=== PATIENT | male | born 1950 | race Caucasian/White ===

== ENCOUNTER 2019-04-19 14:08 | Inpatient (IN) ==
[2019-04-19] MEDS ORDERED: Naloxone 0.4 MG/ML INJ IVP PRN (20:52)
--- NOTE | 2019-04-19 20:56 | Internal Med History&Physical ---
<Zander Alfredo - Last Filed: 04/19/19 22:31> Date of Encounter: 04/19/19 Internal Medicine - H&P: HPI History of present illness: Mr. Davison is a 69 year old male Internal Medicine - H&P: Meds Apixaban [Eliquis] 5 mg PO BID 04/19/19 [History] Aspirin 81 mg PO QAM 04/19/19 [History] Ezetimibe [Zetia] 10 mg PO QAM 04/19/19 [History] Furosemide [Lasix] 20 mg PO TID 04/19/19 [History] Ipratropium Neb [Atrovent Neb] 0.5 mg IH QID 04/19/19 [History] Levalbuterol Neb [Xopenex Neb] 0.63 mg IH QID 04/19/19 [History] Metoprolol [Lopressor] 25 mg PO BID 04/19/19 [History] Mometasone/Formoterol [Dulera 200 Mcg/5 Mcg Inhaler] 13 gm IH BID 04/19/19 [History] Multivitamin PO QAM 04/19/19 [History] Nicotine Patch [Nicoderm] 14 mg TD DAILY 04/19/19 [History] dilTIAZem HCl [Diltiazem ER] 240 mg PO QAM 04/19/19 [History] Allergy/AdvReac Type Severity Reaction Status Date / Time Penicillins AdvReac Dizziness Verified 04/19/19 10:50 All Systems PM: A 10-system review of systems was performed and is negative for pertinent findings except as documented above in the HPI. - Constitutional Vitals: Temp Pulse Resp BP Pulse Ox 98.1 F 113 18 110/74 97 04/19/19 20:12 04/19/19 21:35 04/19/19 20:12 04/19/19 20:12 04/19/19 20:12 Internal Med - H&P Results - Labs Labs: Cardiac Enzymes 04/19/19 Range/Units 21:19 Troponin I 0.05 H* (< 0.04) ng/mL - Time Spent With Patient Total time spent is greater than 50% in coordination of care (as documented) at patient's floor/unit and/or counseling patient: - Attending Attestation I performed a history and physical examination of the patient and discussed his management with the resident. I reviewed the resident's note and agree with the assessment and plan of care. In short patient is a 69-year-old male with a past medical history of CHF, atrial fibrillation on anticoagulation and recent diagnosis of small cell lung cancer now on chemotherapy who presented to the ED due to worsening shortness of breath. Patient states she has been having dyspnea on exertion for the past couple weeks however developed worsening shortness of breath over the past few days since receiving his last chemotherapy treatment on Saturday. Patient does state that he ran out of his Lasix and took his last dose on Saturday as well. Patient also had chest pain on described as substernal, pressure-like, nonradiating associated shortness of breath. Patient called the squad at the time and were able to get him to slow his breathing down after which his chest pain resolved. He declined admission at the time. Patient denies any fever or chills. Does endorse a cough and has been nonproductive. Denies any chest pain at this time. Patient initially presented to [facility] where imaging showed a large right-sided pleural effusion. No evidence of leukocytosis. Troponin was found to be mildly elevated at 0.04. On my assessment patient was lying in bed on nasal cannula with no evidence of respiratory distress. Patient has diminished breath sounds on the right lung base. Heart rate was irregularly irregular in the 120s. Does have 2+ lower extremity edema bilaterally. Patient has had prior right-sided pleural effusion that was drained in the past. Dyspnea possibly secondary to reaccumulation of right-sided pleural effusion plus or minus CHF exacerbation. Low suspicion for any infectious etiology at this time as patient has no fever or white count. We will send for CTA to rule out PE and reassess degree of pleural fluid. Strict I's and O's; daily weights. We will obtain an echocardiogram. We will start patient on 20 mg of Lasix IV push twice a day. Pulmonary/oncology consult. <Ruby Heredia - Last Filed: 04/19/19 23:18> Date of Encounter: 04/19/19 Time of Encounter: 20:30 Internal Medicine - H&P: HPI Chief complaint: shortness of breath Admitted From: Hospital to Hospital Transfer Plans for Post Hospital Care: Home History of present illness: Mr. Davison is a 69 year old male with past medical history of CHF, AR, A. fib on L Maki, small cell lung cancer recently diagnosed on chemotherapy. Patient states that he had some chest pain he called the EMS and then decided not to go to the hospital because his pain subsided. Over the next few days he had increased shortness of breath and work to breathe for which his breathing treatments at home were not working. He decided to go to the hospital as he felt that his breathing was going downhill. He states that he ran out of Lasix on Saturday was given in 20 mg dose of his Lasix in the EMS. Patient was put on CPAP which she stated helped his breathing substantially. He was unable to be weaned off CPAP and was on 5 L of oxygen sat in the lower 90s. He was also given a dose of Levaquin. Chest x-ray was performed at [facility] showing volume loss in the right with large right pleural effusion and complete atelectasis of the right lower lobe and right middle lobe, patchy opacities in the right upper lobe, no pneumothorax, left lung clear. White blood cell count of 10.2 hemoglobin 9.3, hematocrit 30, INR 1.8, VBG pH of 7.41, creatinine 0.52, GFR greater than 60, LDH of 319, troponin of 0.05, BNP of 201 Vitals on admission 97.9 temperature, heart rate of 121, respiratory rate 20, wedge pressure of 125/91, and 94% oxygen saturation on 5 L by nasal cannula Patient states that he quit smoking mid-January as well as quit drinking at the beginning of January, denies any illicit drug use Family history father had liver cancer and AR, mother had AR Past Med Surg Social Fam HX - Past Medical History Medical history: atrial fibrillation, cancer, CHF, COPD, hyperlipidemia, hypertension - Past Surgical History Surgical History: vascular surgery - Social History Smoking Status: Former smoker Alcohol use: none Drug use: none - Family History Father Living Status: Age at : 72 Cause of : AR Hx Family Cardiac Disorders: Yes (AR) Hx Family Respiratory Disorders: No Hx Family Cancer: No Hx Family GI Disorders: No Hx Family Genitourinary Disorders: No Hx Family Endocrine Disorder: No Hx Family Musculoskeletal Disorders: No Hx Family Neuromuscular Disorders: No Hx Family Neurologic Disorders: No Hx Family HEENT Disorders: No Hx Family Autoimmune Disorders: No Hx Family Reproductive Disorders: No Hx Family Psychosocial Disorders: No Hx Family Medical Disorders: No Mother Living Status: Age at : 72 Cause of : AR Hx Family Cardiac Disorders: Yes (AR) Hx Family Respiratory Disorders: No Hx Family Cancer: No Hx Family GI Disorders: No Hx Family Genitourinary Disorders: No Hx Family Endocrine Disorder: No Hx Family Musculoskeletal Disorders: No Hx Family Neuromuscular Disorders: No Hx Family Neurologic Disorders: No Hx Family HEENT Disorders: No Hx Family Autoimmune Disorders: No Hx Family Reproductive Disorders: No Hx Family Psychosocial Disorders: No Hx Family Medical Disorders: No All Systems PM: A 10-system review of systems was performed and is negative for pertinent findings except as documented above in the HPI. - Constitutional Constitutional: fatigue, weakness, no anorexia, no chills, no fever(s) - EENT Eyes: no change in vision Nose, mouth and throat: no dry mouth, no nasal congestion, no sinus pressure, no sore throat - Cardiovascular Cardiovascular ROS IM: chest pain ( but has not had any since then), dyspnea, dyspnea on exertion, edema, no irregular heart rhythm, no palpitations, no syncope - Respiratory Respiratory: cough, dyspnea, dyspnea on exertion, no wheezing, no chest congestion, no excessive phlegm production - Gastrointestinal Gastrointestinal: no constipation, no diarrhea, no nausea, no vomiting - Genitourinary Genitourinary ROS male: no urinary frequency, no urinary hesitancy, no urinary incontinence, no urinary urgency - Musculoskeletal Musculoskeletal ROS IM: no back pain, no joint swelling - Integumentary Integumentary IM: no erythema, no pruritus, no rash - Constitutional Vitals: Temp Pulse Resp BP Pulse Ox 98.1 F 127 18 110/74 97 04/19/19 20:12 04/19/19 20:12 04/19/19 20:12 04/19/19 20:12 04/19/19 20:12 Exam: General: AAO 3, answers questions appropriately, mild distress Head: normocephalic, atraumatic Eyes: KALYANI, no icterus Mouth: Mucous membranes moist Neck: No lymphadenopathy, trachea midline Cardio: RRR, no mumurs, rubs, or gallops Respiratory: Decreased breath sounds throughout the right lung, left lung clear to auscultation with no wheezing, crackles, rails. Abd: normal bowel sounds, no gaurding or rigidity Extremties: 2+ pitting bilateral edema lower extremities, pulses equal bilaterally, warm Skin: warm, dry, intact - Assessment and Plan (1) Acute on chronic respiratory failure with hypoxia Current Visit: Yes Status: Acute Assessment and plan: Possibly secondary to pleural effusion first chemotherapy versus infection versus PE CTA ordered Infection less likely due to white blood cell count within normal limits, no fevers or chills Chemotherapy carboplatin and Neulasta can cause respiratory acidosispatient currently looks to have more of a metabolic alkalosis present Chest x-ray showed a loss on the right with large right pleural effusion, complete atelectasis on the right lower lobe, right middle lobe. Patchy airspace opacities involving the right upper lobe area concern for central obstructing lesion and postobstructive pneumonitis. Left lung clear, no pneumothorax identified. Continue oxygen supplementation. Reassess for need for CPAP depending on clinical picture Consider pulmonology consult based on CTA results (2) Acute on chronic congestive heart failure Current Visit: Yes Status: Acute Assessment and plan: Patient has history of CHF Has been on Lasix 20 mg 3 times a day Patient ran out of his Lasix on Saturday was given 1 dose of 20 mg orally via EMT en route [facility] We will give 1 dose 20 mg IV push We will reassess patient's fluid status after this Echocardiogram ordered Strict I's and O's Cardiac monitoring daily weights Qualifiers: Heart failure type: unspecified Qualified Code(s): I50.9 - Heart failure, unspecified (3) Chronic atrial fibrillation Current Visit: No Status: Acute Assessment and plan: Patient currently on eliquis and metoprolol for rate control We will hold eliquis for possible intervention for pleural effusion tomorrow (4) Small cell carcinoma of right lung Current Visit: No Status: Acute Assessment and plan: Patient has small cell lung cancer in the right lung currently on carboplatin, etoposide, Neulasta just finished second round of chemotherapy on Saturday Patient was noted to have a pleural effusion that was malignant effusion previously with 2 L drained (5) Elevated troponin Current Visit: No Status: Acute Assessment and plan: Patient's troponin was 0.05 at [facility] We will trend troponins every 6 Likely demand ischemia (6) DVT prophylaxis Current Visit: Yes Status: Acute Assessment and plan: Patient on eliquis - Time Spent With Patient Total time spent is greater than 50% in coordination of care (as documented) at patient's floor/unit and/or counseling patient:
[2019-04-19] MEDS ORDERED: Nitroglycerin 0.4 MG TAB.SUBL SL PRN (21:29)
[2019-04-19] MEDS ORDERED: Isovue-370 500 ML BOTTLE IVP ONE (21:30)
[2019-04-19] MEDS ORDERED: *HR* Metoprolol 5 MG/5 ML VIAL IVP ONE (21:46)
[2019-04-19] MEDS ORDERED: Furosemide 20 MG/2 ML VIAL IVP ONE (22:40)
[2019-04-20] MEDS: Levalbuterol Neb 0.63 MG/3 ML IH SCH ×4 (04:02→22:10)
[2019-04-20] MEDS: Ipratropium Neb 0.5 MG NEBULIZER IH SCH ×4 (04:02→22:10)
[2019-04-20] MEDS: Furosemide 20 MG/2 ML VIAL IVP SCH ×3 (04:57→21:09)
[2019-04-20] MEDS: Diltiazem CD (24hr) 240 MG CAPSULE PO SCH (07:58)
--- NOTE | 2019-04-20 08:09 | Internal Med Progress Note ---
Hospitalist Progress Note - Encounter Date of Encounter: 04/20/19 Time of Encounter: 08:00 - Subjective Interval History: Admitted for hypoxic resp failure 2/2 to pleural effusion. No acute events overnight - Exam Vitals: Temp Pulse Resp BP Pulse Ox 98.7 F 123 16 102/64 96 04/20/19 06:32 04/20/19 06:32 04/20/19 06:32 04/20/19 06:32 04/20/19 06:32 Exam: General: AAO 3, answers questions appropriately, mild distress Head: normocephalic, atraumatic Eyes: KALYANI, no icterus Mouth: Mucous membranes moist Neck: No lymphadenopathy, trachea midline Cardio: RRR, no mumurs, rubs, or gallops Respiratory: Decreased breath sounds throughout the right lung, left lung clear to auscultation with no wheezing, crackles, rails. Abd: normal bowel sounds, no gaurding or rigidity Extremties: 2+ pitting bilateral edema lower extremities, pulses equal bilaterally, warm Skin: warm, dry, intact - Assessment and Plan (1) Acute on chronic respiratory failure with hypoxia Current Visit: Yes Status: Acute Assessment and Plan: Likely secondary to recurrent malignant pleural effusion and pneumonia Continue empiric levaquin coverage Had thoracentesis done with removal of 1.4L of fluid. Follow up pleural fluid studies Will need pleurx catheter wheel presser (2) Acute on chronic congestive heart failure Current Visit: Yes Status: Acute Assessment and Plan: Has CHF, unknown EF and has edema bilaterally Will continue lasix. Obtain 2D echo (3) Lung cancer Current Visit: Yes Status: Acute Assessment and Plan: Currently on chemotherapy. Oncology consulted and recs appreciated (4) Recurrent pleural effusion on right Current Visit: Yes Status: Acute Assessment and Plan: See #1. Follow up pleural studies Will need pleurx catheter skilled nursing. Discussed with patient Can be performed outpatient (5) COPD (chronic obstructive pulmonary disease) Current Visit: Yes Status: Chronic Assessment and Plan: No acute exacerbation. continue nebs PRN (6) Chronic atrial fibrillation Current Visit: Yes Status: Acute Assessment and Plan: Continue metoprolol. Resume eliquis (7) DVT prophylaxis Current Visit: Yes Status: Acute Assessment and Plan: On eliquis - Time Spent with Patient Total time spent is greater than 50% in coordination of care (as documented) at patient's floor/unit and/or counseling patient: Internal Medicine: Result - Labs CBC & Chem 7: 04/20/19 06:59 04/20/19 06:59 Labs: Cardiac Enzymes 04/19/19 Range/Units 21:19 Troponin I 0.05 H* (< 0.04) ng/mL - Impressions Impressions Chest CTA 04/19/19 21:30 IMPRESSION: 1. No evidence of pulmonary embolism. 2. Redemonstration of a large soft tissue mass in the right hilum and mediastinum without significant change from 03/10/2019 likely representing a primary bronchogenic carcinoma. 3. Large right pleural effusion with complete atelectasis of the right middle and lower lobes. 4. Patchy consolidative opacities in the right upper lobe more organized than on 03/10/2019. This may represent multifocal pneumonia with neoplastic involvement not excluded. D/ / Slim Adkins MD / Slim Adkins MD Interpreting Provider: Slim Adkins MD Consult Discharge Plan - Plan Referrals: Emmanuel Jim MD [Primary Care Provider] - (2) Acute on chronic congestive heart failure Qualifiers: Heart failure type: unspecified Qualified Code(s): I50.9 - Heart failure, unspecified (5) COPD (chronic obstructive pulmonary disease) Qualifiers: COPD type: unspecified COPD Qualified Code(s): J44.9 - Chronic obstructive pulmonary disease, unspecified
[2019-04-20 08:18] LABS: Hematocrit 28.2 % (37.5-50.1); Hemoglobin 8.5 g/dL (12.9-16.9); Immature Granulocytes % 0.7 % (0-4); Lymphocytes # 0.1 K/mcL (0.6-4.6); Lymphocytes % 1.6 %; Mean Corpuscular HGB Conc 30.1 g/dL (31.6-35.5); Mean Corpuscular Hemoglobin 28.7 pg (28.0-33.3); Mean Corpuscular Volume 95.3 fL (83.0-100.0); Mean Platelet Volume 9.3 fL (9.4-12.4); Monocytes % 0.4 %; Neutrophils # 7.4 K/mcL (1.6-8.9); Platelet Count 455 K/mcL (140-400); Red Blood Count 2.96 M/mcL (4.19-5.50); Segmented Neutrophils % 97.3 %; White Blood Count 7.6 K/mcL (4.3-11.1)
[2019-04-20] MEDS: Levofloxacin 750 MG/150 ML 750 MG/150 ML BAG IVPB SCH (08:21)
[2019-04-20 08:23] LABS: INR 1.3; Prothrombin Time 14.1 Seconds (9.4-12.1)
[2019-04-20 08:26] LABS: Activated Partial Thrombo Time 29.6 Seconds (26.0-36.0)
[2019-04-20 08:46] LABS: Alanine Aminotransferase 78 Units/L (7-52); Albumin 4.1 g/dL (3.5-5.7); Albumin/Globulin Ratio 1.5 (1.1-2.2); Alkaline Phosphatase 73 Units/L (34-104); Aspartate Amino Transferase 40 Units/L (13-39); BUN/Creatinine Ratio 49 (6-26); Bilirubin,Total 0.5 mg/dL (0.3-1.0); Blood Urea Nitrogen 20 mg/dL (8-23); Calcium 9.5 mg/dL (8.6-10.3); Carbon Dioxide 40 mEq/L (23-29); Chloride 95 mEq/L (98-107); Globulin 2.8 g/dL (2.4-3.5); Glucose 146 mg/dL (70-105); Magnesium 2.1 mg/dL (1.6-2.6); Osmolality,Calculated 297 (280-300); Potassium 4.2 mEq/L (3.5-5.1); Sodium 141 mEq/L (136-145); Total Protein 6.9 g/dL (6.4-8.9); eGFR For African Americans > 60 (> 60); eGFR For Non-African Americans > 60 (> 60)
[2019-04-20 09:00] LABS: Platelet Estimate Normal (Normal)
[2019-04-20] MEDS ORDERED: NON-FORMULARY MEDICATION 1 EACH EACH (Ezetimibe [Zetia] 10 MG) PO SCH (09:00)
--- NOTE | 2019-04-20 11:07 | Procedure Note ---
<Cordelia Brown - Last Filed: 04/20/19 11:07> Date of procedure: 04/20/19 Pre-op diagnosis: Right pleural effusion Post-op diagnosis: same Procedure: Thoracentesis Date: 04/20/19 Time: 1107 Indication: Large Right pleural effusion Resident: Cordelia Brown DO Attending: Dr. Ascencio A time-out was completed verifying correct patient, procedure, site, positioning, and special equipment if applicable. The patients right side was p repped and draped in a sterile manner after the appropriate infiltration level was confirmed by ultrasound. 1% lidocaine was used anesthetize the surrounding skin. A finder needle was then used to locate fluid and clear yellow fluid was obtained. A 10-blade scalpel used to make the incision. The thoracentesis catheter was then threaded without difficulty. The patient had 1400 ml of serosanguineous fluid removed. My attending, Dr. Ascencio was present for the entire procedure. A post-procedure chest x-ray was ordered and the fluid will be sent for several studies. Estimated Blood Loss: < 5 ml The patient tolerated the procedure well and there were no complications. Anesthesia: local Was there an medical assistant float present: Yes Refrigerator Repairman: John Ascencio Estimated blood loss (cc): 5 Specimen: Pleural fluid Pathology: other (sent to lab) Condition: stable Disposition: no change <John Ascencio - Last Filed: 04/20/19 12:22> Procedure: I examined this patient and my medical decision-making was reviewed with the Resident Physician. I agree with the documented findings, disposition and treatment plan as described except to the extent set forth below. I personally supervised Dr. Brown performing the procedure without immediate complications.
[2019-04-20] MEDS: Budesonide/Formoterol 160/4.5 1 PUFF INH IH SCH ×2 (11:35→22:10)
--- NOTE | 2019-04-20 12:25 | Pulmonology Consult Note ---
Date of Encounter: 04/22/19 Time of Encounter: 10:50 Assessment and Plan (1) Recurrent pleural effusion on right Current Visit: Yes Status: Acute I have explained to the patient in the presence of the nurse about thoracentesis and since he has had this procedure recently and the fluid reaccumulated, I have recommended Pleurx pleural catheter and he can discuss that with his oncologist. I have explained to him all the risks, alternatives and benefits of the procedure, especially bleeding and he understand and he agreed to have it done, which was successfully done and patient had quit result and able to breathe easier. This was discussed with primary team and thank you for consultation. Fluid will be sent for analysis. (2) Small cell carcinoma of right lung Current Visit: No Status: Acute Patient is following up with oncology. (3) COPD (chronic obstructive pulmonary disease) Current Visit: Yes Status: Chronic I do not feel this is a COPD exacerbation and to treat with bronchodilator is appropriate and need for systemic steroid. Qualifiers: COPD type: unspecified COPD Qualified Code(s): J44.9 - Chronic obstructive pulmonary disease, unspecified (4) Hypotension Current Visit: Yes Status: Acute Rapid response was called and blood pressure was found to be low and my kwong spicion there is fluid and possibly affecting his blood pressure. Patient will need to be challenge with fluid and then albumin may be helpful. Patient might need to be on vasopressor if his blood pressure does not improve. Central line was placed and discussed with primary team. Patient will be treated as ICU patient in 2 N. because there are no beds in ICU at this time. Patient is more responsive, however his systolic arterial blood pressure around 80s and will need to check CT chest and because of his underlying malignancy he is at risk for thromboembolic disease and need to make sure there is no pulmonary embolism which is less likely, however he will need CT chest for better visualization. With the fluid reaccumulation quickly, that is a poor prognosis. Again, most likely he will need Pleurx pleural catheter. I spent 35 min of Critical Care time with this patient. It involved decision making of high complexity to assess, manipulate, and support vital organ system failure and/or to prevent further life threatening deterioration of the patient's condition. The time involved in the performance of separately reportable procedures was not counted toward critical care time. Qualifiers: Hypotension type: unspecified hypotension type Qualified Code(s): I95.9 - Hypotension, unspecified History of Present Illness Consult date: 04/20/19 Requesting physician: Nita Mccloud Reason for consult: pleural effusion Chief complaint: Shortness of breath History of present illness: This is a very pleasant 69-year-old male with multiple medical problems and di agnosis of small cell lung cancer on chemotherapy. Pulmonary was consulted to evaluate this patient shortness of breath and large pleural effusion which was recently drained in [place]. Patient is stated after fluid was drained his breathing has improved and he started having more shortness of breath and increase work of breathing and he was transferred to [facility] for that reason. When he was placed on positive airway pressure his breathing has improved and patient has been on oxygen. Chest x-ray and CT chest showed evidence of large pleural effusion with atelectasis mainly in the right side. Patient denies any significant productive cough or chest pain and he has no hemoptysis. Again, he follows up in the cancer center for his treatment. Past Med Surg Social Fam HX - Past Medical History Medical history: atrial fibrillation, cancer, CHF, COPD, hyperlipidemia, hypertension - Past Surgical History Surgical History: vascular surgery - Social History Smoking Status: Former smoker Alcohol use: none Drug use: none - Family History Father Living Status: Age at : 72 Cause of : OR Hx Family Cardiac Disorders: Yes (OR) Hx Family Respiratory Disorders: No Hx Family Cancer: No Hx Family GI Disorders: No Hx Family Genitourinary Disorders: No Hx Family Endocrine Disorder: No Hx Family Musculoskeletal Disorders: No Hx Family Neuromuscular Disorders: No Hx Family Neurologic Disorders: No Hx Family HEENT Disorders: No Hx Family Autoimmune Disorders: No Hx Family Reproductive Disorders: No Hx Family Psychosocial Disorders: No Hx Family Medical Disorders: No Mother Living Status: Age at : 72 Cause of : OR Hx Family Cardiac Disorders: Yes (OR) Hx Family Respiratory Disorders: No Hx Family Cancer: No Hx Family GI Disorders: No Hx Family Genitourinary Disorders: No Hx Family Endocrine Disorder: No Hx Family Musculoskeletal Disorders: No Hx Family Neuromuscular Disorders: No Hx Family Neurologic Disorders: No Hx Family HEENT Disorders: No Hx Family Autoimmune Disorders: No Hx Family Reproductive Disorders: No Hx Family Psychosocial Disorders: No Hx Family Medical Disorders: No Medications and Allergies Apixaban [Eliquis] 5 mg PO BID 04/19/19 [History] Aspirin 81 mg PO QAM 04/19/19 [History] Ezetimibe [Zetia] 10 mg PO QAM 04/19/19 [History] Furosemide [Lasix] 20 mg PO TID 04/19/19 [History] Ipratropium Neb [Atrovent Neb] 0.5 mg IH QID 04/19/19 [History] Levalbuterol Neb [Xopenex Neb] 0.63 mg IH QID 04/19/19 [History] Metoprolol [Lopressor] 25 mg PO BID 04/19/19 [History] Mometasone/Formoterol [Dulera 200 Mcg/5 Mcg Inhaler] 13 gm IH BID 04/19/19 [History] Multivitamin PO QAM 04/19/19 [History] Nicotine Patch [Nicoderm] 14 mg TD DAILY 04/19/19 [History] dilTIAZem HCl [Diltiazem ER] 240 mg PO QAM 04/19/19 [History] Allergy/AdvReac Type Severity Reaction Status Date / Time Penicillins AdvReac Dizziness Verified 04/19/19 10:50 All Systems: The remainder of the systems were reviewed and are negative Physical Examination Vital Signs: Vital Signs, Last 4 Hours Temp Pulse Resp BP Pulse Ox 04/20/19 11:34 18 95 04/20/19 11:11 98.1 F 96 16 89/67 98 General appearance: appears uncomfortable Eyes: nonicteric ENT: oropharynx dry Neck: supple Effort: mildly labored Auscultation: left: rhonchi, right: diminished breath sounds Percussion: right: dull Cardiovascular: regular rate and rhythm Gastrointestinal: normoactive bowel sounds, non-distended Integumentary: normal Extremities: no cyanosis normal mental status, non-focal exam mood appropriate Results - Laboratory Findings CBC and BMP: 04/22/19 04:00 04/22/19 04:00 PT/INR, D-dimer PT 14.1 Seconds (9.4-12.1) H 04/20/19 06:59 Abnormal lab findings: Abnormal lab results RBC 2.96 M/mcL (4.19-5.50) L 04/20/19 06:59 Hgb 8.5 g/dL (12.9-16.9) L 04/20/19 06:59 Hct 28.2 % (37.5-50.1) L 04/20/19 06:59 MCHC 30.1 g/dL (31.6-35.5) L 04/20/19 06:59 RDW 15.0 % (11.5-14.5) H 04/20/19 06:59 Plt Count 455 K/mcL (140-400) H 04/20/19 06:59 MPV 9.3 fL (9.4-12.4) L 04/20/19 06:59 0.1 K/mcL (0.6-4.6) L 04/20/19 06:59 PT 14.1 Seconds (9.4-12.1) H 04/20/19 06:59 Chloride 95 mEq/L (98-107) L 04/20/19 06:59 Carbon Dioxide 40 mEq/L (23-29) H* 04/20/19 06:59 0.41 mg/dL (0.70-1.30) L 04/20/19 06:59 49 (6-26) H 04/20/19 06:59 Glucose 146 mg/dL (70-105) H 04/20/19 06:59 POC Glucose 118 mg/dL (70-99) H 04/20/19 11:13 AST 40 Units/L (13-39) H 04/20/19 06:59 ALT 78 Units/L (7-52) H 04/20/19 06:59 0.06 ng/mL (< 0.04) H* 04/20/19 06:59 - Diagnostic Findings CT scan - chest: report reviewed, image reviewed - Clinical Findings Intake & Output: Intake & Output 04/19/19 04/20/19 04/20/19 23:59 07:59 15:59 Output Total 150 / 150 950 / 1450 500 / 1450 Balance -150 / -150 -950 / -1450 -500 / -1450 Weight 96 kg 95 kg Consult Discharge Plan - Plan Referrals: Emmanuel Jim MD [Primary Care Provider] -
[2019-04-20 13:04] LABS: Troponin I 0.06 ng/mL (< 0.04)
[2019-04-20] MEDS ORDERED: 0.9 % Sodium Chloride 1,000 ML ONE ×2 (14:22→15:53)
[2019-04-20] MEDS ORDERED: *HR* FentaNYL (PF) 100 MCG/2 ML VIAL ONE (14:38)
[2019-04-20 14:54] LABS: ABG Base Excess 7 mEq/L (-2 to 3); ABG HCO3 32 mEq/L (21-27); ABG Oxygen Saturation 100 % (95-98); ABG PCO2 46 mmHg (35-45); ABG PH 7.45 pH Units (7.32-7.45); ABG PO2 343 mmHg (85-104); ABG TCO2 33 mEq/L (20-26)
[2019-04-20] MEDS ORDERED: Amiodarone Premix 150 MG/100 ML BAG IVPB ONE (15:24)
[2019-04-20] MEDS ORDERED: Amiodarone Premix 360 MG/200 ML BAG IVC ONE (15:24)
[2019-04-20] MEDS ORDERED: Amiodarone Premix 360 MG/200 ML BAG IVC SCH (15:30)
--- NOTE | 2019-04-20 15:42 | Event Note ---
Date of Encounter: 04/20/19 Time of Encounter: 16:00 Rapid response was called at 2.21pm. Patient was reportedly unresponsive. He had a thoracentesis earlier today. On arrival at the bedside his hands and feet were cold and clammy, and he was hypotensive and tachycardic. Systolic BP was in the 70s. We started a bolus of normal saline and obtained an EKG stat. EKG showed afib with RVR. With his hypotension, he got cardioverted, but his BP remained in the 70s. He was started on a levophed drip and a central line was placed. His systolic BP is in the 90s and HR ranges from low 100s -high 120s. He is being started on an amiodarone drip. Cardiology has been consulted Blood sugar was WNL. Follow up cxr, cardiac enzymes. ABG on 100% FiO2 showed ph 7.4, PCO2 46 and PO2 of 345. Will broaden antibiotic coverage Will continue to monitor
--- NOTE | 2019-04-20 16:00 | Procedure Note ---
<Juan Pablo Morales - Last Filed: 04/20/19 15:49> Date of procedure: 04/20/19 Pre-op diagnosis: Hypotension Post-op diagnosis: same Procedure: Procedure Note: Central Venous Catheter Insertion Indication: Shock Attending Physician: Jhon Ascencio MD Joinery Patternmaker: Juan Pablo Morales, DO Consent: The patient was acutely hypotensive Technique: A time out was preformed identifying the correct procedure, the correct location with the nursing staff. The left neck was prepped with 2% chlorhexidine and draped with a full length sterile sheet in the usual fashion. Attempted to access the left IJ multiple times under ultrasound guidance, and was able to visualize needle entering vessel however did not see flash of blood. Dr. Ascencio was able to access the vessel using angiocath successfully. A triple lumen was inserted via the seldinger technique. Blood was withdrawn from all lumens and flushed with normal saline. The catheter was sutured in place and a sterile dressing was applied over the site prior to removal of drapes. The patient tolerated the procedure well and there were no complications. Chest x ray: Tip appears to terminate in the SVC above the cavoatrial junction however no obvious pneumothorax noted EBL: 3-5cc Complication: None Anesthesia: local Surgeon: Juan Pablo Morales Was there an chef assistant present: Yes [place]um Roofer: John Ascencio Estimated blood loss (cc): 3 Specimen: n/a Pathology: none sent Condition: critical Disposition: ICU <John Ascencio - Last Filed: 04/20/19 16:06> Procedure: The history, physical exam, and medical decision making was performed by the medical student either while I was physically present and actively involved or I personally re-performed the exam and medical decision making. I have verified the accuracy of the medical student's documentation with regards to the history, physical exam findings, and medical decision making. I have personally supervised and Dr. Morales placing central line without immediate complications.
[2019-04-20 16:32] LABS: RBC,Pleural Fluid 0.002 M/mcL
[2019-04-20 16:45] LABS: Appearance of Pleural Fl Clear (Clear)
[2019-04-20] MEDS: Cefepime HCl 2,000 MG in Water for inj. (sterile) 20 ML 20 ML IVP SCH (16:56)
[2019-04-20 16:57] LABS: Total Protein,Pleural Fluid 3.1 g/dL
[2019-04-20] MEDS ORDERED: 0.9 % Sodium Chloride 1,000 ML IVC ONE (16:59)
[2019-04-20] MEDS: Norepinephrine 4 MG in D5% in Water 250 ML IVC SCH (17:08)
[2019-04-20] MEDS ORDERED: Apixaban 5 MG TABLET PO SCH (21:00)
[2019-04-20 22:05] LABS: Hematocrit 16.6 % (37.5-50.1); Mean Corpuscular HGB Conc 31.3 g/dL (31.6-35.5); Mean Corpuscular Hemoglobin 29.4 pg (28.0-33.3); Mean Corpuscular Volume 93.8 fL (83.0-100.0); Platelet Count 288 K/mcL (140-400); Red Blood Count 1.77 M/mcL (4.19-5.50); Red Cell Distribution Width 14.5 % (11.5-14.5); White Blood Count 19.1 K/mcL (4.3-11.1)
[2019-04-20 22:13] LABS: Hemoglobin 5.2 g/dL (12.9-16.9)
[2019-04-20] MEDS ORDERED: 0.9 % Sodium Chloride 250 ML ONE (23:47)
[2019-04-21] MEDS: Norepinephrine 4 MG in D5% in Water 250 ML IVC SCH ×3 (04:16→19:42)
[2019-04-21] MEDS: Levalbuterol Neb 0.63 MG/3 ML IH SCH ×4 (04:22→22:14)
[2019-04-21] MEDS: Ipratropium Neb 0.5 MG NEBULIZER IH SCH ×4 (04:22→21:48)
[2019-04-21] MEDS: Cefepime HCl 2,000 MG in Water for inj. (sterile) 20 ML 20 ML IVP SCH ×2 (06:06→17:31)
--- NOTE | 2019-04-21 07:53 | Internal Med Progress Note ---
Hospitalist Progress Note - Encounter Date of Encounter: 04/21/19 Time of Encounter: 07:50 - Subjective Interval History: Had a thoracentesis doen in last 24hrs. Was hypotensive and tachycardic and a rapid response was called. he was started on levophed CT showed new hemothorax. He is being seen by CT surgery today - Exam Vitals: Temp Pulse Resp BP Pulse Ox 98.7 F 122 15 106/84 98 04/21/19 07:33 04/21/19 07:33 04/21/19 07:33 04/21/19 07:33 04/21/19 07:33 Exam: General: AAO 3, answers questions appropriately, mild distress Head: normocephalic, atraumatic Eyes: KALYANI, no icterus Mouth: Mucous membranes moist Neck: No lymphadenopathy, trachea midline Cardio: RRR, no mumurs, rubs, or gallops Respiratory: Decreased breath sounds throughout the right lung, left lung clear to auscultation with no wheezing, crackles, rails. Abd: normal bowel sounds, no gaurding or rigidity Extremties: 2+ pitting bilateral edema lower extremities, pulses equal bilaterally, warm Skin: warm, dry, intact - Assessment and Plan (1) Hypovolemic shock Current Visit: Yes Status: Acute Assessment and Plan: Pt went into hypovolemic shock yesterday secondary to acute blood loss from hemothorax He had an uneventful thoracentesis at around 11pm yesterday and at around 2.20 pm a rapid response was called for unresponsiveness He was noted to be clammy, hypotensive and tachycardic. EKG was done stat and showed afib with RVR His BP dropped to the 60s and he had to be cardioverted stat due to how unstable he was. BP came up to the 70s and HR dropped to the 120s A central line was placed and he was started on levophed A CXR showed right sided opacification and CT chest showed new hemothorax Cardiothoracic surgery took him to the OR today for chest tube placement and ev acuation of right hemithorax BP dropped to 5 and patient has been transfused 3 units of PRBC. BP is stable on levophed (2) Hemothorax Current Visit: Yes Status: Acute Assessment and Plan: See #1. CT surgery took him to OR today for evacuation of hemothorax and pleurodesis Monitor CBC (3) Atrial fibrillation with RVR Current Visit: Yes Status: Acute Assessment and Plan: AFib with RVr likely triggered by hypovolemia and hemothorax impairing venous return. s/p cardioversion On amiodarone and levophed Hemothorax evacuated today (4) Acute on chronic respiratory failure with hypoxia Current Visit: Yes Status: Acute Assessment and Plan: Likely secondary to recurrent malignant pleural effusion and pneumonia Continue empiric levaquin coverage Had thoracentesis done with removal of 1.4L of fluid. Follow up pleural fluid studies Placed on BIPAP secondary to severe respiratory distress from hemothorax Went to OR for evacuation of hemothorax today (5) Acute on chronic congestive heart failure Current Visit: Yes Status: Acute Assessment and Plan: Has CHF, unknown EF and has edema bilaterally Lasix on hold 2/2 to hypovolemic shock (6) Lung cancer Current Visit: Yes Status: Acute Assessment and Plan: Currently on chemotherapy. Oncology consulted and recs appreciated (7) Pneumonia Current Visit: Yes Status: Acute Assessment and Plan: On vanc, cefepime and levaquin. Initially on levaquin but regimen was broadened secondary to shock of unclear etiology before hemothorax was diagnosed May wean off antibiotics as tolerarted (8) Recurrent pleural effusion on right Current Visit: Yes Status: Acute Assessment and Plan: See #1. Follow up pleural studies Effusion was exudative likley 2/2 to malignancy will need pleurx catheter [facility] (9) COPD (chronic obstructive pulmonary disease) Current Visit: Yes Status: Chronic Assessment and Plan: No acute exacerbation. continue nebs PRN (10) Chronic atrial fibrillation Current Visit: Yes Status: Acute Assessment and Plan: On amiodarone. Hold eliquis (11) Acute blood loss anemia Current Visit: Yes Status: Acute Assessment and Plan: Secondary to hemothorax. see #1 transfused PRBC (12) DVT prophylaxis Current Visit: Yes Status: Acute Assessment and Plan: On eliquis - Time Spent with Patient Total time spent is greater than 50% in coordination of care (as documented) at patient's floor/unit and/or counseling patient: Internal Medicine: Result - Labs CBC & Chem 7: 04/21/19 09:05 04/21/19 09:05 Labs: Short CBC 04/20/19 04/20/19 Range/Units 06:59 21:41 WBC 7.6 19.1 H D (4.3-11.1) K/mcL Hgb 8.5 L 5.2 L* D (12.9-16.9) g/dL Hct 28.2 L 16.6 L (37.5-50.1) % Plt Count 455 H 288 (140-400) K/mcL Neutrophils # 7.4 (1.6-8.9) K/mcL BMP 04/20/19 06:59 Sodium 141 Potassium 4.2 Chloride 95 L Carbon Dioxide 40 H* BUN 20 Creatinine 0.41 L Glucose 146 H Calcium 9.5 Cardiac Enzymes 04/20/19 04/20/19 04/20/19 Range/Units 06:59 12:06 15:38 Troponin I 0.06 H* 0.06 H* 0.06 H* (< 0.04) ng/mL Liver Function 04/20/19 Range/Units 06:59 Total Bilirubin 0.5 (0.3-1.0) mg/dL AST 40 H (13-39) Units/L ALT 78 H (7-52) Units/L Alkaline Phosphatase 73 (34-104) Units/L Albumin 4.1 (3.5-5.7) g/dL - ABG Interpretation ABG results: ABG ABG pH 7.45 pH Units (7.32-7.45) 04/20/19 14:48 ABG pCO2 46 mmHg (35-45) H 04/20/19 14:48 ABG pO2 343 mmHg (85-104) H 04/20/19 14:48 ABG O2 Saturation 100 % (95-98) H 04/20/19 14:48 PT/INR, D-dimer PT 14.1 Seconds (9.4-12.1) H 04/20/19 06:59 - Impressions Impressions Chest X-Ray 04/20/19 10:50 IMPRESSION: No pneumothorax. Persistent large right pleural effusion. Right upper lobe opacity may represent consolidation or loculated fluid. D/ / 04/20/2019 12:14:58 Lenny Velasquez MD / Sondra Epstein Interpreting Provider: Lenny Velasquez MD Chest X-Ray 04/20/19 14:25 IMPRESSION: 1. Near complete opacification right hemithorax with a small pneumatized component of the right upper lobe compatible diffuse consolidation and large volume pleural effusion. Pneumonia or underlying malignancy are considerations; correlate with clinical history. 2. Left lung is clear. 3. Cardiac silhouette is obscured on the right. 4. Calcific atherosclerotic disease aorta. 5. Left IJ CVC tip overlies the proximal superior vena cava level. D/ / Tone Peters / Tone Peters Interpreting Provider: Tone Peters Abdomen/Pelvis CT 04/20/19 15:53 IMPRESSION: Chest CT: Large right pleural effusion, with heterogeneous hyperdensity internally, compatible with a large hemothorax. There is complete collapse of the right lower lobe and right middle lobe. Partial collapse of the right upper lobe. Lobulated mass in the right hilum, not as well evaluated without intravenous contrast and given the size of the hemothorax. That said, it appears similar to mildly decreased in size. Abdomen pelvis CT: No acute abnormality. D/ / Satya Gutierrez MD / Satya Gutierrez MD Interpreting Provider: Satya Gutierrez MD Chest CT 04/20/19 15:53 IMPRESSION: Chest CT: Large right pleural effusion, with heterogeneous hyperdensity internally, compatible with a large hemothorax. There is complete collapse of the right lower lobe and right middle lobe. Partial collapse of the right upper lobe. Lobulated mass in the right hilum, not as well evaluated without intravenous contrast and given the size of the hemothorax. That said, it appears similar to mildly decreased in size. Abdomen pelvis CT: No acute abnormality. D/ / Satya Gutierrez MD / Satya Gutierrez MD Interpreting Provider: Satya Gutierrez MD Chest X-Ray 04/21/19 06:04 IMPRESSION: Complete opacification of the right hemithorax, which can be secondary to effusion, underlying airspace disease, and/or atelectasis. D/ / Javier Simmons MD / Javier Simmons MD Interpreting Provider: Javier Simmons MD Consult Discharge Plan - Plan Referrals: Emmanuel Jim MD [Primary Care Provider] - (5) Acute on chronic congestive heart failure Qualifiers: Heart failure type: unspecified Qualified Code(s): I50.9 - Heart failure, unspecified (9) COPD (chronic obstructive pulmonary disease) Qualifiers: COPD type: unspecified COPD Qualified Code(s): J44.9 - Chronic obstructive pulmonary disease, unspecified
[2019-04-21] MEDS ORDERED: Lidocaine -MPF 2% 5 ML VIAL ONE (08:10)
[2019-04-21] MEDS: Levofloxacin 750 MG/150 ML 750 MG/150 ML BAG IVPB SCH (08:49)
[2019-04-21] MEDS: Diltiazem CD (24hr) 240 MG CAPSULE PO SCH (08:53)
[2019-04-21] MEDS: Furosemide 20 MG/2 ML VIAL IVP SCH (08:56)
[2019-04-21] MEDS ORDERED: TALC (Sterile Pwd) 4 GM VIAL IX ONE (09:00)
[2019-04-21] MEDS ORDERED: Aspirin 81 MG TAB.CHEW PO SCH (09:00)
--- NOTE | 2019-04-21 09:17 | Anesthesia Evaluation PreOp ---
Date of Encounter: 04/21/19 Time of Encounter: 09:19 - Past History Planned Operation: Bronch R VATS poss thoracotomy Cardiac History: CHF (20-25%), Arrhythmia (Afib RVR on eliquis last dose 9 pm last night, on amiodarone infusion), Other (hypotension requiring vasopressor support, CAD, PVD lower exteity stents) Pulmonary History: Former smoker, COPD (2-3 L oxygen prior to this incident), Other (metastatic small cell lung cancer, hemothorax s/p thoracentesis, requiring BIPAP) ANALYTICAL RESEARCH CHEMIST History: Denies Any Significant HX Other Medical History: Denies Any Significant HX Anesthesia History: No Prior Anesthetic Complications, Past Anesthesia Alcohol Use: none Drug use: none Medications and Allergies Apixaban [Eliquis] 5 mg PO BID 04/19/19 [History] Aspirin 81 mg PO QAM 04/19/19 [History] Ezetimibe [Zetia] 10 mg PO QAM 04/19/19 [History] Furosemide [Lasix] 20 mg PO TID 04/19/19 [History] Ipratropium Neb [Atrovent Neb] 0.5 mg IH QID 04/19/19 [History] Levalbuterol Neb [Xopenex Neb] 0.63 mg IH QID 04/19/19 [History] Metoprolol [Lopressor] 25 mg PO BID 04/19/19 [History] Mometasone/Formoterol [Dulera 200 Mcg/5 Mcg Inhaler] 13 gm IH BID 04/19/19 [History] Multivitamin PO QAM 04/19/19 [History] Nicotine Patch [Nicoderm] 14 mg TD DAILY 04/19/19 [History] dilTIAZem HCl [Diltiazem ER] 240 mg PO QAM 04/19/19 [History] Allergy/AdvReac Type Severity Reaction Status Date / Time Penicillins AdvReac Dizziness Verified 04/19/19 10:50 - Meds/Allergy Pre-op Review Medications Reviewed: Yes Allergies Reviewed: Yes Beta Blockers on Current Med List: Yes (metoprolol) Anesthesia Results - Labs 04/20/19 21:41 04/20/19 06:59 Laboratory Tests 04/20/19 14:48 ABG pH 7.45 ABG pCO2 46 H ABG pO2 343 H ABG HCO3 32 H ABG Total CO2 33 H - Imaging EKG: report reviewed Additional studies: CT/CT chest wo con IMPRESSION: Chest CT: Large right pleural effusion, with heterogeneous hyperdensity internally, compatible with a large hemothorax. There is complete collapse of the right lower lobe and right middle lobe. Partial collapse of the right upper lobe. Lobulated mass in the right hilum, not as well evaluated without intravenous contrast and given the size of the hemothorax. That said, it appears similar to mildly decreased in size. Anesthesia Exam Vital Signs/O2 Sat/Glucose, Most Recent Temp Pulse Resp BP Pulse Ox 97.5 F L 129 18 104/82 98 04/21/19 08:19 04/21/19 08:19 04/21/19 08:19 04/21/19 08:19 04/21/19 07:33 Blood Glucose* 136 Weight: 95 kg NPO (# of Hours): > 8 hr - HEENT Pupil (Motor): Pupils equal Teeth: Edentulous - ANALYTICAL RESEARCH CHEMIST LOC: Oriented ANALYTICAL RESEARCH CHEMIST Motor: Normal RUE, Normal LUE, Normal RLE, Normal LLE, Normal Face ANALYTICAL RESEARCH CHEMIST Sensory: Normal: RUE, LUE, RLE, LLE, Face - Cardiac Rhythm: Irregular Murmur: None - Pulmonary Breath Sounds: left Clear Anesthesia Assess/Plan ASA Score: 4, E Level of consciousness: Cooperative, Oriented Anesthetic Plan: General Monitoring Plan: Standard Monitors, A-Line Recovery Plan: PACU
[2019-04-21] MEDS ORDERED: Heparin 1,000 UNITS/500 mL 500 ML ONE (09:22)
[2019-04-21] MEDS ORDERED: *HR* Midazolam HCl 5 MG/5 ML VIAL IVP ONE (09:31)
[2019-04-21] MEDS ORDERED: *HR* FentaNYL (PF) 250 MCG/5 ML VIAL ONE (09:31)
[2019-04-21] MEDS ORDERED: *HR* Succinylcholine 200 MG/10 ML VIAL IVP ONE (09:37)
[2019-04-21 09:42] LABS: Basophils % 0.1 %; Eosinophils % 0.1 %; Hematocrit 26.5 % (37.5-50.1); Immature Granulocytes % 0.8 % (0-4); Lymphocytes # 0.7 K/mcL (0.6-4.6); Lymphocytes % 6.7 %; Mean Corpuscular HGB Conc 32.5 g/dL (31.6-35.5); Mean Corpuscular Hemoglobin 29.1 pg (28.0-33.3); Mean Corpuscular Volume 89.5 fL (83.0-100.0); Mean Platelet Volume 9.2 fL (9.4-12.4); Monocytes % 0.3 %; Neutrophils # 9.3 K/mcL (1.6-8.9); Platelet Count 204 K/mcL (140-400); Red Blood Count 2.96 M/mcL (4.19-5.50); Red Cell Distribution Width 14.9 % (11.5-14.5); White Blood Count 10.1 K/mcL (4.3-11.1)
[2019-04-21 09:46] LABS: Hemoglobin 8.6 g/dL (12.9-16.9)
[2019-04-21] MEDS ORDERED: SUGAMMADEX SODIUM 500 MG/5 ML VIAL IV ONE (09:55)
[2019-04-21] MEDS ORDERED: *HR* PHENYLEPHRINE 1,000 MCG/10 ML SYRINGE IVP ONE (09:55)
[2019-04-21] MEDS ORDERED: *HR* Rocuronium Bromide 50 MG/5 ML VIAL ONE (09:55)
[2019-04-21] MEDS ORDERED: *HR* Etomidate 20 MG/10 ML AMPUL IVP ONE (09:55)
[2019-04-21] MEDS ORDERED: Famotidine 20 MG/2 ML VIAL ONE (09:55)
[2019-04-21] MEDS ORDERED: Dexamethasone 4 MG/ML VIAL ONE (09:55)
[2019-04-21] MEDS ORDERED: *HR* Magnesium Sulfate 1 GM/2 ML VIAL ONE (09:56)
[2019-04-21 09:59] LABS: BUN/Creatinine Ratio 37 (6-26); Blood Urea Nitrogen 22 mg/dL (8-23); Calcium 8.1 mg/dL (8.6-10.3); Carbon Dioxide 36 mEq/L (23-29); Chloride 100 mEq/L (98-107); Glucose 132 mg/dL (70-105); Magnesium 1.8 mg/dL (1.6-2.6); Osmolality,Calculated 293 (280-300); Phosphorous 2.8 mg/dL (2.7-4.5); Potassium 3.7 mEq/L (3.5-5.1); Sodium 139 mEq/L (136-145); eGFR For African Americans > 60 (> 60); eGFR For Non-African Americans > 60 (> 60)
[2019-04-21] MEDS: Budesonide/Formoterol 160/4.5 1 PUFF INH IH SCH ×2 (10:18→21:48)
--- NOTE | 2019-04-21 10:20 | Cardiology Consult Note ---
Date of Encounter: 04/21/19 Time of Encounter: 10:00 Assessment and Plan (1) Chronic atrial fibrillation Current Visit: Yes Status: Acute May hold Eliquis temporarily with findings of hemothorax in setting of metastatic lung cancer. He is currently still in RVR likely 2/2 underlying cancer/COPD/pleural effusion. Continue amiodarone and start digoxin with 500mcg IV now. BP less likely to tolerate CCB/BB. (2) Acute exacerbation of chronic obstructive airways disease Current Visit: No Status: Acute per primary team (3) Small cell carcinoma of right lung Current Visit: No Status: Acute (4) Acute on chronic congestive heart failure Current Visit: Yes Status: Acute sp chest tube. Cannot tolerate BB/ACEI at this time. Qualifiers: Heart failure type: unspecified Qualified Code(s): I50.9 - Heart failure, unspecified (5) Recurrent pleural effusion on right Current Visit: Yes Status: Acute Discussion w patient/family: The assessment and plan as outlined above was discussed with the patient and/or family members who expressed understanding and agreement. All questions were answered. Thank you for involving us in the care of your patient. Please call with any questions. History of Present Illness Consult date: 04/21/19 Chief complaint: Dyspnea History of present illness: Mr. Davison is a 69 year old male with history of metastatic small cell lung carcinoma on palliative chemotherapy sp cycle 2, AF on amiodarone and Eliquis, systolic CHF EF 20-25% here with dyspnea and findings of left hemothorax and collapsed lung. He is sp thoracentesis/chest tube and feels better with improved dyspnea currently on face mask. He states he is always in AF and has been on Eliquis for a couple of years. He notes a very minimal chest ache that hasn't changed recently. Past Med Surg Social Fam HX - Past Medical History Medical history: atrial fibrillation, cancer, CHF, COPD, hyperlipidemia, hypertension - Past Surgical History Surgical History: vascular surgery - Social History Smoking Status: Former smoker Alcohol use: none Drug use: none - Family History Father Living Status: Age at : 72 Cause of : [place] Hx Family Cardiac Disorders: Yes ([place]) Hx Family Respiratory Disorders: No Hx Family Cancer: No Hx Family GI Disorders: No Hx Family Genitourinary Disorders: No Hx Family Endocrine Disorder: No Hx Family Musculoskeletal Disorders: No Hx Family Neuromuscular Disorders: No Hx Family Neurologic Disorders: No Hx Family HEENT Disorders: No Hx Family Autoimmune Disorders: No Hx Family Reproductive Disorders: No Hx Family Psychosocial Disorders: No Hx Family Medical Disorders: No Mother Living Status: Age at : 72 Cause of : MA Hx Family Cardiac Disorders: Yes ([place]) Hx Family Respiratory Disorders: No Hx Family Cancer: No Hx Family GI Disorders: No Hx Family Genitourinary Disorders: No Hx Family Endocrine Disorder: No Hx Family Musculoskeletal Disorders: No Hx Family Neuromuscular Disorders: No Hx Family Neurologic Disorders: No Hx Family HEENT Disorders: No Hx Family Autoimmune Disorders: No Hx Family Reproductive Disorders: No Hx Family Psychosocial Disorders: No Hx Family Medical Disorders: No Medications and Allergies Apixaban [Eliquis] 5 mg PO BID 04/19/19 [History] Aspirin 81 mg PO QAM 04/19/19 [History] Ezetimibe [Zetia] 10 mg PO QAM 04/19/19 [History] Furosemide [Lasix] 20 mg PO TID 04/19/19 [History] Ipratropium Neb [Atrovent Neb] 0.5 mg IH QID 04/19/19 [History] Levalbuterol Neb [Xopenex Neb] 0.63 mg IH QID 04/19/19 [History] Metoprolol [Lopressor] 25 mg PO BID 04/19/19 [History] Mometasone/Formoterol [Dulera 200 Mcg/5 Mcg Inhaler] 13 gm IH BID 04/19/19 [History] Multivitamin PO QAM 04/19/19 [History] Nicotine Patch [Nicoderm] 14 mg TD DAILY 04/19/19 [History] dilTIAZem HCl [Diltiazem ER] 240 mg PO QAM 04/19/19 [History] Allergy/AdvReac Type Severity Reaction Status Date / Time Penicillins AdvReac Dizziness Verified 04/19/19 10:50 All Systems Review: The remainder of the systems were reviewed and are negative - Constitutional Constitutional: no malaise, no snoring - EENT Nose, mouth and throat: no sinus pain, no throat swelling - Cardiovascular Cardiovascular: irregular heart rhythm, no syncope - Respiratory Respiratory: dyspnea, wheezing - Gastrointestinal Gastrointestinal: hematemesis, no hematochezia, no melena - Musculoskeletal Musculoskeletal: no abnormal gait, no back pain - Integumentary Integumentary: no erythema, no unusual bruising - Neurological Neurological: no memory loss, no syncope - Psychiatric Psychiatric: no hallucinations, no panic attacks - Hematological/Lymphatic Hematologic/Lymphatic: no easy bleeding, no easy bruising Physical Examination Vital Signs, Last 4 Hours Temp Pulse Resp BP Pulse Ox 04/21/19 09:50 130 16 110/84 98 04/21/19 09:00 126 18 109/88 95 04/21/19 08:19 97.5 F L 129 18 104/82 04/21/19 07:33 98.7 F 122 15 106/84 98 04/21/19 07:18 128 17 106/84 99 04/21/19 06:26 21 98/78 100 General: Conversant HEENT: Atraumatic Neck: No JVD Cardiac: Other (irr irr S1 S2) Lungs: Other (coarse) Neuro: Alert and responsive Abdomen: Soft Skin: No rashes noted on visualized skin Musculoskeletal: No Chest Wall Tenderness Extremities: No Edema Results 04/21/19 09:05 04/21/19 09:05 Lab Results 04/20/19 04/20/19 04/20/19 12:06 15:38 21:41 WBC 19.1 H D Hgb 5.2 L* D Hct 16.6 L Plt Count 288 Sodium Potassium Chloride Carbon Dioxide BUN Creatinine Glucose Calcium Magnesium Troponin I 0.06 H* 0.06 H* 04/21/19 04/21/19 09:05 09:05 WBC 10.1 Hgb 8.6 L D Hct 26.5 L Plt Count 204 Sodium 139 Potassium 3.7 Chloride 100 Carbon Dioxide 36 H BUN 22 Creatinine 0.60 L Glucose 132 H Calcium 8.1 L Magnesium 1.8 Troponin I - EKG Interpretation EKG results cardiology: personally reviewed (AF) Consult Discharge Plan - Plan Referrals: Emmanuel Jim MD [Primary Care Provider] -
[2019-04-21] MEDS ORDERED: Amiodarone Premix 360 MG/200 ML BAG IVC ONE (10:44)
[2019-04-21 10:45] LABS: ABG Base Excess 7 mEq/L (-2 to 3); ABG Chloride 97 mEq/L (98-107); ABG Glucose 157 mg/dL (60-95); ABG HCO3 33 mEq/L (21-27); ABG Ionized Calcium 1.12 mmol/L (1.15-1.35); ABG Oxygen Saturation 100 % (95-98); ABG PCO2 54 mmHg (35-45); ABG PO2 422 mmHg (85-104); ABG TCO2 35 mEq/L (20-26)
--- NOTE | 2019-04-21 11:29 | Operative Note ---
Date of procedure: 04/21/19 Pre-op diagnosis: traumatic hemothorax, malignant pleural effusion Post-op diagnosis: same Procedure: dx bronchoscopy right vats evacuation of traumatic hemothorax mechanical and talc pleurodesis Anesthesia: GETA Local Anesthetics: 0.5% Sensorcaine HCL SubQ (cc) Surgeon: Javier Mckeon Co-Surgeon: Aleksandra Greenberg Was there an medical claims assistant present: No Estimated blood loss (cc): 5 Specimen: clot Condition: stable Disposition: PACU Procedure in Detail: The patient was brought emergently to the operating room from the stepdown unit on inotropic agents for blood pressure transfusion for an acute blood loss anemia. His placed on the operating room table in the supine position underwent general anesthesia and bronchoscopy was used to confirm double-lumen endotracheal tube placement and to ensure that the obstruction is seen in the bronchus intermedius was extrinsic and not related to the small cell lung lung cancer. If that was the fact, we change the procedure to include a debulking of the airway and or Pleurx catheter insertion. Patient was noted to have extrinsic compression of the tracheobronchial tree and not endobronchial extension of tumor. He was then placed on the operating room table in the left lateral decubitus position with care to pad all pressure points. Prepped and draped in the usual sterile fashion. 3 thoracoscopy ports were placed in the total of 4900 mL of liquefied blood and clot were evacuated from the pleural space the area where the thoracentesis was performed with currently not bleeding. The lung did insufflate to fill the entire thoracic cavity and because of this a mechanical and talc pleurodesis were performed as pathology previously demonstrated small cell lung cancer within the pleural effusion. Once performing a mechanical and talc pleurodesis, [place] chest tubes were placed through 2 of the thoracoscopy ports and secured into place with Ethibond suture. The third port site was closed with 0 Vicryl and 4-0 Monocryl subcuticular stitches with dressings consisting of Steri-Strips and sterile gauze. Patient was extubated and taken to the intensive care unit breathing spontaneously hemodynamically stable on 2.5 mics of norepinephrine.
[2019-04-21] MEDS ORDERED: 0.9 % Sodium Chloride 1,000 ML IVC SCH (11:30)
--- NOTE | 2019-04-21 11:36 | Anesthesia Procedures ---
Date of Encounter: 04/21/19 Time of Encounter: 11:35 Procedures: Anesthesia - Arterial Line Consent obtained: written consent Time out performed: Yes Sedation: Fentanyl (mcg): 50 Supplemental Oxygen via Nasal Cannula (L/min): 4 Local Anesthetic: Lidocaine 1% Size (Gauge): 20 Length (inches): 1 3/4 Technique Used: sterile prep, direct puncture technique Post-Procedure: line taped into place, dry sterile dressing placed Patient tolerated procedure: well, no complications Complications: none Site: Radial L Vitals: see anesthesia record
--- NOTE | 2019-04-21 11:40 | Anesthesia Evaluation Post Op ---
Date of Encounter: 04/21/19 Time of Encounter: 11:39 - Vital Signs Vital Signs: Vital Signs/O2 Sat/Glucose, Most Recent Temp Pulse Resp BP Pulse Ox 97.5 F L 130 16 110/84 98 04/21/19 08:19 04/21/19 09:50 04/21/19 09:50 04/21/19 09:50 04/21/19 09:50 Blood Glucose* 136 - Lungs Lungs: Clear Ascult./Percussion - Airway Airway: Non-obstructed - Cardiovascular Irregular Rate (amiodarone started in OR) - Mental Status Mental Status: Sedated - Pain Pain Scale: 2 - Nausea Vomiting Nausea Vomiting: Not Present - Hydration Hydration: NPO, Cochran catheter - Discharge Attestation: patient transported to ICU in stable condition
[2019-04-21] MEDS ORDERED: Naloxone 0.4 MG/ML INJ IVP PRN (12:40)
[2019-04-21] MEDS ORDERED: Nitroglycerin 0.4 MG TAB.SUBL SL PRN (12:40)
[2019-04-21] MEDS: *HR* HYDROcodone/Acet 5/325 mg TABLET PO PRN ×2 (13:21→23:29)
[2019-04-21 13:28] LABS: Hematocrit 27.7 % (37.5-50.1); Mean Corpuscular HGB Conc 32.5 g/dL (31.6-35.5); Mean Corpuscular Hemoglobin 29.3 pg (28.0-33.3); Mean Corpuscular Volume 90.2 fL (83.0-100.0); Mean Platelet Volume 9.6 fL (9.4-12.4); Platelet Count 226 K/mcL (140-400); Red Blood Count 3.07 M/mcL (4.19-5.50); Red Cell Distribution Width 15.2 % (11.5-14.5)
[2019-04-21] MEDS ORDERED: *HR* Digoxin 0.5 MG/2 ML AMPUL IVP ONE (13:35)
[2019-04-21 13:53] LABS: White Blood Count 16.5 K/mcL (4.3-11.1)
[2019-04-21 14:12] LABS: Lymphocytes # 0.7 K/mcL (0.6-4.6); Neutrophils # 15.8 K/mcL (1.6-8.9); Platelet Estimate Normal (Normal)
[2019-04-21 14:21] LABS: BUN/Creatinine Ratio 35 (6-26); Blood Urea Nitrogen 22 mg/dL (8-23); Calcium 7.9 mg/dL (8.6-10.3); Carbon Dioxide 32 mEq/L (23-29); Chloride 100 mEq/L (98-107); Glucose 143 mg/dL (70-105); Osmolality,Calculated 294 (280-300); Sodium 139 mEq/L (136-145); eGFR For African Americans > 60 (> 60); eGFR For Non-African Americans > 60 (> 60)
[2019-04-21] MEDS: *HR* HYDROmorphone (PF) 1 MG/ML SYRINGE IVP PRN ×2 (14:36→17:30)
[2019-04-21] MEDS: Amiodarone Premix 360 MG/200 ML BAG IVC SCH ×2 (14:40→17:33)
[2019-04-21 15:14] LABS: INR 1.6
[2019-04-21] MEDS ORDERED: Perflutren Lipid Microsphere 1.3 ML in 0.9 % Sodium Chloride 8.7 ML IVP ONE (16:13)
--- NOTE | 2019-04-21 17:20 | Pulmonology Progress Note ---
Date of Encounter: 04/21/19 Time of Encounter: 07:30 Assessment and Plan (1) Hypovolemic shock Current Visit: Yes Status: Acute Patient was resuscitated successfully with blood transfusion and unfortunately he had significant bleeding which is not clear whether it was related to the procedure or not since during the procedure there was no evidence of any active bleeding and did not have any complication immediately postprocedure. Patient was on blood thinner Apixaban and that could have something to do with bleeding. Other possibility this could be just malignant effusion and high risk of bleeding. Patient was weaning of the Levophed successfully with a blood transfusion. Discussed with the hospitalist last night and if his condition deteriorate then we will need thoracic surgeon to evaluate the patient which was subsequently done and he had a surgery. (2) Hemothorax Current Visit: Yes Status: Acute This is complicated and unfortunately with his dyspnea and large pleural effusion therapeutic thoracentesis was done with him being on blood thinner and history of lung cancer and malignant effusion, patient had bleeding after procedure and. I did bedside ultrasound with evidence of large pleural effusion and I discussed with the patient of need for at least chest tube placement and he agreed to have it done, however thoracic surgeon has done surgery for this pa tient and unfortunately blood thinner was given to the patient even after the procedure because of the history of A. fib. This was all explained to the patient and he understand and agreed with the plan. Patient was transferred to ICU after the procedure and be monitored closely. Patient was managed with noninvasive ventilation and low dose vasopressor. Will need to monitor H&H closely. I spent min 35 of Critical Care time with this patient. It involved decision making of high complexity to assess, manipulate, and support vital organ system failure and/or to prevent further life threatening deterioration of the patient's condition. The time involved in the performance of separately reportable procedures was not counted toward critical care time. (3) Recurrent pleural effusion on right Current Visit: Yes Status: Acute (4) Small cell carcinoma of right lung Current Visit: No Status: Acute (5) COPD (chronic obstructive pulmonary disease) Current Visit: Yes Status: Chronic Qualifiers: COPD type: unspecified COPD Qualified Code(s): J44.9 - Chronic obstructive pulmonary disease, unspecified (6) Hypotension Current Visit: Yes Status: Acute Qualifiers: Hypotension type: unspecified hypotension type Qualified Code(s): I95.9 - Hypotension, unspecified (7) Lung cancer Current Visit: Yes Status: Chronic Qualifiers: Laterality: unspecified laterality Lung location: unspecified part of lung Qualified Code(s): C34.90 - Malignant neoplasm of unspecified part of unspecified bronchus or lung Subjective Principal diagnosis: Dyspnea Interval history: Patient is also hypertensive and anemia with worsening cough his right pleural effusion. Patient is feeling better on that noninvasive ventilation. Objective PUL Vital signs: Last Vital Signs Temp 97.7 F 04/21/19 13:00 Pulse 122 04/21/19 16:00 Resp 16 04/21/19 16:00 BP 118/62 04/21/19 16:00 Pulse Ox 95 04/21/19 16:00 General appearance: no acute distress Eyes: nonicteric ENT: oropharynx dry Neck: supple Effort: normal (On the noninvasive ventilation) Auscultation: left: clear, right: diminished breath sounds Percussion: left: not dull, right: dull Tactile fremitus: right: diminished Cardiovascular: irregular rhythm Gastrointestinal: normoactive bowel sounds, non-distended Extremities: no cyanosis, edema normal mental status, non-focal exam mood appropriate Results - Laboratory Findings CBC and BMP: 04/21/19 11:47 04/21/19 11:47 ABG ABG pH 7.40 pH Units (7.32-7.45) 04/21/19 10:41 ABG pCO2 54 mmHg (35-45) H 04/21/19 10:41 ABG pO2 422 mmHg (85-104) H 04/21/19 10:41 ABG O2 Saturation 100 % (95-98) H 04/21/19 10:41 PT/INR, D-dimer PT 18.0 Seconds (9.4-12.1) H 04/21/19 14:55 Abnormal lab findings: Abnormal lab results WBC 16.5 K/mcL (4.3-11.1) H D 04/21/19 11:47 RBC 3.07 M/mcL (4.19-5.50) L 04/21/19 11:47 Hgb 9.0 g/dL (12.9-16.9) L 04/21/19 11:47 Hct 27.7 % (37.5-50.1) L 04/21/19 11:47 MCHC 31.3 g/dL (31.6-35.5) L 04/20/19 21:41 RDW 15.2 % (11.5-14.5) H 04/21/19 11:47 Plt Count 455 K/mcL (140-400) H 04/20/19 06:59 MPV 9.2 fL (9.4-12.4) L 04/21/19 09:05 15.8 K/mcL (1.6-8.9) H 04/21/19 11:47 0.1 K/mcL (0.6-4.6) L 04/20/19 06:59 PT 18.0 Seconds (9.4-12.1) H 04/21/19 14:55 ABG pCO2 54 mmHg (35-45) H 04/21/19 10:41 ABG pO2 422 mmHg (85-104) H 04/21/19 10:41 ABG HCO3 33 mEq/L (21-27) H 04/21/19 10:41 ABG Total CO2 35 mEq/L (20-26) H 04/21/19 10:41 ABG O2 Saturation 100 % (95-98) H 04/21/19 10:41 ABG Base Excess 7 mEq/L (-2 to 3) H 04/21/19 10:41 ABG Hematocrit 27.0 % (37.5-50.1) L 04/21/19 10:41 ABG Chloride 97 mEq/L (98-107) L 04/21/19 10:41 Glucose 157 mg/dL (60-95) H 04/21/19 10:41 Chloride 95 mEq/L (98-107) L 04/20/19 06:59 Carbon Dioxide 32 mEq/L (23-29) H 04/21/19 11:47 0.63 mg/dL (0.70-1.30) L 04/21/19 11:47 35 (6-26) H 04/21/19 11:47 Glucose 143 mg/dL (70-105) H 04/21/19 11:47 POC Glucose 154 mg/dL (70-99) H 04/21/19 11:28 Calcium 7.9 mg/dL (8.6-10.3) L 04/21/19 11:47 AST 40 Units/L (13-39) H 04/20/19 06:59 ALT 78 Units/L (7-52) H 04/20/19 06:59 0.06 ng/mL (< 0.04) H* 04/20/19 15:38 1.12 mmol/L (1.15-1.35) L 04/21/19 10:41 Crossmatch See Detail 04/20/19 22:28 - Microbiology Findings Microbiology Findings: Microbiology, Last 48 Hours 04/20/19 16:02 Blood Culture - Preliminary Central Venous Catheter Culture is incubating and being continuously monitored for growth. Final report to follow. 04/20/19 15:58 Blood Culture - Preliminary Central Venous Catheter Culture is incubating and being continuously monitored for growth. Final report to follow. - Diagnostic Findings CT scan - chest: report reviewed, image reviewed - Clinical Findings Intake & Output: Intake & Output 04/21/19 04/21/19 04/21/19 07:59 15:59 23:59 Intake Total 737 / 1219 382 / 1219 100 / 1219 Output Total 360 / 6275 5915 / 6275 Balance 377 / -5056 -5533 / -5056 100 / -5056 Weight 95 kg Consult Discharge Plan - Plan Referrals: Emmanuel Jim MD [Primary Care Provider] -
[2019-04-21] MEDS: Gabapentin 300 MG CAPSULE PO SCH ×2 (17:30→19:40)
--- NOTE | 2019-04-21 17:54 | Oncology Inp Consult Note ---
<Cynthia Salamanca L - Last Filed: 04/22/19 08:16> Date of Encounter: 04/21/19 Time of Encounter: 15:00 Assessment and Plan (1) Acute blood loss anemia Status: Acute Assessment and plan: 2/2 hemothorax with hypovolemic shock, managed in ICU S/P 3 units PRBC with stabilization of hgb S/P right vats evacuation of traumatic hemothorax, mechanical and talc pleurodesis today with a total of 4900 mL of liquefied blood and clot evacuated from the pleural space the area where the thoracentesis was performed-today 04/21 Plan: Appreciate continued recs per ICU/CT Surgery Continue to monitor CBC, check iron profile in AM (2) Small cell carcinoma of right lung Status: Acute Assessment and plan: Metastatic small cell carcinoma, AJCC Stage IV, s/p cycle #2 of carboplatin, etoposide with atezolizumab on 04/15/2019 Plan: Continue to monitor blood counts given recent treatment Appears to not be responding well given his rapid re-accumulation of pleural fluid s/p 2 cycles treatment Further treatment to be arranged on outpatient basis following improvement of acute issues - Data of Consult Patient: known to practice within the last 3 years Consult date: 04/21/19 Requesting Physician: Claudette Alberto Primary Care Provider: Emmanuel Jim MD - Consult Narrative Reason for consult: Small Cell Lung Cancer History of present illness: Mr. Davison is a 69 year old male with past medical history significant for metastatic small cell carcinoma, s/p cycle #2 of carboplatin, etoposide with atezolizumab on 04/15/2019. He has a history of malignant effusion with recent thoracentesis in [place] around time of initial diagnosis. Patient initially presented to [facility] for worsening SOB. He was transferred to [facility] for further evaluation. CTA chest revealed redemonstration of a large soft tissue mass in the right hilum and mediastinum, large right pleural effusion with complete atelectasis of the right middle and lower lobes as well as patchy consolidative opacities in the right upper lobe. He underwent thoracentesis on 04/20/2019 with drainage of 1.4L fluid. Around 1500 he developed acute hypovolemic shock and became hypotensive/tachycardic. He was noted to be in a-fib with RVR and unstable, cardioversion was attempted but unsuccessful. CT of the chest was obtained at that time which had shown a large right pleural effusion, with heterogeneous hyperdensity internally, compatible with a large hemothorax. There is complete collapse of the right lower lobe and right middle lobe. Partial collapse of the right upper lobe. He underwent right vats evacuation of traumatic hemothorax, mechanical and talc pleurodesis today with a total of 4900 mL of liquefied blood and clot evacuated from the pleural space the area where the thoracentesis was performed. Past Med Surg Social Fam HX - Past Medical History Medical history: atrial fibrillation, cancer, CHF, COPD, hyperlipidemia, hypertension - Past Surgical History Surgical History: vascular surgery - Social History Smoking Status: Former smoker Alcohol use: none Drug use: none - Family History Father Living Status: Age at : 72 Cause of : CT Hx Family Cardiac Disorders: Yes (CT) Hx Family Respiratory Disorders: No Hx Family Cancer: No Hx Family GI Disorders: No Hx Family Genitourinary Disorders: No Hx Family Endocrine Disorder: No Hx Family Musculoskeletal Disorders: No Hx Family Neuromuscular Disorders: No Hx Family Neurologic Disorders: No Hx Family HEENT Disorders: No Hx Family Autoimmune Disorders: No Hx Family Reproductive Disorders: No Hx Family Psychosocial Disorders: No Hx Family Medical Disorders: No Mother Living Status: Age at : 72 Cause of : [place] Hx Family Cardiac Disorders: Yes (CT) Hx Family Respiratory Disorders: No Hx Family Cancer: No Hx Family GI Disorders: No Hx Family Genitourinary Disorders: No Hx Family Endocrine Disorder: No Hx Family Musculoskeletal Disorders: No Hx Family Neuromuscular Disorders: No Hx Family Neurologic Disorders: No Hx Family HEENT Disorders: No Hx Family Autoimmune Disorders: No Hx Family Reproductive Disorders: No Hx Family Psychosocial Disorders: No Hx Family Medical Disorders: No Medications and Allergies Apixaban [Eliquis] 5 mg PO BID 04/19/19 [History] Ezetimibe [Zetia] 10 mg PO DAILY 04/19/19 [History] Levalbuterol Neb [Xopenex Neb] 0.63 mg IH QID 04/19/19 [History] Metoprolol [Lopressor] 25 mg PO BID 04/19/19 [History] Multivitamin [Daily Multiple Vitamin] 1 tab PO DAILY 04/19/19 [History] Nicotine Patch [Nicoderm] 14 mg TD DAILY 04/19/19 [History] ALPRAZolam [Xanax 0.5 MG Tablet] 0.5 mg PO Q6H PRN 04/22/19 [History] Aspirin [Adult Aspirin Regimen] 81 mg PO DAILY 04/22/19 [History] Atorvastatin Calcium [Lipitor] 80 mg PO QPM 04/22/19 [History] Diltiazem CD (24hr) [Cardizem CD] 240 mg PO DAILY 04/22/19 [History] Ferrous Sulfate [Iron] 325 mg PO DAILY 04/22/19 [History] Furosemide [Lasix] 20 mg PO DAILY 04/22/19 [History] Ipratropium Neb [Atrovent Neb] 0.5 mg IH QID 04/22/19 [History] Mometasone/Formoterol [Dulera 200 Mcg/5 Mcg Inhaler] 2 puff IH BID 04/22/19 [History] Sennosides/Docusate Sodium [Senna Plus] 1 tab PO DAILY 04/22/19 [History] Allergy/AdvReac Type Severity Reaction Status Date / Time Penicillins AdvReac Dizziness Verified 04/19/19 10:50 Constitutional: Present: fatigue. Absent: anorexia, chills, fever(s), headache(s), weight loss Eyes: Absent: change in vision Nose, mouth and throat: Absent: dysphagia, odynophagia Cardiovascular: Present: irregular heart rhythm, palpitations. Absent: chest pain Respiratory: Present: as per HPI, cough, dyspnea Gastrointestinal: Absent: abdominal pain, diarrhea, nausea, vomiting Genitourinary: Absent: dysuria, hematuria Musculoskeletal: Present: as per HPI, muscle weakness Integumentary: Absent: rash, wounds Neurological: Absent: dizziness, focal weakness Psychiatric: Present: as per HPI. Absent: confusion Hematologic/Lymphatic: Present: as per HPI Oncology - Exam - Constitutional General appearance: cooperative, no acute distress, no febrile Exam: chronically ill appearing - Head Head exam: Present: atraumatic - ENT ENT exam: Present: mucous membranes dry, normal oropharynx - Respiratory Respiratory exam: Present: CTAB. Absent: respiratory distress - Cardiovascular Cardiovascular exam: Present: irregular rhythm, tachycardia - GI/Abdominal GI/Abdominal exam: Present: normal bowel sounds, soft. Absent: tenderness - Extremities Exam Extremities exam: Present: pedal edema. Absent: calf tenderness - Neurological Exam Neurological exam: Present: alert, oriented X3, no focal deficits, strengths equal and symetr throughout - Psychiatric Psychiatric exam: Present: normal affect, normal mood - Skin Skin exam: Present: dry, pallor, warm Consult Discharge Plan - Plan Referrals: Emmanuel Jim MD [Primary Care Provider] - Inpatient Charges Provider: Dr. Teja Armstrong <Armando Armstrong - Last Filed: 04/22/19 21:26> Date of Encounter: 04/21/19 - Data of Consult Requesting Physician: Loyd Garcia MD Primary Care Provider: Emmanuel Jim MD - Attending Attestation I have seen and examined Mr. Davison agree with Ms. Salamanca's assessment and plan. Aron is a patient currently under my care for metastatic small cell carcinoma of the lung. Patient has cytology proven involvement of the right pleural space. He recently completed cycle #2 of chemotherapy and immunotherapy. He presented to the hospital with worsening shortness of breath thought secondary to a pleural effusion. An with thoracentesis but unfortunately developed a hemothorax. Dr. Mckeon and I discussed the case and we both agreed that chest tube placement and talcum pleurodesis would benefit this patient. This was com pleted today. Currently, he is recovering from the surgery. He is very short of breath and tachycardic. No fever, chill or symptom of infection. Lungs with coarse breath sounds bilaterally. No new skin rash or lesion. Cardiology is assisting with atrial fibrillation. Anticoagulation on hold secondary to recent hemothorax. Continue supportive measures. No new recommendations from our perspective. Inpatient Charges Provider: Dr. Teja Armstrong Consult - Inpatient Medicare Only: [id number]
[2019-04-21] MEDS ORDERED: Amiodarone Premix 150 MG/100 ML BAG IVPB ONE ×2 (18:23→18:27)
[2019-04-21 18:51] LABS: Hematocrit 29.9 % (37.5-50.1); Hemoglobin 9.7 g/dL (12.9-16.9)
[2019-04-21] MEDS: *HR* Digoxin 0.5 MG/2 ML AMPUL IVP SCH (19:40)
--- NOTE | 2019-04-21 23:02 | Electrocardiograph Report ---
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
[2019-04-22] MEDS: *HR* Digoxin 0.5 MG/2 ML AMPUL IVP SCH (01:56)
[2019-04-22] MEDS: Levalbuterol Neb 0.63 MG/3 ML IH SCH ×4 (03:47→21:59)
[2019-04-22] MEDS: Ipratropium Neb 0.5 MG NEBULIZER IH SCH ×4 (03:47→21:59)
[2019-04-22 04:17] LABS: Hematocrit 25.6 % (37.5-50.1); Hemoglobin 8.6 g/dL (12.9-16.9); Mean Corpuscular HGB Conc 33.6 g/dL (31.6-35.5); Mean Corpuscular Hemoglobin 29.6 pg (28.0-33.3); Mean Platelet Volume 9.2 fL (9.4-12.4); Platelet Count 182 K/mcL (140-400); Red Blood Count 2.91 M/mcL (4.19-5.50); Red Cell Distribution Width 14.6 % (11.5-14.5); White Blood Count 17.4 K/mcL (4.3-11.1)
[2019-04-22 04:41] LABS: Lymphocytes # 0.4 K/mcL (0.6-4.6); Neutrophils # 17.1 K/mcL (1.6-8.9); Platelet Estimate Normal (Normal)
[2019-04-22 05:06] LABS: Ferritin 1013 ng/mL (20-250)
[2019-04-22] MEDS: *HR* HYDROcodone/Acet 5/325 mg TABLET PO PRN ×3 (05:26→19:15)
[2019-04-22] MEDS: Cefepime HCl 2,000 MG in Water for inj. (sterile) 20 ML 20 ML IVP SCH (05:26)
[2019-04-22] MEDS: Amiodarone Premix 360 MG/200 ML BAG IVC SCH (05:31)
[2019-04-22 05:33] LABS: BUN/Creatinine Ratio 38 (6-26); Blood Urea Nitrogen 27 mg/dL (8-23); Calcium 7.9 mg/dL (8.6-10.3); Carbon Dioxide 32 mEq/L (23-29); Chloride 96 mEq/L (98-107); Glucose 187 mg/dL (70-105); Magnesium 1.8 mg/dL (1.6-2.6); Osmolality,Calculated 286 (280-300); Phosphorous 2.6 mg/dL (2.7-4.5); Potassium 4.1 mEq/L (3.5-5.1); Sodium 133 mEq/L (136-145); eGFR For African Americans > 60 (> 60); eGFR For Non-African Americans > 60 (> 60)
[2019-04-22 05:39] LABS: % Iron Saturation 23 % (20-55); Iron 49 mcg/dL (65-175); Transferrin 149 mg/dL (203-362)
[2019-04-22] MEDS ORDERED: Aminoglycoside Consult 1 EACH MC ONE (08:01)
[2019-04-22] MEDS: *HR* HYDROmorphone (PF) 1 MG/ML SYRINGE IVP PRN ×4 (08:17→23:23)
[2019-04-22] MEDS: Gabapentin 300 MG CAPSULE PO SCH ×3 (08:18→20:00)
[2019-04-22] MEDS: Diltiazem CD (24hr) 240 MG CAPSULE PO SCH (08:18)
[2019-04-22] MEDS: Aspirin 81 MG TAB.CHEW PO SCH (08:18)
[2019-04-22] MEDS ORDERED: Levofloxacin 750 MG/150 ML 750 MG/150 ML BAG IVPB SCH (09:00)
[2019-04-22] MEDS: Budesonide/Formoterol 160/4.5 1 PUFF INH IH SCH ×2 (09:54→21:59)
--- NOTE | 2019-04-22 10:19 | Cardiothoracic Progress Note ---
Date of Encounter: 04/22/19 Time of Encounter: 10:17 - Assessment and plan (1) Malignant pleural effusion Current Visit: Yes Status: Acute The assessment and plan as outlined above was discussed with the patient and/or family members who expressed understanding and agreement. All questions were answered. continue chest tube to suction. (2) Traumatic hemothorax, initial encounter Current Visit: Yes Status: Acute The assessment and plan as outlined above was discussed with the patient and/or family members who expressed understanding and agreement. All questions were answered. give fluid bolus. remove atrial line. remove norepi by this afternoon. (3) Atrial fibrillation Current Visit: Yes Status: Acute The assessment and plan as outlined above was discussed with the patient and/or family members who expressed understanding and agreement. All questions were answered. replace mg and po. change amiodarone to po. Qualifiers: Atrial fibrillation type: chronic Qualified Code(s): I48.2 - Chronic atrial fibrillation - Subjective Interval history: feels great. hasnt been able to lie flat for days. Vital Signs, Last 4 Hours Temp Resp BP Pulse Ox 04/22/19 09:55 18 103/57 100 04/22/19 07:53 98.1 F Oxgyen Flow Rate Oxygen Flow Rate (LPM) 8 Clinical Data, last 8 Hours Output, Chest Tube Drainage 70 Amount [Right Lateral Chest] Output, Chest Tube Drainage 70 Amount [Right Lateral Chest] Weight 04/20/19 04/21/19 04/22/19 23:59 23:59 23:59 Weight 95 kg 95 kg 95.5 kg - Physical Examination General: Conversant, No Apparent Distress, Well developed, Well nourished HEENT: Atraumatic, Normocephaly, Trachea midline Neck: No JVD Cardiac: Other (irregular irregular) Incision: No signs of infection, Dry/intact dressing Chest tubes: Other (thin serosanguinous drainage decreasing over night. ) Lungs: Other (cta on the left. decrased at the right base. chest xray with improved aeration of the right lung.) Neuro: Alert and responsive, No focal deficits noted, Cranial nerves intact, Motor nerves intact, Sensory nerves intact Vascular: Normal capillary refill Abdomen: Soft, Non-tender, Other (ate breakfast. no nausea or vomiting ) - Labs 04/22/19 04:00 04/22/19 04:00 Lab Results, Last 24 hours 04/21/19 04/21/19 04/21/19 11:47 11:47 14:55 WBC 16.5 H D Hgb 9.0 L Hct 27.7 L Plt Count 226 INR 1.6 Sodium 139 Potassium 4.0 Chloride 100 Carbon Dioxide 32 H BUN 22 Creatinine 0.63 L Glucose 143 H Calcium 7.9 L Magnesium 2.0 04/21/19 04/22/19 04/22/19 18:32 04:00 04:00 WBC 17.4 H Hgb 9.7 L 8.6 L Hct 29.9 L 25.6 L Plt Count 182 INR Sodium 133 L Potassium 4.1 Chloride 96 L Carbon Dioxide 32 H BUN 27 H Creatinine 0.72 Glucose 187 H Calcium 7.9 L Magnesium 1.8 - Imaging Chest Xray: image reviewed Consult Discharge Plan - Plan Referrals: Emmanuel Jim MD [Primary Care Provider] -
--- NOTE | 2019-04-22 11:33 | Cardiology Progress Note ---
Date of Encounter: 04/22/19 Time of Encounter: 11:30 Assessment and Plan (1) Chronic atrial fibrillation Current Visit: Yes Status: Acute May hold Eliquis with findings of hemothorax in setting of metastatic lung cancer. He is currently still in RVR likely 2/2 underlying cancer/COPD/pleural effusion. Continue amiodarone, he was started on his home dose of CCB/BB and avg HR improved. (2) Acute exacerbation of chronic obstructive airways disease Current Visit: No Status: Acute per primary team (3) Small cell carcinoma of right lung Current Visit: No Status: Acute (4) Recurrent pleural effusion on right Current Visit: Yes Status: Acute sp chest tube Discussion w patient/family: The assessment and plan as outlined above was discussed with the patient and/or family members who expressed understanding and agreement. All questions were answered. Thank you for involving us in the care of your patient. Please call with any questions. Subjective Principal diagnosis: Dyspnea Interval history: He denies chest/jaw/arm discomfort nor palpitations. He notes he feels great and can lay flat now. Breathing much improved. (Serosanguinous fluid noted draining from chest tube) Objective Vital Signs, Last 4 Hours Temp Resp BP Pulse Ox 04/22/19 09:55 18 103/57 100 04/22/19 07:53 98.1 F General: Conversant HEENT: Atraumatic Neck: No JVD Cardiac: Other (tachy s1 s2) Lungs: Other (diminished r base) Neuro: Alert and responsive Abdomen: Soft Skin: No rashes noted on visualized skin Musculoskeletal: No Chest Wall Tenderness Extremities: No Edema Results 04/22/19 04:00 04/22/19 04:00 Lab Results 04/21/19 04/21/19 04/21/19 11:47 11:47 14:55 WBC 16.5 H D Hgb 9.0 L Hct 27.7 L Plt Count 226 INR 1.6 Sodium 139 Potassium 4.0 Chloride 100 Carbon Dioxide 32 H BUN 22 Creatinine 0.63 L Glucose 143 H Calcium 7.9 L Magnesium 2.0 04/21/19 04/22/19 04/22/19 18:32 04:00 04:00 WBC 17.4 H Hgb 9.7 L 8.6 L Hct 29.9 L 25.6 L Plt Count 182 INR Sodium 133 L Potassium 4.1 Chloride 96 L Carbon Dioxide 32 H BUN 27 H Creatinine 0.72 Glucose 187 H Calcium 7.9 L Magnesium 1.8 Consult Discharge Plan - Plan Referrals: Emmanuel Jim MD [Primary Care Provider] -
[2019-04-22] MEDS: *HR* Amiodarone 200 MG TABLET PO SCH (12:24)
--- NOTE | 2019-04-22 15:38 | Oncology Inp Progress Note ---
<Cynthia Salamanca L - Last Filed: 04/22/19 17:27> Date of Encounter: 04/22/19 Time of Encounter: 13:30 (1) Acute blood loss anemia Current Visit: Yes Status: Acute Assessment and plan: 2/2 hemothorax with hypovolemic shock, managed in ICU S/P 3 units PRBC with stabilization of hgb S/P right vats evacuation of traumatic hemothorax, mechanical and talc pleurodesis today with a total of 4900 mL of liquefied blood and clot evacuated from the pleural space the area where the thoracentesis was performed-today 04/21 Plan: Appreciate continued recs per ICU/CT Surgery Continue to monitor CBC, check iron profile in AM (2) Small cell carcinoma of right lung Current Visit: No Status: Acute Assessment and plan: Metastatic small cell carcinoma, AJCC Stage IV, s/p cycle #2 of carboplatin, etoposide with atezolizumab on 04/15/2019 Plan: Continue to monitor blood counts given recent treatment Appears to not be responding well given his rapid re-accumulation of pleural fluid s/p 2 cycles treatment Further treatment to be arranged on outpatient basis following improvement of acute issues Oncology: Subj Interval history: Mr. Davison is feeling somewhat improved today. HR has improved to around 100, still irregular and in A-fib. He endorses that he is feeling better overall today. Still has some discomfort at the site of chest tube as to be expected. Hgb stable at 8.6. - Constitutional General appearance: cooperative, no acute distress, no febrile - Head Head exam: Present: atraumatic - ENT ENT exam: Present: mucous membranes moist, normal oropharynx - Respiratory Respiratory exam: Present: decreased breath sounds, CTAB. Absent: respiratory distress - Cardiovascular Cardiovascular exam: Present: irregular rhythm, tachycardia Additional comments: chest tube to right chest wall draining serosangionous fluid - GI/Abdominal GI/Abdominal exam: Present: normal bowel sounds, soft. Absent: tenderness - Additional comments: collado catheter with clear yellow urine - Extremities Exam Extremities exam: Present: normal inspection. Absent: calf tenderness - Neurological Exam Neurological exam: Present: alert, oriented X3, no focal deficits, strengths equal and symetr throughout - Psychiatric Psychiatric exam: Present: normal affect, normal mood - Skin Skin exam: Present: dry, pallor, warm Oncology: Obj Data - Labs CBC & Chem 7: 04/22/19 04:00 04/22/19 04:00 Consult Discharge Plan - Plan Referrals: Emmanuel Jim MD [Primary Care Provider] - Inpatient Charges Provider: Dr. Teja Armstrong <PattiArmando Marcy - Last Filed: 04/22/19 21:04> Date of Encounter: 04/22/19 Oncology: Obj Data - Labs CBC & Chem 7: 04/22/19 04:00 04/22/19 04:00 Inpatient Charges Provider: Dr. Teja Armstrong Follow up - Inpatient: [id number] - Attending Attestation I examined this patient and my medical decision-making was reviewed with the Advanced Practice Nurse. I agree with the documented findings, disposition and treatment plan as described except to the extent set forth below. Aron is feeling better today. He is breathing more comfortably. Heart rate is now controlled. Oxygen requirements have decreased. Hemoglobin remains stable. He is currently recovering from recent talcum pleurodesis. On exam, his diminished breath sounds in the right lung. Heart is regular and tachycardic. Lower extremity edema is stable. No new recommendations from our perspective. Continue supportive measures.
[2019-04-22] MEDS: Norepinephrine 4 MG in D5% in Water 250 ML IVC SCH (15:41)
--- NOTE | 2019-04-22 16:19 | Internal Med Progress Note ---
Hospitalist Progress Note - Encounter Date of Encounter: 04/22/19 Time of Encounter: 16:15 - Subjective Interval History: I have seen and evaluate the patient at bedside. patient reports improvement on his breathing but reports pain at the chest tube insertion site. denies abdominal pain, nausea or vomiting. - Exam Vitals: Temp Pulse Resp BP Pulse Ox 98.7 F 112 19 111/76 96 04/22/19 15:30 04/22/19 15:00 04/22/19 15:23 04/22/19 15:00 04/22/19 15:23 Exam: Vitals: Reviewed General: Alert and oriented x4. In mild distress due to chest discomfort Cardiovascular: irregularly irregular, normal S1 & S2, no rubs, murmurs or gallops. Lungs: decrease breath sounds in the right lower lobe, no wheezes, scattered coarse breath sounds b/l, no crackles. Abdomen: Soft, non-tender, no rigidity. Extremities: No deformity, no edema or tenderness, no joint swelling or clubbing. Neurological: No focal neurological deficits Rest of the physical exam is non contributory - Assessment and Plan (1) Hypovolemic shock Current Visit: Yes Status: Resolved Assessment and Plan: patient remain hypotensive on neropenephrine drip. consider NS 250 ml bolus as needed for a MAP >65%. patient with a total negative fluid balance of 4.8 litters albumin 5% on 250 ml ordered. Critical care support appreciated. (2) Acute on chronic congestive heart failure Current Visit: Yes Status: Acute Assessment and Plan: patient with a total balance negative of 4 litter. continue strict intake and output. (3) Lung cancer Current Visit: Yes Status: Chronic Assessment and Plan: Currently on chemotherapy. Plan of care as per Hem&Onc (4) Acute on chronic respiratory failure with hypoxia Current Visit: Yes Status: Chronic Assessment and Plan: Continue oxygen by nasal cannula, titrate for O2 sat duration more than 92%. On levalbuterol, and Symbicort. pulmonology recommendations appreciated consider starting the patient on levofloxacin 750mg/IV daily. (5) COPD (chronic obstructive pulmonary disease) Current Visit: Yes Status: Chronic Assessment and Plan: plan of care as above (6) Recurrent pleural effusion on right Current Visit: Yes Status: Acute Assessment and Plan: patient s/p dx bronchoscopy right vats evacuation of traumatic hemothorax mechanical and talc pleurodesis CT surgery recommendations appreciated (7) Atrial fibrillation with RVR Current Visit: Yes Status: Acute Assessment and Plan: heart rate better controlled. patient Amiodarone 200mg/PO daily. on diltiazem 240mg/PO daily (8) Hemothorax Current Visit: Yes Status: Acute (9) Pneumonia Current Visit: Yes Status: Acute (10) Acute blood loss anemia Current Visit: Yes Status: Acute DVT Prophylaxis: no chemical dvt prophylaxis due to recent hemothorax. mechanical dvt prophylaxis - Summary of Assessment and Plan Summary of Assessment and Plan: patient to remain in the hospital due to hypotension on a norepinephrine drip - Time Spent with Patient Total time spent is greater than 50% in coordination of care (as documented) at patient's floor/unit and/or counseling patient: Greater than 35 minutes (40) Plan of Care Discussed with: patient (and the nurse) Internal Medicine: Result - Labs CBC & Chem 7: 04/22/19 04:00 04/22/19 04:00 Labs: Short CBC 04/21/19 04/22/19 Range/Units 18:32 04:00 WBC 17.4 H (4.3-11.1) K/mcL Hgb 9.7 L 8.6 L (12.9-16.9) g/dL Hct 29.9 L 25.6 L (37.5-50.1) % Plt Count 182 (140-400) K/mcL Neutrophils # 17.1 H (1.6-8.9) K/mcL BMP 04/22/19 04:00 Sodium 133 L Potassium 4.1 Chloride 96 L Carbon Dioxide 32 H BUN 27 H Creatinine 0.72 Glucose 187 H Calcium 7.9 L - ABG Interpretation ABG results: ABG ABG pH 7.40 pH Units (7.32-7.45) 04/21/19 10:41 ABG pCO2 54 mmHg (35-45) H 04/21/19 10:41 ABG pO2 422 mmHg (85-104) H 04/21/19 10:41 ABG O2 Saturation 100 % (95-98) H 04/21/19 10:41 PT/INR, D-dimer PT 18.0 Seconds (9.4-12.1) H 04/21/19 14:55 - Impressions Impressions Echocardiogram 04/19/19 21:30 Impressions: Technically sub-optimal due to clinical status. Atrial fibrillation with RVR. Unable to estimate LVEF. Indeterminate diastolic function. Definity echo contrast was used. Right ventricle is not optimally visualized. No significant valvular dysfunction. Unable to estimate RVSP. Consider repeat study when heart rates improve. Findings: Study Quality * Technically sub-optimal due to clinical status. ECG Findings * Atrial fibrillation with RVR. Left Ventricle * Unable to estimate LVEF. * Indeterminate diastolic function. * Unable to evaluate segmental wall motion due to technical quality. * Definity echo contrast was used. Right Ventricle * Right ventricle is not optimally visualized. Left Atrium * Left atrium is not well visualized. Right Atrium * Right atrium is not well visualized. Aortic Valve * No aortic regurgitation. * Aortic valve not well visualized. * No aortic stenosis. Mitral Valve * No mitral regurgitation. * Mitral valve not well visualized. * No mitral stenosis. Tricuspid Valve * Tricuspid valve not well visualized. * Trace tricuspid regurgitation. * Estimated RA pressure is 3 mmHg. Pulmonic Valve * Pulmonic valve is not well visualized. * No pulmonic stenosis. * No pulmonic regurgitation. Pulmonary Artery * Pulmonary artery not well visualized. Aorta * Not well visualized. Pericardium * There is no pericardial effusion present. Interatrial Septum * No evidence of PFO by color Doppler. IVC * Normal IVC dimensions and inspiratory collapse. Chest X-Ray 04/22/19 08:00 IMPRESSION: 1. No significant interval change with persistent moderate right pleural effusion. 2. Persistent consolidation in the right upper lobe and right base. 3. Stable position of right chest tubes. No visible pneumothorax. D/ / Calos Andrade MD / Calos Andrade MD Interpreting Provider: Calos Andrade MD Consult Discharge Plan - Plan Referrals: Emmanuel Jim MD [Primary Care Provider] - (2) Acute on chronic congestive heart failure Qualifiers: Heart failure type: unspecified Qualified Code(s): I50.9 - Heart failure, unspecified (3) Lung cancer Qualifiers: Laterality: unspecified laterality Lung location: unspecified part of lung Qualified Code(s): C34.90 - Malignant neoplasm of unspecified part of unspecified bronchus or lung (5) COPD (chronic obstructive pulmonary disease) Qualifiers: COPD type: unspecified COPD Qualified Code(s): J44.9 - Chronic obstructive pulmonary disease, unspecified
--- NOTE | 2019-04-22 18:14 | Pulmonology Progress Note ---
Date of Encounter: 04/22/19 Time of Encounter: 07:40 Assessment and Plan (1) Recurrent pleural effusion on right Current Visit: Yes Status: Acute Patient has chest tube which is still draining and overall is less now. Patient has some discomfort in the area of the chest tube and he is getting pain medication for that. He needs to continue incentive spirometer. Thoracic surgeon is following up. (2) Small cell carcinoma of right lung Current Visit: No Status: Acute Oncology has been following up. (3) COPD (chronic obstructive pulmonary disease) Current Visit: Yes Status: Chronic Qualifiers: COPD type: unspecified COPD Qualified Code(s): J44.9 - Chronic obstructive pulmonary disease, unspecified (4) Hypotension Current Visit: Yes Status: Resolved This is improving and requiring very low-dose of Levophed. I suspect combination of hypovolemia as well as his underlying cardiomyopathy is causing this. Albumin infusion was given with some success. Qualifiers: Hypotension type: unspecified hypotension type Qualified Code(s): I95.9 - Hypotension, unspecified Subjective Principal diagnosis: Dyspnea Interval history: Patient is also hypertensive and anemia with worsening cough his right pleural effusion. Patient is feeling better on that noninvasive ventilation. Objective PUL Vital signs: Last Vital Signs Temp 98.7 F 04/22/19 15:30 Pulse 105 04/22/19 16:00 Resp 14 04/22/19 16:00 BP 82/54 04/22/19 16:00 Pulse Ox 100 04/22/19 16:00 General appearance: appears uncomfortable Eyes: nonicteric ENT: oropharynx dry Neck: supple Effort: mildly labored Auscultation: left: clear, right: diminished breath sounds, other Cardiovascular: irregular rhythm, murmur noted (History of) Gastrointestinal: normoactive bowel sounds, non-distended Extremities: no cyanosis, edema normal mental status, non-focal exam mood appropriate Results - Laboratory Findings CBC and BMP: 04/25/19 10:45 04/25/19 10:45 ABG ABG pH 7.40 pH Units (7.32-7.45) 04/21/19 10:41 ABG pCO2 54 mmHg (35-45) H 04/21/19 10:41 ABG pO2 422 mmHg (85-104) H 04/21/19 10:41 ABG O2 Saturation 100 % (95-98) H 04/21/19 10:41 PT/INR, D-dimer PT 18.0 Seconds (9.4-12.1) H 04/21/19 14:55 Abnormal lab findings: Abnormal lab results WBC 17.4 K/mcL (4.3-11.1) H 04/22/19 04:00 RBC 2.91 M/mcL (4.19-5.50) L 04/22/19 04:00 Hgb 8.6 g/dL (12.9-16.9) L 04/22/19 04:00 Hct 25.6 % (37.5-50.1) L 04/22/19 04:00 MCHC 31.3 g/dL (31.6-35.5) L 04/20/19 21:41 RDW 14.6 % (11.5-14.5) H 04/22/19 04:00 Plt Count 455 K/mcL (140-400) H 04/20/19 06:59 MPV 9.2 fL (9.4-12.4) L 04/22/19 04:00 17.1 K/mcL (1.6-8.9) H 04/22/19 04:00 0.4 K/mcL (0.6-4.6) L 04/22/19 04:00 PT 18.0 Seconds (9.4-12.1) H 04/21/19 14:55 ABG pCO2 54 mmHg (35-45) H 04/21/19 10:41 ABG pO2 422 mmHg (85-104) H 04/21/19 10:41 ABG HCO3 33 mEq/L (21-27) H 04/21/19 10:41 ABG Total CO2 35 mEq/L (20-26) H 04/21/19 10:41 ABG O2 Saturation 100 % (95-98) H 04/21/19 10:41 ABG Base Excess 7 mEq/L (-2 to 3) H 04/21/19 10:41 ABG Hematocrit 27.0 % (37.5-50.1) L 04/21/19 10:41 ABG Chloride 97 mEq/L (98-107) L 04/21/19 10:41 Glucose 157 mg/dL (60-95) H 04/21/19 10:41 Sodium 133 mEq/L (136-145) L 04/22/19 04:00 Chloride 96 mEq/L (98-107) L 04/22/19 04:00 Carbon Dioxide 32 mEq/L (23-29) H 04/22/19 04:00 BUN 27 mg/dL (8-23) H 04/22/19 04:00 0.63 mg/dL (0.70-1.30) L 04/21/19 11:47 38 (6-26) H 04/22/19 04:00 Glucose 187 mg/dL (70-105) H 04/22/19 04:00 POC Glucose 154 mg/dL (70-99) H 04/21/19 11:28 Calcium 7.9 mg/dL (8.6-10.3) L 04/22/19 04:00 Phosphorus 2.6 mg/dL (2.7-4.5) L 04/22/19 04:00 Iron 49 mcg/dL (65-175) L 04/22/19 04:00 149 mg/dL (203-362) L 04/22/19 04:00 1013 ng/mL (20-250) H 04/22/19 04:00 AST 40 Units/L (13-39) H 04/20/19 06:59 ALT 78 Units/L (7-52) H 04/20/19 06:59 0.06 ng/mL (< 0.04) H* 04/20/19 15:38 1.12 mmol/L (1.15-1.35) L 04/21/19 10:41 Vancomycin Trough 13 mcg/mL (5-10) H 04/22/19 04:00 Crossmatch See Detail 04/20/19 22:28 - Microbiology Findings Microbiology Findings: Microbiology, Last 48 Hours 04/20/19 16:02 Blood Culture - Preliminary Central Venous Catheter Culture is incubating and being continuously monitored for growth. Final report to follow. 04/20/19 15:58 Blood Culture - Preliminary Central Venous Catheter Culture is incubating and being continuously monitored for growth. Final report to follow. - Diagnostic Findings Chest x-ray: report reviewed, image reviewed - Clinical Findings Intake & Output: Intake & Output 04/22/19 04/22/19 04/22/19 07:59 15:59 23:59 Intake Total 220 / 2108 1888 / 2108 Output Total 540 / 1085 545 / 1085 Balance -320 / 1023 1343 / 1023 Weight 95.5 kg Consult Discharge Plan - Plan Referrals: Emmanuel Jim MD [Primary Care Provider] -
[2019-04-23 03:42] LABS: Basophils % 0.1 %; Eosinophils % 0.2 %; Hematocrit 21.3 % (37.5-50.1); Immature Granulocytes % 1.3 % (0-4); Lymphocytes # 0.5 K/mcL (0.6-4.6); Lymphocytes % 6.5 %; Mean Corpuscular HGB Conc 32.4 g/dL (31.6-35.5); Mean Corpuscular Hemoglobin 29.5 pg (28.0-33.3); Mean Platelet Volume 9.1 fL (9.4-12.4); Monocytes # 0.1 K/mcL (0.0-1.3); Monocytes % 0.6 %; Platelet Count 123 K/mcL (140-400); Red Blood Count 2.34 M/mcL (4.19-5.50); Red Cell Distribution Width 14.6 % (11.5-14.5); Segmented Neutrophils % 91.3 %
[2019-04-23] MEDS: Levalbuterol Neb 0.63 MG/3 ML IH SCH ×4 (03:42→21:06)
[2019-04-23] MEDS: Ipratropium Neb 0.5 MG NEBULIZER IH SCH ×4 (03:42→21:06)
[2019-04-23 03:49] LABS: Hemoglobin 6.9 g/dL (12.9-16.9); Neutrophils # 7.6 K/mcL (1.6-8.9); White Blood Count 8.3 K/mcL (4.3-11.1)
[2019-04-23 03:51] LABS: BUN/Creatinine Ratio 31 (6-26); Blood Urea Nitrogen 15 mg/dL (8-23); Calcium 8.1 mg/dL (8.6-10.3); Carbon Dioxide 37 mEq/L (23-29); Chloride 96 mEq/L (98-107); Glucose 135 mg/dL (70-105); Magnesium 1.9 mg/dL (1.6-2.6); Osmolality,Calculated 285 (280-300); Phosphorous 2.2 mg/dL (2.7-4.5); Potassium 3.7 mEq/L (3.5-5.1); Sodium 136 mEq/L (136-145); eGFR For African Americans > 60 (> 60); eGFR For Non-African Americans > 60 (> 60)
[2019-04-23] MEDS: *HR* HYDROcodone/Acet 5/325 mg TABLET PO PRN ×3 (05:15→20:13)
[2019-04-23] MEDS: Aspirin 81 MG TAB.CHEW PO SCH (08:24)
[2019-04-23] MEDS: Gabapentin 300 MG CAPSULE PO SCH ×3 (08:24→20:00)
[2019-04-23] MEDS: Diltiazem CD (24hr) 240 MG CAPSULE PO SCH (08:24)
[2019-04-23] MEDS: *HR* Amiodarone 200 MG TABLET PO SCH (08:24)
[2019-04-23] MEDS ORDERED: Levofloxacin 750 MG/150 ML 750 MG/150 ML BAG IVPB SCH (09:00)
[2019-04-23] MEDS: *HR* HYDROmorphone (PF) 1 MG/ML SYRINGE IVP PRN (09:33)
[2019-04-23] MEDS: Budesonide/Formoterol 160/4.5 1 PUFF INH IH SCH ×2 (10:20→21:06)
--- NOTE | 2019-04-23 10:42 | Cardiothoracic Progress Note ---
Date of Encounter: 04/23/19 Time of Encounter: 10:38 - Assessment and plan (1) Malignant pleural effusion Current Visit: Yes Status: Acute The assessment and plan as outlined above was discussed with the patient and/or family members who expressed understanding and agreement. All questions were answered. continue chest tube to suction. (2) Traumatic hemothorax, initial encounter Current Visit: Yes Status: Acute The assessment and plan as outlined above was discussed with the patient and/or family members who expressed understanding and agreement. All questions were answered. physical therapy, i/s, and flutter therapy. (3) Atrial fibrillation Current Visit: Yes Status: Acute The assessment and plan as outlined above was discussed with the patient and/or family members who expressed understanding and agreement. All questions were answered. obtain 12 lead ekg for amio, metoprolol and levaquin Qualifiers: Atrial fibrillation type: chronic Qualified Code(s): I48.2 - Chronic atrial fibrillation Vital Signs, Last 4 Hours Temp Resp Pulse Ox 04/23/19 10:22 15 96 04/23/19 07:45 98.5 F Oxgyen Flow Rate Oxygen Flow Rate (LPM) 8 Clinical Data, last 8 Hours Output, Chest Tube Drainage 90 Amount [Right Lateral Chest] Output, Chest Tube Drainage 110 Amount [Right Lateral Chest] Weight 04/21/19 04/22/19 04/23/19 23:59 23:59 23:59 Weight 95 kg 95.5 kg - Physical Examination General: Conversant, No Apparent Distress, Well developed, Well nourished HEENT: Atraumatic, Normocephaly, Trachea midline Neck: No JVD Cardiac: Normal S1 and S2, No Murmur, Other (irregular irregular ) Incision: No signs of infection, Dry/intact dressing, Other Chest tubes: Other (fluid thinner. volume decreasing. ) Neuro: Alert and responsive, No focal deficits noted, Cranial nerves intact Vascular: Normal capillary refill Abdomen: Soft, Non-tender - Labs 04/23/19 03:20 04/23/19 03:20 Lab Results, Last 24 hours 04/23/19 04/23/19 03:20 03:20 WBC 8.3 D Hgb 6.9 L D Hct 21.3 L Plt Count 123 L Sodium 136 Potassium 3.7 Chloride 96 L Carbon Dioxide 37 H BUN 15 Creatinine 0.49 L Glucose 135 H Calcium 8.1 L Magnesium 1.9 - Imaging Chest Xray: image reviewed Consult Discharge Plan - Plan Referrals: Emmanuel Jim MD [Primary Care Provider] -
[2019-04-23] MEDS ORDERED: *HR* OxyCODONE Immed Rel 5 MG TABLET PO PRN (10:52)
[2019-04-23 12:00] LABS: Hematocrit 19.7 % (37.5-50.1); Hemoglobin 6.4 g/dL (12.9-16.9)
[2019-04-23] MEDS: Norepinephrine 4 MG in D5% in Water 250 ML IVC SCH (12:47)
[2019-04-23] MEDS ORDERED: 0.9 % Sodium Chloride 250 ML ONE (14:03)
[2019-04-23] MEDS ORDERED: Furosemide 20 MG/2 ML VIAL IVP ONE (14:30)
--- NOTE | 2019-04-23 14:44 | Oncology Inp Progress Note ---
<Cynthia Salamanca L - Last Filed: 04/23/19 16:41> Date of Encounter: 04/23/19 Time of Encounter: 11:10 (1) Acute blood loss anemia Current Visit: Yes Status: Acute Assessment and plan: 2/2 hemothorax with hypovolemic shock, managed in ICU S/P 3 units PRBC with stabilization of hgb S/P right vats evacuation of traumatic hemothorax, mechanical and talc pleurodesis today with a total of 4900 mL of liquefied blood and clot evacuated from the pleural space the area where the thoracentesis was performed- 04/21 Plan: Hgb dropped to 6.9 today, awaiting repeat around noon, anticipate PRBC transfusion Drop in hgb may be related to start of chemo kristen Appreciate continued recs per ICU/CT Surgery Continue to monitor CBC (2) Small cell carcinoma of right lung Current Visit: No Status: Acute Assessment and plan: Metastatic small cell carcinoma, AJCC Stage IV, s/p cycle #2 of carboplatin, etoposide with atezolizumab on 04/15/2019 Plan: Continue to monitor blood counts given recent treatment Appears to not be responding well given his rapid re-accumulation of pleural fluid s/p 2 cycles treatment Further treatment to be arranged on outpatient basis following improvement of acute issues Oncology: Subj Interval history: No acute events noted overnight. Levophed gtt turned off last evening around 1700, pressures are on the low end but stable. He reports pain and discomfort around the area of his chest tube, they had to change the dressing overnight. He otherwise continues to feel improved. No bowel movement in several days, requesting stool softener. Denies nausea or vomiting. HR is under better control. - Constitutional General appearance: cooperative, no acute distress, no febrile - Head Head exam: Present: atraumatic - ENT ENT exam: Present: mucous membranes moist, normal oropharynx - Respiratory Respiratory exam: Present: decreased breath sounds, CTAB. Absent: respiratory distress - Cardiovascular Cardiovascular exam: Present: irregular rhythm Additional comments: chest tube to right chest wall - GI/Abdominal GI/Abdominal exam: Present: normal bowel sounds, soft. Absent: tenderness - Extremities Exam Extremities exam: Present: normal inspection. Absent: calf tenderness - Neurological Exam Neurological exam: Present: alert, oriented X3, no focal deficits, strengths equal and symetr throughout - Psychiatric Psychiatric exam: Present: normal affect, normal mood - Skin Skin exam: Present: dry, pallor, warm Oncology: Obj Data - Labs CBC & Chem 7: 04/23/19 11:45 04/23/19 03:20 Consult Discharge Plan - Plan Referrals: Emmanuel Jim MD [Primary Care Provider] - Inpatient Charges Provider: Dr. Teja Armstrong <Armando Armstrong - Last Filed: 04/23/19 21:07> Date of Encounter: 04/23/19 Oncology: Obj Data - Labs CBC & Chem 7: 04/23/19 11:45 04/23/19 03:20 Inpatient Charges Provider: Dr. Teja Armstrong Follow up - Inpatient: [id number] - Attending Attestation I examined this patient and my medical decision-making was reviewed with the Advanced Practice Nurse. I agree with the documented findings, disposition and treatment plan as described except to the extent set forth below. Aron continues to recover from pleurodesis. An episode of shortness of breath today. This is resolving is breathing easily. He is currently on [id number] cannula. Hemoglobin decreased, and he is currently receiving blood transfusion. On exam, his risk breast as a right lung base. Decreased throughout. Heart irregularly irregular but rate controlled. Vasopressors have been discontinued. Continue with supportive measures. No new recommendations today.
--- NOTE | 2019-04-23 16:56 | Sleep Study Report ---
Sleep Procedure Report Date of procedure: 04/22/19 Sleep Procedure: Home Sleep Test Procedure Note: History and indication: The patient is a 43 yr/old female with a BMI of 42.7 and a history of referred for a sleep study. The patient had a baseline home sleep study which showed an AHI 28.6/hour which include 112 obstructive apneas and 90 hypopneas and lowest oxygen saturation 81 %. The patient also has a history of left ventricular hypertrophy. The ESS was 6. Procedure: A portable sleep study was performed with monitoring of respiratory flow, respiratory effort, oxygen saturation, heart rate, snoring and home sleep test was done according to the latest guidelines of the [place] [employer] and also according to [facility] Medicare criteria with hypopneas defined at 4% oxyhemoglobin desaturation. The portable sleep study is recommended for patients with moderate to high suspicion of obstructive sleep apnea, and is not recommended to diagnose other types of sleep disorders. Findings: Total recording time: 437.6 minutes Oxygen desat index 28.5 /hr Mean heart rate during sleep: 71.6 bpm Percentage of snorin.7 % Please refer to the Sleep Study scored report available in [id number], in the sleep folder. Impression: 1. Moderate obstructive sleep apnea with hypoxia and morbid obesity. Recommendation: 1. CPAP titration which will be arranged by sleep lab staff. 2. Alternative treatments for sleep disorder breathing could include ENT evaluation for possible upper airway surgery or an oral appliance. 3. The patient should be cautioned to avoid activities which require constant melendez such as driving or operating machinery until adequate treatment of sleep disordered breathing. 4. Patient should avoid alcohol close to bedtime as well as sedating medications. 5. Weight loss in an obese patient is often helpful.
--- NOTE | 2019-04-23 17:07 | Pulmonology Progress Note ---
Date of Encounter: 04/23/19 Time of Encounter: 07:00 Assessment and Plan (1) Hypotension Current Visit: Yes Status: Resolved This is improving and requiring very low-dose of Levophed. I suspect combination of hypovolemia as well as his underlying cardiomyopathy is causing this. Albumin infusion was given with some success. 04/23 there is improvement in blood pressure and he needs to be on his beta everardo due to his significant underlying cardiomyopathy Qualifiers: Hypotension type: unspecified hypotension type Qualified Code(s): I95.9 - Hypotension, unspecified (2) Recurrent pleural effusion on right Current Visit: Yes Status: Acute Patient has chest tube which is still draining and that is going down. 04/23 status post chest tube and thoracic surgeon is following up. (3) Small cell carcinoma of right lung Current Visit: No Status: Acute Oncology has been following up. (4) COPD (chronic obstructive pulmonary disease) Current Visit: Yes Status: Chronic Continue bronchodilators Qualifiers: COPD type: unspecified COPD Qualified Code(s): J44.9 - Chronic obstructive pulmonary disease, unspecified (5) Hemothorax Current Visit: Yes Status: Acute Patient to hemoglobin has dropped and he will receive 2 units of packed RBC after checking his hemoglobin and anticoagulation remain on hold. He will also get Lasix in between. Will keep patient in ICU for now for close monitoring. 04/23 stable hemoglobin now and levophed has been weaned off. Subjective Principal diagnosis: Dyspnea Interval history: Patient has poor appetite and his chest pain at the site of the chest tube is better now. Patient denies any hemoptysis. Objective PUL Vital signs: Last Vital Signs Temp 97.8 F 04/23/19 16:35 Pulse 99 04/23/19 17:00 Resp 20 04/23/19 17:00 BP 104/70 04/23/19 17:00 Pulse Ox 100 04/23/19 17:00 General appearance: no acute distress Eyes: nonicteric ENT: oropharynx moist Neck: supple, no lymphadenopathy Effort: normal Auscultation: left: clear, right: diminished breath sounds, other (chest tube) Percussion: right: not dull Tactile fremitus: right: diminished Cardiovascular: irregular rhythm, murmur noted Gastrointestinal: normoactive bowel sounds, non-distended Extremities: no cyanosis, edema normal mental status, non-focal exam mood appropriate Results - Laboratory Findings CBC and BMP: 06/01/19 10:45 04/25/19 10:45 ABG ABG pH 7.40 pH Units (7.32-7.45) 04/21/19 10:41 ABG pCO2 54 mmHg (35-45) H 04/21/19 10:41 ABG pO2 422 mmHg (85-104) H 04/21/19 10:41 ABG O2 Saturation 100 % (95-98) H 04/21/19 10:41 PT/INR, D-dimer PT 18.0 Seconds (9.4-12.1) H 04/21/19 14:55 Abnormal lab findings: Abnormal lab results WBC 17.4 K/mcL (4.3-11.1) H 04/22/19 04:00 RBC 2.34 M/mcL (4.19-5.50) L 04/23/19 03:20 Hgb 6.4 g/dL (12.9-16.9) L 04/23/19 11:45 Hct 19.7 % (37.5-50.1) L 04/23/19 11:45 MCHC 31.3 g/dL (31.6-35.5) L 04/20/19 21:41 RDW 14.6 % (11.5-14.5) H 04/23/19 03:20 Plt Count 123 K/mcL (140-400) L 04/23/19 03:20 MPV 9.1 fL (9.4-12.4) L 04/23/19 03:20 17.1 K/mcL (1.6-8.9) H 04/22/19 04:00 0.5 K/mcL (0.6-4.6) L 04/23/19 03:20 PT 18.0 Seconds (9.4-12.1) H 04/21/19 14:55 ABG pCO2 54 mmHg (35-45) H 04/21/19 10:41 ABG pO2 422 mmHg (85-104) H 04/21/19 10:41 ABG HCO3 33 mEq/L (21-27) H 04/21/19 10:41 ABG Total CO2 35 mEq/L (20-26) H 04/21/19 10:41 ABG O2 Saturation 100 % (95-98) H 04/21/19 10:41 ABG Base Excess 7 mEq/L (-2 to 3) H 04/21/19 10:41 ABG Hematocrit 27.0 % (37.5-50.1) L 04/21/19 10:41 ABG Chloride 97 mEq/L (98-107) L 04/21/19 10:41 Glucose 157 mg/dL (60-95) H 04/21/19 10:41 Sodium 133 mEq/L (136-145) L 04/22/19 04:00 Chloride 96 mEq/L (98-107) L 04/23/19 03:20 Carbon Dioxide 37 mEq/L (23-29) H 04/23/19 03:20 BUN 27 mg/dL (8-23) H 04/22/19 04:00 0.49 mg/dL (0.70-1.30) L 04/23/19 03:20 31 (6-26) H 04/23/19 03:20 Glucose 135 mg/dL (70-105) H 04/23/19 03:20 POC Glucose 154 mg/dL (70-99) H 04/21/19 11:28 Calcium 8.1 mg/dL (8.6-10.3) L 04/23/19 03:20 Phosphorus 2.2 mg/dL (2.7-4.5) L 04/23/19 03:20 Iron 49 mcg/dL (65-175) L 04/22/19 04:00 149 mg/dL (203-362) L 04/22/19 04:00 1013 ng/mL (20-250) H 04/22/19 04:00 AST 40 Units/L (13-39) H 04/20/19 06:59 ALT 78 Units/L (7-52) H 04/20/19 06:59 0.06 ng/mL (< 0.04) H* 04/20/19 15:38 1.12 mmol/L (1.15-1.35) L 04/21/19 10:41 Vancomycin Trough 13 mcg/mL (5-10) H 04/22/19 04:00 Crossmatch See Detail 04/20/19 22:28 - Diagnostic Findings Chest x-ray: report reviewed, image reviewed - Clinical Findings Intake & Output: Intake & Output 04/23/19 04/23/19 04/23/19 07:59 15:59 23:59 Intake Total 100 / 930 480 / 930 350 / 930 Output Total 650 / 1150 500 / 1150 Balance -550 / -220 480 / -220 -150 / -220 Consult Discharge Plan - Plan Referrals: Emmanuel Jim MD [Primary Care Provider] -
[2019-04-24 03:24] LABS: Eosinophils # 0.1 K/mcL (0.0-0.6); Eosinophils % 1.1 %; Hematocrit 25.2 % (37.5-50.1); Immature Granulocytes % 0.9 % (0-4); Lymphocytes # 0.6 K/mcL (0.6-4.6); Mean Corpuscular HGB Conc 32.9 g/dL (31.6-35.5); Mean Corpuscular Hemoglobin 29.3 pg (28.0-33.3); Mean Platelet Volume 9.7 fL (9.4-12.4); Monocytes # 0.1 K/mcL (0.0-1.3); Monocytes % 1.8 %; Neutrophils # 3.9 K/mcL (1.6-8.9); Red Blood Count 2.83 M/mcL (4.19-5.50); Red Cell Distribution Width 14.4 % (11.5-14.5); Segmented Neutrophils % 84.2 %; White Blood Count 4.6 K/mcL (4.3-11.1)
[2019-04-24 03:26] LABS: Hemoglobin 8.3 g/dL (12.9-16.9); Platelet Count 93 K/mcL (140-400)
[2019-04-24 03:33] LABS: BUN/Creatinine Ratio 35 (6-26); Blood Urea Nitrogen 16 mg/dL (8-23); Calcium 8.4 mg/dL (8.6-10.3); Carbon Dioxide 39 mEq/L (23-29); Chloride 93 mEq/L (98-107); Glucose 107 mg/dL (70-105); Magnesium 1.5 mg/dL (1.6-2.6); Osmolality,Calculated 284 (280-300); Potassium 3.6 mEq/L (3.5-5.1); Sodium 136 mEq/L (136-145); eGFR For African Americans > 60 (> 60); eGFR For Non-African Americans > 60 (> 60)
[2019-04-24 03:45] LABS: Phosphorous 2.3 mg/dL (2.7-4.5)
[2019-04-24] MEDS: *HR* HYDROcodone/Acet 5/325 mg TABLET PO PRN ×4 (04:05→23:28)
[2019-04-24] MEDS: Levalbuterol Neb 0.63 MG/3 ML IH SCH ×4 (04:40→22:06)
[2019-04-24] MEDS: Ipratropium Neb 0.5 MG NEBULIZER IH SCH ×4 (04:40→22:06)
[2019-04-24] MEDS: Gabapentin 300 MG CAPSULE PO SCH ×3 (07:50→20:12)
[2019-04-24] MEDS: Diltiazem CD (24hr) 240 MG CAPSULE PO SCH (07:50)
[2019-04-24] MEDS: Aspirin 81 MG TAB.CHEW PO SCH (07:50)
--- NOTE | 2019-04-24 08:12 | Cardiothoracic Progress Note ---
Date of Encounter: 04/24/19 Time of Encounter: 08:09 - Assessment and plan (1) Malignant pleural effusion Current Visit: Yes Status: Acute The assessment and plan as outlined above was discussed with the patient and/or family members who expressed understanding and agreement. All questions were answered. rounded with nurse continue chest tube to suction chest tube in the chest. wrong read by radiology (2) Traumatic hemothorax, initial encounter Current Visit: Yes Status: Acute The assessment and plan as outlined above was discussed with the patient and/or family members who expressed understanding and agreement. All questions were answered. physical therapy, i/s, and flutter therapy. tx to floor (3) Atrial fibrillation Current Visit: Yes Status: Acute The assessment and plan as outlined above was discussed with the patient and/or family members who expressed understanding and agreement. All questions were answered. obtain 12 lead ekg for amio, metoprolol and levaquin Qualifiers: Atrial fibrillation type: chronic Qualified Code(s): I48.2 - Chronic atrial fibrillation - Subjective Interval history: feels great. hasnt been able to lie flat for days. Vital Signs, Last 4 Hours Pulse Resp BP Pulse Ox 04/24/19 06:00 101 12 103/78 100 04/24/19 05:01 91 15 100/77 100 04/24/19 04:38 14 100 Oxgyen Flow Rate Oxygen Flow Rate (LPM) 7 Clinical Data, last 8 Hours Output, Chest Tube Drainage 145 Amount [Right Lateral Chest] Output, Urine Amount 600 Weight 04/22/19 04/23/19 04/24/19 23:59 23:59 23:59 Weight 95.5 kg 96 kg - Physical Examination General: Conversant, No Apparent Distress, Well developed, Well nourished HEENT: Atraumatic, Normocephaly Neck: No JVD Cardiac: Normal S1 and S2, No Murmur, Other (irregular irregular ) Incision: No signs of infection, Dry/intact dressing Chest tubes: Minimal drainage, Other (thins serosanguinous) Lungs: Other (cta on the left crackles at the rigt base ) Neuro: Alert and responsive, No focal deficits noted, Cranial nerves intact, Motor nerves intact Vascular: Normal capillary refill - Labs 04/24/19 03:05 04/24/19 03:05 Lab Results, Last 24 hours 04/23/19 04/24/1904/24/19 11:45 03:05 03:05 WBC 4.6 Hgb 6.4 L 8.3 L D Hct 19.7 L 25.2 L Plt Count 93 L Sodium 136 Potassium 3.6 Chloride 93 L Carbon Dioxide 39 H BUN 16 Creatinine 0.46 L Glucose 107 H Calcium 8.4 L Magnesium 1.5 L Consult Discharge Plan - Plan Referrals: Emmanuel Jim MD [Primary Care Provider] -
[2019-04-24] MEDS ORDERED: levoFLOXacin 750 MG TABLET PO SCH (09:00)
[2019-04-24] MEDS ORDERED: Nitroglycerin 0.4 MG TAB.SUBL SL PRN (09:15)
[2019-04-24] MEDS ORDERED: Naloxone 0.4 MG/ML INJ IVP PRN (09:15)
[2019-04-24] MEDS ORDERED: Norepinephrine 4 MG in D5% in Water 250 ML IVC SCH (09:15)
[2019-04-24] MEDS: *HR* OxyCODONE Immed Rel 5 MG TABLET PO PRN ×2 (10:53→16:07)
[2019-04-24] MEDS: Budesonide/Formoterol 160/4.5 1 PUFF INH IH SCH ×2 (11:12→22:06)
--- NOTE | 2019-04-24 16:28 | Pulmonology Progress Note ---
Date of Encounter: 04/24/19 Time of Encounter: 07: Assessment and Plan (1) Hypotension Current Visit: Yes Status: Resolved This is improving and requiring very low-dose of Levophed. I suspect combination of hypovolemia as well as his underlying cardiomyopathy is causing this. Albumin infusion was given with some success. 04/23 there is improvement in blood pressure and he needs to be on his beta everardo due to his significant underlying cardiomyopathy 04/24 his blood pressure has improved and continue his beta blockers due to his significant cardiovascular abnormalities and history of congestive heart failure.Patient will be moving to [address]. Qualifiers: Hypotension type: unspecified hypotension type Qualified Code(s): I95.9 - Hypotension, unspecified (2) Recurrent pleural effusion on right Current Visit: Yes Status: Acute Patient has chest tube which is still draining and that is going down. 04/23 status post chest tube and thoracic surgeon is following up. 04/24 chest tube remaining in place and continued to have some drainage. Dr. Mckeon is following up and chest tube removal will be deferred to him. (3) Small cell carcinoma of right lung Current Visit: No Status: Acute Oncology has been following up. (4) COPD (chronic obstructive pulmonary disease) Current Visit: Yes Status: Chronic Qualifiers: COPD type: unspecified COPD Qualified Code(s): J44.9 - Chronic obstructive pulmonary disease, unspecified (5) Hemothorax Current Visit: Yes Status: Acute Patient to hemoglobin has dropped and he will receive 2 units of packed RBC after checking his hemoglobin and anticoagulation remain on hold. He will also get Lasix in between. Will keep patient in ICU for now or close monitoring. 04/24 Pleural fluid remain somewhat blood-tinged, but more clear and his hemoglobin relatively stable. Subjective Principal diagnosis: Dyspnea Interval history: Patient is feeling better today and his chest pain is better. His appetite is better and denies any dizziness. Objective PUL Vital signs: Last Vital Signs Temp 99.1 F 04/24/19 15:42 Pulse 110 04/24/19 15:42 Resp 18 04/24/19 15:42 BP 118/84 04/24/19 15:42 Pulse Ox 98 04/24/19 15:42 General appearance: no acute distress Eyes: nonicteric ENT: oropharynx moist Neck: supple Effort: normal Auscultation: left: clear, right: diminished breath sounds, other (chest tube) Cardiovascular: irregular rhythm, murmur noted Gastrointestinal: normoactive bowel sounds, non-distended Extremities: no cyanosis, edema normal mental status, non-focal exam mood appropriate Results - Laboratory Findings CBC and BMP: 04/24/19 03:05 04/24/19 03:05 ABG ABG pH 7.40 pH Units (7.32-7.45) 04/21/19 10:41 ABG pCO2 54 mmHg (35-45) H 04/21/19 10:41 ABG pO2 422 mmHg (85-104) H 04/21/19 10:41 ABG O2 Saturation 100 % (95-98) H 04/21/19 10:41 PT/INR, D-dimer PT 18.0 Seconds (9.4-12.1) H 04/21/19 14:55 Abnormal lab findings: Abnormal lab results WBC 17.4 K/mcL (4.3-11.1) H 04/22/19 04:00 RBC 2.83 M/mcL (4.19-5.50) L 04/24/19 03:05 Hgb 8.3 g/dL (12.9-16.9) L D 04/24/19 03:05 Hct 25.2 % (37.5-50.1) L 04/24/19 03:05 MCHC 31.3 g/dL (31.6-35.5) L 04/20/19 21:41 RDW 14.6 % (11.5-14.5) H 04/23/19 03:20 Plt Count 93 K/mcL (140-400) L 04/24/19 03:05 MPV 9.1 fL (9.4-12.4) L 04/23/19 03:20 17.1 K/mcL (1.6-8.9) H 04/22/19 04:00 0.5 K/mcL (0.6-4.6) L 04/23/19 03:20 PT 18.0 Seconds (9.4-12.1) H 04/21/19 14:55 ABG pCO2 54 mmHg (35-45) H 04/21/19 10:41 ABG pO2 422 mmHg (85-104) H 04/21/19 10:41 ABG HCO3 33 mEq/L (21-27) H 04/21/19 10:41 ABG Total CO2 35 mEq/L (20-26) H 04/21/19 10:41 ABG O2 Saturation 100 % (95-98) H 04/21/19 10:41 ABG Base Excess 7 mEq/L (-2 to 3) H 04/21/19 10:41 ABG Hematocrit 27.0 % (37.5-50.1) L 04/21/19 10:41 ABG Chloride 97 mEq/L (98-107) L 04/21/19 10:41 Glucose 157 mg/dL (60-95) H 04/21/19 10:41 Sodium 133 mEq/L (136-145) L 04/22/19 04:00 Chloride 93 mEq/L (98-107) L 04/24/19 03:05 Carbon Dioxide 39 mEq/L (23-29) H 04/24/19 03:05 BUN 27 mg/dL (8-23) H 04/22/19 04:00 0.46 mg/dL (0.70-1.30) L 04/24/19 03:05 35 (6-26) H 04/24/19 03:05 Glucose 107 mg/dL (70-105) H 04/24/19 03:05 POC Glucose 154 mg/dL (70-99) H 04/21/19 11:28 Calcium 8.4 mg/dL (8.6-10.3) L 04/24/19 03:05 Phosphorus 2.3 mg/dL (2.7-4.5) L 04/24/19 03:05 Magnesium 1.5 mg/dL (1.6-2.6) L 04/24/19 03:05 Iron 49 mcg/dL (65-175) L 04/22/19 04:00 149 mg/dL (203-362) L 04/22/19 04:00 1013 ng/mL (20-250) H 04/22/19 04:00 AST 40 Units/L (13-39) H 04/20/19 06:59 ALT 78 Units/L (7-52) H 04/20/19 06:59 0.06 ng/mL (< 0.04) H* 04/20/19 15:38 1.12 mmol/L (1.15-1.35) L 04/21/19 10:41 Vancomycin Trough 13 mcg/mL (5-10) H 04/22/19 04:00 Crossmatch See Detail 04/20/19 22:28 - Clinical Findings Intake & Output: Intake & Output 04/24/19 04/24/19 04/24/19 07:59 15:59 23:59 Intake Total 240 / 240 Output Total 745 / 1175 430 / 1175 Balance -745 / -935 -190 / -935 Consult Discharge Plan - Plan Referrals: Emmanuel Jim MD [Primary Care Provider] -
[2019-04-24] MEDS ORDERED: *HR* HYDROmorphone (PF) 1 MG/ML SYRINGE IVP ONE (17:45)
--- NOTE | 2019-04-24 20:09 | Oncology Inp Progress Note ---
Date of Encounter: 04/24/19 Time of Encounter: 08:00 (1) Malignant pleural effusion Current Visit: Yes Status: Acute Assessment and plan: Status post chest tube placement, history of small cell lung cancer on palliative chemotherapy (2) Acute blood loss anemia Current Visit: Yes Status: Acute Assessment and plan: Status post chemotherapy as well, hemoglobin hematocrit to be monitored over 8 g today status post transfusion. (3) Lung cancer Current Visit: Yes Status: Chronic Assessment and plan: Small cell lung cancer, status post palliative chemotherapy about a week ago. Thrombocytopenia associated with recent treatment as well. Qualifiers: Laterality: unspecified laterality Lung location: unspecified part of lung Qualified Code(s): C34.90 - Malignant neoplasm of unspecified part of unspecified bronchus or lung Oncology: Subj Interval history: Patient resting in the bed with no complaints on the phone - Constitutional General appearance: no acute distress - Head Head exam: Present: atraumatic, normal inspection - ENT ENT exam: Present: mucous membranes moist - Respiratory Respiratory exam: Present: CTAB - Cardiovascular Cardiovascular exam: Present: +S1, +S2 - Extremities Exam Additional comments: mild edema - Neurological Exam Neurological exam: Present: alert, oriented X3, no focal deficits - Skin Skin exam: Present: normal color Oncology: Obj Data - Labs CBC & Chem 7: 04/24/19 03:05 04/24/19 03:05 Consult Discharge Plan - Plan Referrals: Emmanuel Jim MD [Primary Care Provider] - Inpatient Charges Provider: Dr. Teja Rosales Follow up - Inpatient: [id number]
[2019-04-25] MEDS: Levalbuterol Neb 0.63 MG/3 ML IH SCH ×4 (03:32→22:07)
[2019-04-25] MEDS: Ipratropium Neb 0.5 MG NEBULIZER IH SCH ×4 (03:32→22:06)
[2019-04-25] MEDS: *HR* HYDROcodone/Acet 5/325 mg TABLET PO PRN ×5 (03:52→21:30)
[2019-04-25] MEDS: Aspirin 81 MG TAB.CHEW PO SCH (07:57)
[2019-04-25] MEDS: Diltiazem CD (24hr) 240 MG CAPSULE PO SCH (07:58)
[2019-04-25] MEDS: Gabapentin 300 MG CAPSULE PO SCH ×3 (07:58→21:30)
--- NOTE | 2019-04-25 08:44 | Cardiothoracic Progress Note ---
Date of Encounter: 04/25/19 Time of Encounter: 08:42 - Assessment and plan (1) Hemothorax Current Visit: Yes Status: Acute The patient is recovering well from his right VATS with evacuation of hematoma and talc pleurodesis. The chest tube output is decreasing. The chest is remain in place for at least 2 more days to allow all pleural effusion to drain. The assessment and plan as outlined above was discussed with the patient and/or family members who expressed understanding and agreement. All questions were answered. - Subjective Procedure(s) Performed: POD #4 S/P Right VATS with evacuation of hematoma and talc pleurodesis Interval history: The patient remained hemodynamic stable overnight. He has no complaints. Vital Signs, Last 4 Hours Temp Pulse Resp BP Pulse Ox 04/25/19 06:34 98.2 F 108 16 97/66 96 04/25/19 05:49 98.3 F 104 12 92/59 96 Oxgyen Flow Rate Oxygen Flow Rate (LPM) 2 Clinical Data, last 8 Hours Output, Chest Tube Drainage 80 Amount [Right Lateral Chest] Output, Urine Amount 380 Weight 04/23/19 04/24/19 04/25/19 23:59 23:59 23:59 Weight 96 kg 93.4 kg - Physical Examination General: Conversant, No Apparent Distress Neck: No JVD, Normal carotid pulses Cardiac: Normal S1 and S2, No Murmur, Other (Irregular rate and rhythm (atrial fibrillation)) Incision: No signs of infection, Dry/intact dressing Chest tubes: Minimal drainage, Other (No air leak) Lungs: Normal Breath Sounds, No Wheeze, Rales, Rhonchi Neuro: Alert and responsive, No focal deficits noted Vascular: Normal capillary refill Extremities: No Clubbing, No Cyanosis, No Edema - Labs 04/24/19 03:05 04/24/19 03:05 - Imaging Chest Xray: image reviewed (No pneumothorax. Decreased size of the right pleural effusion.) Consult Discharge Plan - Plan Referrals: Emmanuel Jim MD [Primary Care Provider] -
--- NOTE | 2019-04-25 09:56 | Internal Med Progress Note ---
Hospitalist Progress Note - Encounter Date of Encounter: 04/25/19 Time of Encounter: 09:53 - Subjective Interval History: I have seen and evaluated the patient at bedside. patient reports improvement in his breathing. denies shortness of breath, nausea, chest pain or vomiting. denies abdominal pain. - Exam Vitals: Temp Pulse Resp BP Pulse Ox 98.2 F 108 16 97/66 96 04/25/19 06:34 04/25/19 06:34 04/25/19 06:34 04/25/19 06:34 04/25/19 06:34 Exam: Vitals: Reviewed General: Alert and oriented x4. No acute distress Cardiovascular: irregularly irregular, normal S1 & S2, no rubs, murmurs or gallops. Lungs: mild scattered expiratory wheezes b/l R>L, no crackles. right chest tube Abdomen: Soft, non-tender, no rigidity. NABS in all 4 quadrants Extremities: No edema Neurological: No focal neurological deficits Rest of the physical exam is non contributory - Assessment and Plan (1) Atrial fibrillation with RVR Current Visit: Yes Status: Acute Assessment and Plan: heart rate ranging in the low 100s. Plan patient is on metoprolol 25mg/PO BID and diltiazem 240mg/PO daily off anticoagulation due to hemothorax. on aspirin 81mg/PO daily (2) Acute on chronic congestive heart failure Current Visit: Yes Status: Resolved Assessment and Plan: patient is euvolemic. total negative balance 6.8 litters today. off diuretic as BP is running in the low side continue fluids restriction to 1.5 litters a day daily weight plus strict intake and output. (3) Lung cancer Current Visit: Yes Status: Chronic Assessment and Plan: Currently on palliative chemotherapy. Plan of care as per Hem&Onc (4) COPD (chronic obstructive pulmonary disease) Current Visit: Yes Status: Chronic Assessment and Plan: patient with mild scattered expiratory wheezing b/l. on bronchodilators Q6RT scheduled. on symbicort. incentive spirometry. O2 by nasal cannula, titrate for O2Sat >92% (5) Acute on chronic respiratory failure with hypoxia Current Visit: Yes Status: Resolved (6) Recurrent pleural effusion on right Current Visit: Yes Status: Acute Assessment and Plan: patient s/p dx bronchoscopy right vats evacuation of traumatic hemothorax mechanical and talc pleurodesis Plan right chest tube with serous sanguineous secretion. plan of acre per CT surgery (7) Hemothorax Current Visit: Yes Status: Acute Assessment and Plan: as above. (8) Pneumonia Current Visit: Yes Status: Suspected (9) Acute blood loss anemia Current Visit: Yes Status: Acute Assessment and Plan: patient has received 5 units of PRBCs. CBC ordered. will monitor and transfuse per protocol. Ferrous sulfate 325mg/PO BID added. (10) Hypovolemic shock Current Visit: Yes Status: Resolved DVT Prophylaxis: EPCDs. no chemical dvt prophylaxis due to recent hemothorax. - Summary of Assessment and Plan Summary of Assessment and Plan: Patient to remain in the hospital due to hemothorax s/p chest tube, still in place. - Time Spent with Patient Total time spent is greater than 50% in coordination of care (as documented) at patient's floor/unit and/or counseling patient: Greater than 35 minutes (40) Plan of Care Discussed with: patient (and the nurse) Internal Medicine: Result - Labs CBC & Chem 7: 04/24/19 03:05 04/24/19 03:05 - ABG Interpretation ABG results: ABG ABG pH 7.40 pH Units (7.32-7.45) 04/21/19 10:41 ABG pCO2 54 mmHg (35-45) H 04/21/19 10:41 ABG pO2 422 mmHg (85-104) H 04/21/19 10:41 ABG O2 Saturation 100 % (95-98) H 04/21/19 10:41 PT/INR, D-dimer PT 18.0 Seconds (9.4-12.1) H 04/21/19 14:55 - Impressions Impressions Chest X-Ray 04/25/19 08:00 IMPRESSION: Significant decrease in right-sided pleural effusion. Ground-glass opacification remains in the right upper and lower lung zones. D/ / Aron Edwards MD / Aron Edwards MD Interpreting Provider: Aron Edwards MD Consult Discharge Plan - Plan Referrals: Emmanuel Jim MD [Primary Care Provider] - (2) Acute on chronic congestive heart failure Qualifiers: Heart failure type: unspecified Qualified Code(s): I50.9 - Heart failure, unspecified (3) Lung cancer Qualifiers: Laterality: unspecified laterality Lung location: unspecified part of lung Qualified Code(s): C34.90 - Malignant neoplasm of unspecified part of unspecified bronchus or lung (4) COPD (chronic obstructive pulmonary disease) Qualifiers: COPD type: unspecified COPD Qualified Code(s): J44.9 - Chronic obstructive pulmonary disease, unspecified (8) Pneumonia Qualifiers: Pneumonia type: due to unspecified organism Laterality: unspecified laterality Lung location: unspecified part of lung Qualified Code(s): J18.9 - Pneumonia, unspecified organism
[2019-04-25] MEDS: Budesonide/Formoterol 160/4.5 1 PUFF INH IH SCH ×2 (10:07→22:06)
[2019-04-25] MEDS: *HR* OxyCODONE Immed Rel 5 MG TABLET PO PRN (10:14)
[2019-04-25 11:32] LABS: Mean Corpuscular Hemoglobin 29.1 pg (28.0-33.3); Red Blood Count 3.09 M/mcL (4.19-5.50)
[2019-04-25 11:34] LABS: Eosinophils % 1.6 %; Hematocrit 28.1 % (37.5-50.1); Immature Granulocytes % 0.4 % (0-4); Immature Platelets 3.5 % (1.1-6.1); Lymphocytes # 0.7 K/mcL (0.6-4.6); Lymphocytes % 29.6 %; Mean Corpuscular Volume 90.9 fL (83.0-100.0); Mean Platelet Volume 9.5 fL (9.4-12.4); Monocytes # 0.1 K/mcL (0.0-1.3); Monocytes % 4.5 %; Neutrophils # 1.6 K/mcL (1.6-8.9); Red Cell Distribution Width 14.5 % (11.5-14.5); Segmented Neutrophils % 63.9 %; White Blood Count 2.5 K/mcL (4.3-11.1)
[2019-04-25 11:41] LABS: Platelet Count 81 K/mcL (140-400)
[2019-04-25] MEDS ORDERED: Magnesium Oxide 400 MG TABLET PO ONE (11:47)
[2019-04-25 11:52] LABS: BUN/Creatinine Ratio 21 (6-26); Blood Urea Nitrogen 12 mg/dL (8-23); Calcium 8.8 mg/dL (8.6-10.3); Carbon Dioxide 38 mEq/L (23-29); Chloride 92 mEq/L (98-107); Glucose 106 mg/dL (70-105); Magnesium 1.5 mg/dL (1.6-2.6); Osmolality,Calculated 286 (280-300); Phosphorous 2.3 mg/dL (2.7-4.5); Potassium 3.6 mEq/L (3.5-5.1); Sodium 138 mEq/L (136-145); eGFR For African Americans > 60 (> 60); eGFR For Non-African Americans > 60 (> 60)
--- NOTE | 2019-04-25 19:28 | Event Note ---
Date of Encounter: 04/25/19 Time of Encounter: 18:00 Patient with traumatic hemothorax supported by chest tube followed by cardiothoracic surgery small cell carcinoma of lung, recurrent pleural effusion, COPD this V/Q mismatch is stable blood pressure stable over 12 hours on current cardiac medication patient systolic heart failure. Pulmonary we will sign off at this point please call with questions.
[2019-04-26] MEDS: *HR* OxyCODONE Immed Rel 5 MG TABLET PO PRN ×4 (00:04→21:04)
[2019-04-26] MEDS: *HR* HYDROcodone/Acet 5/325 mg TABLET PO PRN ×4 (01:46→17:03)
[2019-04-26] MEDS: Ipratropium Neb 0.5 MG NEBULIZER IH SCH ×4 (03:44→21:45)
[2019-04-26] MEDS: Levalbuterol Neb 0.63 MG/3 ML IH SCH ×4 (03:44→21:45)
[2019-04-26] MEDS: Aspirin 81 MG TAB.CHEW PO SCH (07:45)
[2019-04-26] MEDS: Diltiazem CD (24hr) 240 MG CAPSULE PO SCH (07:45)
[2019-04-26] MEDS: Gabapentin 300 MG CAPSULE PO SCH ×3 (07:45→21:04)
--- NOTE | 2019-04-26 08:40 | Oncology Inp Progress Note ---
Date of Encounter: 04/26/19 Time of Encounter: 08:00 (1) Malignant pleural effusion Current Visit: Yes Status: Acute Assessment and plan: Status post chest tube placement, history of small cell lung cancer on palliative chemotherapy Jr [place], CT for 1-2 more days. (2) Acute blood loss anemia Current Visit: Yes Status: Acute Assessment and plan: Status post chemotherapy as well, hemoglobin hematocrit to be monitored, lab stoday pending, ~9g prior. (3) Lung cancer Current Visit: Yes Status: Chronic Assessment and plan: Small cell lung cancer, status post palliative chemotherapy cycle #2 carboplatin, etoposide with atezolizumab on 04/15/2019 Qualifiers: Laterality: unspecified laterality Lung location: unspecified part of lung Qualified Code(s): C34.90 - Malignant neoplasm of unspecified part of unspecified bronchus or lung Oncology: Subj Interval history: Patient is breating fine, denies pain - Constitutional General appearance: no acute distress - Head Head exam: Present: atraumatic, normal inspection - Eye Eye exam: Present: sclera anicteric - ENT ENT exam: Present: mucous membranes moist Additional comments: O2NC - Respiratory Respiratory exam: Present: CTAB - Cardiovascular Cardiovascular exam: Present: +S1, +S2 - GI/Abdominal GI/Abdominal exam: Present: normal bowel sounds, soft - Extremities Exam Extremities exam: Present: normal inspection - Neurological Exam Neurological exam: Present: alert, CN II-XII intact, oriented X3 Oncology: Obj Data - Labs CBC & Chem 7: 04/25/19 10:45 04/25/19 10:45 Consult Discharge Plan - Plan Referrals: Emmanuel Jim MD [Primary Care Provider] - Inpatient Charges Provider: Dr. Teja Rosales Follow up - Inpatient: [id number]
--- NOTE | 2019-04-26 09:33 | Cardiothoracic Progress Note ---
Date of Encounter: 04/26/19 Time of Encounter: 09:31 - Assessment and plan (1) Malignant pleural effusion Current Visit: Yes Status: Acute The assessment and plan as outlined above was discussed with the patient and/or family members who expressed understanding and agreement. All questions were answered. continue chest tube to suction chest tube in the chest. (2) Traumatic hemothorax, initial encounter Current Visit: Yes Status: Acute The assessment and plan as outlined above was discussed with the patient and/or family members who expressed understanding and agreement. All questions were answered. physical therapy, i/s, and flutter therapy. (3) Atrial fibrillation Current Visit: Yes Status: Acute The assessment and plan as outlined above was discussed with the patient and/or family members who expressed understanding and agreement. All questions were answered. Qualifiers: Atrial fibrillation type: chronic Qualified Code(s): I48.2 - Chronic atrial fibrillation - Subjective Interval history: feels great. hasnt been able to lie flat for days. Vital Signs, Last 4 Hours Temp Pulse Resp BP Pulse Ox 04/26/19 07:11 97.9 F 77 14 131/79 100 Oxgyen Flow Rate Oxygen Flow Rate (LPM) 40 Clinical Data, last 8 Hours Output, Chest Tube Drainage 250 Amount [Right Lateral Chest] Output, Urine Amount 350 Output, Urine Amount 250 Weight 04/24/19 04/25/19 04/26/19 23:59 23:59 23:59 Weight 93.4 kg 93 kg - Physical Examination General: No Apparent Distress, Well developed, Well nourished HEENT: Atraumatic, Normocephaly, Trachea midline Neck: No JVD Cardiac: Reg Rate and Rhythm, Normal S1 and S2 Incision: No signs of infection, Dry/intact dressing Lungs: Normal Breath Sounds Neuro: Alert and responsive, No focal deficits noted, Cranial nerves intact, Motor nerves intact Vascular: Normal capillary refill Abdomen: Soft, Non-tender, Other (bm yesterday) Extremities: No Clubbing, No Cyanosis, No Edema - Labs 04/25/19 10:45 04/25/19 10:45 Lab Results, Last 24 hours 04/25/19 04/25/19 10:45 10:45 WBC 2.5 L Hgb 9.0 L Hct 28.1 L Plt Count 81 L Sodium 138 Potassium 3.6 Chloride 92 L Carbon Dioxide 38 H BUN 12 Creatinine 0.56 L Glucose 106 H Calcium 8.8 Magnesium 1.5 L - Imaging Chest Xray: image reviewed Consult Discharge Plan - Plan Referrals: Emmanuel Jim MD [Primary Care Provider] -
[2019-04-26] MEDS: Budesonide/Formoterol 160/4.5 1 PUFF INH IH SCH ×2 (10:06→21:45)
[2019-04-26 11:20] LABS: Eosinophils % 2.1 %; Hematocrit 26.9 % (37.5-50.1); Hemoglobin 8.6 g/dL (12.9-16.9); Mean Corpuscular Hemoglobin 29.5 pg (28.0-33.3); Mean Corpuscular Volume 92.1 fL (83.0-100.0); Mean Platelet Volume 10.1 fL (9.4-12.4); Monocytes # 0.1 K/mcL (0.0-1.3); Monocytes % 8.2 %; Neutrophils # 0.8 K/mcL (1.6-8.9); Red Blood Count 2.92 M/mcL (4.19-5.50); Red Cell Distribution Width 14.4 % (11.5-14.5); Segmented Neutrophils % 52.7 %; White Blood Count 1.5 K/mcL (4.3-11.1)
[2019-04-26 11:21] LABS: Lymphocytes # 0.6 K/mcL (0.6-4.6); Platelet Count 53 K/mcL (140-400)
[2019-04-26 11:22] LABS: Platelet Estimate Decreased (Normal)
[2019-04-26 11:37] LABS: BUN/Creatinine Ratio 32 (6-26); Blood Urea Nitrogen 14 mg/dL (8-23); Calcium 8.8 mg/dL (8.6-10.3); Carbon Dioxide 38 mEq/L (23-29); Chloride 93 mEq/L (98-107); Glucose 109 mg/dL (70-105); Magnesium 1.5 mg/dL (1.6-2.6); Osmolality,Calculated 283 (280-300); Phosphorous 2.9 mg/dL (2.7-4.5); Potassium 3.9 mEq/L (3.5-5.1); Sodium 136 mEq/L (136-145); eGFR For African Americans > 60 (> 60); eGFR For Non-African Americans > 60 (> 60)
--- NOTE | 2019-04-26 12:43 | Internal Med Progress Note ---
Hospitalist Progress Note - Encounter Date of Encounter: 04/26/19 Time of Encounter: 12:41 - Subjective Interval History: I have seen and evaluated the patient at bedside. patient reports doing well and stated the only discomfort he has is at the chest tube site. denies chest pain, nausea or vomiting. denies shortness of breath. - Exam Vitals: Temp Pulse Resp BP Pulse Ox 98.1 F 80 16 90/40 96 04/26/19 11:19 04/26/19 11:19 04/26/19 11:19 04/26/19 11:19 04/26/19 11:19 Exam: Vitals: Reviewed General: Alert and oriented x4. No acute distress Cardiovascular: irregularly irregular, normal S1 & S2, no rubs, murmurs or gallops. Lungs: No wheezes b/l, no crackles. minimal rales right lower lobe, right chest tube Abdomen: Soft, non-tender, no rigidity. NABS in all 4 quadrants Extremities: No edema Neurological: No focal neurological deficits Rest of the physical exam is non contributory - Assessment and Plan (1) Atrial fibrillation with RVR Current Visit: Yes Status: Acute Assessment and Plan: rate controlled. Plan continue metoprolol 25mg/PO BID and diltiazem 240mg/PO daily off anticoagulation due to hemothorax. on aspirin 81mg/PO daily (2) Acute on chronic congestive heart failure Current Visit: Yes Status: Resolved Assessment and Plan: patient is euvolemic. total negative balance 8.0 litters today. Plan continue to hold diuretics. fluids restriction to 1.5 litters a day daily weight plus strict intake and output. (3) Lung cancer Current Visit: Yes Status: Chronic Assessment and Plan: Currently on palliative chemotherapy. Plan of care as per Hem&Onc (4) COPD (chronic obstructive pulmonary disease) Current Visit: Yes Status: Chronic Assessment and Plan: No wheezing on auscultation. Plan: continue bronchodilators Q6RT scheduled. on symbicort. incentive spirometry. O2 by nasal cannula, titrate for O2Sat >92% (5) Acute on chronic respiratory failure with hypoxia Current Visit: Yes Status: Resolved (6) Recurrent pleural effusion on right Current Visit: Yes Status: Acute Assessment and Plan: patient s/p dx bronchoscopy right vats evacuation of traumatic hemothorax mechanical and talc pleurodesis Plan plan of care per CT surgery (7) Hemothorax Current Visit: Yes Status: Acute Assessment and Plan: as above. (8) Pneumonia Current Visit: Yes Status: Suspected (9) Acute blood loss anemia Current Visit: Yes Status: Acute Assessment and Plan: patient has received 5 units of PRBCs. H&H stable for the past 48n hours. Plan will monitor and transfuse per protocol. Ferrous sulfate 325mg/PO BID (10) Hypovolemic shock Current Visit: Yes Status: Resolved (11) Pancytopenia Current Visit: Yes Status: Acute Assessment and Plan: Metastatic small cell carcinoma, AJCC Stage IV, s/p cycle #2 of carboplatin, etoposide with atezolizumab on 04/15/2019 no signs of active infection absolute neutrophil count of 12. neutropenia precautions. Hem&Onc involved in patient care, recommendations appreciated. DVT Prophylaxis: EPCDs for DVT prophylaxis - Summary of Assessment and Plan Summary of Assessment and Plan: patient to remain in the hospital. chest tube has not been removed. - Time Spent with Patient Total time spent is greater than 50% in coordination of care (as documented) at patient's floor/unit and/or counseling patient: Greater than 35 minutes (40) Plan of Care Discussed with: patient (and the nurse.) Internal Medicine: Result - Labs CBC & Chem 7: 04/26/19 10:50 04/26/19 10:50 Labs: Short CBC 04/26/19 Range/Units 10:50 WBC 1.5 L (4.3-11.1) K/mcL Hgb 8.6 L (12.9-16.9) g/dL Hct 26.9 L (37.5-50.1) % Plt Count 53 L (140-400) K/mcL Neutrophils # 0.8 L (1.6-8.9) K/mcL BMP 04/26/19 10:50 Sodium 136 Potassium 3.9 Chloride 93 L Carbon Dioxide 38 H BUN 14 Creatinine 0.44 L Glucose 109 H Calcium 8.8 - ABG Interpretation ABG results: ABG ABG pH 7.40 pH Units (7.32-7.45) 04/21/19 10:41 ABG pCO2 54 mmHg (35-45) H 04/21/19 10:41 ABG pO2 422 mmHg (85-104) H 04/21/19 10:41 ABG O2 Saturation 100 % (95-98) H 04/21/19 10:41 PT/INR, D-dimer PT 18.0 Seconds (9.4-12.1) H 04/21/19 14:55 - Impressions Impressions Chest X-Ray 04/26/19 08:00 IMPRESSION: Airspace opacities in the right lung are unchanged. No discrete pneumothorax identified. D/ / Norah Tolliver MD / Norah Tolliver MD Interpreting Provider: Norah Tolliver MD Consult Discharge Plan - Plan Referrals: Emmanuel Jim MD [Primary Care Provider] - __ (2) Acute on chronic congestive heart failure Qualifiers: Heart failure type: unspecified Qualified Code(s): I50.9 - Heart failure, unspecified (3) Lung cancer Qualifiers: Laterality: unspecified laterality Lung location: unspecified part of lung Qualified Code(s): C34.90 - Malignant neoplasm of unspecified part of unspecified bronchus or lung (4) COPD (chronic obstructive pulmonary disease) Qualifiers: COPD type: unspecified COPD Qualified Code(s): J44.9 - Chronic obstructive pulmonary disease, unspecified (8) Pneumonia Qualifiers: Pneumonia type: due to unspecified organism Laterality: unspecified laterality Lung location: unspecified part of lung Qualified Code(s): J18.9 - Pneumonia, unspecified organism
[2019-04-27] MEDS: Ipratropium Neb 0.5 MG NEBULIZER IH SCH ×4 (03:41→21:52)
[2019-04-27] MEDS: Levalbuterol Neb 0.63 MG/3 ML IH SCH ×4 (03:41→21:52)
[2019-04-27] MEDS: *HR* OxyCODONE Immed Rel 5 MG TABLET PO PRN ×4 (04:23→23:31)
[2019-04-27 05:18] LABS: Immature Granulocytes % 0.9 % (0-4); White Blood Count 1.1 K/mcL (4.3-11.1)
[2019-04-27 05:19] LABS: Eosinophils % 2.6 %; Hematocrit 25.9 % (37.5-50.1); Hemoglobin 8.3 g/dL (12.9-16.9); Lymphocytes # 0.5 K/mcL (0.6-4.6); Lymphocytes % 46.5 %; Mean Corpuscular Hemoglobin 29.2 pg (28.0-33.3); Mean Corpuscular Volume 91.2 fL (83.0-100.0); Mean Platelet Volume 10.2 fL (9.4-12.4); Monocytes # 0.1 K/mcL (0.0-1.3); Monocytes % 9.6 %; Red Blood Count 2.84 M/mcL (4.19-5.50); Red Cell Distribution Width 14.7 % (11.5-14.5); Segmented Neutrophils % 40.4 %
[2019-04-27 05:33] LABS: Neutrophils # 0.4 K/mcL (1.6-8.9); Platelet Count 39 K/mcL (140-400)
[2019-04-27 05:37] LABS: BUN/Creatinine Ratio 37 (6-26); Blood Urea Nitrogen 17 mg/dL (8-23); Calcium 8.6 mg/dL (8.6-10.3); Carbon Dioxide 33 mEq/L (23-29); Chloride 96 mEq/L (98-107); Glucose 112 mg/dL (70-105); Magnesium 1.5 mg/dL (1.6-2.6); Osmolality,Calculated 282 (280-300); Phosphorous 3.4 mg/dL (2.7-4.5); Sodium 135 mEq/L (136-145); eGFR For African Americans > 60 (> 60); eGFR For Non-African Americans > 60 (> 60)
--- NOTE | 2019-04-27 08:38 | Electrocardiograph Report ---
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
[2019-04-27] MEDS: Budesonide/Formoterol 160/4.5 1 PUFF INH IH SCH ×2 (09:50→21:52)
[2019-04-27] MEDS: *HR* HYDROcodone/Acet 5/325 mg TABLET PO PRN ×3 (10:16→20:30)
[2019-04-27] MEDS: Magnesium Oxide 400 MG TABLET PO SCH (10:17)
[2019-04-27] MEDS: Gabapentin 300 MG CAPSULE PO SCH ×3 (10:18→20:27)
[2019-04-27] MEDS: Diltiazem CD (24hr) 240 MG CAPSULE PO SCH (10:18)
[2019-04-27] MEDS: Aspirin 81 MG TAB.CHEW PO SCH (10:18)
--- NOTE | 2019-04-27 10:40 | Cardiothoracic Progress Note ---
Date of Encounter: 04/27/19 Time of Encounter: 10:38 - Assessment and plan (1) Malignant pleural effusion Current Visit: Yes Status: Acute The assessment and plan as outlined above was discussed with the patient and/or family members who expressed understanding and agreement. All questions were answered. continue chest tube to suction chest tube in the chest. plan 2nd talc procedure in am 6/4 (2) Traumatic hemothorax, initial encounter Current Visit: Yes Status: Acute The assessment and plan as outlined above was discussed with the patient and/or family members who expressed understanding and agreement. All questions were answered. physical therapy, i/s, and flutter therapy. (3) Atrial fibrillation Current Visit: Yes Status: Acute The assessment and plan as outlined above was discussed with the patient and/or family members who expressed understanding and agreement. All questions were answered. Qualifiers: Atrial fibrillation type: chronic Qualified Code(s): I48.2 - Chronic atrial fibrillation - Subjective Interval history: feels great. hasnt been able to lie flat for days. Vital Signs, Last 4 Hours Temp Pulse Resp BP Pulse Ox 04/27/19 09:50 16 95 04/27/19 07:29 97.9 F 94 18 127/61 83 Oxgyen Flow Rate Oxygen Flow Rate (LPM) 2 Clinical Data, last 8 Hours Output, Chest Tube Drainage 140 Amount [Right Lateral Chest] Output, Chest Tube Drainage 64 Amount [Right Lateral Chest] Weight 04/25/19 04/26/19 04/27/19 23:59 23:59 23:59 Weight 93.4 kg 93 kg 95 kg - Physical Examination General: No Apparent Distress, Well developed, Well nourished HEENT: Trachea midline Neck: No JVD Cardiac: Reg Rate and Rhythm, Normal S1 and S2, No Murmur Incision: No signs of infection Chest tubes: Other (thin serous drainage) Lungs: Other (cta on the left squeak on the right ) Neuro: Alert and responsive, No focal deficits noted, Cranial nerves intact, Motor nerves intact Vascular: Normal capillary refill Abdomen: Soft, Non-tender - Labs 04/27/19 04:44 04/27/19 04:44 Lab Results, Last 24 hours 04/26/19 04/26/19 04/27/19 10:50 10:50 04:44 WBC 1.5 L 1.1 L Hgb 8.6 L 8.3 L Hct 26.9 L 25.9 L Plt Count 53 L 39 L Sodium 136 Potassium 3.9 Chloride 93 L Carbon Dioxide 38 H BUN 14 Creatinine 0.44 L Glucose 109 H Calcium 8.8 Magnesium 1.5 L 04/27/19 04:44 WBC Hgb Hct Plt Count Sodium 135 L Potassium 4.0 Chloride 96 L Carbon Dioxide 33 H BUN 17 Creatinine 0.46 L Glucose 112 H Calcium 8.6 Magnesium 1.5 L Consult Discharge Plan - Plan Referrals: Emmanuel Jim MD [Primary Care Provider] -
[2019-04-27] MEDS: Furosemide 20 MG TABLET PO SCH (11:29)
--- NOTE | 2019-04-27 11:45 | Internal Med Progress Note ---
Hospitalist Progress Note - Encounter Date of Encounter: 04/27/19 Time of Encounter: 11:43 - Subjective Interval History: I have seen and evaluated the patient at bedside. patient reports feeling well. denies chest pain, nausea or vomiting. denies loose stool. discomfort around the chest tube has improved. - Exam Vitals: Temp Pulse Resp BP Pulse Ox 98.1 F 85 18 113/68 95 04/27/19 11:26 04/27/19 11:26 04/27/19 11:26 04/27/19 11:26 04/27/19 11:26 Exam: Vitals: Reviewed General: Alert and oriented x4. No acute distress Cardiovascular: irregularly irregular, normal S1 & S2, no rubs, murmurs or gallops. Lungs: mild scattered expiratory wheezes b/l, no crackles. minimal rales right lower lobe, right chest tube Abdomen: Soft, non-tender, no rigidity. NABS in all 4 quadrants Extremities: No edema Neurological: No focal neurological deficits Rest of the physical exam is non contributory - Assessment and Plan (1) Atrial fibrillation with RVR Current Visit: Yes Status: Resolved Assessment and Plan: HR is controlled on diltiazem and metoprolol. off anticoagulation due to recent hemotorax. on aspirin 81mg/PO daily. (2) Acute on chronic congestive heart failure Current Visit: Yes Status: Resolved Assessment and Plan: patient is euvolemic. will resume furosemide 20mg/PO daily. continue fluid restriction to 1.5 litters a day. strict intake and output plus daily weight. (3) Lung cancer Current Visit: Yes Status: Chronic Assessment and Plan: Currently on palliative chemotherapy. Plan of care as per Hem&Onc (4) COPD (chronic obstructive pulmonary disease) Current Visit: Yes Status: Chronic Assessment and Plan: patient with mild scattered b/l expiratory wheezing. on bronchodilators Q6RT scheduled. continue symbicort incentive spirometry (5) Acute on chronic respiratory failure with hypoxia Current Visit: Yes Status: Resolved (6) Recurrent pleural effusion on right Current Visit: Yes Status: Acute Assessment and Plan: patient s/p dx bronchoscopy right vats evacuation of traumatic hemothorax mechanical and talc pleurodesis Plan patient scheduled for tacl procedure tomorrow (7) Acute blood loss anemia Current Visit: Yes Status: Acute (8) Pancytopenia Current Visit: Yes Status: Acute Assessment and Plan: Metastatic small cell carcinoma, AJCC Stage IV, s/p cycle #2 of carboplatin, etoposide with atezolizumab on 04/15/2019 no signs of active infection absolute neutrophil count of 12. Plan will monitor clinically neutropenia precautions. Hem&Onc involved in patient care, recommendations appreciated. (9) Pneumonia Current Visit: Yes Status: Suspected (10) Hypovolemic shock Current Visit: Yes Status: Resolved (11) Hemothorax Current Visit: Yes Status: Resolved (12) Hypomagnesemia Current Visit: Yes Status: Acute Assessment and Plan: electrolyte being replaced. DVT Prophylaxis: intermittent pneumatic compression for dvt prophylaxis. - Summary of Assessment and Plan Summary of Assessment and Plan: patient to remain in the hospital scheduled for talc procedure tomorrow morning. - Time Spent with Patient Total time spent is greater than 50% in coordination of care (as documented) at patient's floor/unit and/or counseling patient: Greater than 35 minutes (40) Plan of Care Discussed with: patient (and the nurse.) Internal Medicine: Result - Labs CBC & Chem 7: 04/27/19 04:44 04/27/19 04:44 Labs: Short CBC 04/27/19 Range/Units 04:44 WBC 1.1 L (4.3-11.1) K/mcL Hgb 8.3 L (12.9-16.9) g/dL Hct 25.9 L (37.5-50.1) % Plt Count 39 L (140-400) K/mcL Neutrophils # 0.4 L (1.6-8.9) K/mcL BMP 04/27/19 04:44 Sodium 135 L Potassium 4.0 Chloride 96 L Carbon Dioxide 33 H BUN 17 Creatinine 0.46 L Glucose 112 H Calcium 8.6 - ABG Interpretation ABG results: ABG ABG pH 7.40 pH Units (7.32-7.45) 04/21/19 10:41 ABG pCO2 54 mmHg (35-45) H 04/21/19 10:41 ABG pO2 422 mmHg (85-104) H 04/21/19 10:41 ABG O2 Saturation 100 % (95-98) H 04/21/19 10:41 PT/INR, D-dimer PT 18.0 Seconds (9.4-12.1) H 04/21/19 14:55 Consult Discharge Plan - Plan Referrals: Emmanuel Jim MD [Primary Care Provider] - (2) Acute on chronic congestive heart failure Qualifiers: Heart failure type: unspecified Qualified Code(s): I50.9 - Heart failure, unspecified (3) Lung cancer Qualifiers: Laterality: unspecified laterality Lung location: unspecified part of lung Qualified Code(s): C34.90 - Malignant neoplasm of unspecified part of unspecifi ed bronchus or lung (4) COPD (chronic obstructive pulmonary disease) Qualifiers: COPD type: unspecified COPD Qualified Code(s): J44.9 - Chronic obstructive pulmonary disease, unspecified (9) Pneumonia Qualifiers: Pneumonia type: due to unspecified organism Laterality: unspecified later ality Lung location: unspecified part of lung Qualified Code(s): J18.9 - Pneumonia, unspecified organism
[2019-04-27] MEDS: Nicotine 14 MG PATCH.TD24 TD SCH (20:26)
[2019-04-28] MEDS: Levalbuterol Neb 0.63 MG/3 ML IH SCH ×4 (04:08→22:54)
[2019-04-28] MEDS: Ipratropium Neb 0.5 MG NEBULIZER IH SCH ×4 (04:08→22:54)
[2019-04-28] MEDS: *HR* HYDROcodone/Acet 5/325 mg TABLET PO PRN ×4 (04:22→21:10)
[2019-04-28] MEDS: *HR* OxyCODONE Immed Rel 5 MG TABLET PO PRN ×4 (05:53→23:16)
[2019-04-28] MEDS: Gabapentin 300 MG CAPSULE PO SCH ×3 (07:53→21:10)
[2019-04-28] MEDS: Diltiazem CD (24hr) 240 MG CAPSULE PO SCH (07:54)
[2019-04-28] MEDS: Magnesium Oxide 400 MG TABLET PO SCH (07:54)
[2019-04-28] MEDS: Aspirin 81 MG TAB.CHEW PO SCH (07:55)
[2019-04-28] MEDS: Furosemide 20 MG TABLET PO SCH (07:55)
[2019-04-28] MEDS: Nicotine 14 MG PATCH.TD24 TD SCH (07:55)
[2019-04-28] MEDS ORDERED: LIDOCAINE IX ONE (08:00)
[2019-04-28] MEDS ORDERED: TALC IX ONE (08:00)
[2019-04-28] MEDS ORDERED: SODIUM CHLORIDE IX ONE (08:00)
[2019-04-28 09:36] LABS: Eosinophils % 1.8 %; Mean Corpuscular HGB Conc 32.2 g/dL (31.6-35.5)
[2019-04-28 09:38] LABS: Hemoglobin 8.7 g/dL (12.9-16.9); Lymphocytes # 0.6 K/mcL (0.6-4.6); Lymphocytes % 50.5 %; Mean Corpuscular Hemoglobin 29.5 pg (28.0-33.3); Mean Corpuscular Volume 91.5 fL (83.0-100.0); Mean Platelet Volume 10.7 fL (9.4-12.4); Monocytes # 0.2 K/mcL (0.0-1.3); Monocytes % 14.4 %; Neutrophils # 0.4 K/mcL (1.6-8.9); Red Blood Count 2.95 M/mcL (4.19-5.50); Red Cell Distribution Width 14.8 % (11.5-14.5); Segmented Neutrophils % 33.3 %; White Blood Count 1.1 K/mcL (4.3-11.1)
[2019-04-28 09:48] LABS: Platelet Count 47 K/mcL (140-400)
--- NOTE | 2019-04-28 09:57 | Operative Note ---
Date of procedure: 04/28/19 Pre-op diagnosis: malignant pleural effusion Post-op diagnosis: same Procedure: talc pleurodesis Anesthesia: other (po analgesic and lidocaine in the slurry ) Surgeon: Javier Mckeon Was there an embalmer assistant present: No Estimated blood loss (cc): 0 Specimen: 0 Condition: stable Disposition: floor Procedure in Detail: With cardiopulmonary monitoring, the chest tube was prepped with alcohol. 4gm of talc with 10cc 1% lidocaine with injected into the pleural space. After monitoring the patient for respiratory and cardiac events, everything was stable. We will keep the chest tube clamped until noon.
[2019-04-28 10:03] LABS: BUN/Creatinine Ratio 38 (6-26); Blood Urea Nitrogen 17 mg/dL (8-23); Calcium 8.8 mg/dL (8.6-10.3); Carbon Dioxide 30 mEq/L (23-29); Chloride 97 mEq/L (98-107); Glucose 120 mg/dL (70-105); Magnesium 1.6 mg/dL (1.6-2.6); Osmolality,Calculated 285 (280-300); Phosphorous 3.4 mg/dL (2.7-4.5); Potassium 3.7 mEq/L (3.5-5.1); Sodium 136 mEq/L (136-145); eGFR For African Americans > 60 (> 60); eGFR For Non-African Americans > 60 (> 60)
[2019-04-28] MEDS: Budesonide/Formoterol 160/4.5 1 PUFF INH IH SCH ×2 (10:13→22:54)
[2019-04-28 10:35] LABS: Platelet Estimate Decreased (Normal)
--- NOTE | 2019-04-28 15:36 | Internal Med Progress Note ---
Hospitalist Progress Note - Encounter Date of Encounter: 04/28/19 Time of Encounter: 15:34 - Subjective Interval History: I have seen and evaluated the patient bedside. patient voices no complaints today. denies chest pain, shortness of breath, nausea or vomiting. denies abdominal pain. - Exam Vitals: Temp Pulse Resp BP Pulse Ox 98.2 F 84 18 113/58 99 04/28/19 12:30 04/28/19 12:30 04/28/19 12:30 04/28/19 12:30 04/28/19 12:30 Exam: Vitals: Reviewed General: Alert and oriented x4. No acute distress Cardiovascular: irregularly irregular, normal S1 & S2, no rubs, murmurs or gallops. Lungs: CTA b/l, no wheezes b/l, no crackles. minimal rales right lower lobe, right chest tube Abdomen: Soft, non-tender, no rigidity. NABS in all 4 quadrants Extremities: No edema Neurological: No focal neurological deficits Rest of the physical exam is non contributory - Assessment and Plan (1) Atrial fibrillation with RVR Current Visit: Yes Status: Resolved Assessment and Plan: HR is controlled. Plan continue diltiazem 240 mg by mouth and metoprolol 25 mg by mouth twice a day. off anticoagulation due to recent hemotorax. on aspirin 81mg/PO daily. (2) Acute on chronic congestive heart failure Current Visit: Yes Status: Resolved Assessment and Plan: patient is euvolemic. Continue furosemide 20mg/PO daily. continue fluid restriction to 1.5 litters a d ay. strict intake and output plus daily weight. (3) Lung cancer Current Visit: Yes Status: Chronic Assessment and Plan: Currently on palliative chemotherapy. Plan of care as per Hem&Onc (4) COPD (chronic obstructive pulmonary disease) Current Visit: Yes Status: Chronic Assessment and Plan: Chest is clear to auscultation bilaterally Plan on bronchodilators Q6RT scheduled. continue symbicort incentive spirometry (5) Acute on chronic respiratory failure with hypoxia Current Visit: Yes Status: Resolved (6) Recurrent pleural effusion on right Current Visit: Yes Status: Acute Assessment and Plan: patient s/p dx bronchoscopy right vats evacuation of traumatic hemothorax mechanical and talc pleurodesis Plan Patient status post tacl procedure today Chest tube per CT surgery recommendations. (7) Acute blood loss anemia Current Visit: Yes Status: Acute Assessment and Plan: patient has received 5 units of PRBCs. H&H stable. Plan monitor and transfuse per protocol. continue Ferrous sulfate 325mg/PO BID (8) Pancytopenia Current Visit: Yes Status: Acute Assessment and Plan: Metastatic small cell carcinoma, AJCC Stage IV, s/p cycle #2 of carboplatin, etoposide with atezolizumab on 04/15/2019 no signs of active infection absolute neutrophil count of 12. Plan monitor clinically continue neutropenia precautions. will re-consult Hem&Onc, recommendations appreciated. (9) Pneumonia Current Visit: Yes Status: Suspected Assessment and Plan: patient completed antibiotic treatment (10) Hypovolemic shock Current Visit: Yes Status: Resolved (11) Hemothorax Current Visit: Yes Status: Resolved Assessment and Plan: s/p evacuation. right chest tube remains in place per CT surgery recommendations. (12) Hypomagnesemia Current Visit: Yes Status: Resolved DVT Prophylaxis: intermittent pneumatic compression for dvt prophylaxis - Summary of Assessment and Plan Summary of Assessment and Plan: Patient to remain in the hospital. right chest tube still in place. - Time Spent with Patient Total time spent is greater than 50% in coordination of care (as documented) at patient's floor/unit and/or counseling patient: Greater than 35 minutes (40) Plan of Care Discussed with: patient (and the nurse.) Internal Medicine: Result - Labs CBC & Chem 7: 04/28/19 09:02 04/28/19 09:02 Labs: Short CBC 04/28/19 Range/Units 09:02 WBC 1.1 L (4.3-11.1) K/mcL Hgb 8.7 L (12.9-16.9) g/dL Hct 27.0 L (37.5-50.1) % Plt Count 47 L (140-400) K/mcL Neutrophils # 0.4 L (1.6-8.9) K/mcL BMP 04/28/19 09:02 Sodium 136 Potassium 3.7 Chloride 97 L Carbon Dioxide 30 H BUN 17 Creatinine 0.45 L Glucose 120 H Calcium 8.8 - ABG Interpretation ABG results: ABG ABG pH 7.40 pH Units (7.32-7.45) 04/21/19 10:41 ABG pCO2 54 mmHg (35-45) H 04/21/19 10:41 ABG pO2 422 mmHg (85-104) H 04/21/19 10:41 ABG O2 Saturation 100 % (95-98) H 04/21/19 10:41 PT/INR, D-dimer PT 18.0 Seconds (9.4-12.1) H 04/21/19 14:55 Consult Discharge Plan - Plan Additional Instructions: Please go to Out Patient testing at [facility] on May 25, 2019 around 0745 AM to get an x-ray done before you go see Dr. Mckeon. The office is sending the order over to out patient testing at the [facility]. Referrals: Emmanuel Jim MD [Primary Care Provider] - 05/08/19 9:30 am Javier Mckeon MD [Partnered Physician] - 05/25/19 8:45 am (2) Acute on chronic congestive heart failure Qualifiers: Heart failure type: unspecified Qualified Code(s): I50.9 - Heart failure, unspecified (3) Lung cancer Qualifiers: Laterality: unspecified laterality Lung location: unspecified part of lung Qualified Code(s): C34.90 - Malignant neoplasm of unspecified part of uns pecified bronchus or lung (4) COPD (chronic obstructive pulmonary disease) Qualifiers: COPD type: unspecified COPD Qualified Code(s): J44.9 - Chronic obstructive pulmonary disease, unspecified (9) Pneumonia Qualifiers: Pneumonia type: due to unspecified organism Laterality: unspecified laterality Lung location: unspecified part of lung Qualified Code(s): J18.9 - Pneumonia, unspecified organism
--- NOTE | 2019-04-28 17:05 | Oncology Inp Progress Note ---
Date of Encounter: 04/28/19 Time of Encounter: 12:00 (1) Malignant pleural effusion Current Visit: Yes Status: Acute Assessment and plan: Status post chest tube placement, history of small cell lung cancer on palliative chemotherapy She underwent pleurodesis, rpt procedure today. Possible d/c after Ct removal. Tolertaed procedure well (2) Acute blood loss anemia Current Visit: Yes Status: Acute Assessment and plan: Status post chemotherapy as well, hemoglobin hematocrit to be monitored, lab stoday pending, ~9g prior. (3) Lung cancer Current Visit: Yes Status: Chronic Assessment and plan: Small cell lung cancer, status post palliative chemotherapy cycle #2 carboplatin, etoposide with atezolizumab on 04/15/2019 Qualifiers: Laterality: unspecified laterality Lung location: unspecified part of lung Qualified Code(s): C34.90 - Malignant neoplasm of unspecified part of unspecified bronchus or lung Oncology: Subj Interval history: Patient underwent talc pleurodesis procedure again today. She denies any discomfort - Constitutional General appearance: no acute distress - Head Head exam: Present: atraumatic, normal inspection - ENT ENT exam: Present: mucous membranes moist - Respiratory Respiratory exam: Present: CTAB Additional comments: RT chest tube, s/p pleurodesis - GI/Abdominal GI/Abdominal exam: Present: normal bowel sounds, soft - Extremities Exam Extremities exam: Present: normal inspection Oncology: Obj Data - Labs CBC & Chem 7: 04/28/19 09:02 04/28/19 09:02 Consult Discharge Plan - Plan Additional Instructions: Please go to Out Patient testing at [facility] on May 25, 2019 around 0745 AM to get an x-ray done before you go see Dr. Mckeon. The office is sending the order over to out patient testing at the the [facility]. Referrals: Emmanuel Jim MD [Primary Care Provider] - 05/08/19 9:30 am Javier Mckeon MD [Partnered Physician] - 05/25/19 8:45 am Inpatient Charges Provider: Dr. Teja Rosales Follow up - Inpatient: [id number]
[2019-04-29 01:45] LABS: Mean Platelet Volume 10.7 fL (9.4-12.4); Red Blood Count 2.69 M/mcL (4.19-5.50); Red Cell Distribution Width 14.9 % (11.5-14.5)
[2019-04-29 01:46] LABS: Hematocrit 24.8 % (37.5-50.1); Hemoglobin 7.8 g/dL (12.9-16.9); Lymphocytes # 0.5 K/mcL (0.6-4.6); Lymphocytes % 51.5 %; Mean Corpuscular HGB Conc 31.5 g/dL (31.6-35.5); Mean Corpuscular Volume 92.2 fL (83.0-100.0); Monocytes # 0.2 K/mcL (0.0-1.3); Monocytes % 20.8 %; Neutrophils # 0.2 K/mcL (1.6-8.9); Segmented Neutrophils % 23.7 %
[2019-04-29 02:03] LABS: BUN/Creatinine Ratio 39 (6-26); Blood Urea Nitrogen 20 mg/dL (8-23); Calcium 8.4 mg/dL (8.6-10.3); Carbon Dioxide 32 mEq/L (23-29); Chloride 98 mEq/L (98-107); Glucose 127 mg/dL (70-105); Magnesium 1.6 mg/dL (1.6-2.6); Osmolality,Calculated 282 (280-300); Phosphorous 3.4 mg/dL (2.7-4.5); Potassium 3.9 mEq/L (3.5-5.1); Sodium 134 mEq/L (136-145); eGFR For African Americans > 60 (> 60); eGFR For Non-African Americans > 60 (> 60)
[2019-04-29 02:38] LABS: Platelet Count 65 K/mcL (140-400)
[2019-04-29 02:50] LABS: Hypochromasia Present (Not Present); Platelet Estimate Marked Decrease (Normal)
[2019-04-29] MEDS: Ipratropium Neb 0.5 MG NEBULIZER IH SCH ×4 (04:31→22:31)
[2019-04-29] MEDS: Levalbuterol Neb 0.63 MG/3 ML IH SCH ×4 (04:31→22:31)
[2019-04-29] MEDS: *HR* HYDROcodone/Acet 5/325 mg TABLET PO PRN ×3 (04:56→23:44)
[2019-04-29] MEDS: Aspirin 81 MG TAB.CHEW PO SCH (07:39)
[2019-04-29] MEDS: Diltiazem CD (24hr) 240 MG CAPSULE PO SCH (07:39)
[2019-04-29] MEDS: Furosemide 20 MG TABLET PO SCH (07:39)
[2019-04-29] MEDS: Gabapentin 300 MG CAPSULE PO SCH ×3 (07:39→21:05)
[2019-04-29] MEDS: Magnesium Oxide 400 MG TABLET PO SCH (07:39)
[2019-04-29] MEDS: Nicotine 14 MG PATCH.TD24 TD SCH (07:40)
[2019-04-29] MEDS: *HR* OxyCODONE Immed Rel 5 MG TABLET PO PRN ×3 (07:44→21:05)
--- NOTE | 2019-04-29 08:23 | Cardiothoracic Progress Note ---
Date of Encounter: 04/29/19 Time of Encounter: 08:21 - Assessment and plan (1) Malignant pleural effusion Current Visit: Yes Status: Acute The assessment and plan as outlined above was discussed with the patient and/or family members who expressed understanding and agreement. All questions were answered. continue chest tube to suction (2) Traumatic hemothorax, initial encounter Current Visit: Yes Status: Acute The assessment and plan as outlined above was discussed with the patient and/or family members who expressed understanding and agreement. All questions were answered. physical therapy, i/s, and flutter therapy. (3) Atrial fibrillation Current Visit: Yes Status: Acute The assessment and plan as outlined above was discussed with the patient and/or family members who expressed understanding and agreement. All questions were answered. stable Qualifiers: Atrial fibrillation type: chronic Qualified Code(s): I48.2 - Chronic atrial fibrillation - Subjective Interval history: feels great. hasnt been able to lie flat for days. Vital Signs, Last 4 Hours Temp Pulse Resp BP Pulse Ox 04/29/19 07:47 97.9 F 83 20 94/55 95 04/29/19 04:50 81 04/29/19 04:31 15 124/73 98 Oxgyen Flow Rate Oxygen Flow Rate (LPM) 2 Clinical Data, last 8 Hours Output, Chest Tube Drainage 40 Amount [Right Lateral Chest] Output, Chest Tube Drainage 90 Amount [Right Lateral Chest] Output, Urine Amount 550 Weight 04/27/19 04/28/19 04/29/19 23:59 23:59 23:59 Weight 95 kg - Physical Examination General: Conversant, No Apparent Distress, Well developed, Well nourished HEENT: Atraumatic, Normocephaly Cardiac: Normal S1 and S2, No Murmur, Other (irregular irregular ) Incision: No signs of infection, Dry/intact dressing, Other (changed dressings myself ) Chest tubes: Other (level at 1200) Lungs: Normal Breath Sounds Neuro: Alert and responsive, No focal deficits noted, Cranial nerves intact, Motor nerves intact Abdomen: Soft, Non-tender - Labs 04/29/19 01:11 04/29/19 01:11 Lab Results, Last 24 hours 04/28/19 04/28/19 04/29/19 09:02 09:02 01:11 WBC 1.1 L 1.0 L* Hgb 8.7 L 7.8 L Hct 27.0 L 24.8 L Plt Count 47 L 65 L Sodium 136 Potassium 3.7 Chloride 97 L Carbon Dioxide 30 H BUN 17 Creatinine 0.45 L Glucose 120 H Calcium 8.8 Magnesium 1.6 04/29/19 01:11 WBC Hgb Hct Plt Count Sodium 134 L Potassium 3.9 Chloride 98 Carbon Dioxide 32 H BUN 20 Creatinine 0.51 L Glucose 127 H Calcium 8.4 L Magnesium 1.6 Consult Discharge Plan - Plan Additional Instructions: Please go to Out Patient testing at [facility] on May 25, 2019 around 0745 AM to get an x-ray done before you go see Dr. Mckeon. The office is sending the order over to out patient testing at the [facility]. Referrals: Emmanuel Jim MD [Primary Care Provider] - 05/08/19 9:30 am Javier Mckeon MD [Partnered Physician] - 05/25/19 8:45 am
[2019-04-29] MEDS: Budesonide/Formoterol 160/4.5 1 PUFF INH IH SCH ×2 (11:01→22:31)
--- NOTE | 2019-04-29 15:46 | Oncology Inp Progress Note ---
<Lu Reyes - Last Filed: 04/29/19 18:36> Date of Encounter: 04/29/19 Time of Encounter: 15:43 (1) Neutropenia Current Visit: Yes Status: Acute Assessment and plan: ANC 200, falling from 400 yesterday. Patient received carboplatin/etop + atezolizumab 04/15/19-04/17/19. Did not receive Neulasta. Plan: Neupogen 480 mcg SQ today and then daily x 2 days (total of 3 doses). Confirmed with Evelyn in Pharmacy that first dose is ordered for today. Also discussed with Dr. Armstrong. Notes that he will add Neulasta to future treatm ent plans (as an outpatient) Qualifiers: Neutropenia type: secondary to cancer chemotherapy Qualified Code(s): D70.1 - Agranulocytosis secondary to cancer chemotherapy; T45.1X5A - Adverse effect of antineoplastic and immunosuppressive drugs, initial encounter (2) Lung cancer Current Visit: Yes Status: Chronic Assessment and plan: Metastatic small cell carcinoma, AJCC Stage IV, s/p cycle #2 of carboplatin, etoposide with atezolizumab on 04/15/2019 Plan: Continue to monitor blood counts given recent treatment Appears to not be responding well given his rapid re-accumulation of pleural fluid s/p 2 cycles treatment Further treatment to be arranged on outpatient basis following improvement of acute issues Qualifiers: Laterality: unspecified laterality Lung location: unspecified part of lung Qualified Code(s): C34.90 - Malignant neoplasm of unspecified part of unspecified bronchus or lung Oncology: Subj Interval history: Mr. Davison is sitting on the edge of the bed and notes improvement in his breathing. He appears fatigued, with dark circles around his eyes. He states that actually he slept quite well with the CPAP. He slept for more than 5 hours last night. He denies nausea, vomiting, constipation, diarrhea, or abdominal pain today. He denies fever or chills. Discussed that his white blood cell co unt and neutrophil count are low since receiving his chemotherapy. We avoid giving Neupogen today and again on and Saturday. Verbalized acceptance. - Additional findings Additional findings: General: Alert and oriented, well appearing. Mental Status: Affect appropriate for circumstances Skin: No rashes or petechiae. Lungs: Respirations are easy. On 2 L per NC. Diminished, scattered expiratory wheezing noted. No rhonchi or rales. Chest tube right intact. Serosanguineous drainage noted on gauze. Cardiovascular: Irregular rhythm. Rate controlled. Abdomen: Soft, nontender; no organomegaly or masses palpable. Neurologic: Alert, cranial nerves II-XII intact; no focal weakness or sensory abnormalities. Oncology: Obj Data - Labs CBC & Chem 7: 04/29/19 01:11 04/29/19 01:11 Consult Discharge Plan - Plan Additional Instructions: Please go to Out Patient testing at [facility] on May 25, 2019 around 0745 AM to get an x-ray done before you go see Dr. Mckeon. The office is sending the order over to [facility]. Referrals: Emmanuel Jim MD [Primary Care Provider] - 05/08/19 9:30 am Javier Mckeon MD [Partnered Physician] - 05/25/19 8:45 am Inpatient Charges Provider: Dr. Teja Rosales <Tommie Rosales - Last Filed: 04/30/19 09:47> Date of Encounter: 04/30/19 (1) Malignant pleural effusion Current Visit: Yes Status: Acute (2) Acute blood loss anemia Current Visit: Yes Status: Acute (3) Lung cancer Current Visit: Yes Status: Chronic Qualifiers: Laterality: unspecified laterality Lung location: unspecified part of lung Qualified Code(s): C34.90 - Malignant neoplasm of unspecified part of unspecified bronchus or lung Oncology: Subj Interval history: Labs ANC trended down, never given neulasta after Rx. Eros start neupogen and follow trend. MInitor CBCD, pancytopenia. Oncology: Obj Data - Labs CBC & Chem 7: 04/29/19 01:11 04/29/19 01:11 Inpatient Charges Provider: Dr. Teja Rosales Follow up - Inpatient: [id number]
--- NOTE | 2019-04-29 18:59 | Internal Med Progress Note ---
Hospitalist Progress Note - Encounter Date of Encounter: 04/29/19 Time of Encounter: 11:00 - Subjective Interval History: No issues or complaints overnight Patient still on continuous suction to chest tube per cardiothoracic surgeon recommendations - Exam Vitals: Temp Pulse Resp BP Pulse Ox 98.9 F 82 18 129/66 98 04/29/19 18:44 04/29/19 18:44 04/29/19 18:44 04/29/19 18:44 04/29/19 18:44 Exam: Gen.: Nonacute distress, alert and oriented 3 ENT: Mucosal membranes moist Respiratory: Lungs are clear to auscultation bilaterally without any wheezing rhonchi or rales Cardiovascular: Normal S1 and S2 regular rate rhythm no murmurs rubs or gallops Abdomen: Soft, nontender and nondistended with positive bowel sounds Extremities: No lower extremity edema Skin: Normal color - Assessment and Plan (1) Recurrent pleural effusion on right Current Visit: Yes Status: Acute Assessment and Plan: patient s/p dx bronchoscopy right vats evacuation of traumatic hemothorax mechanical and talc pleurodesis Patient still on continuous suction to chest tube per cardiothoracic surgeon recommendations (2) Lung cancer Current Visit: Yes Status: Chronic Assessment and Plan: Currently on palliative chemotherapy. Plan of care as per Hem&Onc (3) Acute on chronic congestive heart failure Current Visit: Yes Status: Resolved Assessment and Plan: patient is euvolemic. Continue furosemide 20mg/PO daily. continue fluid restriction to 1.5 litters a day. strict intake and output plus daily weight. (4) Acute on chronic respiratory failure with hypoxia Current Visit: Yes Status: Resolved Assessment and Plan: Continue oxygen by nasal cannula, titrate for O2 sat duration more than 92%. On levalbuterol, and Symbicort. pulmonology recommendations appreciated consider starting the patient on levofloxacin 750mg/IV daily. (5) COPD (chronic obstructive pulmonary disease) Current Visit: Yes Status: Chronic Assessment and Plan: Continue bronchodilators Q6RT scheduled. continue symbicort incentive spirometry (6) Hypovolemic shock Current Visit: Yes Status: Resolved Assessment and Plan: Resolved; continue to monitor (7) Atrial fibrillation with RVR Current Visit: Yes Status: Resolved Assessment and Plan: HR is controlled. continue diltiazem 240 mg by mouth and metoprolol 25 mg by mouth twice a day. off anticoagulation due to recent hemotorax. on aspirin 81mg/PO daily. (8) Hemothorax Current Visit: Yes Status: Resolved Assessment and Plan: s/p evacuation. right chest tube remains in place per CT surgery recommendations. (9) Pneumonia Current Visit: Yes Status: Suspected Assessment and Plan: patient completed antibiotic treatment (10) Acute blood loss anemia Current Visit: Yes Status: Acute Assessment and Plan: patient has received 5 units of PRBCs. H&H stable. monitor and transfuse per protocol. continue Ferrous sulfate 325mg/PO BID (11) Pancytopenia Current Visit: Yes Status: Acute Assessment and Plan: Metastatic small cell carcinoma, AJCC Stage IV, s/p cycle #2 of carboplatin, etoposide with atezolizumab on 04/15/2019 no signs of active infection absolute neutrophil count of 12. monitor clinically continue neutropenia precautions. will re-consult Hem&Onc, recommendations appreciated. - Time Spent with Patient Total time spent is greater than 50% in coordination of care (as documented) at patient's floor/unit and/or counseling patient: Internal Medicine: Result - Labs CBC & Chem 7: 04/29/19 01:11 04/29/19 01:11 Labs: Short CBC 04/29/19 Range/Units 01:11 WBC 1.0 L* (4.3-11.1) K/mcL Hgb 7.8 L (12.9-16.9) g/dL Hct 24.8 L (37.5-50.1) % Plt Count 65 L (140-400) K/mcL Neutrophils # 0.2 L (1.6-8.9) K/mcL BMP 04/29/19 01:11 Sodium 134 L Potassium 3.9 Chloride 98 Carbon Dioxide 32 H BUN 20 Creatinine 0.51 L Glucose 127 H Calcium 8.4 L - ABG Interpretation ABG results: ABG ABG pH 7.40 pH Units (7.32-7.45) 04/21/19 10:41 ABG pCO2 54 mmHg (35-45) H 04/21/19 10:41 ABG pO2 422 mmHg (85-104) H 04/21/19 10:41 ABG O2 Saturation 100 % (95-98) H 04/21/19 10:41 PT/INR, D-dimer PT 18.0 Seconds (9.4-12.1) H 04/21/19 14:55 Consult Discharge Plan - Plan Additional Instructions: Please go to Out Patient testing at [facility] on May 25, 2019 around 0745 AM to get an x-ray done before you go see Dr. Mckeon. The office is sending the order over to out patient testing at the [facility]. Referrals: Emmanuel Jim MD [Primary Care Provider] - 05/08/19 9:30 am Javier Mckeon MD [Partnered Physician] - 05/25/19 8:45 am (2) Lung cancer Qualifiers: Laterality: unspecified laterality Lung location: unspecified part of lung Qualified Code(s): C34.90 - Malignant neoplasm of unspecified part of unspecified bronchus or lung (3) Acute on chronic congestive heart failure Qualifiers: Heart failure type: unspecified Qualified Code(s): I50.9 - Heart failure, unspecified (5) COPD (chronic obstructive pulmonary disease) Qualifiers: COPD type: unspecified COPD Qualified Code(s): J44.9 - Chronic obstructive pulmonary disease, unspecified (9) Pneumonia Qualifiers: Pneumonia type: due to unspecified organism Laterality: unspecified laterality Lung location: unspecified part of lung Qualified Code(s): J18.9 - Pneumonia, unspecified organism
[2019-04-30] MEDS: *HR* OxyCODONE Immed Rel 5 MG TABLET PO PRN (03:35)
[2019-04-30] MEDS: Levalbuterol Neb 0.63 MG/3 ML IH SCH ×4 (04:28→22:12)
[2019-04-30] MEDS: Ipratropium Neb 0.5 MG NEBULIZER IH SCH ×4 (04:28→22:12)
[2019-04-30] MEDS: Diltiazem CD (24hr) 240 MG CAPSULE PO SCH (08:02)
[2019-04-30] MEDS: Gabapentin 300 MG CAPSULE PO SCH ×3 (08:03→21:15)
[2019-04-30] MEDS: Furosemide 20 MG TABLET PO SCH (08:03)
[2019-04-30] MEDS: Nicotine 14 MG PATCH.TD24 TD SCH (08:03)
[2019-04-30] MEDS: Aspirin 81 MG TAB.CHEW PO SCH (08:03)
[2019-04-30] MEDS: Magnesium Oxide 400 MG TABLET PO SCH (08:03)
[2019-04-30] MEDS: *HR* HYDROcodone/Acet 5/325 mg TABLET PO PRN (08:09)
[2019-04-30] MEDS: Budesonide/Formoterol 160/4.5 1 PUFF INH IH SCH ×2 (10:42→22:11)
--- NOTE | 2019-04-30 12:51 | Cardiothoracic Progress Note ---
Date of Encounter: 04/30/19 Time of Encounter: 12:50 - Assessment and plan (1) Malignant pleural effusion Current Visit: Yes Status: Acute The assessment and plan as outlined above was discussed with the patient and/or family members who expressed understanding and agreement. All questions were answered. removed chest tubes. rounded with nurse (2) Traumatic hemothorax, initial encounter Current Visit: Yes Status: Acute The assessment and plan as outlined above was discussed with the patient and/or family members who expressed understanding and agreement. All questions were answered. physical therapy, i/s, and flutter therapy. (3) Atrial fibrillation Current Visit: Yes Status: Acute The assessment and plan as outlined above was discussed with the patient and/or family members who expressed understanding and agreement. All questions were answered. stable Qualifiers: Atrial fibrillation type: chronic Qualified Code(s): I48.2 - Chronic atrial fibrillation - Subjective Interval history: feels great. hasnt been able to lie flat for days. Vital Signs, Last 4 Hours Temp Pulse Resp BP Pulse Ox 04/30/19 11:05 98.3 F 90 18 93/56 04/30/19 10:44 18 100 Oxgyen Flow Rate Oxygen Flow Rate (LPM) 2 Clinical Data, last 8 Hours Output, Chest Tube Drainage 60 Amount [Right Lateral Chest] Output, Chest Tube Drainage 80 Amount [Right Lateral Chest] Output, Urine Amount 300 Output, Urine Amount 400 - Physical Examination General: Conversant, No Apparent Distress, Well developed, Well nourished HEENT: Atraumatic, Trachea midline Cardiac: Normal S1 and S2 Incision: No signs of infection, Dry/intact dressing Chest tubes: Minimal drainage Lungs: Normal Breath Sounds Neuro: Alert and responsive, No focal deficits noted, Cranial nerves intact, Motor nerves intact - Labs 04/29/19 01:11 04/29/19 01:11 Consult Discharge Plan - Plan Additional Instructions: Please go to Out Patient testing at [facility] on May 25, 2019 around 0745 AM to get an x-ray done before you go see Dr. Mckeon. The office is sending the order over to out patient testing at the [facility]. Referrals: Emmanuel Jim MD [Primary Care Provider] - 05/08/19 9:30 am Javier Mckeon MD [Partnered Physician] - 05/25/19 8:45 am
[2019-04-30] MEDS ORDERED: 0.9 % Sodium Chloride 500 ML IVC ONE (13:01)
[2019-04-30] MEDS ORDERED: 0.9 % Sodium Chloride 500 ML ONE (13:20)
--- NOTE | 2019-04-30 16:52 | Oncology Inp Progress Note ---
<Lu Reyes - Last Filed: 04/30/19 16:49> Date of Encounter: 04/30/19 Time of Encounter: 14:00 (1) Neutropenia Current Visit: Yes Status: Acute Assessment and plan: ANC 200, falling from 400 yesterday. Patient received carboplatin/etop + atezolizumab 04/15/19-04/17/19. Did not receive Neulasta. Plan: Neupogen 480 mcg SQ today and then daily x 2 days (total of 3 doses). CBC ordered for this afternoon. Also discussed with Dr. Armstrong. Notes that he will add Neulasta to future treatment plans (as an outpatient) Qualifiers: Neutropenia type: secondary to cancer chemotherapy Qualified Code(s): D70.1 - Agranulocytosis secondary to cancer chemotherapy; T45.1X5A - Adverse effect of antineoplastic and immunosuppressive drugs, initial encounter (2) Lung cancer Current Visit: Yes Status: Chronic Assessment and plan: Metastatic small cell carcinoma, AJCC Stage IV, s/p cycle #2 of carboplatin, etoposide with atezolizumab on 04/15/2019 Plan: Continue to monitor blood counts given recent treatment Appears to not be responding well given his rapid re-accumulation of pleural fluid s/p 2 cycles treatment Further treatment to be arranged on outpatient basis following improvement of acute issues. Appointment with Dr. Armstrong will need scheduled upon discharge. Qualifiers: Laterality: unspecified laterality Lung location: unspecified part of lung Qualified Code(s): C34.90 - Malignant neoplasm of unspecified part of unspecified bronchus or lung Oncology: Subj Interval history: Mr. Davison is sitting up in the chair this afternoon, after his chest tube was removed. He notes pain in his right side, but verbalizes that he cannot have any pain medication at this time due to low blood pressure. He is alert and oriented x 3. His blood pressure is 80/50's and he is receiving 500 ml NS bolus. He denies feeling lightheaded or dizzy. He denies worsening shortness of breath or cough. Discussed that labs were not drawn this morning and that orders will be placed. He is agreeable to lab draw this afternoon. - Additional findings Additional findings: General: Alert and oriented, well appearing sitting in chair. Mental Status: Affect appropriate for circumstances Skin: Pale. No rashes or petechiae. Scattered bruising to bilateral upper extremities. Lungs: diminished. No rhonchi, rales, or wheezing noted. Abdomen: Soft, nontender; no organomegaly or masses palpable. Extremities: No edema. No calf swelling or tenderness. No joint deformity. Neurologic: Alert, cranial nerves II-XII intact; no focal weakness or sensory abnormalities. Oncology: Obj Data - Labs CBC & Chem 7: 04/29/19 01:11 04/29/19 01:11 Consult Discharge Plan - Plan Additional Instructions: Please go to Out Patient testing at [facility] on May 25, 2019 around 074 5 AM to get an x-ray done before you go see Dr. Mckeon. The office is sending the order over to out patient testing at the [facility]. Referrals: Emmanuel Jim MD [Primary Care Provider] - 05/08/19 9:30 am Javier Mkceon MD [Partnered Physician] - 05/25/19 8:45 am Inpatient Charges Provider: Dr. Teja Rosales <Tommie Rosales - Last Filed: 05/01/19 08:00> Date of Encounter: 05/01/19 (1) Malignant pleural effusion Current Visit: Yes Status: Acute (2) Acute blood loss anemia Current Visit: Yes Status: Acute (3) Lung cancer Current Visit: Yes Status: Chronic Qualifiers: Laterality: unspecified laterality Lung location: unspecified part of lung Qualified Code(s): C34.90 - Malignant neoplasm of unspecified part of unspecified bronchus or lung Oncology: Subj Interval history: Counts have improved little. Neupogen started. I examined this patient and my medical decision-making was reviewed with the Advanced Practice Nurse, Lu Reyes. I agree with the documented findings, disposition and treatment plan as described except to the extent set forth below. Oncology: Obj Data - Labs CBC & Chem 7: 04/30/19 17:36 04/30/19 17:36 Inpatient Charges Provider: Dr. Teja Rosales Follow up - Inpatient: [id number]
[2019-04-30] MEDS: Ketorolac 30 MG/ML VIAL IVP PRN (17:27)
[2019-04-30 18:28] LABS: Basophils % 0.4 %; Eosinophils % 0.8 %; Hematocrit 27.6 % (37.5-50.1); Hemoglobin 8.7 g/dL (12.9-16.9); Immature Granulocytes % 0.8 % (0-4); Lymphocytes # 0.7 K/mcL (0.6-4.6); Lymphocytes % 27.2 %; Mean Corpuscular HGB Conc 31.5 g/dL (31.6-35.5); Mean Corpuscular Hemoglobin 29.4 pg (28.0-33.3); Mean Corpuscular Volume 93.2 fL (83.0-100.0); Mean Platelet Volume 10.2 fL (9.4-12.4); Monocytes # 0.4 K/mcL (0.0-1.3); Monocytes % 15.2 %; Neutrophils # 1.4 K/mcL (1.6-8.9); Platelet Count 161 K/mcL (140-400); Red Blood Count 2.96 M/mcL (4.19-5.50); Red Cell Distribution Width 15.6 % (11.5-14.5); Segmented Neutrophils % 55.6 %
[2019-04-30 18:29] LABS: White Blood Count 2.5 K/mcL (4.3-11.1)
[2019-04-30 18:47] LABS: BUN/Creatinine Ratio 38 (6-26); Blood Urea Nitrogen 18 mg/dL (8-23); Calcium 8.6 mg/dL (8.6-10.3); Carbon Dioxide 29 mEq/L (23-29); Chloride 99 mEq/L (98-107); Glucose 125 mg/dL (70-105); Osmolality,Calculated 283 (280-300); Potassium 3.6 mEq/L (3.5-5.1); Sodium 135 mEq/L (136-145); eGFR For African Americans > 60 (> 60); eGFR For Non-African Americans > 60 (> 60)
[2019-04-30 19:03] LABS: Hypochromasia Present (Not Present); Platelet Estimate Normal (Normal)
--- NOTE | 2019-04-30 19:06 | Internal Med Progress Note ---
Hospitalist Progress Note - Encounter Date of Encounter: 04/30/19 Time of Encounter: 11:00 - Subjective Interval History: Chest tube pulled today by cardiothoracic surgeon Now awaiting placement to [facility] facility; case management assisting - Exam Vitals: Temp Pulse Resp BP Pulse Ox 98.0 F 87 18 127/70 94 04/30/19 16:28 04/30/19 16:28 04/30/19 16:28 04/30/19 16:28 04/30/19 16:28 Exam: Gen.: Nonacute distress, alert and oriented 3 ENT: Mucosal membranes moist Respiratory: Lungs are clear to auscultation bilaterally without any wheezing rhonchi or rales Cardiovascular: Normal S1 and S2 regular rate rhythm no murmurs rubs or gallops Abdomen: Soft, nontender and nondistended with positive bowel sounds Extremities: No lower extremity edema Skin: Normal color - Assessment and Plan (1) Goals of care, counseling/discussion Current Visit: Yes Status: Acute Assessment and Plan: Patient is medically stable and now awaiting placement to [facility] facility; licensed social worker assisting (2) Recurrent pleural effusion on right Current Visit: Yes Status: Acute Assessment and Plan: patient s/p dx bronchoscopy right vats evacuation of traumatic hemothorax mechanical and talc pleurodesis Chest tube pulled today by recommendations of cardiothoracic surgeon (3) Lung cancer Current Visit: Yes Status: Chronic Assessment and Plan: Currently on palliative chemotherapy. Plan of care as per Hem&Onc (4) Acute on chronic congestive heart failure Current Visit: Yes Status: Resolved Assessment and Plan: patient is euvolemic. Continue furosemide 20mg/PO daily. continue fluid restriction to 1.5 litters a day. strict intake and output plus daily weight. (5) Acute on chronic respiratory failure with hypoxia Current Visit: Yes Status: Resolved Assessment and Plan: Continue oxygen by nasal cannula, titrate for O2 sat duration more than 92%. On levalbuterol, and Symbicort. pulmonology recommendations appreciated consider starting the patient on levofloxacin 750mg/IV daily. (6) COPD (chronic obstructive pulmonary disease) Current Visit: Yes Status: Chronic Assessment and Plan: Continue bronchodilators Q6RT scheduled. continue symbicort incentive spirometry (7) Hypovolemic shock Current Visit: Yes Status: Resolved Assessment and Plan: Resolved; continue to monitor (8) Atrial fibrillation with RVR Current Visit: Yes Status: Resolved Assessment and Plan: HR is controlled. continue diltiazem 240 mg by mouth and metoprolol 25 mg by mouth twice a day. off anticoagulation due to recent hemotorax. on aspirin 81mg/PO daily. (9) Hemothorax Current Visit: Yes Status: Resolved Assessment and Plan: s/p evacuation. right chest tube remains in place per CT surgery recommendations. (10) Pneumonia Current Visit: Yes Status: Suspected Assessment and Plan: patient completed antibiotic treatment (11) Acute blood loss anemia Current Visit: Yes Status: Acute Assessment and Plan: patient has received 5 units of PRBCs. H&H stable. monitor and transfuse per protocol. continue Ferrous sulfate 325mg/PO BID (12) Pancytopenia Current Visit: Yes Status: Acute Assessment and Plan: Metastatic small cell carcinoma, AJCC Stage IV, s/p cycle #2 of carboplatin, etoposide with atezolizumab on 04/15/2019 no signs of active infection absolute neutrophil count of 12. monitor clinically continue neutropenia precautions. will re-consult Hem&Onc, recommendations appreciated. DVT Prophylaxis: intermittent pneumatic compression for dvt prophylaxis - Time Spent with Patient Total time spent is greater than 50% in coordination of care (as documented) at patient's floor/unit and/or counseling patient: Internal Medicine: Result - Labs CBC & Chem 7: 04/30/19 17:36 04/30/19 17:36 Labs: Short CBC 04/30/19 Range/Units 17:36 WBC 2.5 L D (4.3-11.1) K/mcL Hgb 8.7 L (12.9-16.9) g/dL Hct 27.6 L (37.5-50.1) % Plt Count 161 D (140-400) K/mcL Neutrophils # 1.4 L (1.6-8.9) K/mcL BMP 04/30/19 17:36 Sodium 135 L Potassium 3.6 Chloride 99 Carbon Dioxide 29 BUN 18 Creatinine 0.47 L Glucose 125 H Calcium 8.6 - ABG Interpretation ABG results: ABG ABG pH 7.40 pH Units (7.32-7.45) 04/21/19 10:41 ABG pCO2 54 mmHg (35-45) H 04/21/19 10:41 ABG pO2 422 mmHg (85-104) H 04/21/19 10:41 ABG O2 Saturation 100 % (95-98) H 04/21/19 10:41 PT/INR, D-dimer PT 18.0 Seconds (9.4-12.1) H 04/21/19 14:55 Consult Discharge Plan - Plan Additional Instructions: Please go to Out Patient testing at [facility] on May 25, 2019 around 0745 AM to get an x-ray done before you go see Dr. Mckeon. The office is sending the order over to out patient testing at the [facility]. Referrals: Emmanuel Jim MD [Primary Care Provider] - 05/08/19 9:30 am Javier Mckeon MD [Partnered Physician] - 05/25/19 8:45 am (3) Lung cancer Qualifiers: Laterality: unspecified laterality Lung location: unspecified part of lung Qualified Code(s): C34.90 - Malignant neoplasm of unspecified part of unspecified bronchus or lung (4) Acute on chronic congestive heart failure Qualifiers: Heart failure type: unspecified Qualified Code(s): I50.9 - Heart failure, unspecified (6) COPD (chronic obstructive pulmonary disease) Qualifiers: COPD type: unspecified COPD Qualified Code(s): J44.9 - Chronic obstructive pulmonary disease, unspecified (10) Pneumonia Qualifiers: Pneumonia type: due to unspecified organism Laterality: unspecified laterality Lung location: unspecified part of lung Qualified Code(s): J18.9 - Pneumonia, unspecified organism
[2019-05-01] MEDS: Ipratropium Neb 0.5 MG NEBULIZER IH SCH ×3 (04:02→16:30)
[2019-05-01] MEDS: Levalbuterol Neb 0.63 MG/3 ML IH SCH ×3 (04:02→16:30)
[2019-05-01] MEDS: *HR* OxyCODONE Immed Rel 5 MG TABLET PO PRN (04:12)
[2019-05-01] MEDS: Ketorolac 30 MG/ML VIAL IVP PRN (06:35)
[2019-05-01] MEDS: Nicotine 14 MG PATCH.TD24 TD SCH (08:38)
[2019-05-01] MEDS: Magnesium Oxide 400 MG TABLET PO SCH (08:38)
[2019-05-01] MEDS: Furosemide 20 MG TABLET PO SCH (08:38)
[2019-05-01] MEDS: Diltiazem CD (24hr) 240 MG CAPSULE PO SCH (08:38)
[2019-05-01] MEDS: Gabapentin 300 MG CAPSULE PO SCH ×2 (08:38→13:31)
[2019-05-01] MEDS: Aspirin 81 MG TAB.CHEW PO SCH (08:38)
--- NOTE | 2019-05-01 09:14 | Cardiothoracic Progress Note ---
Date of Encounter: 05/01/19 Time of Encounter: 09:12 - Assessment and plan (1) Malignant pleural effusion Current Visit: Yes Status: Acute The assessment and plan as outlined above was discussed with the patient and/or family members who expressed understanding and agreement. All questions were answered. maybe discharged home (2) Traumatic hemothorax, initial encounter Current Visit: Yes Status: Acute The assessment and plan as outlined above was discussed with the patient and/or family members who expressed understanding and agreement. All questions were answered. physical therapy, i/s, and flutter therapy. (3) Atrial fibrillation Current Visit: Yes Status: Acute The assessment and plan as outlined above was discussed with the patient and/or family members who expressed understanding and agreement. All questions were answered. stable Qualifiers: Atrial fibrillation type: chronic Qualified Code(s): I48.2 - Chronic atrial fibrillation - Subjective Interval history: feels great. hasnt been able to lie flat for days. Vital Signs, Last 4 Hours Temp Pulse Resp BP Pulse Ox 05/01/19 06:49 99.5 F 91 18 121/61 98 Oxgyen Flow Rate Oxygen Flow Rate (LPM) 2 Weight 04/29/19 04/30/19 05/01/19 23:59 23:59 23:59 Weight 95.4 kg - Physical Examination General: Conversant, No Apparent Distress HEENT: Atraumatic, Normocephaly Neck: No JVD Cardiac: Other (irregular irregular.) Incision: Dry/intact dressing Lungs: Normal Breath Sounds Neuro: Alert and responsive, No focal deficits noted, Cranial nerves intact, Motor nerves intact - Labs 04/30/19 17:36 04/30/19 17:36 Lab Results, Last 24 hours 04/30/19 04/30/19 17:36 17:36 WBC 2.5 L D Hgb 8.7 L Hct 27.6 L Plt Count 161 D Sodium 135 L Potassium 3.6 Chloride 99 Carbon Dioxide 29 BUN 18 Creatinine 0.47 L Glucose 125 H Calcium 8.6 Consult Discharge Plan - Plan Additional Instructions: Please go to Out Patient testing at [facility] on May 25, 2019 around 0745 AM to get an x-ray done before you go see Dr. Mckeon. The office is sending the order over to out patient testing at the [facility]. Referrals: Emmanuel Jim MD [Primary Care Provider] - 05/08/19 9:30 am Javier Mckeon MD [Partnered Physician] - 05/25/19 8:45 am
[2019-05-01 10:15] LABS: Hematocrit 26.6 % (37.5-50.1); Hemoglobin 8.4 g/dL (12.9-16.9); Mean Corpuscular HGB Conc 31.6 g/dL (31.6-35.5); Mean Corpuscular Hemoglobin 29.7 pg (28.0-33.3); Nucleated Red Blood Cells 3.3 /100 WBC (0); Platelet Count 214 K/mcL (140-400); Red Blood Count 2.83 M/mcL (4.19-5.50); Red Cell Distribution Width 15.7 % (11.5-14.5)
[2019-05-01 10:29] LABS: White Blood Count 4.8 K/mcL (4.3-11.1)
[2019-05-01] MEDS: Budesonide/Formoterol 160/4.5 1 PUFF INH IH SCH (10:43)
[2019-05-01] MEDS: *HR* HYDROcodone/Acet 5/325 mg TABLET PO PRN ×2 (11:00→14:57)
[2019-05-01 11:08] LABS: Lymphocytes # 1.3 K/mcL (0.6-4.6); Monocytes # 0.4 K/mcL (0.0-1.3); Neutrophils # 2.6 K/mcL (1.6-8.9)
[2019-05-01 11:10] LABS: Dohle Bodies Present (Not Present); Platelet Estimate Normal (Normal); Polychromasia 1+ (Not Present); Toxic Granulation Present (Not Present)
[2019-05-01 11:21] VITALS: BP 105/57
--- NOTE | 2019-05-01 11:45 | Oncology Inp Progress Note ---
<Naya Amin S - Last Filed: 05/01/19 15:45> Date of Encounter: 05/01/19 Oncology: Obj Data - Labs CBC & Chem 7: 05/01/19 09:57 04/30/19 17:36 Consult Discharge Plan - Plan Instructions: Hydrocodone/Acetaminophen (By mouth), Atrial Fibrillation (DC), Chest Tubes (GEN), Chronic Obstructive Pulmonary Disease (DC) Additional Instructions: Please go to Out Patient testing at [facility] on May 25, 2019 around 0745 AM to get an x-ray done before you go see Dr. Mckeon. The office is sending the order over to out patient testing at the [facility]. Referrals: Emmanuel Jim MD [Primary Care Provider] - 05/08/19 9:30 am Javier Mckeon MD [Partnered Physician] - 05/25/19 8:45 am Prescriptions: HYDROcodone/Acet 5/325 mg [[place] 5-325 mg] 1 tab PO Q8HR PRN 4 Days #12 tablet PRN Reason: Pain - Attending Attestation I examined this patient and my medical decision-making was reviewed with the Advanced Practice Nurse. I agree with the documented findings, disposition and treatment plan as described except to the extent set forth below. 1. Extensive stage/metastatic small cell lung cancer status post second dose of carboplatin and etoposide Atezolizumab on 04/15/2019 2. Hemothorax right-sided postthoracentesis about 1500 fluid removed. Cytology negative for malignancy 04/21/2019 3. Hypotension following paracentesis was admitted to ICU 4. Possible sepsis. Peripheral smear showed toxic granulation and do not bodies. No fever today. Blood cultures during initial hospitalization 04/20/2018 was negative. 5. Acute anemia. Hemoglobin improved with packed RBC transfusion from 5 range to 8.4. 6. Elevated liver enzymes ALT 78 AST around 50s. Viral hepatitis profile. Also hemolysis workup. Bilirubin normal. LDH normal. Will do berry direct <Lu Reyes - Last Filed: 05/01/19 16:16> Date of Encounter: 05/01/19 Time of Encounter: 11:25 (1) Neutropenia Current Visit: Yes Status: Acute Assessment and plan: ANC/WBC responded to Neupogen, as expected. Patient received carboplatin/etop + atezolizumab 04/15/19-04/17/19. Did not receive Neulasta. Toxic granulation noted on today's CBC. Plan: Neupogen 480 mcg SQ today and then daily x 3 days CBC ordered for this afternoon. Also discussed with Dr. Armstrong. Notes that he will add Neulasta to future treatment plans (as an outpatient) Qualifiers: Neutropenia type: secondary to cancer chemotherapy Qualified Code(s): D70.1 - Agranulocytosis secondary to cancer chemotherapy; T45.1X5A - Adverse effect of antineoplastic and immunosuppressive drugs, initial encounter (2) Lung cancer Current Visit: Yes Status: Chronic Assessment and plan: Metastatic small cell carcinoma, AJCC Stage IV, s/p cycle #2 of carboplatin, etoposide with atezolizumab on 04/15/2019 Plan: Continue to monitor blood counts given recent treatment Appears to not be responding well given his rapid re-accumulation of pleural fluid s/p 2 cycles treatment Further treatment to be arranged on outpatient basis following improvement of acute issues. Appointment with Dr. Armstrong will need scheduled upon discharge. Qualifiers: Laterality: unspecified laterality Lung location: unspecified part of lung Qualified Code(s): C34.90 - Malignant neoplasm of unspecified part of unspecified bronchus or lung Oncology: Subj Interval history: Mr. Davison is sleeping comfortably in bed. Respirations easy. Blood pressure improved at 100/50-60s. O2 98% on 2L. CBC ordered for this morning. Oncology: Obj Data - Labs CBC & Chem 7: 05/01/19 09:57 04/30/19 17:36 Inpatient Charges Provider: Dr. Ezequiel Amin
--- NOTE | 2019-05-01 13:05 | Discharge Summary ---
Orders not resulted at time of discharge: Pending orders 04/20/19 22:28 PLASMA [BBK] Stat Red Blood Cells [BBK] Stat Type and Screen [BBK] Stat Date of Encounter: 05/01/19 Time of Encounter: 11:00 - Discharge Diagnosis (1) Recurrent pleural effusion on right Priority: Primary Status: Acute (2) Lung cancer Priority: Primary Status: Chronic Qualifiers: Laterality: unspecified laterality Lung location: unspecified part of lung Qualified Code(s): C34.90 - Malignant neoplasm of unspecified part of unspecified bronchus or lung (3) Acute on chronic congestive heart failure Priority: Primary Status: Resolved Qualifiers: Heart failure type: unspecified Qualified Code(s): I50.9 - Heart failure, unspecified (4) Acute on chronic respiratory failure with hypoxia Priority: Primary Status: Resolved (5) COPD (chronic obstructive pulmonary disease) Priority: Secondary Status: Chronic Qualifiers: COPD type: unspecified COPD Qualified Code(s): J44.9 - Chronic obstructive pulmonary disease, unspecified (6) Hypovolemic shock Priority: Secondary Status: Resolved (7) Atrial fibrillation with RVR Priority: Secondary Status: Resolved (8) Hemothorax Priority: Secondary Status: Resolved (9) Pneumonia Priority: Secondary Status: Suspected Qualifiers: Pneumonia type: due to unspecified organism Laterality: unspecified laterality Lung location: unspecified part of lung Qualified Code(s): J18.9 - Pneumonia, unspecified organism (10) Acute blood loss anemia Priority: Secondary Status: Acute (11) Pancytopenia Priority: Secondary Status: Acute Hospital course: Patient is a 69-year-old male with past medical history significant for CHF, NC, A. fib on Eliquis, small cell lung cancer recently diagnosed on chemotherapy presented due to shortness of breath. Patient initially presented to [facility] where imaging showed a large right-sided pleural effusion. Patient was transferred to [facility] for further management. During patients hospital stay pulmonology was consulted and thoracentesis was done. Patient later developed hypovolemic shock secondary to acute blood loss anemia due to hemothorax. Cardiothoracic surgery was consulted and right VATS evacuation of traumatic hemothorax was done and chest tube was placed. Chest tube was later removed per cardiothoracic surgery recommendations and patient will be discharged home with home health. - Time Spent with Patient Total time spent providing and/or coordinating discharge services: - Discharge Medications Prescriptions: New HYDROcodone/Acet 5/325 mg [[place] 5-325 mg] 1 tab PO Q8HR PRN 4 Days #12 tablet PRN Reason: Pain Continued Nicotine Patch [Nicoderm] 14 mg TD DAILY Levalbuterol Neb [Xopenex Neb] 0.63 mg IH QID Apixaban [Eliquis] 5 mg PO BID Metoprolol [Lopressor] 25 mg PO BID Multivitamin [Daily Multiple Vitamin] 1 tab PO DAILY ALPRAZolam [Xanax 0.5 MG Tablet] 0.5 mg PO Q6H PRN PRN Reason: Anxiety Aspirin [Adult Aspirin Regimen] 81 mg PO DAILY Ferrous Sulfate [Iron] 325 mg PO DAILY Sennosides/Docusate Sodium [Senna Plus] 1 tab PO DAILY Ipratropium Neb [Atrovent Neb] 0.5 mg IH QID Mometasone/Formoterol [Dulera 200 Mcg/5 Mcg Inhaler] 2 puff IH BID Furosemide [Lasix] 20 mg PO DAILY No Action Ezetimibe [Zetia] 10 mg PO DAILY Diltiazem CD (24hr) [Cardizem CD] 240 mg PO DAILY Atorvastatin Calcium [Lipitor] 80 mg PO QPM Home Medications: Apixaban [Eliquis] 5 mg PO BID 04/19/19 [History] Ezetimibe [Zetia] 10 mg PO DAILY 04/19/19 [History] Levalbuterol Neb [Xopenex Neb] 0.63 mg IH QID 04/19/19 [History] Metoprolol [Lopressor] 25 mg PO BID 04/19/19 [History] Multivitamin [Daily Multiple Vitamin] 1 tab PO DAILY 04/19/19 [History] Nicotine Patch [Nicoderm] 14 mg TD DAILY 04/19/19 [History] ALPRAZolam [Xanax 0.5 MG Tablet] 0.5 mg PO Q6H PRN 04/22/19 [History] Aspirin [Adult Aspirin Regimen] 81 mg PO DAILY 04/22/19 [History] Atorvastatin Calcium [Lipitor] 80 mg PO QPM 04/22/19 [History] Diltiazem CD (24hr) [Cardizem CD] 240 mg PO DAILY 04/22/19 [History] Ferrous Sulfate [Iron] 325 mg PO DAILY 04/22/19 [History] Furosemide [Lasix] 20 mg PO DAILY 04/22/19 [History] Ipratropium Neb [Atrovent Neb] 0.5 mg IH QID 04/22/19 [History] Mometasone/Formoterol [Dulera 200 Mcg/5 Mcg Inhaler] 2 puff IH BID 04/22/19 [History] Sennosides/Docusate Sodium [Senna Plus] 1 tab PO DAILY 04/22/19 [History] HYDROcodone/Acet 5/325 mg [[place] 5-325 mg] 1 tab PO Q8HR PRN 4 Days #12 tablet 05/01/19 [Rx] Allergies/Adverse Reactions: Allergy/AdvReac Type Severity Reaction Status Date / Time Penicillins AdvReac Dizziness Verified 04/19/19 10:50 Date of admission: 04/19/19 17:49 Primary care physician: Emmanuel Jim MD Consults: 04/20/19 05:25 Consult to Oncology [CONS] Routine Consulting Provider: [facility] Reason for Consult: small cell lung cancer with pleural effusion Call Completed: No Consult to Pulmonology [CONS] Routine Consulting Provider: [facility] Reason for Consult: small cell lung cancer with pleural effusion Call Completed: No 04/20/19 15:37 Consult to Cardiology [CONS] Routine Comment: Consulting Provider: Cardiology [facility] Reason for Consult: afib with RVR with hypotension Call Completed: Yes 04/21/19 07:18 Consult to Cardiothoracic Surgery [CONS] Routine Consulting Provider: [facility]othoracic [facility] [place] Reason for Consult: Right sided hemothorax status post thoracentesis Call Completed: No 04/23/19 10:31 Consult to Physical Therapy [CONS] Routine Comment: Evaluate, develop and implement POC Reason for Consult: strength, range of motion, wlaker Does patient have active BEDREST order?: No Is patient medically & hemodynamically stable?: Yes Patient assessed for mobility or mobilized this visit?: No 04/28/19 15:39 Consult to Oncology [CONS] Routine Consulting Provider: Oncology [facility] Reason for Consult: pancytopenia Call Completed: No - Constitutional Vitals: Temp Pulse Resp BP Pulse Ox 98.4 F 100 17 105/57 97 05/01/19 11:18 05/01/19 11:18 05/01/19 11:18 05/01/19 11:18 05/01/19 11:18 Exam: Gen.: Nonacute distress, alert and oriented 3 Respiratory: Lungs are clear to auscultation bilaterally without any wheezing rhonchi or rales - Patient Status Disposition: Home Health Service - Discharge Instructions Instructions: Hydrocodone/Acetaminophen (By mouth), Atrial Fibrillation (DC), Chest Tubes (GEN), Chronic Obstructive Pulmonary Disease (DC) Follow Up With: Emmanuel Jim MD [Primary Care Provider] - 05/08/19 9:30 am Javier Mckeon MD [Partnered Physician] - 05/25/19 8:45 am Additional Instructions: Please go to Out Patient testing at [facility] on May 25, 2019 around 0745 AM to get an x-ray done before you go see Dr. Mckeon. The office is sending the order over to out patient testing at the [facility].
--- NOTE | 2019-05-01 13:05 | Physician Discharge Referral ---
Home Health/Hosp Referral Info Transfer to: Home Health - Diagnosis (1) Goals of care, counseling/discussion Status: Acute (2) Recurrent pleural effusion on right Status: Acute (3) Lung cancer Status: Chronic (4) Acute on chronic congestive heart failure Status: Resolved (5) Acute on chronic respiratory failure with hypoxia Status: Resolved (6) COPD (chronic obstructive pulmonary disease) Status: Chronic (7) Hypovolemic shock Status: Resolved (8) Atrial fibrillation with RVR Status: Resolved (9) Hemothorax Status: Resolved (10) Pneumonia Status: Suspected (11) Acute blood loss anemia Status: Acute (12) Pancytopenia Status: Acute - Respiratory Orders Smoking Cessation: Smoking cessation has been advised. For more information, call the [employer] Tobacco Quit Line at 4-180-ACOA-NOW. - Services Needed Following services are medically necessary services: Nursing, Home Health Aide, Physical Therapy - Transfer Medications Prescriptions: HYDROcodone/Acet 5/325 mg [Waggoner 5-325 mg] 1 tab PO Q8HR PRN 4 Days #12 tablet PRN Reason: Pain Home Medications: Apixaban [Eliquis] 5 mg PO BID 04/19/19 [History] Ezetimibe [Zetia] 10 mg PO DAILY 04/19/19 [History] Levalbuterol Neb [Xopenex Neb] 0.63 mg IH QID 04/19/19 [History] Metoprolol [Lopressor] 25 mg PO BID 04/19/19 [History] Multivitamin [Daily Multiple Vitamin] 1 tab PO DAILY 04/19/19 [History] Nicotine Patch [Nicoderm] 14 mg TD DAILY 04/19/19 [History] ALPRAZolam [Xanax 0.5 MG Tablet] 0.5 mg PO Q6H PRN 04/22/19 [History] Aspirin [Adult Aspirin Regimen] 81 mg PO DAILY 04/22/19 [History] Atorvastatin Calcium [Lipitor] 80 mg PO QPM 04/22/19 [History] Diltiazem CD (24hr) [Cardizem CD] 240 mg PO DAILY 04/22/19 [History] Ferrous Sulfate [Iron] 325 mg PO DAILY 04/22/19 [History] Furosemide [Lasix] 20 mg PO DAILY 04/22/19 [History] Ipratropium Neb [Atrovent Neb] 0.5 mg IH QID 04/22/19 [History] Mometasone/Formoterol [Dulera 200 Mcg/5 Mcg Inhaler] 2 puff IH BID 04/22/19 [History] Sennosides/Docusate Sodium [Senna Plus] 1 tab PO DAILY 04/22/19 [History] HYDROcodone/Acet 5/325 mg [Waggoner 5-325 mg] 1 tab PO Q8HR PRN 4 Days #12 tablet 05/01/19 [Rx] Allergies/Adverse Reactions: Allergy/AdvReac Type Severity Reaction Status Date / Time Penicillins AdvReac Dizziness Verified 04/19/19 10:50 Certification: Further, I certify that my clinical findings support that this patient is homebound (i.e. absences from home require considerable and taxing effort and are for medical reasons or latter-day services or infrequently or short duration when for other reasons) because: Homebound Reason: Patient requires assistance of a person or device to safely leave home Attestation: My signature below is to certify that this patient is under my care and that I, or nurse practitioner, or a physician's assistant grocery store manager working with me, has a [id number] encounter with this patient.
[2019-05-01 18:03] LABS: Hepatitis B Surface Antigen Nonreactive (Nonreactive)
[2019-05-01 18:31] LABS: Hepatitis B Core IgM Nonreactive (Nonreactive); Hepatitis C Virus Antibody Nonreactive (Nonreactive)
[2019-05-01 18:33] LABS: Hepatitis A Antibody IgM Nonreactive (Nonreactive)
== END 2019-05-01 17:55 | disposition home health service (06) | DRG 163 ==
LOC: 2NNU 17:49 → SUATTDRO 17:49 → ICNU 04-21 10:41 → 2NNU 04-24 10:32
PROVIDERS: ADMIT Internal Medicine Nephrology; ATTEND Hospitalist
PROC: ENDOBRF (2019-04-21 09:00)

== ENCOUNTER 2019-05-07 18:56 | Inpatient (IN) ==
--- NOTE | 2019-05-07 23:39 | Internal Med History&Physical ---
Date of Encounter: 05/07/19 Time of Encounter: 23:55 Internal Medicine - H&P: HPI Chief complaint: Atrial fibrillation Admitted From: Hospital to Hospital Transfer Plans for Post Hospital Care: Home History of present illness: Mr. Davison is a 69 year old male Patient presented to the [facility] emergency room with chief complaint of weakness. Patient also had low blood pressure, and irregular heart rate. He has a history of lung cancer, and was recently seen at [facility] for recurrent plural effusion requiring chest tubes. He was discharged on May 01 with home health. He was with his therapist this morning who noted that he had low blood pressure and was feeling weak. He had hypoxia with walking back from the bathroom. Ambulance was called and he was taken to [facility] for further evaluation. Lab work from [place] emergency room: CBC: White count 17.2, hemoglobin 8.1, hematocrit 24.5, platelets 418 CMP: Sodium 140, potassium 3.6, chloride 101, CO2 32, BUNs 12, creatinine 0.64, total bilirubin 0.33, AST 14, ALT 36, alkaline phosphatase 95. Chest x-ray: Masslike consolidation in the right upper lung more focal than prior CT. Asymmetric interstitial thickening and hazy opacity throughout the right lung EKG: Atrial fibrillation with RVR QTC 380 no ischemic changes Magnesium level 1.7 BNP 2549 Troponin undetectable Lactic acid 1.3 Blood cultures were drawn and patient was put on Cardizem drip, given magnesium 2 g and 750 mg IV Levaquin. He is transferred to [facility] for further management. Upon my evaluation, patient is resting comfortably in hospital bed in no acute distress. He denies chest pain, abdominal pain, nausea, vomiting, diarrhea and constipation. He is feeling short of breath, but had improved while he was at [place]. Breathing treatments do help with this. He is a full code. Past Med Surg Social Fam HX - Past Medical History Medical history: atrial fibrillation, cancer, CHF, COPD, hyperlipidemia, hypertension - Past Surgical History Surgical History: vascular surgery - Social History Smoking Status: Former smoker Alcohol use: none Drug use: none - Family History Father Living Status: Hx Family Cardiac Disorders: Yes (ME) Hx Family Respiratory Disorders: No Hx Family Cancer: No Hx Family GI Disorders: No Hx Family Endocrine Disorder: No Hx Family Neuromuscular Disorders: No Hx Family Neurologic Disorders: No Hx Family HEENT Disorders: No Hx Family Autoimmune Disorders: No Mother Living Status: Hx Family Cardiac Disorders: Yes (ME) Hx Family Respiratory Disorders: No Hx Family Cancer: No Hx Family GI Disorders: No Hx Family Endocrine Disorder: No Hx Family Neuromuscular Disorders: No Hx Family Neurologic Disorders: No Hx Family HEENT Disorders: No Hx Family Autoimmune Disorders: No Internal Medicine - H&P: Meds Apixaban [Eliquis] 5 mg PO BID 04/19/19 [History] Ezetimibe [Zetia] 10 mg PO DAILY 04/19/19 [History] Levalbuterol Neb [Xopenex Neb] 0.63 mg IH QID 04/19/19 [History] Metoprolol [Lopressor] 25 mg PO BID 04/19/19 [History] Multivitamin [Daily Multiple Vitamin] 1 tab PO DAILY 04/19/19 [History] Nicotine Patch [Nicoderm] 21 mg TD DAILY 04/19/19 [History] Aspirin [Adult Aspirin Regimen] 81 mg PO DAILY 04/22/19 [History] Ferrous Sulfate [Iron] 325 mg PO DAILY 04/22/19 [History] Furosemide [Lasix] 40 mg PO DAILY 04/22/19 [History] Ipratropium Neb [Atrovent Neb] 0.5 mg IH QID 04/22/19 [History] Mometasone/Formoterol [Dulera 200 Mcg/5 Mcg Inhaler] 2 puff IH BID 04/22/19 [History] Allergy/AdvReac Type Severity Reaction Status Date / Time Penicillins AdvReac Dizziness Verified 04/19/19 10:50 All Systems PM: A 10-system review of systems was performed and is negative for pertinent findings except as documented above in the HPI. - Constitutional Vitals: Temp Pulse Resp BP Pulse Ox 97.9 F 108 17 114/80 95 05/07/19 21:44 05/07/19 21:44 05/07/19 21:44 05/07/19 21:44 05/07/19 21:44 General appearance: Present: cooperative, A&O X 3, pleasant, no acute distress, answers questions appropriately Exam: - - Head Head exam: Present: normal inspection - Eye Eye exam: Present: EOMI, normal appearance - Respiratory Respiratory exam: Present: rales, wheezes. Absent: CTAB, respiratory distress, rhonchi - Cardiovascular Cardiovascular exam: Present: irregular rhythm, systolic murmur. Absent: diastolic murmur Additional comments: grade 2 systolic murmur - GI/Abdominal GI/Abdominal exam: Present: normal bowel sounds, soft. Absent: tenderness - Extremities Exam Extremities exam: Present: pedal edema, warm, radial pulses palpable and symmetrical. Absent: tenderness Additional comments: 2+ pitting edema - Incison Incision: Present: clean and dry, erythema. Absent: draining Comments: erythema around previous chest tube sites. Mildly tender to palpation. - Neurological Exam Neurological exam: Present: no focal deficits, strengths equal and symetr throughout. Absent: motor sensory deficit, facial droop, speech deficit - Skin Skin exam: Present: dry, normal color, warm - Assessment and Plan (1) Acute on chronic respiratory failure with hypoxia Current Visit: No Status: Acute Assessment and plan: Secondary to atrial fibrillation, COPD and CHF. Patient also suspected to have pneumonia based on chest x-ray. Blood cultures were drawn and patient was started on Levaquin in the emergency room. Follow-up blood cultures Continue Levaquin, add vancomycin Monitor for worsening signs of infection Oxygen supplementation as needed Breathing treatments IV Lasix in the morning. (2) Atrial fibrillation with RVR Current Visit: No Status: Acute Assessment and plan: Patient currently on Cardizem drip. Heart rate in the 90s, still irregular. Continue cardiac monitoring Continue Cardizem titration Continue home meds for anticoagulation (3) COPD (chronic obstructive pulmonary disease) Current Visit: No Status: Chronic Assessment and plan: Patient wheezy on exam. Breathing treatments Oxygen supplementation as needed Treating pneumonia and CHF Hold steroids to prevent interruption of wound healing of the chest tube sites. Qualifiers: COPD type: unspecified COPD Qualified Code(s): J44.9 - Chronic obstructive pulmonary disease, unspecified (4) Acute on chronic congestive heart failure Current Visit: No Status: Acute Assessment and plan: Previous echocardiogram from April 21 was suboptimal, EF could not be determined. Recommended repeating study when heart rate improved. Echocardiogram in the morning Continue IV Lasix in the morning Qualifiers: Heart failure type: unspecified Qualified Code(s): I50.9 - Heart failure, unspecified (5) Pneumonia Current Visit: No Status: Acute Assessment and plan: Masslike consolidation seen on chest x-ray. Patient started on Levaquin in the emergency room. Follow-up blood cultures Continue Levaquin and add vancomycin Monitor for worsening signs of infection Qualifiers: Pneumonia type: due to unspecified organism Laterality: right Lung location: upper lobe of lung Qualified Code(s): J18.1 - Lobar pneumonia, unspecified organism (6) Hypomagnesemia Current Visit: No Status: Acute Assessment and plan: Magnesium was 1.7 at [place]. He was given 2 g prior to arrival. Repeat magnesium level in the morning (7) DVT prophylaxis Current Visit: No Status: Acute Assessment and plan: Patient Eliquis at home. Continue home meds - Time Spent With Patient Total time spent is greater than 50% in coordination of care (as documented) at patient's floor/unit and/or counseling patient: Greater than 35 minutes
[2019-05-08] MEDS ORDERED: Naloxone 0.4 MG/ML INJ IVP PRN (00:40)
[2019-05-08] MEDS ORDERED: Albuterol 2.5 MG/3 ML NEBULIZER IH PRN (00:42)
[2019-05-08] MEDS ORDERED: Levalbuterol Neb 0.63 MG/3 ML IH PRN (00:45)
[2019-05-08] MEDS: Ipratropium/Albuterol Neb 3 ML IH SCH ×5 (01:08→22:56)
[2019-05-08] MEDS: Nicotine 21 MG PATCH.TD24 TD SCH ×2 (01:22→09:27)
[2019-05-08 07:11] LABS: Hemoglobin 8.2 g/dL (12.9-16.9); Mean Corpuscular HGB Conc 30.4 g/dL (31.6-35.5); Mean Corpuscular Hemoglobin 28.9 pg (28.0-33.3); Mean Corpuscular Volume 95.1 fL (83.0-100.0); Platelet Count 379 K/mcL (140-400); Red Blood Count 2.84 M/mcL (4.19-5.50); Red Cell Distribution Width 16.1 % (11.5-14.5)
[2019-05-08 07:15] LABS: White Blood Count 17.3 K/mcL (4.3-11.1)
[2019-05-08 07:36] LABS: BUN/Creatinine Ratio 17 (6-26); Blood Urea Nitrogen 8 mg/dL (8-23); Carbon Dioxide 31 mEq/L (23-29); Chloride 101 mEq/L (98-107); Glucose 96 mg/dL (70-105); Osmolality,Calculated 290 (280-300); Potassium 3.9 mEq/L (3.5-5.1); Sodium 141 mEq/L (136-145); eGFR For African Americans > 60 (> 60); eGFR For Non-African Americans > 60 (> 60)
[2019-05-08] MEDS: Apixaban 5 MG TABLET PO SCH ×2 (09:28→20:38)
[2019-05-08] MEDS: Furosemide 40 MG/4 ML VIAL IVP SCH (09:28)
[2019-05-08] MEDS: Aspirin Enteric Coated 81 MG Tablet PO SCH (09:28)
[2019-05-08] MEDS: levoFLOXacin 750 MG/150 ML 750 MG/150 ML BAG IVPB SCH (09:28)
[2019-05-08] MEDS ORDERED: Isovue-370 500 ML BOTTLE IVP ONE (10:55)
--- NOTE | 2019-05-08 13:03 | Internal Med Progress Note ---
Hospitalist Progress Note - Encounter Date of Encounter: 05/08/19 Time of Encounter: 09:15 - Subjective Interval History: This AM is feeling quite well, says yesterday his therapist was concerned due to his low BP and seeming weakness that he needed evaluation. Does endorse some exertional dyspnea and productive cough. Says he's had A-Fib "for as long as he's been alive probably". No CP. - Exam Vitals: Temp Pulse Resp BP Pulse Ox 98.1 F 123 18 97/68 95 05/08/19 07:16 05/08/19 11:30 05/08/19 10:10 05/08/19 11:30 05/08/19 11:30 Exam: General: NAD, good eye contact, well appearing Thoracic: decent aeration, does have anterior R-sided rhonchi Cardio: Normal S1 and S2, irregularly irregular rhythm, tachycardic Abdomen: Soft, nontender Extremities: Warm, well perfused. DP pulses 2+ b/l. Does have pitting edema through b/l legs. Skin: Intact. No rashes, bruises, or ulcers. Sites of previous chest tubes: one is more erythematous and has some drainage Neuro: Awake, fully oriented. Speech fluent - Assessment and Plan (1) Pneumonia Current Visit: No Status: Acute Assessment and Plan: Hospital acquired pneumonia: masslike consolidation seen on chest x-ray - Follow-up blood cultures - continue empiric levaquin and vancomycin - Chest CT today (2) Atrial fibrillation with RVR Current Visit: No Status: Acute Assessment and Plan: Patient currently on Cardizem drip. Heart rate in the 100-110s, irregular. Continue home meds for anticoagulation. Continue gtt. (3) Acute on chronic congestive heart failure Current Visit: No Status: Acute Assessment and Plan: Previous echocardiogram from April 21 was suboptimal, EF could not be determined. Recommended repeating study when heart rate improved. - repeat TTE pending - Lasix 40 iv daily, reassess for PM dose (4) Acute on chronic respiratory failure with hypoxia Current Visit: No Status: Resolved Assessment and Plan: Improving, pt weaned to home O2 (5) COPD (chronic obstructive pulmonary disease) Current Visit: No Status: Chronic - Summary of Assessment and Plan Summary of Assessment and Plan: PPx: therapeutic FEN: regular, no MIVF Lines: PIV Consults: woundRN Code: Full Dispo: obs for PNA needing abx and CHF needing diuresis, anticipate 1-2 more days. Will be homegoing Internal Medicine: Result - Labs CBC & Chem 7: 05/08/19 06:51 05/08/19 06:51 Labs: Short CBC 05/08/19 Range/Units 06:51 WBC 17.3 H D (4.3-11.1) K/mcL Hgb 8.2 L (12.9-16.9) g/dL Hct 27.0 L (37.5-50.1) % Plt Count 379 D (140-400) K/mcL BMP 05/08/19 06:51 Sodium 141 Potassium 3.9 Chloride 101 Carbon Dioxide 31 H BUN 8 Creatinine 0.47 L Glucose 96 Calcium 9.0 Consult Discharge Plan - Plan Referrals: Emmanuel Jim MD [Primary Care Provider] - (1) Pneumonia Qualifiers: Pneumonia type: due to unspecified organism Laterality: right Lung location: upper lobe of lung Qualified Code(s): J18.1 - Lobar pneumonia, unspecified organism (3) Acute on chronic congestive heart failure Qualifiers: Heart failure type: unspecified Qualified Code(s): I50.9 - Heart failure, unspecified (5) COPD (chronic obstructive pulmonary disease) Qualifiers: COPD type: unspecified COPD Qualified Code(s): J44.9 - Chronic obstructive pulmonary disease, unspecified
[2019-05-08] MEDS ORDERED: Furosemide 40 MG/4 ML VIAL IVP ONE (15:00)
[2019-05-08] MEDS ORDERED: Perflutren Lipid Microsphere 1.3 ML in 0.9 % Sodium Chloride 8.7 ML IVP ONE (15:11)
[2019-05-08] MEDS: *HR* HYDROcodone/Acet 5/325 mg TABLET PO PRN ×2 (15:40→21:29)
[2019-05-09] MEDS: Ipratropium/Albuterol Neb 3 ML IH SCH ×2 (04:33→10:41)
[2019-05-09] MEDS: *HR* HYDROcodone/Acet 5/325 mg TABLET PO PRN ×3 (04:40→20:37)
[2019-05-09] MEDS ORDERED: *HR* HYDROcodone/Acet 7.5/325 mg TABLET PO PRN (08:11)
[2019-05-09] MEDS: Furosemide 40 MG/4 ML VIAL IVP SCH (10:12)
[2019-05-09] MEDS: Nicotine 21 MG PATCH.TD24 TD SCH (10:13)
[2019-05-09] MEDS: Diltiazem CD (24hr) 240 MG CAPSULE PO SCH (10:13)
[2019-05-09] MEDS: Aspirin Enteric Coated 81 MG Tablet PO SCH (10:13)
[2019-05-09] MEDS: Multivit/Ca/Min/Fe/FA 1 TAB TABLET PO SCH (10:13)
[2019-05-09] MEDS: Apixaban 5 MG TABLET PO SCH ×2 (10:13→20:37)
[2019-05-09] MEDS: Nicotine 14 MG PATCH.TD24 TD SCH (10:14)
[2019-05-09] MEDS: Sennosides/Docusate Sodium TABLET PO SCH (10:15)
[2019-05-09] MEDS: levoFLOXacin 750 MG/150 ML 750 MG/150 ML BAG IVPB SCH (10:17)
[2019-05-09] MEDS: Budesonide/Formoterol 160/4.5 1 PUFF INH IH SCH ×2 (10:41→21:56)
[2019-05-09] MEDS: Ipratropium Neb 0.5 MG NEBULIZER IH SCH ×3 (10:44→22:42)
[2019-05-09] MEDS: Levalbuterol Neb 0.63 MG/3 ML IH SCH ×3 (10:44→22:42)
--- NOTE | 2019-05-09 13:47 | Internal Med Progress Note ---
Hospitalist Progress Note - Encounter Date of Encounter: 05/09/19 Time of Encounter: 13:36 - Subjective Interval History: 69-year-old male with metastatic lung cancer on chemotherapy, recent hemothorax requiring chest tube placement readmitted with shortness of breath and hypotension in A. fib RVR. Chest CT also significant for worsening consolidation suspicious for pneumonia - Exam Vitals: Temp Pulse Resp BP Pulse Ox 97.8 F 74 20 92/66 95 05/09/19 11:03 05/09/19 11:03 05/09/19 11:03 05/09/19 11:03 05/09/19 11:03 Exam: General: Elderly, not in any form of distress, sitting up in bed speaks full sentences HEENT: Moist oral mucosa, not cyanotic, not pale Chest: Right upper and middle lobe bronchi, bilateral diffuse expiratory wheezing Cardio: Normal S1 and S2, regular rate and rhythm Abdomen: Soft, non-tender, no palpably enlarged organs Extremities: Warm, well perfused. DP pulses 2+ bilaterally. No pedal edema Neuro: Awake and alert, oriented 3, moves all extremities equally Skin: No rash/ulcers Psych: Mood and affect appropriate - Assessment and Plan (1) Acute on chronic congestive heart failure Current Visit: Yes Status: Acute Assessment and Plan: Previous echocardiogram from April 21 was suboptimal, EF could not be determined. Echocardiogram noted for normal EF, EF 65% mild right ventricular enlargement and biatrial enlargement. No wall motion abnormality. Continue IV Lasix daily, strict intake and output and daily weights. Fluid restriction diet. (2) Acute on chronic respiratory failure with hypoxia Current Visit: Yes Status: Resolved Assessment and Plan: Secondary to CHF exacerbation and pneumonia Now back to baseline home oxygen, continue the same. Wean as tolerated. (3) COPD (chronic obstructive pulmonary disease) Current Visit: Yes Status: Chronic Assessment and Plan: Patient continues to wheeze on examination Tender duo nebs scheduled and when necessary Continue antibiotics and oxygen supplementation when necessary (4) Atrial fibrillation with RVR Current Visit: Yes Status: Acute Assessment and Plan: Heart rates improved on Cardizem [place] Cardizem drip Resume home dose of diltiazem 240 mg daily and metoprolol Continue telemetry Continue Eliquis for anticoagulation (5) Pneumonia Current Visit: Yes Status: Acute Assessment and Plan: Patient with known metastatic lung cancer on chemotherapy Chest CT showed stable lung malignancy with mediastinal metastases, decreased right pleural effusion, heterogeneous right-sided infiltrate with septal thickening differentials include pneumonitis, asymmetric edema or lymphangitic carcinomatosis. Associated mural thickening on of airways and associated mucus plugging. Continue vancomycin and Levaquin Send sputum for culture Send respiratory panel and nasal probe for MRSA DVT Prophylaxis: Full anticoagulation with Eliquis - Time Spent with Patient Total time spent is greater than 50% in coordination of care (as documented) at patient's floor/unit and/or counseling patient: Plan of Care Discussed with: patient Internal Medicine: Result - Labs CBC & Chem 7: 05/08/19 06:51 05/08/19 06:51 - Impressions Impressions Echocardiogram Limited Views 05/08/19 01:03 Impressions: LVEF 65%. Mild RV enlargement with grossly normal function. Biatrial enlargement. Left Ventricular Wall Motion: Rest Echo Findings All wall segments showed normal motion. Findings: Study Quality * Technically adequate exam. ECG Findings * Atrial fibrillation. Left Ventricle * LVEF 65%. * Normal LV chamber size, wall thickness and systolic function. Right Ventricle * Mild RV enlargement with grossly normal function. Left Atrium * Mildly dilated left atrium. Right Atrium * Mildly dilated right atrium. Chest CT 05/08/19 10:55 IMPRESSION: Large mediastinal/right hilar mass with encasement of the right pulmonary artery and central right airways, most compatible with lung malignancy. Mediastinal bridgette metastatic disease. Right pleural effusion has decreased in size as compared to prior though demonstrates nodular and enhancing components, concerning for malignant effusion. Heterogeneous right-sided infiltrate with septal thickening, for which pneumonitis, asymmetric edema, or lymphangitic carcinomatosis are considerations. Mural thickening of airways and associated mucous plugging. D/ / Javier Simmons MD / Javier Simmons MD Interpreting Provider: Javier Simmons MD Consult Discharge Plan - Plan Referrals: Emmanuel Jim MD [Primary Care Provider] - (1) Acute on chronic congestive heart failure Qualifiers: Heart failure type: unspecified Qualified Code(s): I50.9 - Heart failure, unspecified (3) COPD (chronic obstructive pulmonary disease) Qualifiers: COPD type: unspecified COPD Qualified Code(s): J44.9 - Chronic obstructive pulmonary disease, unspecified (5) Pneumonia Qualifiers: Pneumonia type: due to unspecified organism Laterality: right Lung location: upper lobe of lung Qualified Code(s): J18.1 - Lobar pneumonia, unspecified organism
[2019-05-09] MEDS ORDERED: Aminoglycoside Consult 1 EACH MC ONE (16:35)
[2019-05-09 17:07] LABS: Adenovirus Not Detected (Not Detect); Bordetella Pertussis Not Detected (Not Detect); Chlamydophila pneumoniae Not Detected (Not Detect); Coronavirus 229E Not Detected (Not Detect); Coronavirus HKU1 Not Detected (Not Detect); Coronavirus NL63 Not Detected (Not Detect); Coronavirus OC43 Not Detected (Not Detect); Human Metapneumovirus Not Detected (Not Detect); Human Rhinovirus/Enterovirus Not Detected (Not Detect); Influenza A Subtype 2009 H1 Not Detected (Not Detect); Influenza A Untypeable Not Detected (Not Detect); Influenza B Not Detected (Not Detect); Mycoplasma pneumoniae Not Detected (Not Detect); Parainfluenza Virus 1 Not Detected (Not Detect); Parainfluenza Virus 2 Not Detected (Not Detect); Parainfluenza Virus 3 Not Detected (Not Detect); Parainfluenza Virus 4 Not Detected (Not Detect); Respiratory Syncytial Virus Not Detected (Not Detect)
[2019-05-10 04:04] LABS: Hematocrit 23.4 % (37.5-50.1); Hemoglobin 7.2 g/dL (12.9-16.9); Mean Corpuscular HGB Conc 30.8 g/dL (31.6-35.5); Mean Corpuscular Hemoglobin 28.5 pg (28.0-33.3); Mean Corpuscular Volume 92.5 fL (83.0-100.0); Mean Platelet Volume 9.2 fL (9.4-12.4); Nucleated Red Blood Cells 1.3 /100 WBC (0); Platelet Count 357 K/mcL (140-400); Red Blood Count 2.53 M/mcL (4.19-5.50); Red Cell Distribution Width 16.3 % (11.5-14.5); White Blood Count 13.1 K/mcL (4.3-11.1)
[2019-05-10 04:23] LABS: BUN/Creatinine Ratio 21 (6-26); Blood Urea Nitrogen 10 mg/dL (8-23); Calcium 8.9 mg/dL (8.6-10.3); Carbon Dioxide 34 mEq/L (23-29); Chloride 96 mEq/L (98-107); Glucose 100 mg/dL (70-105); Osmolality,Calculated 289 (280-300); Potassium 3.6 mEq/L (3.5-5.1); Sodium 140 mEq/L (136-145); eGFR For African Americans > 60 (> 60); eGFR For Non-African Americans > 60 (> 60)
[2019-05-10 04:40] LABS: Lymphocytes # 1.6 K/mcL (0.6-4.6); Monocytes # 1.1 K/mcL (0.0-1.3); Neutrophils # 10.5 K/mcL (1.6-8.9); Platelet Estimate Normal (Normal)
[2019-05-10 04:41] LABS: Polychromasia 1+ (Not Present)
[2019-05-10] MEDS: Levalbuterol Neb 0.63 MG/3 ML IH SCH ×4 (04:46→22:23)
[2019-05-10] MEDS: Ipratropium Neb 0.5 MG NEBULIZER IH SCH ×4 (04:46→22:23)
[2019-05-10] MEDS: *HR* HYDROcodone/Acet 5/325 mg TABLET PO PRN ×2 (07:39→15:19)
[2019-05-10] MEDS: Furosemide 40 MG/4 ML VIAL IVP SCH (07:48)
[2019-05-10] MEDS: Apixaban 5 MG TABLET PO SCH ×2 (07:49→19:30)
[2019-05-10] MEDS: Multivit/Ca/Min/Fe/FA 1 TAB TABLET PO SCH (07:49)
[2019-05-10] MEDS: Nicotine 21 MG PATCH.TD24 TD SCH (07:49)
[2019-05-10] MEDS: Diltiazem CD (24hr) 240 MG CAPSULE PO SCH (07:49)
[2019-05-10] MEDS: Sennosides/Docusate Sodium TABLET PO SCH (07:49)
[2019-05-10] MEDS: Aspirin Enteric Coated 81 MG Tablet PO SCH (07:49)
[2019-05-10] MEDS: levoFLOXacin 750 MG/150 ML 750 MG/150 ML BAG IVPB SCH (07:55)
[2019-05-10] MEDS: Budesonide/Formoterol 160/4.5 1 PUFF INH IH SCH ×2 (10:40→22:24)
--- NOTE | 2019-05-10 12:03 | Internal Med Progress Note ---
Hospitalist Progress Note - Encounter Date of Encounter: 05/10/19 Time of Encounter: 12:02 - Subjective Interval History: Patient was seen and examined at the bedside. He denies any formal dizziness. He did complain of dizziness yesterday morning however this has resolved since. It is ambulatory to the bathroom and back and has no symptoms. Heart rate was not controlled on current regimen. Oxygen saturation is stable on home dose of oxygen. Nasal swab for MRSA was negative, we have discontinued vancomycin. His leukocytosis is improving, we will monitor for the next 24 hours and likely discharge home a.m. if patient continues to show clinical improvement. - Exam Vitals: Temp Pulse Resp BP Pulse Ox 98.1 F 102 16 95/73 97 05/10/19 07:44 05/10/19 07:44 05/10/19 10:44 05/10/19 07:44 05/10/19 10:44 Exam: General: Elderly, not in any form of distress, sitting up in bed speaks full sentences HEENT: Moist oral mucosa, not cyanotic, not pale Chest: Right upper and middle lobe bronchi, few scattered expiratory wheezing Cardio: Normal S1 and S2, regular rate and rhythm, not tachycardic Abdomen: Soft, non-tender, no palpably enlarged organs Extremities: Warm, well perfused. DP pulses 2+ bilaterally. No pedal edema Neuro: Awake and alert, oriented 3, moves all extremities equally Skin: No rash/ulcers Psych: Mood and affect appropriate - Assessment and Plan (1) Acute on chronic congestive heart failure Current Visit: Yes Status: Acute Assessment and Plan: Improving Previous echocardiogram from April 21 was suboptimal, EF could not be determined. Echocardiogram noted for normal EF, EF 65% mild right ventricular enlargement a nd biatrial enlargement. No wall motion abnormality. Continue IV Lasix daily, strict intake and output and daily weights. Fluid restriction diet. (2) Acute on chronic respiratory failure with hypoxia Current Visit: Yes Status: Resolved Assessment and Plan: Secondary to CHF exacerbation and pneumonia Now back to baseline home oxygen, continue the same. Wean as tolerated. (3) COPD (chronic obstructive pulmonary disease) Current Visit: Yes Status: Chronic Assessment and Plan: Patient continues to wheeze on examination Tender duo nebs scheduled and when necessary Continue antibiotics and oxygen supplementation when necessary (4) Atrial fibrillation with RVR Current Visit: Yes Status: Acute Assessment and Plan: Heart rates improved on Cardizem Weaned off then discontinued Cardizem drip. Continue home dose of diltiazem 240 mg daily and metoprolol Continue telemetry Continue Eliquis for anticoagulation Patient is asymptomatic. (5) Pneumonia Current Visit: Yes Status: Acute Assessment and Plan: Patient with known metastatic lung cancer on chemotherapy Chest CT showed stable lung malignancy with mediastinal metastases, decreased right pleural effusion, heterogeneous right-sided infiltrate with septal t hickening differentials include pneumonitis, asymmetric edema or lymphangitic carcinomatosis. Associated mural thickening on of airways and associated mucus plugging. Started on vancomycin and Levaquin on admission Sent sputum for culture, results pending RIP and nasal swab MRSA negative Will discontinue Vancomycin and continue Levaquin only Leukocytosis is improving Continue to monitor (6) Pancytopenia Current Visit: Yes Status: Chronic Assessment and Plan: cell lines are at baseline Patient undergoing chemotherapy Per Onc progress notes, did not receive Neulasta as well as chemotherapy She has an appointment during the week with oncology, follow-up with oncology. We will transfuse for hemoglobin less than 7. (7) Lung cancer Current Visit: Yes Status: Chronic Assessment and Plan: Stage IV continue management as planned by oncology DVT Prophylaxis: Patient is on full anticoagulation for atrial fibrillation - Time Spent with Patient Total time spent is greater than 50% in coordination of care (as documented) at patient's floor/unit and/or counseling patient: Plan of Care Discussed with: patient Internal Medicine: Result - Labs CBC & Chem 7: 05/10/19 03:22 05/10/19 03:22 Labs: Short CBC 05/10/19 Range/Units 03:22 WBC 13.1 H (4.3-11.1) K/mcL Hgb 7.2 L (12.9-16.9) g/dL Hct 23.4 L (37.5-50.1) % Plt Count 357 (140-400) K/mcL Neutrophils # 10.5 H (1.6-8.9) K/mcL BMP 05/10/19 03:22 Sodium 140 Potassium 3.6 Chloride 96 L Carbon Dioxide 34 H BUN 10 Creatinine 0.48 L Glucose 100 Calcium 8.9 - Impressions Impressions Echocardiogram Limited Views 05/08/19 01:03 Impressions: LVEF 65%. Mild RV enlargement with grossly normal function. Biatrial enlargement. Left Ventricular Wall Motion: Rest Echo Findings All wall segments showed normal motion. Findings: Study Quality * Technically adequate exam. ECG Findings * Atrial fibrillation. Left Ventricle * LVEF 65%. * Normal LV chamber size, wall thickness and systolic function. Right Ventricle * Mild RV enlargement with grossly normal function. Left Atrium * Mildly dilated left atrium. Right Atrium * Mildly dilated right atrium. Consult Discharge Plan - Plan Referrals: Emmanuel Jim MD [Primary Care Provider] - (1) Acute on chronic congestive heart failure Qualifiers: Heart failure type: unspecified Qualified Code(s): I50.9 - Heart failure, unspecified (3) COPD (chronic obstructive pulmonary disease) Qualifiers: COPD type: unspecified COPD Qualified Code(s): J44.9 - Chronic obstructive pulmonary disease, unspecified (5) Pneumonia Qualifiers: Pneumonia type: due to unspecified organism Laterality: right Lung location: upper lobe of lung Qualified Code(s): J18.1 - Lobar pneumonia, unspecified organism (7) Lung cancer Qualifiers: Laterality: unspecified laterality Lung location: unspecified part of lung Qualified Code(s): C34.90 - Malignant neoplasm of unspecified part of un specified bronchus or lung
[2019-05-11 04:17] LABS: Basophils % 0.3 %; Eosinophils # 0.1 K/mcL (0.0-0.6); Eosinophils % 0.5 %; Hematocrit 25.9 % (37.5-50.1); Immature Granulocytes % 4.9 % (0-4); Lymphocytes # 1.5 K/mcL (0.6-4.6); Lymphocytes % 11.8 %; Mean Corpuscular HGB Conc 30.9 g/dL (31.6-35.5); Mean Corpuscular Volume 93.8 fL (83.0-100.0); Mean Platelet Volume 9.2 fL (9.4-12.4); Monocytes # 0.9 K/mcL (0.0-1.3); Monocytes % 7.5 %; Neutrophils # 9.3 K/mcL (1.6-8.9); Nucleated Red Blood Cells 1.3 /100 WBC (0); Platelet Count 387 K/mcL (140-400); Red Blood Count 2.76 M/mcL (4.19-5.50); Red Cell Distribution Width 16.2 % (11.5-14.5); White Blood Count 12.4 K/mcL (4.3-11.1)
[2019-05-11 04:38] LABS: BUN/Creatinine Ratio 27 (6-26); Blood Urea Nitrogen 15 mg/dL (8-23); Carbon Dioxide 30 mEq/L (23-29); Chloride 99 mEq/L (98-107); Glucose 102 mg/dL (70-105); Osmolality,Calculated 289 (280-300); Potassium 3.8 mEq/L (3.5-5.1); Sodium 139 mEq/L (136-145); eGFR For African Americans > 60 (> 60); eGFR For Non-African Americans > 60 (> 60)
[2019-05-11] MEDS: Levalbuterol Neb 0.63 MG/3 ML IH SCH ×3 (04:40→15:28)
[2019-05-11] MEDS: Ipratropium Neb 0.5 MG NEBULIZER IH SCH ×3 (04:40→15:28)
[2019-05-11] MEDS: Nicotine 14 MG PATCH.TD24 TD SCH (06:47)
[2019-05-11 06:54] VITALS: BP 105/75
[2019-05-11] MEDS ORDERED: levoFLOXacin 750 MG TABLET PO SCH (09:00)
[2019-05-11] MEDS: Diltiazem CD (24hr) 240 MG CAPSULE PO SCH (09:33)
[2019-05-11] MEDS: Nicotine 21 MG PATCH.TD24 TD SCH (09:33)
[2019-05-11] MEDS: Aspirin Enteric Coated 81 MG Tablet PO SCH (09:33)
[2019-05-11] MEDS: Apixaban 5 MG TABLET PO SCH (09:33)
[2019-05-11] MEDS: Sennosides/Docusate Sodium TABLET PO SCH (09:33)
[2019-05-11] MEDS: Multivit/Ca/Min/Fe/FA 1 TAB TABLET PO SCH (09:33)
[2019-05-11] MEDS: Furosemide 40 MG/4 ML VIAL IVP SCH (09:33)
--- NOTE | 2019-05-11 10:42 | Physician Discharge Referral ---
Home Health/Hosp Referral Info Transfer to: Home Health Attending Provider: Dallin Fleming Provider in Charge Post Discharge: PCP - Diagnosis (1) Acute on chronic congestive heart failure Priority: Primary Status: Acute (2) Acute on chronic respiratory failure with hypoxia Priority: Primary Status: Resolved (3) COPD (chronic obstructive pulmonary disease) Priority: Secondary Status: Chronic (4) Atrial fibrillation with RVR Priority: Primary Status: Resolved (5) Pneumonia Priority: Primary Status: Acute (6) Pancytopenia Priority: Secondary Status: Chronic (7) Lung cancer Priority: Secondary Status: Chronic - Respiratory Orders Oxygen / L per min Smoking Cessation: Smoking cessation has been advised. For more information, call the [place] Tobacco Quit Line at 8-506-OSSX-NOW. - Diet/Nutrition Diet/Nutrition Orders: Cardiac - Activity Activity Orders: Up ad luly - Services Needed Following services are medically necessary services: Nursing, Home Health Aide, Physical Therapy, Occupational Therapy - Transfer Medications Prescriptions: Ipratropium Neb [Atrovent Neb] 0.5 mg IH QID #30 inhsol Diltiazem CD (24hr) [Cardizem CD] 240 mg PO DAILY #30 cap.er.24h Mometasone/Formoterol [Dulera 200 Mcg/5 Mcg Inhaler] 2 puff IH BID #2 hfa.aer.ad levoFLOXacin [Levaquin] 750 mg PO DAILY 5 Days #5 tablet Metoprolol [Lopressor] 25 mg PO BID #60 tablet Levalbuterol Neb [Xopenex Neb] 0.63 mg IH QID #30 vial.neb Home Medications: Apixaban [Eliquis] 5 mg PO BID 04/19/19 [History] Ezetimibe [Zetia] 10 mg PO DAILY 04/19/19 [History] Multivitamin [Daily Multiple Vitamin] 1 tab PO DAILY 04/19/19 [History] Nicotine Patch [Nicoderm] 14 mg TD DAILY 04/19/19 [History] Aspirin [Adult Aspirin Regimen] 81 mg PO DAILY 04/22/19 [History] Ferrous Sulfate [Iron] 325 mg PO DAILY 04/22/19 [History] Furosemide [Lasix] 40 mg PO DAILY 04/22/19 [History] HYDROcodone/Acet 7.5/325 mg [[place] 7.5-325 mg] 1 tab PO Q8H PRN 05/08/19 [History] Sennosides/Docusate Sodium [Senna Plus] 1 tab PO DAILY 05/08/19 [History] Diltiazem CD (24hr) [Cardizem CD] 240 mg PO DAILY #30 cap.er.24h 05/11/19 [Rx] Ipratropium Neb [Atrovent Neb] 0.5 mg IH QID #30 inhsol 05/11/19 [Rx] Levalbuterol Neb [Xopenex Neb] 0.63 mg IH QID #30 vial.neb 05/11/19 [Rx] Metoprolol [Lopressor] 25 mg PO BID #60 tablet 05/11/19 [Rx] Mometasone/Formoterol [Dulera 200 Mcg/5 Mcg Inhaler] 2 puff IH BID #2 hfa.aer.ad 05/11/19 [Rx] levoFLOXacin [Levaquin] 750 mg PO DAILY 5 Days #5 tablet 05/11/19 [Rx] Allergies/Adverse Reactions: Allergy/AdvReac Type Severity Reaction Status Date / Time Penicillins AdvReac Dizziness Verified 05/08/19 15:19 Certification: Further, I certify that my clinical findings support that this patient is homebound (i.e. absences from home require considerable and taxing effort and are for medical reasons or yazidi services or infrequently or short duration when for other reasons) because: Homebound Reason: Patient requires assistance of a person or device to safely leave home Attestation: My signature below is to certify that this patient is under my care and that I, or nurse practitioner, or a physician's economic research assistant working with me, has a [id number] encounter with this patient.
--- NOTE | 2019-05-11 10:42 | Discharge Summary ---
- NOTES TO OUTPATIENT PROVIDER Notes to Outpatient Provider: Patient was admitted for hypotension, and SOB and found to be in Afib with RVR , acute on chronic resp failure and chest imaging showed bronchiolitis and possible PNA. Patient has since converted to SR onc ardizem and HR has been controlled on home meds. He is back to his home O2 requirement and is asymptomatic today. Patient did endorse he ran out of rate control medications. he has significantly improved on treatment with levalbuterol and nebs . he received IV Levaquin and Vancomycin on admission, vancomycin was discontinued following negative blood culture and MRSA swab. He has made significant clinical improvement and is stable to be discharged home with oral levaquin, home health and appropriate follow up with PCP, voice and data technician and Oncology for continued care of his Stage IV Lung CA. New prescriptions were made for all the medications patient needed. Plan of care discussed with the patient who verbalized understanding. Orders not resulted at time of discharge: Pending orders 05/09/19 13:53 Culture,Sputum with Gram Stain [RM] Stat 05/12/19 04:00 Chem 7 [Basic Metabolic Panel] AM 0400 Complete Blood Count [HEME] AM 0400 Date of Encounter: 05/11/19 Time of Encounter: 10:42 - Discharge Diagnosis (1) Acute on chronic congestive heart failure Priority: Primary Status: Acute Assessment and Plan: Improving Previous echocardiogram from April 21 was suboptimal, EF could not be determined. Echocardiogram noted for normal EF, EF 65% mild right ventricular enlargement and biatrial enlargement. No wall motion abnormality. Continue home lasix and fluid restriction, patient educated about weight checks daily Qualifiers: Heart failure type: unspecified Qualified Code(s): I50.9 - Heart failure, unspecified (2) Acute on chronic respiratory failure with hypoxia Priority: Primary Status: Resolved (3) COPD (chronic obstructive pulmonary disease) Priority: Secondary Status: Chronic Qualifiers: COPD type: unspecified COPD Qualified Code(s): J44.9 - Chronic obstructive pulmonary disease, unspecified (4) Atrial fibrillation with RVR Priority: Primary Status: Resolved Assessment and Plan: Heart rates improved on Cardizem Weaned off then discontinued Cardizem drip. Continue home dose of diltiazem 240 mg daily and metoprolol and eliquis (5) Pneumonia Priority: Primary Status: Acute Assessment and Plan: Patient with known metastatic lung cancer on chemotherapy Chest CT showed stable lung malignancy with mediastinal metastases, decreased right pleural effusion, heterogeneous right-sided infiltrate with septal thickening differentials include pneumonitis, asymmetric edema or lymphangitic carcinomatosis. Associated mural thickening on of airways and associated mucus plugging. Started on vancomycin and Levaquin on admission Sent sputum for culture, results pending RIP and nasal swab MRSA negative Discharged home with levaquin for 5 more doses Qualifiers: Pneumonia type: due to unspecified organism Laterality: right Lung location: upper lobe of lung Qualified Code(s): J18.1 - Lobar pneumonia, unspecified organism (6) Pancytopenia Priority: Secondary Status: Chronic Assessment and Plan: cell lines are at baseline Patient undergoing chemotherapy \ (7) Lung cancer Priority: Secondary Status: Chronic Assessment and Plan: Stage IV continue management as planned by oncology Qualifiers: Laterality: unspecified laterality Lung location: unspecified part of lung Qualified Code(s): C34.90 - Malignant neoplasm of unspecified part of unspecified bronchus or lung Hospital course: Mr. Davison is a 69 year old male Patient was admitted for hypotension, and SOB and found to be in Afib with RVR , acute on chronic resp failure and chest imaging showed bronchiolitis and possible PNA. Patient has since converted to SR onc ardizem and HR has been controlled on home meds. He is back to his home O2 requirement and is asymptomatic today. Patient did endorse he ran out of rate control medications. he has significantly improved on treatment with levalbuterol and nebs . he received IV Levaquin and Vancomycin on admission, vancomycin was discontinued following negative blood culture and MRSA swab. He has made significant clinical improvement and is stable to be discharged home with oral levaquin, home health and appropriate follow up with PCP, voice and data technician and Oncology for continued care of his Stage IV Lung CA. New prescriptions were made for all the medications patient needed. Plan of care discussed with the patient who verbalized understanding. Discharge discussed with: patient, nurse Time spent discussing smoking cessation with patient: 3 to 10 minutes - Time Spent with Patient Total time spent providing and/or coordinating discharge services: Time spent: Less than 30 minutes - Discharge Medications Prescriptions: New levoFLOXacin [Levaquin] 750 mg PO DAILY 5 Days #5 tablet Budesonide/Formoterol 160/4.5 [Symbicort 160/4.5] 1 puff IH BIDR #2 hfa.aer.ad Continued Nicotine Patch [Nicoderm] 14 mg TD DAILY Ezetimibe [Zetia] 10 mg PO DAILY Apixaban [Eliquis] 5 mg PO BID Multivitamin [Daily Multiple Vitamin] 1 tab PO DAILY Aspirin [Adult Aspirin Regimen] 81 mg PO DAILY Ferrous Sulfate [Iron] 325 mg PO DAILY Furosemide [Lasix] 40 mg PO DAILY Sennosides/Docusate Sodium [Senna Plus] 1 tab PO DAILY HYDROcodone/Acet 7.5/325 mg [[place] 7.5-325 mg] 1 tab PO Q8H PRN PRN Reason: Pain Ipratropium Neb [Atrovent Neb] 0.5 mg IH QID #30 inhsol Diltiazem CD (24hr) [Cardizem CD] 240 mg PO DAILY #30 cap.er.24h Metoprolol [Lopressor] 25 mg PO BID #60 tablet Levalbuterol Neb [Xopenex Neb] 0.63 mg IH QID #30 vial.neb Discontinued Mometasone/Formoterol [Dulera 200 Mcg/5 Mcg Inhaler] 2 puff IH BID Home Medications: Apixaban [Eliquis] 5 mg PO BID 04/19/19 [History] Ezetimibe [Zetia] 10 mg PO DAILY 04/19/19 [History] Multivitamin [Daily Multiple Vitamin] 1 tab PO DAILY 04/19/19 [History] Nicotine Patch [Nicoderm] 14 mg TD DAILY 04/19/19 [History] Aspirin [Adult Aspirin Regimen] 81 mg PO DAILY 04/22/19 [History] Ferrous Sulfate [Iron] 325 mg PO DAILY 04/22/19 [History] Furosemide [Lasix] 40 mg PO DAILY 04/22/19 [History] HYDROcodone/Acet 7.5/325 mg [[place] 7.5-325 mg] 1 tab PO Q8H PRN 05/08/19 [History] Sennosides/Docusate Sodium [Senna Plus] 1 tab PO DAILY 05/08/19 [History] Budesonide/Formoterol 160/4.5 [Symbicort 160/4.5] 1 puff IH BIDR #2 hfa.aer.ad 05/11/19 [Rx] Diltiazem CD (24hr) [Cardizem CD] 240 mg PO DAILY #30 cap.er.24h 05/11/19 [Rx] Ipratropium Neb [Atrovent Neb] 0.5 mg IH QID #30 inhsol 05/11/19 [Rx] Levalbuterol Neb [Xopenex Neb] 0.63 mg IH QID #30 vial.neb 05/11/19 [Rx] Metoprolol [Lopressor] 25 mg PO BID #60 tablet 05/11/19 [Rx] levoFLOXacin [Levaquin] 750 mg PO DAILY 5 Days #5 tablet 05/11/19 [Rx] Allergies/Adverse Reactions: Allergy/AdvReac Type Severity Reaction Status Date / Time Penicillins AdvReac Dizziness Verified 05/08/19 15:19 Date of admission: 05/09/19 13:48 Primary care physician: Emmanuel Jim MD Consults: 05/08/19 00:42 Consult to Nurse Navigator [CONS] Routine Comment: 05/08/19 13:28 Consult to Wound Care [CONS] Routine Reason for Consult: Old chest tube site to right side. Call Completed: No Discharging clinician: Chacho Fleming Anticipated date of discharge: 05/11/19 - Constitutional Vitals: Temp Pulse Resp BP Pulse Ox 98.2 F 93 16 105/75 97 05/11/19 06:49 05/11/19 06:49 05/11/19 06:49 05/11/19 06:49 05/11/19 06:49 General appearance: Present: cooperative, A&O X 3, pleasant, no acute distress, answers questions appropriately Exam: General: Elderly, not in any form of distress, sitting up in bed speaks full sentences HEENT: Moist oral mucosa, not cyanotic, not pale Chest: Right upper and middle lobe bronchi,no added sounds, no wheezing on exam Cardio: Normal S1 and S2, regular rate and rhythm, not tachycardic Abdomen: Soft, non-tender, no palpably enlarged organs Extremities: Warm, well perfused. DP pulses 2+ bilaterally. No pedal edema Neuro: Awake and alert, oriented 3, moves all extremities equally Skin: No rash/ulcers Psych: Mood and affect appropriate - Patient Status Disposition: Home Health Service Condition: Good Functional capacity at discharge: independent ambulation Overall status at discharge: patient is progressing back to baseline - Discharge Instructions Instructions: Heart Failure (DC), Atrial Fibrillation (DC), Acute Respiratory Distress Syndrome (DC), Chronic Obstructive Pulmonary Disease (DC) Follow Up With: Emmanuel Jim MD [Primary Care Provider] - 05/14/19 1:30 pm - Diet and Activity Activity: resume usual activities as tolerated, wear oxygen at all times Diet: low salt diet
[2019-05-11] MEDS: Budesonide/Formoterol 160/4.5 1 PUFF INH IH SCH (10:53)
[2019-05-11] MEDS: *HR* HYDROcodone/Acet 5/325 mg TABLET PO PRN (14:19)
== END 2019-05-11 16:36 | disposition home health service (06) | DRG 291 ==
LOC: 2NENU → SUATTDRO 21:44
PROVIDERS: ADMIT Internal Medicine Nephrology; ATTEND Internal Medicine

== ENCOUNTER 2019-11-30 16:35 | Inpatient (IN) ==
[2019-11-30] MEDS ORDERED: Naloxone 0.4 MG/ML INJ IVP PRN (20:11)
[2019-11-30] MEDS ORDERED: Ondansetron 4 MG/2 ML VIAL IVP PRN (20:11)
[2019-11-30] MEDS ORDERED: methylPREDNISolone 40 MG in 0.9 % Sodium Chloride 50 ML IVPB SCH (21:00)
[2019-11-30] MEDS: Melatonin 3 MG TABLET PO SCH (22:19)
[2019-11-30] MEDS: methylPREDNISolone 125 MG/2 ML VIAL IVP SCH (22:19)
[2019-11-30] MEDS: Apixaban 5 MG TABLET PO SCH (22:19)
[2019-11-30] MEDS: Furosemide 40 MG/4 ML VIAL IVP SCH (22:19)
[2019-11-30] MEDS: Magnesium Oxide 400 MG TABLET PO SCH (22:20)
[2019-11-30] MEDS: Ipratropium/Albuterol Neb 3 ML IH SCH (23:36)
[2019-12-01 03:22] LABS: Basophils % 0.1 %; Hemoglobin 13.8 g/dL (12.9-16.9); Immature Granulocytes % 0.4 % (0-4); Lymphocytes # 0.5 K/mcL (0.6-4.6); Lymphocytes % 5.3 %; Mean Corpuscular HGB Conc 30.7 g/dL (31.6-35.5); Mean Corpuscular Hemoglobin 25.9 pg (28.0-33.3); Mean Corpuscular Volume 84.6 fL (83.0-100.0); Mean Platelet Volume 9.7 fL (9.4-12.4); Monocytes # 0.1 K/mcL (0.0-1.3); Monocytes % 1.1 %; Neutrophils # 9.5 K/mcL (1.6-8.9); Platelet Count 278 K/mcL (140-400); Red Blood Count 5.32 M/mcL (4.19-5.50); Red Cell Distribution Width 14.1 % (11.5-14.5); Segmented Neutrophils % 93.1 %; White Blood Count 10.2 K/mcL (4.3-11.1)
[2019-12-01 03:37] LABS: BUN/Creatinine Ratio 24 (6-26); Blood Urea Nitrogen 20 mg/dL (8-23); Calcium 10.2 mg/dL (8.6-10.3); Carbon Dioxide 38 mEq/L (23-29); Chloride 91 mEq/L (98-107); Glucose 186 mg/dL (70-105); Magnesium 1.9 mg/dL (1.6-2.6); Osmolality,Calculated 299 (280-300); Potassium 3.7 mEq/L (3.5-5.1); Sodium 141 mEq/L (136-145); eGFR For African Americans > 60 (> 60); eGFR For Non-African Americans > 60 (> 60)
[2019-12-01] MEDS: Ipratropium/Albuterol Neb 3 ML IH SCH ×5 (03:48→20:16)
[2019-12-01] MEDS: methylPREDNISolone 125 MG/2 ML VIAL IVP SCH ×3 (05:51→20:25)
[2019-12-01] MEDS ORDERED: Furosemide 40 MG in 0.9 % Sodium Chloride 50 ML IVPB SCH (09:00)
[2019-12-01] MEDS ORDERED: (Ezetimibe [Zetia] 10 MG) PO SCH (09:00)
[2019-12-01] MEDS: Magnesium Oxide 400 MG TABLET PO SCH ×2 (09:42→20:22)
[2019-12-01] MEDS: Apixaban 5 MG TABLET PO SCH ×2 (09:42→20:22)
[2019-12-01] MEDS: Diltiazem CD (24hr) 240 MG CAPSULE PO SCH (09:42)
[2019-12-01] MEDS: Aspirin Enteric Coated 81 MG Tablet PO SCH (09:42)
[2019-12-01] MEDS: Furosemide 40 MG/4 ML VIAL IVP SCH (09:42)
[2019-12-01] MEDS: levoFLOXacin 500 MG/100 ML 500 MG/100 ML BAG IVPB SCH (13:31)
[2019-12-01] MEDS: Melatonin 3 MG TABLET PO SCH (20:22)
[2019-12-01] MEDS ORDERED: ALPRAZolam 0.25 MG TABLET PO ONE (21:01)
[2019-12-01] MEDS: Levalbuterol Neb 0.63 MG/3 ML IH SCH ×2 (23:10→23:11)
[2019-12-02] MEDS: Levalbuterol Neb 0.63 MG/3 ML IH SCH ×5 (03:34→21:28)
[2019-12-02 05:26] LABS: Basophils % 0.2 %; Hematocrit 41.9 % (37.5-50.1); Hemoglobin 12.8 g/dL (12.9-16.9); Immature Granulocytes % 0.6 % (0-4); Lymphocytes # 0.9 K/mcL (0.6-4.6); Lymphocytes % 3.6 %; Mean Corpuscular HGB Conc 30.5 g/dL (31.6-35.5); Mean Corpuscular Hemoglobin 26.9 pg (28.0-33.3); Mean Platelet Volume 9.7 fL (9.4-12.4); Monocytes # 0.6 K/mcL (0.0-1.3); Monocytes % 2.6 %; Platelet Count 261 K/mcL (140-400); Red Blood Count 4.76 M/mcL (4.19-5.50); Red Cell Distribution Width 14.2 % (11.5-14.5)
[2019-12-02] MEDS: methylPREDNISolone 125 MG/2 ML VIAL IVP SCH ×3 (05:31→21:01)
[2019-12-02 05:43] LABS: BUN/Creatinine Ratio 54 (6-26); Blood Urea Nitrogen 36 mg/dL (8-23); Calcium 9.9 mg/dL (8.6-10.3); Carbon Dioxide 35 mEq/L (23-29); Chloride 96 mEq/L (98-107); Glucose 170 mg/dL (70-105); Osmolality,Calculated 298 (280-300); Potassium 4.1 mEq/L (3.5-5.1); Sodium 138 mEq/L (136-145); eGFR For African Americans > 60 (> 60); eGFR For Non-African Americans > 60 (> 60)
[2019-12-02 06:24] LABS: Basophils # 0.1 K/mcL (0.0-0.2); Neutrophils # 22.1 K/mcL (1.6-8.9); White Blood Count 23.8 K/mcL (4.3-11.1)
[2019-12-02] MEDS: Furosemide 40 MG/4 ML VIAL IVP SCH (07:50)
[2019-12-02] MEDS: Diltiazem CD (24hr) 240 MG CAPSULE PO SCH (07:51)
[2019-12-02] MEDS: Aspirin Enteric Coated 81 MG Tablet PO SCH (07:51)
[2019-12-02] MEDS: Apixaban 5 MG TABLET PO SCH ×2 (07:51→21:00)
[2019-12-02] MEDS: Magnesium Oxide 400 MG TABLET PO SCH ×2 (07:51→21:00)
[2019-12-02] MEDS: levoFLOXacin 500 MG/100 ML 500 MG/100 ML BAG IVPB SCH (12:37)
[2019-12-02] MEDS ORDERED: ALPRAZolam 0.25 MG TABLET PO ONE (20:41)
[2019-12-02] MEDS: Melatonin 3 MG TABLET PO SCH (21:00)
[2019-12-03] MEDS: Levalbuterol Neb 0.63 MG/3 ML IH SCH ×2 (04:09→09:44)
[2019-12-03] MEDS: methylPREDNISolone 125 MG/2 ML VIAL IVP SCH ×2 (05:02→12:34)
[2019-12-03 07:08] LABS: Hematocrit 46.1 % (37.5-50.1); Hemoglobin 14.2 g/dL (12.9-16.9); Immature Granulocytes % 1.2 % (0-4); Lymphocytes % 3.6 %; Mean Corpuscular HGB Conc 30.8 g/dL (31.6-35.5); Mean Corpuscular Hemoglobin 26.5 pg (28.0-33.3); Mean Platelet Volume 9.6 fL (9.4-12.4); Platelet Count 273 K/mcL (140-400); Red Blood Count 5.36 M/mcL (4.19-5.50); Red Cell Distribution Width 14.3 % (11.5-14.5); Segmented Neutrophils % 93.2 %; White Blood Count 20.1 K/mcL (4.3-11.1)
[2019-12-03 07:09] LABS: Basophils % 0.1 %; Lymphocytes # 0.7 K/mcL (0.6-4.6); Monocytes # 0.4 K/mcL (0.0-1.3); Monocytes % 1.9 %; Neutrophils # 18.7 K/mcL (1.6-8.9)
[2019-12-03 07:27] LABS: BUN/Creatinine Ratio 45 (6-26); Blood Urea Nitrogen 30 mg/dL (8-23); Calcium 9.8 mg/dL (8.6-10.3); Carbon Dioxide 37 mEq/L (23-29); Chloride 96 mEq/L (98-107); Glucose 159 mg/dL (70-105); Osmolality,Calculated 304 (280-300); Potassium 4.1 mEq/L (3.5-5.1); Sodium 142 mEq/L (136-145); eGFR For African Americans > 60 (> 60); eGFR For Non-African Americans > 60 (> 60)
[2019-12-03] MEDS: Apixaban 5 MG TABLET PO SCH (07:53)
[2019-12-03] MEDS: Magnesium Oxide 400 MG TABLET PO SCH (07:53)
[2019-12-03] MEDS: Aspirin Enteric Coated 81 MG Tablet PO SCH (07:53)
[2019-12-03] MEDS: Diltiazem CD (24hr) 240 MG CAPSULE PO SCH (07:53)
[2019-12-03] MEDS: Furosemide 40 MG/4 ML VIAL IVP SCH (07:53)
[2019-12-03 08:08] VITALS: BP 129/87
[2019-12-03] MEDS ORDERED: Azithromycin 250 MG TABLET PO SCH (09:00)
== END 2019-12-03 13:35 | disposition home or self-care (01) | DRG 190 ==
LOC: 2NENU → SUATTDRO 18:43
PROVIDERS: ADMIT Family Medicine; ATTEND Internal Medicine

== ENCOUNTER 2019-12-10 12:56 | Inpatient (IN) ==
[2019-12-10] MEDS ORDERED: Ondansetron 4 MG/2 ML VIAL IVP PRN (17:09)
[2019-12-10] MEDS ORDERED: Naloxone 0.4 MG/ML INJ IVP PRN (17:09)
[2019-12-10] MEDS: Metoprolol XL (24 HR) Succ 50 MG TAB.ER.24H PO SCH (17:54)
[2019-12-10] MEDS: levoFLOXacin 750 MG/150 ML 750 MG/150 ML BAG IVPB SCH (17:54)
[2019-12-10 18:07] LABS: VBG HCO3 27 mEq/L (21-27); VBG PCO2 44 mmHg (41-51); VBG PO2 151 mmHg (25-50)
[2019-12-10 18:16] LABS: Basophils % 0.1 %; Hematocrit 42.7 % (37.5-50.1); Hemoglobin 13.8 g/dL (12.9-16.9); Immature Granulocytes % 0.8 % (0-4); Lymphocytes # 0.2 K/mcL (0.6-4.6); Lymphocytes % 1.7 %; Mean Corpuscular HGB Conc 32.3 g/dL (31.6-35.5); Mean Corpuscular Hemoglobin 26.5 pg (28.0-33.3); Mean Corpuscular Volume 82.1 fL (83.0-100.0); Mean Platelet Volume 9.4 fL (9.4-12.4); Monocytes # 0.1 K/mcL (0.0-1.3); Monocytes % 0.7 %; Platelet Count 152 K/mcL (140-400); Red Cell Distribution Width 15.3 % (11.5-14.5); Segmented Neutrophils % 96.7 %; White Blood Count 13.5 K/mcL (4.3-11.1)
[2019-12-10 18:22] LABS: BUN/Creatinine Ratio 23 (6-26); Blood Urea Nitrogen 13 mg/dL (8-23); Calcium 8.9 mg/dL (8.6-10.3); Carbon Dioxide 26 mEq/L (23-29); Chloride 96 mEq/L (98-107); Glucose 173 mg/dL (70-105); Magnesium 1.8 mg/dL (1.6-2.6); Osmolality,Calculated 270 (280-300); Sodium 128 mEq/L (136-145); eGFR For African Americans > 60 (> 60); eGFR For Non-African Americans > 60 (> 60)
[2019-12-10] MEDS ORDERED: Levalbuterol Neb 0.63 MG/3 ML IH ONE (18:30)
[2019-12-10 21:22] LABS: ABG Base Excess 2 mEq/L (-2 to 3); ABG HCO3 28 mEq/L (21-27); ABG Oxygen Saturation 96 % (95-98); ABG PCO2 45 mmHg (35-45); ABG PO2 85 mmHg (85-104); ABG TCO2 29 mEq/L (20-26)
[2019-12-10] MEDS: Levalbuterol Neb 0.63 MG/3 ML IH SCH (22:59)
[2019-12-10] MEDS: Budesonide Neb 0.5 MG/2 ML IH SCH (22:59)
[2019-12-11 01:11] LABS: Basophils % 0.2 %; Hematocrit 44.6 % (37.5-50.1); Hemoglobin 14.6 g/dL (12.9-16.9); Immature Granulocytes % 0.9 % (0-4); Lymphocytes # 0.3 K/mcL (0.6-4.6); Lymphocytes % 2.5 %; Mean Corpuscular HGB Conc 32.7 g/dL (31.6-35.5); Mean Corpuscular Hemoglobin 27.2 pg (28.0-33.3); Mean Corpuscular Volume 83.1 fL (83.0-100.0); Mean Platelet Volume 9.3 fL (9.4-12.4); Monocytes # 0.3 K/mcL (0.0-1.3); Monocytes % 2.3 %; Neutrophils # 10.9 K/mcL (1.6-8.9); Platelet Count 126 K/mcL (140-400); Red Blood Count 5.37 M/mcL (4.19-5.50); Red Cell Distribution Width 15.3 % (11.5-14.5); Segmented Neutrophils % 94.1 %; White Blood Count 11.6 K/mcL (4.3-11.1)
[2019-12-11 01:32] LABS: BUN/Creatinine Ratio 24 (6-26); Blood Urea Nitrogen 14 mg/dL (8-23); Carbon Dioxide 26 mEq/L (23-29); Chloride 96 mEq/L (98-107); Glucose 149 mg/dL (70-105); Osmolality,Calculated 271 (280-300); Potassium 4.1 mEq/L (3.5-5.1); Sodium 129 mEq/L (136-145); eGFR For African Americans > 60 (> 60); eGFR For Non-African Americans > 60 (> 60)
[2019-12-11] MEDS: Levalbuterol Neb 0.63 MG/3 ML IH SCH (03:02)
[2019-12-11] MEDS ORDERED: methylPREDNISolone 125 MG/2 ML VIAL IVP ONE (03:29)
[2019-12-11 03:44] LABS: ABG Base Excess 2 mEq/L (-2 to 3); ABG HCO3 28 mEq/L (21-27); ABG Oxygen Saturation 98 % (95-98); ABG PCO2 47 mmHg (35-45); ABG PH 7.38 pH Units (7.32-7.45); ABG PO2 114 mmHg (85-104); ABG TCO2 30 mEq/L (20-26)
[2019-12-11] MEDS: Levalbuterol Neb 1.25 MG/3 ML IH SCH ×6 (03:51→23:22)
[2019-12-11 04:58] LABS: Adenovirus Not Detected (Not Detect); Bordetella Pertussis Not Detected (Not Detect); Chlamydophila pneumoniae Not Detected (Not Detect); Coronavirus 229E Not Detected (Not Detect); Coronavirus HKU1 Not Detected (Not Detect); Coronavirus NL63 Not Detected (Not Detect); Coronavirus OC43 Not Detected (Not Detect); Human Metapneumovirus DETECTED (Not Detect); Human Rhinovirus/Enterovirus Not Detected (Not Detect); Influenza A Subtype 2009 H1 Not Detected (Not Detect); Influenza B Not Detected (Not Detect); Mycoplasma pneumoniae Not Detected (Not Detect); Parainfluenza Virus 1 Not Detected (Not Detect); Parainfluenza Virus 2 Not Detected (Not Detect); Parainfluenza Virus 3 Not Detected (Not Detect); Parainfluenza Virus 4 Not Detected (Not Detect); Respiratory Syncytial Virus Not Detected (Not Detect)
[2019-12-11] MEDS ORDERED: *HR* LORazepam 2 MG/ML VIAL IVP ONE (06:15)
[2019-12-11] MEDS: Budesonide Neb 0.5 MG/2 ML IH SCH ×2 (07:21→19:53)
[2019-12-11] MEDS: Apixaban 5 MG TABLET PO SCH ×2 (08:43→20:24)
[2019-12-11] MEDS: levoFLOXacin 750 MG/150 ML 750 MG/150 ML BAG IVPB SCH (08:43)
[2019-12-11] MEDS: Metoprolol XL (24 HR) Succ 50 MG TAB.ER.24H PO SCH (08:43)
[2019-12-11] MEDS: Aspirin Enteric Coated 81 MG Tablet PO SCH (08:43)
[2019-12-11] MEDS ORDERED: Diltiazem CD (24hr) 240 MG CAPSULE PO SCH (09:00)
[2019-12-11] MEDS: MethylPREDNISolone 40 MG/ML VIAL IVP SCH ×2 (10:03→16:33)
[2019-12-11 21:30] LABS: ABG Base Excess 7 mEq/L (-2 to 3); ABG HCO3 35 mEq/L (21-27); ABG Oxygen Saturation 99 % (95-98); ABG PCO2 63 mmHg (35-45); ABG PH 7.35 pH Units (7.32-7.45); ABG PO2 136 mmHg (85-104); ABG TCO2 37 mEq/L (20-26); Blood Gas VT 550 cc
[2019-12-12] MEDS: MethylPREDNISolone 40 MG/ML VIAL IVP SCH ×4 (00:35→23:46)
[2019-12-12 02:05] LABS: Basophils % 0.2 %; Hematocrit 41.8 % (37.5-50.1); Hemoglobin 13.2 g/dL (12.9-16.9); Immature Granulocytes % 0.5 % (0-4); Lymphocytes # 0.3 K/mcL (0.6-4.6); Lymphocytes % 2.6 %; Mean Corpuscular HGB Conc 31.6 g/dL (31.6-35.5); Mean Corpuscular Hemoglobin 26.3 pg (28.0-33.3); Mean Corpuscular Volume 83.4 fL (83.0-100.0); Mean Platelet Volume 9.8 fL (9.4-12.4); Monocytes # 0.4 K/mcL (0.0-1.3); Monocytes % 3.3 %; Neutrophils # 10.2 K/mcL (1.6-8.9); Platelet Count 156 K/mcL (140-400); Red Blood Count 5.01 M/mcL (4.19-5.50); Red Cell Distribution Width 14.7 % (11.5-14.5); Segmented Neutrophils % 93.4 %
[2019-12-12 02:26] LABS: BUN/Creatinine Ratio 32 (6-26); Blood Urea Nitrogen 19 mg/dL (8-23); Calcium 9.3 mg/dL (8.6-10.3); Carbon Dioxide 29 mEq/L (23-29); Chloride 96 mEq/L (98-107); Glucose 179 mg/dL (70-105); Osmolality,Calculated 285 (280-300); Potassium 4.4 mEq/L (3.5-5.1); Sodium 134 mEq/L (136-145); eGFR For African Americans > 60 (> 60); eGFR For Non-African Americans > 60 (> 60)
[2019-12-12] MEDS: Levalbuterol Neb 1.25 MG/3 ML IH SCH ×6 (04:00→23:20)
[2019-12-12] MEDS: Acetaminophen 325 MG TABLET PO PRN (06:28)
[2019-12-12] MEDS: Metoprolol XL (24 HR) Succ 50 MG TAB.ER.24H PO SCH (07:39)
[2019-12-12] MEDS: Apixaban 5 MG TABLET PO SCH ×2 (07:39→20:32)
[2019-12-12] MEDS: Aspirin Enteric Coated 81 MG Tablet PO SCH (07:39)
[2019-12-12] MEDS: levoFLOXacin 750 MG/150 ML 750 MG/150 ML BAG IVPB SCH (07:40)
[2019-12-12] MEDS: Budesonide Neb 0.5 MG/2 ML IH SCH ×2 (07:51→20:15)
[2019-12-12] MEDS: Diltiazem CD (24hr) 240 MG CAPSULE PO SCH (10:43)
[2019-12-12] MEDS ORDERED: Furosemide 40 MG/4 ML VIAL IVP ONE (15:18)
[2019-12-13 02:23] LABS: Basophils % 0.1 %; Hematocrit 42.2 % (37.5-50.1); Hemoglobin 13.2 g/dL (12.9-16.9); Immature Granulocytes % 0.3 % (0-4); Lymphocytes # 0.4 K/mcL (0.6-4.6); Lymphocytes % 3.3 %; Mean Corpuscular HGB Conc 31.3 g/dL (31.6-35.5); Mean Corpuscular Hemoglobin 26.7 pg (28.0-33.3); Mean Corpuscular Volume 85.3 fL (83.0-100.0); Mean Platelet Volume 9.6 fL (9.4-12.4); Monocytes # 0.3 K/mcL (0.0-1.3); Monocytes % 3.1 %; Neutrophils # 10.2 K/mcL (1.6-8.9); Platelet Count 188 K/mcL (140-400); Red Blood Count 4.95 M/mcL (4.19-5.50); Red Cell Distribution Width 14.6 % (11.5-14.5); Segmented Neutrophils % 93.2 %; White Blood Count 10.9 K/mcL (4.3-11.1)
[2019-12-13 02:41] LABS: BUN/Creatinine Ratio 46 (6-26); Blood Urea Nitrogen 26 mg/dL (8-23); Calcium 9.7 mg/dL (8.6-10.3); Carbon Dioxide 33 mEq/L (23-29); Chloride 95 mEq/L (98-107); Glucose 161 mg/dL (70-105); Osmolality,Calculated 286 (280-300); Potassium 4.4 mEq/L (3.5-5.1); Sodium 134 mEq/L (136-145); eGFR For African Americans > 60 (> 60); eGFR For Non-African Americans > 60 (> 60)
[2019-12-13 02:52] LABS: Platelet Estimate Normal (Normal); Reactive Lymphocytes Present (Not Present)
[2019-12-13] MEDS: Levalbuterol Neb 1.25 MG/3 ML IH SCH ×6 (03:51→23:39)
[2019-12-13] MEDS: Budesonide Neb 0.5 MG/2 ML IH SCH ×2 (07:22→19:34)
[2019-12-13] MEDS: levoFLOXacin 750 MG/150 ML 750 MG/150 ML BAG IVPB SCH (07:55)
[2019-12-13] MEDS: Acetaminophen 325 MG TABLET PO PRN (07:55)
[2019-12-13] MEDS: Aspirin Enteric Coated 81 MG Tablet PO SCH (07:55)
[2019-12-13] MEDS: Diltiazem CD (24hr) 240 MG CAPSULE PO SCH (07:55)
[2019-12-13] MEDS: Apixaban 5 MG TABLET PO SCH ×2 (07:55→21:02)
[2019-12-13] MEDS: Metoprolol XL (24 HR) Succ 50 MG TAB.ER.24H PO SCH (07:55)
[2019-12-13] MEDS: MethylPREDNISolone 40 MG/ML VIAL IVP SCH (07:55)
[2019-12-13] MEDS ORDERED: Melatonin 3 MG TABLET PO PRN (18:13)
[2019-12-14] MEDS: Levalbuterol Neb 1.25 MG/3 ML IH SCH ×3 (04:45→11:23)
[2019-12-14 05:42] LABS: Basophils % 0.3 %; Hematocrit 41.2 % (37.5-50.1); Hemoglobin 12.7 g/dL (12.9-16.9); Immature Granulocytes % 0.4 % (0-4); Lymphocytes # 0.5 K/mcL (0.6-4.6); Lymphocytes % 6.6 %; Mean Corpuscular HGB Conc 30.8 g/dL (31.6-35.5); Mean Corpuscular Hemoglobin 26.6 pg (28.0-33.3); Mean Corpuscular Volume 86.2 fL (83.0-100.0); Mean Platelet Volume 9.5 fL (9.4-12.4); Monocytes # 0.5 K/mcL (0.0-1.3); Monocytes % 7.6 %; Neutrophils # 5.9 K/mcL (1.6-8.9); Platelet Count 170 K/mcL (140-400); Red Blood Count 4.78 M/mcL (4.19-5.50); Red Cell Distribution Width 14.6 % (11.5-14.5); Segmented Neutrophils % 85.1 %; White Blood Count 6.9 K/mcL (4.3-11.1)
[2019-12-14 05:52] LABS: BUN/Creatinine Ratio 49 (6-26); Blood Urea Nitrogen 23 mg/dL (8-23); Calcium 9.5 mg/dL (8.6-10.3); Carbon Dioxide 35 mEq/L (23-29); Chloride 96 mEq/L (98-107); Glucose 128 mg/dL (70-105); Magnesium 2.1 mg/dL (1.6-2.6); Osmolality,Calculated 287 (280-300); Potassium 4.9 mEq/L (3.5-5.1); Sodium 136 mEq/L (136-145); eGFR For African Americans > 60 (> 60); eGFR For Non-African Americans > 60 (> 60)
[2019-12-14] MEDS: Budesonide Neb 0.5 MG/2 ML IH SCH (07:21)
[2019-12-14] MEDS ORDERED: *HR* Metoprolol 5 MG/5 ML VIAL IVP ONE (08:54)
[2019-12-14] MEDS ORDERED: levoFLOXacin 750 MG TABLET PO SCH (09:00)
[2019-12-14] MEDS ORDERED: MethylPREDNISolone 40 MG/ML VIAL IVP SCH (09:00)
[2019-12-14] MEDS: Metoprolol XL (24 HR) Succ 50 MG TAB.ER.24H PO SCH (09:37)
[2019-12-14] MEDS: Apixaban 5 MG TABLET PO SCH (09:37)
[2019-12-14] MEDS: Aspirin Enteric Coated 81 MG Tablet PO SCH (09:37)
[2019-12-14] MEDS: Diltiazem CD (24hr) 240 MG CAPSULE PO SCH (09:38)
[2019-12-14 11:31] VITALS: BP 128/64
== END 2019-12-14 12:44 | disposition home or self-care (01) | DRG 871 ==
LOC: 2ANU → SUATTDRO 15:49
PROVIDERS: ADMIT Pharmacist; ATTEND Pharmacist

== ENCOUNTER 2020-07-15 21:59 | Inpatient (IN) ==
[2020-07-16] MEDS ORDERED: Amiodarone Premix 360 MG/200 ML BAG IVC ONE (01:12)
[2020-07-16] MEDS: Acetaminophen 325 MG TABLET PO PRN (01:28)
[2020-07-16 02:36] LABS: Adenovirus Not Detected (Not Detect); Coronavirus 229E Not Detected (Not Detect); Coronavirus HKU1 Not Detected (Not Detect); Coronavirus NL63 Not Detected (Not Detect); Coronavirus OC43 Not Detected (Not Detect)
[2020-07-16 02:38] LABS: Bordetella Pertussis Not Detected (Not Detect); Chlamydophila pneumoniae Not Detected (Not Detect); Human Metapneumovirus Not Detected (Not Detect); Human Rhinovirus/Enterovirus DETECTED (Not Detect); Influenza A Subtype 2009 H1 Not Detected (Not Detect); Influenza B Not Detected (Not Detect); Mycoplasma pneumoniae Not Detected (Not Detect); Parainfluenza Virus 1 Not Detected (Not Detect); Parainfluenza Virus 2 Not Detected (Not Detect); Parainfluenza Virus 3 Not Detected (Not Detect); Parainfluenza Virus 4 Not Detected (Not Detect); Respiratory Syncytial Virus Not Detected (Not Detect)
[2020-07-16] MEDS ORDERED: Naloxone 0.4 MG/ML INJ IVP PRN (03:44)
[2020-07-16 04:45] LABS: Basophils % 0.2 %; Hemoglobin 12.5 g/dL (12.9-16.9); Immature Granulocytes % 1.4 % (0-4); Lymphocytes # 0.2 K/mcL (0.6-4.6); Lymphocytes % 1.7 %; Mean Corpuscular HGB Conc 31.3 g/dL (31.6-35.5); Mean Corpuscular Hemoglobin 27.2 pg (28.0-33.3); Mean Platelet Volume 9.9 fL (9.4-12.4); Monocytes # 0.2 K/mcL (0.0-1.3); Monocytes % 2.5 %; Neutrophils # 9.1 K/mcL (1.6-8.9); Platelet Count 122 K/mcL (140-400); Red Cell Distribution Width 17.4 % (11.5-14.5); Segmented Neutrophils % 94.2 %; White Blood Count 9.7 K/mcL (4.3-11.1)
[2020-07-16 04:58] LABS: INR 1.3; Prothrombin Time 14.3 Seconds (9.4-12.1)
[2020-07-16 05:00] LABS: Activated Partial Thrombo Time 24.8 Seconds (26.0-36.0)
[2020-07-16 05:04] LABS: Alanine Aminotransferase 14 Units/L (7-52); Albumin 2.8 g/dL (3.5-5.7); Albumin/Globulin Ratio 1.1 (1.1-2.2); Alkaline Phosphatase 74 Units/L (34-104); Aspartate Amino Transferase 6 Units/L (13-39); BUN/Creatinine Ratio 39 (6-26); Bilirubin,Total 0.4 mg/dL (0.3-1.0); Blood Urea Nitrogen 20 mg/dL (8-23); Calcium 8.4 mg/dL (8.6-10.3); Carbon Dioxide 34 mEq/L (23-29); Chloride 91 mEq/L (98-107); Globulin 2.6 g/dL (2.4-3.5); Glucose 418 mg/dL (70-105); Magnesium 1.3 mg/dL (1.6-2.6); Osmolality,Calculated 296 (280-300); Phosphorous 4.2 mg/dL (2.7-4.5); Potassium 4.3 mEq/L (3.5-5.1); Sodium 133 mEq/L (136-145); Total Protein 5.4 g/dL (6.4-8.9); eGFR For African Americans > 60 (> 60); eGFR For Non-African Americans > 60 (> 60)
[2020-07-16 05:07] LABS: Troponin I 0.05 ng/mL (< 0.04)
[2020-07-16 05:17] LABS: Anisocytosis 1+ (Not Present); Platelet Estimate Slight Decrease (Normal)
[2020-07-16] MEDS ORDERED: Perflutren Lipid Microsphere 1.3 ML in 0.9 % Sodium Chloride 8.7 ML IVP PRN (07:09)
[2020-07-16] MEDS ORDERED: Amiodarone Premix 360 MG/200 ML BAG IVC SCH (07:30)
[2020-07-16] MEDS ORDERED: D5% in Water 1,000 ML IVC PRN (07:37)
[2020-07-16] MEDS ORDERED: Dextrose Gel 15 GM/37.5 ML TUBE PO PRN ×2 (07:37)
[2020-07-16] MEDS ORDERED: *HR* Dextrose 50 % in Water (Vial) 50 ML VIAL IVP PRN (07:37)
[2020-07-16] MEDS ORDERED: Azithromycin 500 MG in 0.9 % Sodium Chloride 250 ML IVPB SCH (08:00)
[2020-07-16] MEDS ORDERED: Insulin LISPRO 300 UNITS/3 ML VIAL SQ ONE (08:00)
[2020-07-16] MEDS: Ipratropium/Albuterol Neb 3 ML IH SCH ×4 (08:16→19:49)
[2020-07-16] MEDS: Furosemide 40 MG/4 ML VIAL IVP SCH (08:42)
[2020-07-16] MEDS: Cefepime HCl 2,000 MG in Water for inj. (sterile) 20 ML IVP SCH ×2 (08:43→15:58)
[2020-07-16] MEDS: predniSONE 20 MG TABLET PO SCH (08:46)
[2020-07-16] MEDS: Vancomycin 1,250 MG/262.5 ML IV.SOLN IVPB SCH ×2 (08:53→20:28)
[2020-07-16] MEDS: MetroNIDAZOLE 500 MG/100 ML 500 MG/100 ML BAG IVPB SCH ×2 (08:54→16:02)
[2020-07-16] MEDS ORDERED: levoFLOXacin 750 MG/150 ML 750 MG/150 ML BAG IVPB SCH (09:00)
[2020-07-16] MEDS ORDERED: Apixaban 5 MG TABLET PO SCH (09:00)
[2020-07-16] MEDS ORDERED: NON-FORMULARY MEDICATION 1 EACH EACH (Metoprolol Succinate [Toprol Xl] 100 MG) PO SCH (09:00)
[2020-07-16] MEDS ORDERED: Metoprolol XL (24 HR) Succ 50 MG TAB.ER.24H PO SCH (09:00)
[2020-07-16 10:53] LABS: Estimated Average Glucose 237 mg/dl
[2020-07-16] MEDS ORDERED: Gadolinium Contrast Agent (WT Based) IV PRN (11:07)
[2020-07-16 11:30] LABS: Troponin I 0.04 ng/mL (< 0.04)
[2020-07-16] MEDS: Insulin LISPRO 300 UNITS/3 ML VIAL SQ SCH ×3 (12:11→20:38)
[2020-07-16] MEDS: Metoprolol XL (24 HR) Succ 50 MG TAB.ER.24H PO SCH ×2 (15:58→20:28)
[2020-07-16] MEDS: Insulin DETEMIR 100 UNIT/ML X5UNITS SQ SCH (20:27)
[2020-07-16] MEDS ORDERED: Levalbuterol 1 PUFF INHALER IH PRN (21:17)
[2020-07-16] MEDS: Ipratropium Neb 0.5 MG NEBULIZER IH SCH (22:00)
[2020-07-16] MEDS: Levalbuterol Neb 1.25 MG/3 ML IH SCH (22:00)
[2020-07-17] MEDS: Cefepime HCl 2,000 MG in Water for inj. (sterile) 20 ML IVP SCH ×3 (00:13→15:41)
[2020-07-17] MEDS: MetroNIDAZOLE 500 MG/100 ML 500 MG/100 ML BAG IVPB SCH ×3 (00:14→15:48)
[2020-07-17] MEDS: Ipratropium Neb 0.5 MG NEBULIZER IH SCH ×4 (04:01→21:53)
[2020-07-17] MEDS: Levalbuterol Neb 1.25 MG/3 ML IH SCH ×4 (04:01→21:53)
[2020-07-17 06:03] LABS: Basophils % 0.2 %; Eosinophils % 0.1 %; Hematocrit 38.1 % (37.5-50.1); Hemoglobin 12.1 g/dL (12.9-16.9); Lymphocytes # 0.4 K/mcL (0.6-4.6); Lymphocytes % 4.1 %; Mean Corpuscular HGB Conc 31.8 g/dL (31.6-35.5); Mean Corpuscular Hemoglobin 27.1 pg (28.0-33.3); Mean Corpuscular Volume 85.4 fL (83.0-100.0); Mean Platelet Volume 10.4 fL (9.4-12.4); Monocytes # 0.2 K/mcL (0.0-1.3); Monocytes % 1.8 %; Neutrophils # 7.9 K/mcL (1.6-8.9); Platelet Count 126 K/mcL (140-400); Red Blood Count 4.46 M/mcL (4.19-5.50); Red Cell Distribution Width 17.5 % (11.5-14.5); Segmented Neutrophils % 90.8 %; White Blood Count 8.7 K/mcL (4.3-11.1)
[2020-07-17 06:18] LABS: % Iron Saturation 11 % (20-55); BUN/Creatinine Ratio 45 (6-26); Blood Urea Nitrogen 19 mg/dL (8-23); Calcium 9.2 mg/dL (8.6-10.3); Carbon Dioxide 35 mEq/L (23-29); Chloride 93 mEq/L (98-107); Glucose 181 mg/dL (70-105); Iron 25 mcg/dL (65-175); Magnesium 2.2 mg/dL (1.6-2.6); Osmolality,Calculated 285 (280-300); Potassium 3.7 mEq/L (3.5-5.1); Sodium 134 mEq/L (136-145); Transferrin 161 mg/dL (203-362); eGFR For African Americans > 60 (> 60); eGFR For Non-African Americans > 60 (> 60)
[2020-07-17 06:35] LABS: Ferritin 887 ng/mL (20-250)
[2020-07-17 06:41] LABS: Folate 9.7 ng/mL (3.0-16.0)
[2020-07-17] MEDS: predniSONE 20 MG TABLET PO SCH (07:30)
[2020-07-17] MEDS: Furosemide 40 MG/4 ML VIAL IVP SCH (07:30)
[2020-07-17] MEDS: Metoprolol XL (24 HR) Succ 50 MG TAB.ER.24H PO SCH ×2 (07:30→21:41)
[2020-07-17] MEDS: Insulin LISPRO 300 UNITS/3 ML VIAL SQ SCH ×4 (07:40→21:42)
[2020-07-17] MEDS ORDERED: NON-FORMULARY MEDICATION 1 EACH EACH (Ezetimibe [Zetia] 10 MG) PO SCH (09:00)
[2020-07-17] MEDS: Vancomycin 1,250 MG/262.5 ML IV.SOLN IVPB SCH ×2 (09:24→21:44)
[2020-07-17] MEDS ORDERED: *HR* Digoxin 0.5 MG/2 ML AMPUL IVP ONE (09:44)
[2020-07-17] MEDS ORDERED: *HR* Digoxin 0.5 MG/2 ML AMPUL IVP SCH (16:00)
[2020-07-17] MEDS: Insulin DETEMIR 100 UNIT/ML X5UNITS SQ SCH (21:41)
[2020-07-17] MEDS: Gabapentin 300 MG CAPSULE PO SCH (22:57)
[2020-07-18] MEDS: Ipratropium Neb 0.5 MG NEBULIZER IH SCH ×4 (03:53→21:16)
[2020-07-18] MEDS: Levalbuterol Neb 1.25 MG/3 ML IH SCH ×4 (03:53→21:16)
[2020-07-18] MEDS: Nicotine 21 MG PATCH.TD24 TD SCH (04:41)
[2020-07-18 06:08] LABS: Basophils % 0.4 %; Eosinophils % 0.2 %; Hematocrit 38.5 % (37.5-50.1); Hemoglobin 12.6 g/dL (12.9-16.9); Immature Granulocytes % 4.7 % (0-4); Lymphocytes # 0.5 K/mcL (0.6-4.6); Lymphocytes % 5.5 %; Mean Corpuscular HGB Conc 32.7 g/dL (31.6-35.5); Mean Corpuscular Hemoglobin 27.5 pg (28.0-33.3); Mean Corpuscular Volume 84.1 fL (83.0-100.0); Mean Platelet Volume 10.1 fL (9.4-12.4); Monocytes # 0.2 K/mcL (0.0-1.3); Monocytes % 1.8 %; Neutrophils # 8.4 K/mcL (1.6-8.9); Platelet Count 115 K/mcL (140-400); Red Blood Count 4.58 M/mcL (4.19-5.50); Red Cell Distribution Width 17.2 % (11.5-14.5); Segmented Neutrophils % 87.4 %; White Blood Count 9.6 K/mcL (4.3-11.1)
[2020-07-18 06:27] LABS: BUN/Creatinine Ratio 58 (6-26); Blood Urea Nitrogen 25 mg/dL (8-23); Calcium 8.6 mg/dL (8.6-10.3); Carbon Dioxide 34 mEq/L (23-29); Chloride 97 mEq/L (98-107); Glucose 62 mg/dL (70-105); Osmolality,Calculated 284 (280-300); Sodium 136 mEq/L (136-145); eGFR For African Americans > 60 (> 60); eGFR For Non-African Americans > 60 (> 60)
[2020-07-18] MEDS: Cefepime HCl 2,000 MG in Water for inj. (sterile) 20 ML IVP SCH ×3 (08:19→15:54)
[2020-07-18] MEDS: predniSONE 20 MG TABLET PO SCH (08:19)
[2020-07-18] MEDS: Gabapentin 300 MG CAPSULE PO SCH ×2 (08:19→21:48)
[2020-07-18] MEDS: MetroNIDAZOLE 500 MG/100 ML 500 MG/100 ML BAG IVPB SCH ×3 (08:20→15:55)
[2020-07-18] MEDS: Insulin LISPRO 300 UNITS/3 ML VIAL SQ SCH ×4 (08:21→21:50)
[2020-07-18] MEDS: Metoprolol XL (24 HR) Succ 50 MG TAB.ER.24H PO SCH ×2 (08:23→21:47)
[2020-07-18] MEDS: Furosemide 40 MG TABLET PO SCH (08:23)
[2020-07-18] MEDS: *HR* Digoxin 0.125 MG TABLET PO SCH (08:28)
[2020-07-18] MEDS: Vancomycin 1,250 MG/262.5 ML IV.SOLN IVPB SCH ×2 (08:29→21:49)
[2020-07-18] MEDS ORDERED: Nicotine 21 MG PATCH.TD24 TD SCH (09:00)
[2020-07-18] MEDS ORDERED: Insulin DETEMIR 100 UNIT/ML X5UNITS SQ SCH (21:00)
[2020-07-19] MEDS: Cefepime HCl 2,000 MG in Water for inj. (sterile) 20 ML IVP SCH ×3 (00:01→20:22)
[2020-07-19] MEDS: MetroNIDAZOLE 500 MG/100 ML 500 MG/100 ML BAG IVPB SCH ×2 (00:14→07:46)
[2020-07-19] MEDS: Ipratropium Neb 0.5 MG NEBULIZER IH SCH ×5 (03:24→23:54)
[2020-07-19] MEDS: Levalbuterol Neb 1.25 MG/3 ML IH SCH ×5 (03:24→23:54)
[2020-07-19] MEDS: Metoprolol XL (24 HR) Succ 50 MG TAB.ER.24H PO SCH ×2 (07:43→20:46)
[2020-07-19] MEDS: Furosemide 40 MG TABLET PO SCH (07:43)
[2020-07-19] MEDS: *HR* Digoxin 0.125 MG TABLET PO SCH (07:43)
[2020-07-19] MEDS: predniSONE 20 MG TABLET PO SCH (07:45)
[2020-07-19] MEDS: Gabapentin 300 MG CAPSULE PO SCH ×2 (07:46→20:20)
[2020-07-19] MEDS: Vancomycin 1,250 MG/262.5 ML IV.SOLN IVPB SCH ×2 (07:58→20:35)
[2020-07-19] MEDS: Insulin LISPRO 300 UNITS/3 ML VIAL SQ SCH ×4 (08:00→20:44)
[2020-07-19] MEDS: Nicotine 21 MG PATCH.TD24 TD SCH (08:01)
[2020-07-19 11:03] LABS: Basophils # 0.1 K/mcL (0.0-0.2); Basophils % 0.6 %; Eosinophils % 0.1 %; Hemoglobin 13.8 g/dL (12.9-16.9); Immature Granulocytes % 2.7 % (0-4); Lymphocytes # 0.3 K/mcL (0.6-4.6); Lymphocytes % 2.7 %; Mean Corpuscular HGB Conc 30.7 g/dL (31.6-35.5); Mean Corpuscular Hemoglobin 27.2 pg (28.0-33.3); Mean Corpuscular Volume 88.8 fL (83.0-100.0); Mean Platelet Volume 10.2 fL (9.4-12.4); Monocytes # 0.2 K/mcL (0.0-1.3); Monocytes % 1.8 %; Neutrophils # 8.7 K/mcL (1.6-8.9); Platelet Count 134 K/mcL (140-400); Red Blood Count 5.07 M/mcL (4.19-5.50); Red Cell Distribution Width 17.4 % (11.5-14.5); Segmented Neutrophils % 92.1 %; White Blood Count 9.5 K/mcL (4.3-11.1)
[2020-07-19 11:33] LABS: BUN/Creatinine Ratio 46 (6-26); Blood Urea Nitrogen 21 mg/dL (8-23); Calcium 8.8 mg/dL (8.6-10.3); Carbon Dioxide 35 mEq/L (23-29); Chloride 91 mEq/L (98-107); Glucose 297 mg/dL (70-105); Osmolality,Calculated 298 (280-300); Potassium 3.5 mEq/L (3.5-5.1); Sodium 137 mEq/L (136-145); eGFR For African Americans > 60 (> 60); eGFR For Non-African Americans > 60 (> 60)
[2020-07-19] MEDS: metroNIDAZOLE 500 MG TABLET PO SCH ×2 (14:53→20:19)
[2020-07-19] MEDS: Melatonin 3 MG TABLET PO PRN (20:19)
[2020-07-19] MEDS: polyethylene glycoL 3350 17 GM POWD.PACK PO SCH (20:21)
[2020-07-19] MEDS ORDERED: Insulin DETEMIR 100 UNIT/ML X5UNITS SQ SCH (21:00)
[2020-07-19] MEDS ORDERED: Metoprolol XL (24 HR) Succ 50 MG TAB.ER.24H PO ONE (21:42)
[2020-07-20] MEDS: Levalbuterol Neb 1.25 MG/3 ML IH SCH ×6 (03:41→23:55)
[2020-07-20] MEDS: Ipratropium Neb 0.5 MG NEBULIZER IH SCH ×6 (03:41→23:55)
[2020-07-20 05:19] LABS: Hemoglobin 12.4 g/dL (12.9-16.9); Mean Corpuscular HGB Conc 30.2 g/dL (31.6-35.5); Mean Corpuscular Hemoglobin 26.9 pg (28.0-33.3); Mean Corpuscular Volume 88.9 fL (83.0-100.0); Mean Platelet Volume 9.3 fL (9.4-12.4); Monocytes # 0.2 K/mcL (0.0-1.3); Platelet Count 118 K/mcL (140-400); Red Blood Count 4.61 M/mcL (4.19-5.50); Red Cell Distribution Width 17.3 % (11.5-14.5); White Blood Count 7.4 K/mcL (4.3-11.1)
[2020-07-20 05:40] LABS: BUN/Creatinine Ratio 61 (6-26); Blood Urea Nitrogen 27 mg/dL (8-23); Calcium 8.8 mg/dL (8.6-10.3); Carbon Dioxide 39 mEq/L (23-29); Chloride 96 mEq/L (98-107); Glucose 176 mg/dL (70-105); Osmolality,Calculated 297 (280-300); Potassium 3.5 mEq/L (3.5-5.1); Sodium 139 mEq/L (136-145); eGFR For African Americans > 60 (> 60); eGFR For Non-African Americans > 60 (> 60)
[2020-07-20 06:02] LABS: Lymphocytes # 1.2 K/mcL (0.6-4.6); Neutrophils # 5.8 K/mcL (1.6-8.9)
[2020-07-20 06:03] LABS: Anisocytosis 1+ (Not Present); Platelet Estimate Slight Decrease (Normal)
[2020-07-20] MEDS: predniSONE 20 MG TABLET PO SCH (07:49)
[2020-07-20] MEDS: Metoprolol XL (24 HR) Succ 50 MG TAB.ER.24H PO SCH ×2 (07:49→21:03)
[2020-07-20] MEDS: metroNIDAZOLE 500 MG TABLET PO SCH ×3 (07:50→21:03)
[2020-07-20] MEDS: Gabapentin 300 MG CAPSULE PO SCH ×2 (07:50→21:03)
[2020-07-20] MEDS: Furosemide 40 MG TABLET PO SCH (07:50)
[2020-07-20] MEDS: Nicotine 21 MG PATCH.TD24 TD SCH (07:50)
[2020-07-20] MEDS: Cefepime HCl 2,000 MG in Water for inj. (sterile) 20 ML IVP SCH ×2 (07:51→20:46)
[2020-07-20] MEDS: polyethylene glycoL 3350 17 GM POWD.PACK PO SCH ×2 (07:52→21:18)
[2020-07-20] MEDS: *HR* Digoxin 0.125 MG TABLET PO SCH (07:52)
[2020-07-20] MEDS: Vancomycin 1,250 MG/262.5 ML IV.SOLN IVPB SCH ×2 (07:57→20:46)
[2020-07-20] MEDS: Insulin LISPRO 300 UNITS/3 ML VIAL SQ SCH ×4 (07:58→21:24)
[2020-07-20] MEDS ORDERED: Insulin LISPRO 300 UNITS/3 ML VIAL SQ STA (18:44)
[2020-07-20] MEDS ORDERED: Insulin DETEMIR 100 UNIT/ML X5UNITS SQ SCH (21:00)
[2020-07-20] MEDS: Melatonin 3 MG TABLET PO PRN (21:18)
[2020-07-21] MEDS: Ipratropium Neb 0.5 MG NEBULIZER IH SCH ×6 (03:28→23:23)
[2020-07-21] MEDS: Levalbuterol Neb 1.25 MG/3 ML IH SCH ×6 (03:28→23:23)
[2020-07-21 06:51] LABS: BUN/Creatinine Ratio 63 (6-26); Blood Urea Nitrogen 25 mg/dL (8-23); Calcium 8.6 mg/dL (8.6-10.3); Carbon Dioxide 35 mEq/L (23-29); Chloride 95 mEq/L (98-107); Glucose 86 mg/dL (70-105); Osmolality,Calculated 288 (280-300); Potassium 3.6 mEq/L (3.5-5.1); Sodium 137 mEq/L (136-145); eGFR For African Americans > 60 (> 60); eGFR For Non-African Americans > 60 (> 60)
[2020-07-21 07:16] LABS: Hematocrit 40.1 % (37.5-50.1); Hemoglobin 12.1 g/dL (12.9-16.9); Mean Corpuscular HGB Conc 30.2 g/dL (31.6-35.5); Mean Corpuscular Hemoglobin 27.3 pg (28.0-33.3); Mean Corpuscular Volume 90.3 fL (83.0-100.0); Mean Platelet Volume 10.1 fL (9.4-12.4); Platelet Count 108 K/mcL (140-400); Red Blood Count 4.44 M/mcL (4.19-5.50); Red Cell Distribution Width 17.2 % (11.5-14.5); White Blood Count 9.9 K/mcL (4.3-11.1)
[2020-07-21] MEDS: Insulin LISPRO 300 UNITS/3 ML VIAL SQ SCH ×4 (07:24→20:28)
[2020-07-21] MEDS: predniSONE 20 MG TABLET PO SCH (07:31)
[2020-07-21] MEDS: Gabapentin 300 MG CAPSULE PO SCH ×2 (07:31→20:27)
[2020-07-21] MEDS: Metoprolol XL (24 HR) Succ 50 MG TAB.ER.24H PO SCH ×2 (07:31→20:26)
[2020-07-21] MEDS: Furosemide 40 MG TABLET PO SCH (07:31)
[2020-07-21] MEDS: Nicotine 21 MG PATCH.TD24 TD SCH (07:31)
[2020-07-21] MEDS: metroNIDAZOLE 500 MG TABLET PO SCH ×3 (07:31→20:27)
[2020-07-21] MEDS: *HR* Digoxin 0.125 MG TABLET PO SCH (07:31)
[2020-07-21] MEDS: Cefepime HCl 2,000 MG in Water for inj. (sterile) 20 ML IVP SCH ×2 (07:32→20:28)
[2020-07-21] MEDS: polyethylene glycoL 3350 17 GM POWD.PACK PO SCH ×2 (08:12→20:28)
[2020-07-21] MEDS ORDERED: Insulin DETEMIR 100 UNIT/ML X5UNITS SQ ONE (16:20)
[2020-07-21] MEDS ORDERED: Vancomycin 1,250 MG/262.5 ML IV.SOLN IVPB SCH (20:00)
[2020-07-21] MEDS: Vancomycin 1,500 MG/265 ML IV.SOLN IVPB SCH (20:27)
[2020-07-22] MEDS: Levalbuterol Neb 1.25 MG/3 ML IH SCH ×6 (03:50→23:35)
[2020-07-22] MEDS: Ipratropium Neb 0.5 MG NEBULIZER IH SCH ×6 (03:50→23:35)
[2020-07-22] MEDS: polyethylene glycoL 3350 17 GM POWD.PACK PO SCH ×2 (07:24→21:09)
[2020-07-22] MEDS: Insulin LISPRO 300 UNITS/3 ML VIAL SQ SCH ×7 (07:25→21:09)
[2020-07-22] MEDS: Furosemide 40 MG TABLET PO SCH (07:27)
[2020-07-22] MEDS: *HR* Digoxin 0.125 MG TABLET PO SCH (07:27)
[2020-07-22] MEDS: metroNIDAZOLE 500 MG TABLET PO SCH ×3 (07:27→20:59)
[2020-07-22] MEDS: Nicotine 21 MG PATCH.TD24 TD SCH (07:27)
[2020-07-22] MEDS: Cefepime HCl 2,000 MG in Water for inj. (sterile) 20 ML IVP SCH ×2 (07:28→20:58)
[2020-07-22] MEDS: Gabapentin 300 MG CAPSULE PO SCH ×2 (07:32→20:59)
[2020-07-22] MEDS: predniSONE 20 MG TABLET PO SCH (07:32)
[2020-07-22] MEDS: Metoprolol XL (24 HR) Succ 50 MG TAB.ER.24H PO SCH ×2 (07:32→20:59)
[2020-07-22] MEDS ORDERED: *HR* FentaNYL (PF) 100 MCG/2 ML VIAL IVP PRN (07:59)
[2020-07-22] MEDS ORDERED: Lidocaine Viscous Oral Soln 15 ML SOLUTION MM PRN (07:59)
[2020-07-22] MEDS ORDERED: 0.9 % Sodium Chloride 500 ML IVC ONE (08:00)
[2020-07-22] MEDS ORDERED: *HR* Midazolam HCl 5 MG/5 ML VIAL IVP PRN (08:00)
[2020-07-22 10:21] LABS: Basophils # 0.1 K/mcL (0.0-0.2); Basophils % 0.9 %; Eosinophils % 0.1 %; Hematocrit 40.7 % (37.5-50.1); Hemoglobin 12.5 g/dL (12.9-16.9); Immature Granulocytes % 7.2 % (0-4); Immature Platelets 5.1 % (1.1-6.1); Lymphocytes # 0.6 K/mcL (0.6-4.6); Lymphocytes % 6.7 %; Mean Corpuscular HGB Conc 30.7 g/dL (31.6-35.5); Mean Corpuscular Hemoglobin 27.1 pg (28.0-33.3); Mean Corpuscular Volume 88.3 fL (83.0-100.0); Mean Platelet Volume 9.8 fL (9.4-12.4); Monocytes # 0.3 K/mcL (0.0-1.3); Monocytes % 2.9 %; Neutrophils # 7.8 K/mcL (1.6-8.9); Platelet Count 121 K/mcL (140-400); Red Blood Count 4.61 M/mcL (4.19-5.50); Red Cell Distribution Width 17.8 % (11.5-14.5); Segmented Neutrophils % 82.2 %; White Blood Count 9.5 K/mcL (4.3-11.1)
[2020-07-22 10:43] LABS: Platelet Estimate Normal (Normal)
[2020-07-22] MEDS: Insulin DETEMIR 100 UNIT/ML X5UNITS SQ SCH (11:17)
[2020-07-22 12:04] LABS: BUN/Creatinine Ratio 55 (6-26); Blood Urea Nitrogen 21 mg/dL (8-23); Calcium 8.5 mg/dL (8.6-10.3); Carbon Dioxide 33 mEq/L (23-29); Chloride 95 mEq/L (98-107); Glucose 96 mg/dL (70-105); Magnesium 1.4 mg/dL (1.6-2.6); Osmolality,Calculated 289 (280-300); Potassium 4.2 mEq/L (3.5-5.1); Sodium 138 mEq/L (136-145); eGFR For African Americans > 60 (> 60); eGFR For Non-African Americans > 60 (> 60)
[2020-07-22] MEDS: Aspirin 325 MG TABLET PO SCH (18:17)
[2020-07-22] MEDS: Vancomycin 1,500 MG/265 ML IV.SOLN IVPB SCH (21:00)
[2020-07-23] MEDS: Ipratropium Neb 0.5 MG NEBULIZER IH SCH ×6 (03:27→23:52)
[2020-07-23] MEDS: Levalbuterol Neb 1.25 MG/3 ML IH SCH ×6 (03:27→23:52)
[2020-07-23] MEDS: Acetaminophen 325 MG TABLET PO PRN ×3 (04:36→20:21)
[2020-07-23 06:56] LABS: Hematocrit 39.8 % (37.5-50.1); Immature Platelets 5.5 % (1.1-6.1); Mean Corpuscular HGB Conc 30.2 g/dL (31.6-35.5); Mean Corpuscular Hemoglobin 27.1 pg (28.0-33.3); Mean Platelet Volume 10.3 fL (9.4-12.4); Monocytes # 0.3 K/mcL (0.0-1.3); Nucleated Red Blood Cells 0.4 /100 WBC (0); Platelet Count 113 K/mcL (140-400); Red Blood Count 4.42 M/mcL (4.19-5.50); Red Cell Distribution Width 18.1 % (11.5-14.5); White Blood Count 7.3 K/mcL (4.3-11.1)
[2020-07-23 07:18] LABS: BUN/Creatinine Ratio 38 (6-26); Blood Urea Nitrogen 15 mg/dL (8-23); Carbon Dioxide 38 mEq/L (23-29); Chloride 95 mEq/L (98-107); Glucose 118 mg/dL (70-105); Magnesium 1.7 mg/dL (1.6-2.6); Osmolality,Calculated 288 (280-300); Sodium 138 mEq/L (136-145); eGFR For African Americans > 60 (> 60); eGFR For Non-African Americans > 60 (> 60)
[2020-07-23 07:22] LABS: Lymphocytes # 0.6 K/mcL (0.6-4.6); Neutrophils # 6.4 K/mcL (1.6-8.9)
[2020-07-23 07:23] LABS: Platelet Estimate Slight Decrease (Normal)
[2020-07-23] MEDS: Insulin LISPRO 300 UNITS/3 ML VIAL SQ SCH ×7 (07:30→21:00)
[2020-07-23] MEDS: Gabapentin 300 MG CAPSULE PO SCH ×2 (07:58→20:20)
[2020-07-23] MEDS: predniSONE 20 MG TABLET PO SCH (07:58)
[2020-07-23] MEDS: metroNIDAZOLE 500 MG TABLET PO SCH ×3 (07:58→20:20)
[2020-07-23] MEDS: polyethylene glycoL 3350 17 GM POWD.PACK PO SCH ×2 (07:59→20:41)
[2020-07-23] MEDS: Furosemide 40 MG TABLET PO SCH (07:59)
[2020-07-23] MEDS: Aspirin 325 MG TABLET PO SCH (07:59)
[2020-07-23] MEDS: Insulin DETEMIR 100 UNIT/ML X5UNITS SQ SCH (07:59)
[2020-07-23] MEDS: *HR* Digoxin 0.125 MG TABLET PO SCH (07:59)
[2020-07-23] MEDS: Cefepime HCl 2,000 MG in Water for inj. (sterile) 20 ML IVP SCH ×2 (08:00→20:19)
[2020-07-23] MEDS: Nicotine 21 MG PATCH.TD24 TD SCH (08:20)
[2020-07-23] MEDS: Metoprolol XL (24 HR) Succ 50 MG TAB.ER.24H PO SCH (10:06)
[2020-07-23] MEDS ORDERED: 0.9 % Sodium Chloride 500 ML IVC ONE ×2 (11:11→14:37)
[2020-07-23] MEDS ORDERED: 0.9 % Sodium Chloride 1,000 ML ONE (11:15)
[2020-07-23] MEDS: Vancomycin 1,500 MG/265 ML IV.SOLN IVPB SCH (20:28)
[2020-07-24 03:20] LABS: Hematocrit 35.2 % (37.5-50.1); Hemoglobin 10.7 g/dL (12.9-16.9); Mean Corpuscular HGB Conc 30.4 g/dL (31.6-35.5); Mean Corpuscular Hemoglobin 27.8 pg (28.0-33.3); Mean Corpuscular Volume 91.4 fL (83.0-100.0); Mean Platelet Volume 10.5 fL (9.4-12.4); Nucleated Red Blood Cells 0.3 /100 WBC (0); Platelet Count 116 K/mcL (140-400); Red Blood Count 3.85 M/mcL (4.19-5.50); Red Cell Distribution Width 18.2 % (11.5-14.5); White Blood Count 5.8 K/mcL (4.3-11.1)
[2020-07-24 03:45] LABS: BUN/Creatinine Ratio 44 (6-26); Blood Urea Nitrogen 19 mg/dL (8-23); Calcium 8.7 mg/dL (8.6-10.3); Carbon Dioxide 41 mEq/L (23-29); Chloride 97 mEq/L (98-107); Glucose 170 mg/dL (70-105); Magnesium 1.7 mg/dL (1.6-2.6); Osmolality,Calculated 302 (280-300); Potassium 3.9 mEq/L (3.5-5.1); Sodium 143 mEq/L (136-145); eGFR For African Americans > 60 (> 60); eGFR For Non-African Americans > 60 (> 60)
[2020-07-24 03:53] LABS: Lymphocytes # 0.8 K/mcL (0.6-4.6); Monocytes # 0.1 K/mcL (0.0-1.3); Neutrophils # 4.9 K/mcL (1.6-8.9)
[2020-07-24] MEDS: Ipratropium Neb 0.5 MG NEBULIZER IH SCH ×6 (04:11→23:56)
[2020-07-24] MEDS: Levalbuterol Neb 1.25 MG/3 ML IH SCH ×6 (04:11→23:56)
[2020-07-24] MEDS: Gabapentin 300 MG CAPSULE PO SCH ×2 (08:44→20:41)
[2020-07-24] MEDS: *HR* Digoxin 0.125 MG TABLET PO SCH (08:44)
[2020-07-24] MEDS: predniSONE 20 MG TABLET PO SCH (08:44)
[2020-07-24] MEDS: Metoprolol XL (24 HR) Succ 50 MG TAB.ER.24H PO SCH ×2 (08:44→20:41)
[2020-07-24] MEDS: Aspirin 325 MG TABLET PO SCH (08:45)
[2020-07-24] MEDS: Cefepime HCl 2,000 MG in Water for inj. (sterile) 20 ML IVP SCH ×2 (08:45→20:41)
[2020-07-24] MEDS: Nicotine 21 MG PATCH.TD24 TD SCH (08:45)
[2020-07-24] MEDS: metroNIDAZOLE 500 MG TABLET PO SCH ×3 (08:45→20:41)
[2020-07-24] MEDS: Insulin DETEMIR 100 UNIT/ML X5UNITS SQ SCH (08:46)
[2020-07-24] MEDS: Insulin LISPRO 300 UNITS/3 ML VIAL SQ SCH ×7 (08:46→21:08)
[2020-07-24] MEDS: polyethylene glycoL 3350 17 GM POWD.PACK PO SCH ×2 (08:47→21:07)
[2020-07-24] MEDS: Acetaminophen 325 MG TABLET PO PRN (15:55)
[2020-07-24] MEDS ORDERED: NON-FORMULARY MEDICATION 1 EACH EACH AER SCH (18:00)
[2020-07-24] MEDS: Tiotropium 18 MCG inhalation IH SCH (19:24)
[2020-07-24] MEDS: Budesonide/Formoterol 160/4.5 1 PUFF INH IH SCH (19:35)
[2020-07-24] MEDS: Vancomycin 1,500 MG/265 ML IV.SOLN IVPB SCH (21:59)
[2020-07-24] MEDS: Vancomycin 2,000 MG/520 ML IV.SOLN IVPB SCH (22:24)
[2020-07-25] MEDS: Ipratropium Neb 0.5 MG NEBULIZER IH SCH ×6 (04:03→23:44)
[2020-07-25] MEDS: Levalbuterol Neb 1.25 MG/3 ML IH SCH ×6 (04:03→23:44)
[2020-07-25 06:04] LABS: Basophils # 0.1 K/mcL (0.0-0.2); Basophils % 0.6 %; Hematocrit 35.4 % (37.5-50.1); Hemoglobin 10.6 g/dL (12.9-16.9); Lymphocytes # 0.8 K/mcL (0.6-4.6); Lymphocytes % 9.6 %; Mean Corpuscular HGB Conc 29.9 g/dL (31.6-35.5); Mean Corpuscular Hemoglobin 27.3 pg (28.0-33.3); Mean Corpuscular Volume 91.2 fL (83.0-100.0); Monocytes # 0.3 K/mcL (0.0-1.3); Monocytes % 3.5 %; Neutrophils # 6.7 K/mcL (1.6-8.9); Nucleated Red Blood Cells 0.6 /100 WBC (0); Platelet Count 145 K/mcL (140-400); Red Blood Count 3.88 M/mcL (4.19-5.50); Red Cell Distribution Width 18.3 % (11.5-14.5); Segmented Neutrophils % 82.3 %; White Blood Count 8.2 K/mcL (4.3-11.1)
[2020-07-25 06:23] LABS: BUN/Creatinine Ratio 40 (6-26); Blood Urea Nitrogen 25 mg/dL (8-23); Calcium 8.7 mg/dL (8.6-10.3); Carbon Dioxide 36 mEq/L (23-29); Chloride 98 mEq/L (98-107); Glucose 117 mg/dL (70-105); Magnesium 1.6 mg/dL (1.6-2.6); Osmolality,Calculated 291 (280-300); Potassium 4.2 mEq/L (3.5-5.1); Sodium 138 mEq/L (136-145); eGFR For African Americans > 60 (> 60); eGFR For Non-African Americans > 60 (> 60)
[2020-07-25] MEDS: Budesonide/Formoterol 160/4.5 1 PUFF INH IH SCH ×2 (07:51→19:53)
[2020-07-25] MEDS: Tiotropium 18 MCG inhalation IH SCH (07:54)
[2020-07-25] MEDS: *HR* Digoxin 0.125 MG TABLET PO SCH (08:20)
[2020-07-25] MEDS: metroNIDAZOLE 500 MG TABLET PO SCH ×3 (08:20→21:36)
[2020-07-25] MEDS: Gabapentin 300 MG CAPSULE PO SCH ×2 (08:20→21:36)
[2020-07-25] MEDS: Nicotine 21 MG PATCH.TD24 TD SCH (08:20)
[2020-07-25] MEDS: Metoprolol XL (24 HR) Succ 50 MG TAB.ER.24H PO SCH ×2 (08:21→23:07)
[2020-07-25] MEDS: predniSONE 20 MG TABLET PO SCH (08:22)
[2020-07-25] MEDS: Cefepime HCl 2,000 MG in Water for inj. (sterile) 20 ML IVP SCH ×2 (08:23→19:35)
[2020-07-25] MEDS: polyethylene glycoL 3350 17 GM POWD.PACK PO SCH ×2 (08:27→21:25)
[2020-07-25] MEDS: Insulin LISPRO 300 UNITS/3 ML VIAL SQ SCH ×7 (08:35→21:37)
[2020-07-25] MEDS: Aspirin 325 MG TABLET PO SCH (08:40)
[2020-07-25] MEDS: Insulin DETEMIR 100 UNIT/ML X5UNITS SQ SCH (08:44)
[2020-07-25] MEDS ORDERED: GuaiFENesin/Dextromethorphan TABLET PO PRN (15:00)
[2020-07-25] MEDS: Acetaminophen 325 MG TABLET PO PRN (19:35)
[2020-07-25] MEDS: Vancomycin 2,000 MG/520 ML IV.SOLN IVPB SCH (21:36)
[2020-07-26] MEDS: Ipratropium Neb 0.5 MG NEBULIZER IH SCH ×6 (03:28→23:21)
[2020-07-26] MEDS: Levalbuterol Neb 1.25 MG/3 ML IH SCH ×6 (03:28→23:21)
[2020-07-26 05:02] LABS: Hematocrit 34.4 % (37.5-50.1); Hemoglobin 10.2 g/dL (12.9-16.9); Lymphocytes # 0.8 K/mcL (0.6-4.6); Mean Corpuscular HGB Conc 29.7 g/dL (31.6-35.5); Mean Platelet Volume 10.3 fL (9.4-12.4); Nucleated Red Blood Cells 0.5 /100 WBC (0); Platelet Count 177 K/mcL (140-400); Red Blood Count 3.78 M/mcL (4.19-5.50); Red Cell Distribution Width 18.3 % (11.5-14.5); White Blood Count 7.7 K/mcL (4.3-11.1)
[2020-07-26 05:20] LABS: BUN/Creatinine Ratio 63 (6-26); Blood Urea Nitrogen 25 mg/dL (8-23); Calcium 8.5 mg/dL (8.6-10.3); Carbon Dioxide 31 mEq/L (23-29); Chloride 100 mEq/L (98-107); Glucose 85 mg/dL (70-105); Magnesium 1.6 mg/dL (1.6-2.6); Osmolality,Calculated 290 (280-300); Potassium 4.2 mEq/L (3.5-5.1); Sodium 138 mEq/L (136-145); eGFR For African Americans > 60 (> 60); eGFR For Non-African Americans > 60 (> 60)
[2020-07-26 05:55] LABS: Anisocytosis 1+ (Not Present); Hypochromasia Present (Not Present); Monocytes # 0.3 K/mcL (0.0-1.3); Neutrophils # 6.2 K/mcL (1.6-8.9); Platelet Estimate Normal (Normal); Toxic Granulation Present (Not Present)
[2020-07-26] MEDS: Budesonide/Formoterol 160/4.5 1 PUFF INH IH SCH ×2 (07:33→19:22)
[2020-07-26] MEDS: Tiotropium 18 MCG inhalation IH SCH (07:34)
[2020-07-26] MEDS: Nicotine 21 MG PATCH.TD24 TD SCH (07:40)
[2020-07-26] MEDS: Cefepime HCl 2,000 MG in Water for inj. (sterile) 20 ML IVP SCH ×2 (07:41→20:42)
[2020-07-26] MEDS: Aspirin 325 MG TABLET PO SCH (07:42)
[2020-07-26] MEDS: Metoprolol XL (24 HR) Succ 50 MG TAB.ER.24H PO SCH ×2 (07:43→20:42)
[2020-07-26] MEDS: Furosemide 40 MG TABLET PO SCH (07:43)
[2020-07-26] MEDS: Gabapentin 300 MG CAPSULE PO SCH ×2 (07:43→20:42)
[2020-07-26] MEDS: metroNIDAZOLE 500 MG TABLET PO SCH ×3 (07:43→20:42)
[2020-07-26] MEDS: predniSONE 20 MG TABLET PO SCH (07:43)
[2020-07-26] MEDS: *HR* Digoxin 0.125 MG TABLET PO SCH (07:43)
[2020-07-26] MEDS: polyethylene glycoL 3350 17 GM POWD.PACK PO SCH ×2 (07:45→20:43)
[2020-07-26] MEDS: Insulin LISPRO 300 UNITS/3 ML VIAL SQ SCH ×8 (07:53→20:43)
[2020-07-26] MEDS ORDERED: *HR* Alteplase (Cathflo) 2 MG VIAL IVP ONE (09:47)
[2020-07-26] MEDS: Insulin DETEMIR 100 UNIT/ML X5UNITS SQ SCH (10:59)
[2020-07-26] MEDS ORDERED: Insulin DETEMIR 100 UNIT/ML X5UNITS SQ ONE (11:01)
[2020-07-26] MEDS: Vancomycin 2,000 MG/520 ML IV.SOLN IVPB SCH (22:31)
[2020-07-27] MEDS: Levalbuterol Neb 1.25 MG/3 ML IH SCH ×6 (04:01→23:42)
[2020-07-27] MEDS: Ipratropium Neb 0.5 MG NEBULIZER IH SCH ×6 (04:01→23:42)
[2020-07-27 04:43] LABS: Hematocrit 32.3 % (37.5-50.1); Hemoglobin 9.9 g/dL (12.9-16.9); Mean Corpuscular HGB Conc 30.7 g/dL (31.6-35.5); Mean Corpuscular Hemoglobin 28.1 pg (28.0-33.3); Mean Corpuscular Volume 91.8 fL (83.0-100.0); Mean Platelet Volume 9.8 fL (9.4-12.4); Nucleated Red Blood Cells 0.8 /100 WBC (0); Platelet Count 184 K/mcL (140-400); Red Blood Count 3.52 M/mcL (4.19-5.50); Red Cell Distribution Width 18.4 % (11.5-14.5); White Blood Count 8.7 K/mcL (4.3-11.1)
[2020-07-27 05:02] LABS: BUN/Creatinine Ratio 61 (6-26); Blood Urea Nitrogen 27 mg/dL (8-23); Calcium 8.6 mg/dL (8.6-10.3); Carbon Dioxide 37 mEq/L (23-29); Chloride 98 mEq/L (98-107); Glucose 104 mg/dL (70-105); Osmolality,Calculated 295 (280-300); Potassium 3.7 mEq/L (3.5-5.1); Sodium 140 mEq/L (136-145); eGFR For African Americans > 60 (> 60); eGFR For Non-African Americans > 60 (> 60)
[2020-07-27 05:31] LABS: Lymphocytes # 0.5 K/mcL (0.6-4.6); Monocytes # 0.7 K/mcL (0.0-1.3); Neutrophils # 7.3 K/mcL (1.6-8.9)
[2020-07-27 05:33] LABS: Anisocytosis 1+ (Not Present); Hypochromasia Present (Not Present); Microcytosis Present (Not Present); Platelet Estimate Normal (Normal)
[2020-07-27] MEDS: Budesonide/Formoterol 160/4.5 1 PUFF INH IH SCH ×2 (07:26→19:52)
[2020-07-27] MEDS: Tiotropium 18 MCG inhalation IH SCH (07:30)
[2020-07-27] MEDS: Gabapentin 300 MG CAPSULE PO SCH ×2 (07:53→20:18)
[2020-07-27] MEDS: Metoprolol XL (24 HR) Succ 50 MG TAB.ER.24H PO SCH ×2 (07:53→20:22)
[2020-07-27] MEDS: predniSONE 20 MG TABLET PO SCH (07:53)
[2020-07-27] MEDS: metroNIDAZOLE 500 MG TABLET PO SCH (07:55)
[2020-07-27] MEDS: *HR* Digoxin 0.125 MG TABLET PO SCH (07:55)
[2020-07-27] MEDS: Furosemide 40 MG TABLET PO SCH (07:55)
[2020-07-27] MEDS: Aspirin 325 MG TABLET PO SCH (07:55)
[2020-07-27] MEDS: Nicotine 21 MG PATCH.TD24 TD SCH (07:55)
[2020-07-27] MEDS: polyethylene glycoL 3350 17 GM POWD.PACK PO SCH ×2 (07:56→20:20)
[2020-07-27] MEDS: Cefepime HCl 2,000 MG in Water for inj. (sterile) 20 ML IVP SCH (08:05)
[2020-07-27] MEDS ORDERED: Vancomycin 1,500 MG/265 ML IV.SOLN IVPB SCH (10:00)
[2020-07-27] MEDS: Insulin LISPRO 300 UNITS/3 ML VIAL SQ SCH ×7 (11:24→20:20)
[2020-07-27] MEDS: Vancomycin 1,250 MG/262.5 ML IV.SOLN IVPB SCH ×2 (11:47→22:09)
[2020-07-27] MEDS: Insulin DETEMIR 100 UNIT/ML X5UNITS SQ SCH (11:48)
[2020-07-27] MEDS: *HR* OxyCODONE/APAP 10/325 TABLET PO PRN ×2 (12:09→20:19)
[2020-07-27] MEDS: *HR* OxyCODONE/APAP 5/325 TABLET PO PRN (23:31)
[2020-07-28] MEDS: *HR* OxyCODONE/APAP 10/325 TABLET PO PRN ×2 (02:54→19:57)
[2020-07-28] MEDS: Ipratropium Neb 0.5 MG NEBULIZER IH SCH ×6 (03:31→23:21)
[2020-07-28] MEDS: Levalbuterol Neb 1.25 MG/3 ML IH SCH ×6 (03:31→23:21)
[2020-07-28 04:33] LABS: Basophils % 0.5 %; Hematocrit 32.2 % (37.5-50.1); Hemoglobin 9.7 g/dL (12.9-16.9); Lymphocytes # 0.8 K/mcL (0.6-4.6); Mean Corpuscular HGB Conc 30.1 g/dL (31.6-35.5); Mean Corpuscular Hemoglobin 27.5 pg (28.0-33.3); Mean Corpuscular Volume 91.2 fL (83.0-100.0); Mean Platelet Volume 10.1 fL (9.4-12.4); Monocytes # 0.5 K/mcL (0.0-1.3); Monocytes % 7.1 %; Neutrophils # 5.6 K/mcL (1.6-8.9); Nucleated Red Blood Cells 1.5 /100 WBC (0); Platelet Count 220 K/mcL (140-400); Red Blood Count 3.53 M/mcL (4.19-5.50); Segmented Neutrophils % 76.4 %; White Blood Count 7.4 K/mcL (4.3-11.1)
[2020-07-28 04:55] LABS: BUN/Creatinine Ratio 49 (6-26); Blood Urea Nitrogen 29 mg/dL (8-23); Calcium 8.6 mg/dL (8.6-10.3); Carbon Dioxide 39 mEq/L (23-29); Chloride 97 mEq/L (98-107); Glucose 173 mg/dL (70-105); Osmolality,Calculated 302 (280-300); Potassium 3.7 mEq/L (3.5-5.1); Sodium 141 mEq/L (136-145); eGFR For African Americans > 60 (> 60); eGFR For Non-African Americans > 60 (> 60)
[2020-07-28] MEDS: *HR* OxyCODONE/APAP 5/325 TABLET PO PRN (05:35)
[2020-07-28] MEDS: Budesonide/Formoterol 160/4.5 1 PUFF INH IH SCH ×2 (07:35→19:40)
[2020-07-28] MEDS: Tiotropium 18 MCG inhalation IH SCH (07:36)
[2020-07-28] MEDS ORDERED: 0.9 % Sodium Chloride 250 ML IVC ONE (08:52)
[2020-07-28] MEDS ORDERED: Acetaminophen IV 1,000 MG/100 ML INFUS..BTL IVPB ONE (08:54)
[2020-07-28] MEDS ORDERED: 0.9 % Sodium Chloride 250 ML ONE (08:58)
[2020-07-28] MEDS: Gabapentin 300 MG CAPSULE PO SCH ×2 (09:12→19:58)
[2020-07-28] MEDS: *HR* Digoxin 0.125 MG TABLET PO SCH (09:13)
[2020-07-28] MEDS: Aspirin 325 MG TABLET PO SCH (09:13)
[2020-07-28] MEDS: Nicotine 21 MG PATCH.TD24 TD SCH (09:13)
[2020-07-28] MEDS: Insulin DETEMIR 100 UNIT/ML X5UNITS SQ SCH (09:14)
[2020-07-28] MEDS: Insulin LISPRO 300 UNITS/3 ML VIAL SQ SCH ×6 (09:15→19:32)
[2020-07-28] MEDS: Furosemide 40 MG TABLET PO SCH (09:16)
[2020-07-28] MEDS: polyethylene glycoL 3350 17 GM POWD.PACK PO SCH ×2 (09:17→20:01)
[2020-07-28] MEDS: Metoprolol XL (24 HR) Succ 50 MG TAB.ER.24H PO SCH ×2 (09:17→19:58)
[2020-07-28] MEDS ORDERED: *HR* OxyCODONE/APAP 5/325 TABLET PO PRN (09:45)
[2020-07-28] MEDS: Vancomycin 1,250 MG/262.5 ML IV.SOLN IVPB SCH ×2 (11:09→22:12)
[2020-07-29] MEDS: *HR* OxyCODONE/APAP 10/325 TABLET PO PRN (02:01)
[2020-07-29 02:12] LABS: Hematocrit 31.1 % (37.5-50.1); Hemoglobin 9.2 g/dL (12.9-16.9); Mean Corpuscular HGB Conc 29.6 g/dL (31.6-35.5); Mean Corpuscular Hemoglobin 27.6 pg (28.0-33.3); Mean Corpuscular Volume 93.4 fL (83.0-100.0); Mean Platelet Volume 9.9 fL (9.4-12.4); Nucleated Red Blood Cells 1.4 /100 WBC (0); Platelet Count 227 K/mcL (140-400); Red Blood Count 3.33 M/mcL (4.19-5.50); Red Cell Distribution Width 19.3 % (11.5-14.5); White Blood Count 7.7 K/mcL (4.3-11.1)
[2020-07-29 02:27] LABS: BUN/Creatinine Ratio 52 (6-26); Blood Urea Nitrogen 24 mg/dL (8-23); Calcium 8.5 mg/dL (8.6-10.3); Carbon Dioxide 37 mEq/L (23-29); Chloride 99 mEq/L (98-107); Glucose 120 mg/dL (70-105); Osmolality,Calculated 295 (280-300); Potassium 4.1 mEq/L (3.5-5.1); Sodium 140 mEq/L (136-145); eGFR For African Americans > 60 (> 60); eGFR For Non-African Americans > 60 (> 60)
[2020-07-29] MEDS: Ipratropium Neb 0.5 MG NEBULIZER IH SCH ×6 (03:39→23:05)
[2020-07-29] MEDS: Levalbuterol Neb 1.25 MG/3 ML IH SCH ×6 (03:39→23:05)
[2020-07-29 03:50] LABS: Lymphocytes # 1.5 K/mcL (0.6-4.6); Monocytes # 0.2 K/mcL (0.0-1.3)
[2020-07-29 03:51] LABS: Anisocytosis 1+ (Not Present); Microcytosis Present (Not Present); Platelet Estimate Normal (Normal); Polychromasia 1+ (Not Present); Reactive Lymphocytes Present (Not Present)
[2020-07-29] MEDS: Acetaminophen 325 MG TABLET PO PRN (06:36)
[2020-07-29] MEDS: Budesonide/Formoterol 160/4.5 1 PUFF INH IH SCH ×2 (07:15→20:19)
[2020-07-29] MEDS: Insulin LISPRO 300 UNITS/3 ML VIAL SQ SCH ×4 (07:36→21:48)
[2020-07-29] MEDS ORDERED: *HR* OxyCODONE/APAP 5/325 TABLET PO PRN ×2 (08:22→11:43)
[2020-07-29] MEDS ORDERED: Acetaminophen 325 MG TABLET PO PRN ×2 (08:22→11:43)
[2020-07-29] MEDS: Nicotine 21 MG PATCH.TD24 TD SCH (10:00)
[2020-07-29] MEDS: *HR* Digoxin 0.125 MG TABLET PO SCH (10:00)
[2020-07-29] MEDS: Aspirin 325 MG TABLET PO SCH (10:00)
[2020-07-29] MEDS: Insulin DETEMIR 100 UNIT/ML X5UNITS SQ SCH ×2 (10:02→11:53)
[2020-07-29] MEDS: Gabapentin 300 MG CAPSULE PO SCH ×2 (10:02→21:49)
[2020-07-29] MEDS: polyethylene glycoL 3350 17 GM POWD.PACK PO SCH ×2 (10:02→23:09)
[2020-07-29] MEDS: Vancomycin 1,250 MG/262.5 ML IV.SOLN IVPB SCH ×2 (10:03→21:49)
[2020-07-29] MEDS: Metoprolol XL (24 HR) Succ 50 MG TAB.ER.24H PO SCH ×2 (10:08→21:49)
[2020-07-29] MEDS ORDERED: 0.9 % Sodium Chloride 250 ML IVC ONE (10:12)
[2020-07-29] MEDS: Tiotropium 18 MCG inhalation IH SCH (10:44)
[2020-07-29 10:48] LABS: ABG Base Excess 10 mEq/L (-2 to 3); ABG HCO3 38 mEq/L (21-27); ABG Oxygen Saturation 95 % (95-98); ABG PCO2 66 mmHg (35-45); ABG PH 7.37 pH Units (7.32-7.45); ABG PO2 82 mmHg (85-104); ABG TCO2 40 mEq/L (20-26)
[2020-07-29 15:43] LABS: VBG HCO3 40 mEq/L (21-27); VBG PCO2 76 mmHg (41-51); VBG PH 7.33 pH Units (7.32-7.42); VBG PO2 139 mmHg (25-50)
[2020-07-29 17:59] LABS: VBG HCO3 39 mEq/L (21-27); VBG PCO2 70 mmHg (41-51); VBG PH 7.35 pH Units (7.32-7.42); VBG PO2 195 mmHg (25-50)
[2020-07-30] MEDS: Ipratropium Neb 0.5 MG NEBULIZER IH SCH ×4 (03:27→15:23)
[2020-07-30] MEDS: Levalbuterol Neb 1.25 MG/3 ML IH SCH ×4 (03:27→15:23)
[2020-07-30 04:57] LABS: VBG HCO3 39 mEq/L (21-27); VBG PCO2 68 mmHg (41-51); VBG PH 7.37 pH Units (7.32-7.42); VBG PO2 164 mmHg (25-50)
[2020-07-30 05:03] LABS: Basophils % 0.5 %; Eosinophils % 0.2 %; Hematocrit 29.5 % (37.5-50.1); Hemoglobin 8.7 g/dL (12.9-16.9); Lymphocytes # 0.6 K/mcL (0.6-4.6); Lymphocytes % 8.5 %; Mean Corpuscular HGB Conc 29.5 g/dL (31.6-35.5); Mean Corpuscular Hemoglobin 27.8 pg (28.0-33.3); Mean Corpuscular Volume 94.2 fL (83.0-100.0); Mean Platelet Volume 9.8 fL (9.4-12.4); Monocytes # 0.6 K/mcL (0.0-1.3); Monocytes % 9.6 %; Nucleated Red Blood Cells 1.1 /100 WBC (0); Platelet Count 222 K/mcL (140-400); Red Blood Count 3.13 M/mcL (4.19-5.50); Red Cell Distribution Width 19.8 % (11.5-14.5); Segmented Neutrophils % 76.2 %; White Blood Count 6.6 K/mcL (4.3-11.1)
[2020-07-30 05:26] LABS: BUN/Creatinine Ratio 34 (6-26); Blood Urea Nitrogen 12 mg/dL (8-23); Calcium 8.5 mg/dL (8.6-10.3); Carbon Dioxide 37 mEq/L (23-29); Chloride 101 mEq/L (98-107); Glucose 68 mg/dL (70-105); Magnesium 1.6 mg/dL (1.6-2.6); Osmolality,Calculated 292 (280-300); Potassium 3.8 mEq/L (3.5-5.1); Sodium 142 mEq/L (136-145); eGFR For African Americans > 60 (> 60); eGFR For Non-African Americans > 60 (> 60)
[2020-07-30] MEDS: Tiotropium 18 MCG inhalation IH SCH (07:48)
[2020-07-30] MEDS: Budesonide/Formoterol 160/4.5 1 PUFF INH IH SCH (07:48)
[2020-07-30] MEDS ORDERED: Furosemide 20 MG TABLET PO SCH (09:00)
[2020-07-30] MEDS: Aspirin 325 MG TABLET PO SCH (09:13)
[2020-07-30] MEDS: Nicotine 21 MG PATCH.TD24 TD SCH (09:13)
[2020-07-30] MEDS: Metoprolol XL (24 HR) Succ 50 MG TAB.ER.24H PO SCH (09:14)
[2020-07-30] MEDS: *HR* Digoxin 0.125 MG TABLET PO SCH (09:15)
[2020-07-30] MEDS: Insulin LISPRO 300 UNITS/3 ML VIAL SQ SCH ×3 (09:15→15:34)
[2020-07-30] MEDS: Insulin DETEMIR 100 UNIT/ML X5UNITS SQ SCH (09:15)
[2020-07-30] MEDS: polyethylene glycoL 3350 17 GM POWD.PACK PO SCH (09:15)
[2020-07-30] MEDS: Gabapentin 300 MG CAPSULE PO SCH (09:15)
[2020-07-30] MEDS: Vancomycin 1,250 MG/262.5 ML IV.SOLN IVPB SCH (09:24)
[2020-07-30 12:43] VITALS: BP 101/62
[2020-07-30 13:40] LABS: Adenovirus Not Detected (Not Detect); Bordetella Pertussis Not Detected (Not Detect); Chlamydophila pneumoniae Not Detected (Not Detect); Coronavirus 229E Not Detected (Not Detect); Coronavirus HKU1 Not Detected (Not Detect); Coronavirus NL63 Not Detected (Not Detect); Coronavirus OC43 Not Detected (Not Detect); Human Metapneumovirus Not Detected (Not Detect); Human Rhinovirus/Enterovirus Not Detected (Not Detect); Influenza A Subtype 2009 H1 Not Detected (Not Detect); Influenza B Not Detected (Not Detect); Mycoplasma pneumoniae Not Detected (Not Detect); Parainfluenza Virus 1 Not Detected (Not Detect); Parainfluenza Virus 2 Not Detected (Not Detect); Parainfluenza Virus 3 Not Detected (Not Detect); Parainfluenza Virus 4 Not Detected (Not Detect); Respiratory Syncytial Virus Not Detected (Not Detect)
== END 2020-07-30 16:10 | DRG 853 ==
LOC: 2NNU → SUATTDRO 07-16 00:19 → 3NENU 07-24 19:12
PROVIDERS: ADMIT Internal Medicine; ATTEND Internal Medicine

== ENCOUNTER 2020-09-01 17:47 | Inpatient (IN) ==
[2020-09-01] MEDS ORDERED: Naloxone 0.4 MG/ML INJ IVP PRN (22:19)
[2020-09-01 23:14] LABS: Magnesium 1.5 mg/dL (1.6-2.6); Phosphorous 3.8 mg/dL (2.7-4.5)
[2020-09-01] MEDS ORDERED: Melatonin 3 MG TABLET PO PRN (23:17)
[2020-09-01 23:29] LABS: Thyroid Stimulating Hormone 1.34 mcIU/mL (0.340-5.600)
[2020-09-01 23:30] LABS: Triiodothyronine (T3) Free 3.14 pg/mL (2.50-3.90)
[2020-09-02] MEDS ORDERED: Levalbuterol Neb 1.25 MG/3 ML IH PRN (00:01)
[2020-09-02] MEDS ORDERED: *HR* Dextrose 50 % in Water (Vial) 50 ML VIAL IVP PRN (00:02)
[2020-09-02] MEDS ORDERED: D5% in Water 1,000 ML IVC PRN (00:02)
[2020-09-02] MEDS ORDERED: Dextrose Gel 15 GM/37.5 ML TUBE PO PRN ×2 (00:02)
[2020-09-02] MEDS: Acetaminophen 325 MG TABLET PO SCH ×7 (00:07→23:38)
[2020-09-02] MEDS: *HR* OxyCODONE/APAP 5/325 TABLET PO PRN ×4 (00:07→21:18)
[2020-09-02] MEDS ORDERED: Magnesium Sulfate 1 GM/102 ML PIGGYBACK IVPB ONE (02:01)
[2020-09-02] MEDS ORDERED: Gadolinium Contrast Agent (WT Based) IV PRN (05:22)
[2020-09-02 05:33] LABS: Basophils % 0.4 %; Eosinophils # 0.2 K/mcL (0.0-0.6); Eosinophils % 2.4 %; Hematocrit 32.1 % (37.5-50.1); Hemoglobin 9.5 g/dL (12.9-16.9); Immature Granulocytes % 0.4 % (0-4); Lymphocytes # 0.7 K/mcL (0.6-4.6); Lymphocytes % 9.7 %; Mean Corpuscular HGB Conc 29.6 g/dL (31.6-35.5); Mean Corpuscular Hemoglobin 25.4 pg (28.0-33.3); Mean Platelet Volume 9.5 fL (9.4-12.4); Monocytes # 0.7 K/mcL (0.0-1.3); Monocytes % 10.6 %; Neutrophils # 5.4 K/mcL (1.6-8.9); Platelet Count 319 K/mcL (140-400); Red Blood Count 3.74 M/mcL (4.19-5.50); Red Cell Distribution Width 17.7 % (11.5-14.5); Segmented Neutrophils % 76.5 %
[2020-09-02 05:35] LABS: Mean Corpuscular Volume 85.8 fL (83.0-100.0)
[2020-09-02 05:49] LABS: BUN/Creatinine Ratio 22 (6-26); Blood Urea Nitrogen 11 mg/dL (8-23); Calcium 9.4 mg/dL (8.6-10.3); Carbon Dioxide 30 mEq/L (23-29); Chloride 98 mEq/L (98-107); Glucose 94 mg/dL (70-105); Osmolality,Calculated 283 (280-300); Potassium 3.2 mEq/L (3.5-5.1); Sodium 137 mEq/L (136-145); eGFR For African Americans > 60 (> 60); eGFR For Non-African Americans > 60 (> 60)
[2020-09-02] MEDS: Budesonide/Formoterol 160/4.5 1 PUFF INH IH SCH ×2 (07:34→21:52)
[2020-09-02] MEDS: Tiotropium 18 MCG inhalation IH SCH (07:35)
[2020-09-02] MEDS: Insulin LISPRO 300 UNITS/3 ML VIAL SQ SCH ×4 (08:17→21:11)
[2020-09-02] MEDS: Aspirin 325 MG TABLET PO SCH (08:21)
[2020-09-02] MEDS: Furosemide 20 MG TABLET PO SCH (08:22)
[2020-09-02] MEDS: (Ezetimibe [Zetia] 10 MG) PO SCH (08:22)
[2020-09-02] MEDS: Gabapentin 300 MG CAPSULE PO SCH ×2 (08:22→21:18)
[2020-09-02] MEDS: Nicotine 21 MG PATCH.TD24 TD SCH (08:22)
[2020-09-02] MEDS ORDERED: NON-FORMULARY MEDICATION 1 EACH EACH (Fluticasone/Umeclidin/Vilanter [Trelegy Ellipta 100- IH SCH (09:00)
[2020-09-02] MEDS ORDERED: Isovue-370 500 ML BOTTLE IVP ONE (15:15)
[2020-09-02] MEDS: *HR* Digoxin 0.125 MG TABLET PO SCH ×2 (15:36→16:23)
[2020-09-02] MEDS: Metoprolol XL (24 HR) Succ 50 MG TAB.ER.24H PO SCH ×2 (15:36→17:18)
[2020-09-02] MEDS: Metoprolol XL (24 HR) Succ 25 MG TAB.ER.24H PO SCH ×2 (15:36→17:18)
[2020-09-02] MEDS: Insulin DETEMIR 100 UNIT/ML X5UNITS SQ SCH (15:36)
[2020-09-02] MEDS: *HR* FentaNYL PATCH 50 MCG PATCH TD SCH (15:46)
[2020-09-02 16:20] LABS: % Iron Saturation 14 % (20-55); Iron 35 mcg/dL (65-175); Transferrin 185 mg/dL (203-362)
[2020-09-02 16:39] LABS: Ferritin 603 ng/mL (20-250)
[2020-09-02] MEDS ORDERED: *HR* OxyCODONE Immed Rel 5 MG TABLET PO ONE (17:59)
[2020-09-03 00:43] LABS: Basophils % 0.2 %; Eosinophils # 0.2 K/mcL (0.0-0.6); Eosinophils % 2.2 %; Hematocrit 32.1 % (37.5-50.1); Hemoglobin 9.5 g/dL (12.9-16.9); Immature Granulocytes % 0.4 % (0-4); Lymphocytes # 0.6 K/mcL (0.6-4.6); Lymphocytes % 7.5 %; Mean Corpuscular HGB Conc 29.6 g/dL (31.6-35.5); Mean Corpuscular Hemoglobin 25.7 pg (28.0-33.3); Mean Platelet Volume 9.5 fL (9.4-12.4); Monocytes # 0.8 K/mcL (0.0-1.3); Monocytes % 9.5 %; Neutrophils # 6.8 K/mcL (1.6-8.9); Platelet Count 329 K/mcL (140-400); Red Blood Count 3.69 M/mcL (4.19-5.50); Red Cell Distribution Width 17.6 % (11.5-14.5); Segmented Neutrophils % 80.2 %; White Blood Count 8.5 K/mcL (4.3-11.1)
[2020-09-03 00:59] LABS: BUN/Creatinine Ratio 22 (6-26); Blood Urea Nitrogen 13 mg/dL (8-23); Calcium 9.1 mg/dL (8.6-10.3); Carbon Dioxide 28 mEq/L (23-29); Chloride 98 mEq/L (98-107); Glucose 102 mg/dL (70-105); Magnesium 1.7 mg/dL (1.6-2.6); Osmolality,Calculated 286 (280-300); Phosphorous 3.9 mg/dL (2.7-4.5); Potassium 3.4 mEq/L (3.5-5.1); Sodium 138 mEq/L (136-145); eGFR For African Americans > 60 (> 60); eGFR For Non-African Americans > 60 (> 60)
[2020-09-03 01:36] LABS: Anisocytosis 1+ (Not Present); Hypochromasia Present (Not Present); Platelet Estimate Normal (Normal); Polychromasia 1+ (Not Present)
[2020-09-03] MEDS: Acetaminophen 325 MG TABLET PO SCH ×5 (04:21→19:33)
[2020-09-03] MEDS: Budesonide/Formoterol 160/4.5 1 PUFF INH IH SCH ×2 (08:55→20:03)
[2020-09-03] MEDS: Tiotropium 18 MCG inhalation IH SCH (08:56)
[2020-09-03] MEDS: Insulin LISPRO 300 UNITS/3 ML VIAL SQ SCH ×4 (08:59→20:13)
[2020-09-03] MEDS: Metoprolol XL (24 HR) Succ 25 MG TAB.ER.24H PO SCH (09:05)
[2020-09-03] MEDS: (Ezetimibe [Zetia] 10 MG) PO SCH (09:05)
[2020-09-03] MEDS: Metoprolol XL (24 HR) Succ 50 MG TAB.ER.24H PO SCH (09:05)
[2020-09-03] MEDS ORDERED: *HR* OxyCODONE Immed Rel 5 MG TABLET PO PRN (09:46)
[2020-09-03] MEDS: Aspirin 325 MG TABLET PO SCH (10:01)
[2020-09-03] MEDS: *HR* Digoxin 0.125 MG TABLET PO SCH (10:01)
[2020-09-03] MEDS: Nicotine 21 MG PATCH.TD24 TD SCH (10:01)
[2020-09-03] MEDS: Furosemide 20 MG TABLET PO SCH (10:02)
[2020-09-03] MEDS: Insulin DETEMIR 100 UNIT/ML X5UNITS SQ SCH (10:02)
[2020-09-03] MEDS: Gabapentin 300 MG CAPSULE PO SCH ×2 (10:02→19:32)
[2020-09-03] MEDS: *HR* OxyCODONE Immed Rel 5 MG TABLET PO PRN ×3 (12:08→22:27)
[2020-09-03] MEDS ORDERED: Acetaminophen IV 1,000 MG/100 ML INFUS..BTL IVPB ONE (20:17)
[2020-09-04 03:29] LABS: Basophils % 0.4 %; Eosinophils # 0.2 K/mcL (0.0-0.6); Hematocrit 32.7 % (37.5-50.1); Hemoglobin 9.6 g/dL (12.9-16.9); Immature Granulocytes % 0.4 % (0-4); Lymphocytes # 0.7 K/mcL (0.6-4.6); Lymphocytes % 9.8 %; Mean Corpuscular HGB Conc 29.4 g/dL (31.6-35.5); Mean Corpuscular Hemoglobin 25.4 pg (28.0-33.3); Mean Corpuscular Volume 86.5 fL (83.0-100.0); Mean Platelet Volume 9.4 fL (9.4-12.4); Monocytes # 0.9 K/mcL (0.0-1.3); Neutrophils # 5.4 K/mcL (1.6-8.9); Platelet Count 327 K/mcL (140-400); Red Blood Count 3.78 M/mcL (4.19-5.50); Red Cell Distribution Width 17.9 % (11.5-14.5); Segmented Neutrophils % 74.4 %; White Blood Count 7.2 K/mcL (4.3-11.1)
[2020-09-04 03:48] LABS: BUN/Creatinine Ratio 28 (6-26); Blood Urea Nitrogen 16 mg/dL (8-23); Calcium 9.3 mg/dL (8.6-10.3); Carbon Dioxide 31 mEq/L (23-29); Chloride 100 mEq/L (98-107); Glucose 86 mg/dL (70-105); Osmolality,Calculated 288 (280-300); Potassium 3.3 mEq/L (3.5-5.1); Sodium 139 mEq/L (136-145); eGFR For African Americans > 60 (> 60); eGFR For Non-African Americans > 60 (> 60)
[2020-09-04 03:51] LABS: % Iron Saturation 14 % (20-55); Iron 34 mcg/dL (65-175); Transferrin 169 mg/dL (203-362)
[2020-09-04 04:08] LABS: Ferritin 516 ng/mL (20-250)
[2020-09-04] MEDS: Furosemide 20 MG TABLET PO SCH (07:59)
[2020-09-04] MEDS: Gabapentin 300 MG CAPSULE PO SCH ×2 (07:59→19:38)
[2020-09-04] MEDS: Aspirin 325 MG TABLET PO SCH (07:59)
[2020-09-04] MEDS: *HR* Digoxin 0.125 MG TABLET PO SCH (07:59)
[2020-09-04] MEDS: Insulin DETEMIR 100 UNIT/ML X5UNITS SQ SCH (08:00)
[2020-09-04] MEDS: Insulin LISPRO 300 UNITS/3 ML VIAL SQ SCH ×4 (08:00→19:42)
[2020-09-04] MEDS: Nicotine 21 MG PATCH.TD24 TD SCH (08:01)
[2020-09-04] MEDS: Metoprolol XL (24 HR) Succ 50 MG TAB.ER.24H PO SCH (08:02)
[2020-09-04] MEDS: Metoprolol XL (24 HR) Succ 25 MG TAB.ER.24H PO SCH (08:02)
[2020-09-04] MEDS: (Ezetimibe [Zetia] 10 MG) PO SCH (08:02)
[2020-09-04] MEDS: Morphine Sulfate Oral CONC 10 MG/0.5 ML ORAL.SYG SL PRN ×3 (09:57→19:38)
[2020-09-04] MEDS: Budesonide/Formoterol 160/4.5 1 PUFF INH IH SCH ×2 (10:29→19:41)
[2020-09-04] MEDS: Tiotropium 18 MCG inhalation IH SCH (10:29)
[2020-09-05] MEDS: Morphine Sulfate Oral CONC 10 MG/0.5 ML ORAL.SYG SL PRN (01:27)
[2020-09-05 02:01] LABS: Basophils % 0.3 %; Eosinophils # 0.2 K/mcL (0.0-0.6); Eosinophils % 2.4 %; Hematocrit 31.9 % (37.5-50.1); Hemoglobin 9.6 g/dL (12.9-16.9); Immature Granulocytes % 0.3 % (0-4); Lymphocytes # 0.7 K/mcL (0.6-4.6); Lymphocytes % 8.2 %; Mean Corpuscular HGB Conc 30.1 g/dL (31.6-35.5); Mean Corpuscular Hemoglobin 25.7 pg (28.0-33.3); Mean Corpuscular Volume 85.5 fL (83.0-100.0); Mean Platelet Volume 9.9 fL (9.4-12.4); Monocytes # 1.1 K/mcL (0.0-1.3); Monocytes % 12.1 %; Neutrophils # 6.7 K/mcL (1.6-8.9); Platelet Count 273 K/mcL (140-400); Red Blood Count 3.73 M/mcL (4.19-5.50); Red Cell Distribution Width 17.8 % (11.5-14.5); Segmented Neutrophils % 76.7 %; White Blood Count 8.8 K/mcL (4.3-11.1)
[2020-09-05 02:16] LABS: BUN/Creatinine Ratio 27 (6-26); Blood Urea Nitrogen 13 mg/dL (8-23); Calcium 8.9 mg/dL (8.6-10.3); Carbon Dioxide 28 mEq/L (23-29); Chloride 102 mEq/L (98-107); Glucose 100 mg/dL (70-105); Osmolality,Calculated 288 (280-300); Potassium 3.9 mEq/L (3.5-5.1); Sodium 139 mEq/L (136-145); eGFR For African Americans > 60 (> 60); eGFR For Non-African Americans > 60 (> 60)
[2020-09-05] MEDS: Budesonide/Formoterol 160/4.5 1 PUFF INH IH SCH ×2 (08:06→19:19)
[2020-09-05] MEDS: Tiotropium 18 MCG inhalation IH SCH (08:07)
[2020-09-05] MEDS: Gabapentin 300 MG CAPSULE PO SCH ×2 (08:48→21:32)
[2020-09-05] MEDS: *HR* Digoxin 0.125 MG TABLET PO SCH (08:49)
[2020-09-05] MEDS: *HR* OxyCODONE Immed Rel 5 MG TABLET PO PRN ×3 (08:50→21:33)
[2020-09-05] MEDS: Furosemide 20 MG TABLET PO SCH (08:50)
[2020-09-05] MEDS: Aspirin 325 MG TABLET PO SCH (08:50)
[2020-09-05] MEDS: Insulin DETEMIR 100 UNIT/ML X5UNITS SQ SCH (08:50)
[2020-09-05] MEDS: Insulin LISPRO 300 UNITS/3 ML VIAL SQ SCH ×4 (08:52→21:39)
[2020-09-05] MEDS: Metoprolol XL (24 HR) Succ 50 MG TAB.ER.24H PO SCH (08:54)
[2020-09-05] MEDS: Metoprolol XL (24 HR) Succ 25 MG TAB.ER.24H PO SCH (08:54)
[2020-09-05] MEDS: (Ezetimibe [Zetia] 10 MG) PO SCH (08:54)
[2020-09-05] MEDS: Sennosides 8.6 MG TABLET PO SCH ×2 (11:41→21:39)
[2020-09-05] MEDS ORDERED: polyethylene glycoL 3350 17 GM POWD.PACK PO PRN (11:41)
[2020-09-05] MEDS: *HR* FentaNYL PATCH 50 MCG PATCH TD SCH (12:28)
[2020-09-05] MEDS: Nicotine 21 MG PATCH.TD24 TD SCH (21:37)
[2020-09-06] MEDS: *HR* OxyCODONE Immed Rel 5 MG TABLET PO PRN ×2 (01:49→16:08)
[2020-09-06] MEDS: Tiotropium 18 MCG inhalation IH SCH (08:26)
[2020-09-06] MEDS: Budesonide/Formoterol 160/4.5 1 PUFF INH IH SCH (08:26)
[2020-09-06] MEDS: *HR* Digoxin 0.125 MG TABLET PO SCH (08:36)
[2020-09-06] MEDS: Metoprolol XL (24 HR) Succ 25 MG TAB.ER.24H PO SCH (08:42)
[2020-09-06] MEDS: Metoprolol XL (24 HR) Succ 50 MG TAB.ER.24H PO SCH (08:42)
[2020-09-06] MEDS: Gabapentin 300 MG CAPSULE PO SCH (08:45)
[2020-09-06] MEDS: (Ezetimibe [Zetia] 10 MG) PO SCH (08:45)
[2020-09-06] MEDS: Sennosides 8.6 MG TABLET PO SCH (08:46)
[2020-09-06] MEDS: Aspirin 325 MG TABLET PO SCH (08:47)
[2020-09-06] MEDS: Furosemide 20 MG TABLET PO SCH (08:47)
[2020-09-06] MEDS: Nicotine 21 MG PATCH.TD24 TD SCH (08:47)
[2020-09-06] MEDS: Insulin DETEMIR 100 UNIT/ML X5UNITS SQ SCH (08:49)
[2020-09-06] MEDS: Insulin LISPRO 300 UNITS/3 ML VIAL SQ SCH ×3 (08:49→17:03)
[2020-09-06 17:12] LABS: Adenovirus Not Detected (Not Detect); Coronavirus 229E Not Detected (Not Detect)
[2020-09-06 17:13] LABS: Bordetella Pertussis Not Detected (Not Detect); Chlamydophila pneumoniae Not Detected (Not Detect); Coronavirus HKU1 Not Detected (Not Detect); Coronavirus NL63 Not Detected (Not Detect); Coronavirus OC43 Not Detected (Not Detect); Human Metapneumovirus Not Detected (Not Detect); Human Rhinovirus/Enterovirus Not Detected (Not Detect); Influenza A Subtype 2009 H1 Not Detected (Not Detect); Influenza B Not Detected (Not Detect); Mycoplasma pneumoniae Not Detected (Not Detect); Parainfluenza Virus 1 Not Detected (Not Detect); Parainfluenza Virus 2 Not Detected (Not Detect); Parainfluenza Virus 3 Not Detected (Not Detect); Parainfluenza Virus 4 Not Detected (Not Detect); Respiratory Syncytial Virus Not Detected (Not Detect); SARS-CoV-2 Not Detected (Not Detect)
[2020-09-06 18:55] VITALS: BP 146/73
== END 2020-09-06 18:30 | DRG 312 ==
LOC: 3BNU → SUATTDRO 19:38
PROVIDERS: ADMIT Internal Medicine; ATTEND Internal Medicine

== ENCOUNTER 2020-10-31 15:11 | Inpatient (IN) ==
[2020-10-31] MEDS ORDERED: 0.9 % Sodium Chloride 1,000 ML IVC ONE ×2 (15:33→17:02)
[2020-10-31] MEDS ORDERED: Ondansetron 4 MG/2 ML VIAL IVP ONE (15:35)
[2020-10-31 16:24] LABS: INR 1.3; Prothrombin Time 14.7 Seconds (9.4-12.1)
[2020-10-31 16:25] LABS: VBG Ionized Calcium 1.01 mmol/L (1.15-1.35)
[2020-10-31 16:32] LABS: Basophils % 0.1 %; Eosinophils # 0.1 K/mcL (0.0-0.6); Eosinophils % 0.5 %; Hematocrit 42.6 % (37.5-50.1); Hemoglobin 12.6 g/dL (12.9-16.9); Immature Granulocytes % 0.4 % (0-4); Lymphocytes # 0.6 K/mcL (0.6-4.6); Mean Corpuscular HGB Conc 29.6 g/dL (31.6-35.5); Mean Corpuscular Hemoglobin 23.5 pg (28.0-33.3); Mean Corpuscular Volume 79.3 fL (83.0-100.0); Mean Platelet Volume 10.1 fL (9.4-12.4); Monocytes # 1.1 K/mcL (0.0-1.3); Monocytes % 7.8 %; Neutrophils # 11.9 K/mcL (1.6-8.9); Platelet Count 237 K/mcL (140-400); Red Blood Count 5.37 M/mcL (4.19-5.50); Red Cell Distribution Width 17.6 % (11.5-14.5); Segmented Neutrophils % 87.2 %; White Blood Count 13.6 K/mcL (4.3-11.1)
[2020-10-31 16:40] LABS: Alanine Aminotransferase 30 Units/L (7-52); Albumin 3.9 g/dL (3.5-5.7); Albumin/Globulin Ratio 1.2 (1.1-2.2); Alkaline Phosphatase 112 Units/L (34-104); Aspartate Amino Transferase 25 Units/L (13-39); BUN/Creatinine Ratio 20 (6-26); Bilirubin,Total 0.9 mg/dL (0.3-1.0); Blood Urea Nitrogen 19 mg/dL (8-23); Calcium 9.3 mg/dL (8.6-10.3); Carbon Dioxide 31 mEq/L (23-29); Chloride 90 mEq/L (98-107); Globulin 3.3 g/dL (2.4-3.5); Glucose 137 mg/dL (70-105); Magnesium 0.8 mg/dL (1.6-2.6); Osmolality,Calculated 282 (280-300); Phosphorous 3.7 mg/dL (2.7-4.5); Potassium 2.9 mEq/L (3.5-5.1); Sodium 134 mEq/L (136-145); Total Protein 7.2 g/dL (6.4-8.9); Troponin I 0.03 ng/mL (< 0.04); eGFR For African Americans > 60 (> 60); eGFR For Non-African Americans > 60 (> 60)
[2020-10-31] MEDS ORDERED: Potassium Chloride Elixir 20 MEQ/15 ML UDC PO ONE (16:42)
[2020-10-31 18:26] LABS: Adenovirus Not Detected (Not Detect); Bordetella Pertussis Not Detected (Not Detect); Chlamydophila pneumoniae Not Detected (Not Detect); Coronavirus 229E Not Detected (Not Detect); Coronavirus HKU1 Not Detected (Not Detect); Coronavirus NL63 Not Detected (Not Detect); Coronavirus OC43 Not Detected (Not Detect); Human Metapneumovirus Not Detected (Not Detect); Human Rhinovirus/Enterovirus Not Detected (Not Detect); Influenza A Subtype 2009 H1 Not Detected (Not Detect); Influenza B Not Detected (Not Detect); Mycoplasma pneumoniae Not Detected (Not Detect); Parainfluenza Virus 1 Not Detected (Not Detect); Parainfluenza Virus 2 Not Detected (Not Detect); Parainfluenza Virus 3 Not Detected (Not Detect); Parainfluenza Virus 4 Not Detected (Not Detect); Respiratory Syncytial Virus Not Detected (Not Detect); SARS-CoV-2 Not Detected (Not Detect)
[2020-10-31 19:56] LABS: Bilirubin,Urine Negative (Negative); Blood,Urine Negative (Negative); Clarity,Urine Clear (Clear); Color,Urine Yellow (Yellow); Glucose,Urine (UA) Normal (Normal); Ketones,Urine Negative (Negative); Leukocyte Esterase,Urine Negative (Negative); Nitrite,Urine Negative (Negative); Protein,Urine Trace mg/dL (Neg-Trace); Specific Gravity,Urine 1.015 (1.010-1.025); Urobilinogen,Urine Normal (Normal)
[2020-10-31] MEDS ORDERED: Naloxone 0.4 MG/ML INJ IVP PRN (20:53)
[2020-10-31] MEDS ORDERED: Ondansetron 4 MG/2 ML VIAL IVP PRN (20:53)
[2020-10-31] MEDS ORDERED: Acetaminophen 325 MG TABLET PO PRN (20:53)
[2020-10-31] MEDS ORDERED: 0.9 % Sodium Chloride 1,000 ML IVC SCH (21:00)
[2020-10-31] MEDS ORDERED: D5% in Water 1,000 ML IVC PRN (21:13)
[2020-10-31] MEDS ORDERED: Dextrose Gel 15 GM/37.5 ML TUBE PO PRN ×2 (21:13)
[2020-10-31] MEDS ORDERED: *HR* Dextrose 50 % in Water (Vial) 50 ML VIAL IVP PRN (21:13)
[2020-10-31] MEDS: Nicotine 14 MG PATCH.TD24 TD SCH (22:38)
[2020-11-01 01:52] LABS: Mean Corpuscular HGB Conc 29.7 g/dL (31.6-35.5); Mean Corpuscular Hemoglobin 23.8 pg (28.0-33.3); Platelet Count 201 K/mcL (140-400); Red Cell Distribution Width 17.2 % (11.5-14.5); White Blood Count 7.5 K/mcL (4.3-11.1)
[2020-11-01 01:53] LABS: Hemoglobin 10.7 g/dL (12.9-16.9)
[2020-11-01 02:10] LABS: BUN/Creatinine Ratio 23 (6-26); Blood Urea Nitrogen 14 mg/dL (8-23); Calcium 7.9 mg/dL (8.6-10.3); Carbon Dioxide 29 mEq/L (23-29); Chloride 98 mEq/L (98-107); Glucose 100 mg/dL (70-105); Osmolality,Calculated 283 (280-300); Potassium 2.9 mEq/L (3.5-5.1); Sodium 136 mEq/L (136-145); eGFR For African Americans > 60 (> 60); eGFR For Non-African Americans > 60 (> 60)
[2020-11-01 05:27] LABS: Magnesium 1.2 mg/dL (1.6-2.6)
[2020-11-01] MEDS ORDERED: Potassium Chloride 40 MEQ, Lidocaine 1% 2 ML in 0.9 % Sodium Chloride 500 ML IVPB ONE (08:08)
[2020-11-01] MEDS: Insulin LISPRO 300 UNITS/3 ML VIAL SQ SCH ×3 (09:02→17:52)
[2020-11-01] MEDS: Nicotine 14 MG PATCH.TD24 TD SCH (09:11)
[2020-11-01] MEDS ORDERED: Isovue-370 500 ML BOTTLE IVP ONE (09:24)
[2020-11-01] MEDS ORDERED: Dextrose Gel 15 GM/37.5 ML TUBE PO PRN (15:42)
[2020-11-01] MEDS ORDERED: GuaiFENesin/Dextromethorphan TABLET PO PRN (15:42)
[2020-11-01] MEDS ORDERED: Melatonin 3 MG TABLET PO PRN (15:42)
[2020-11-01] MEDS ORDERED: Acetaminophen 325 MG TABLET PO PRN (15:42)
[2020-11-01] MEDS ORDERED: *HR* FentaNYL PATCH 75 MCG PATCH TD SCH (15:45)
[2020-11-01] MEDS ORDERED: Gadolinium Contrast Agent (WT Based) IV PRN (15:54)
[2020-11-01 19:18] LABS: BUN/Creatinine Ratio 25 (6-26); Blood Urea Nitrogen 10 mg/dL (8-23); Calcium 8.7 mg/dL (8.6-10.3); Carbon Dioxide 29 mEq/L (23-29); Chloride 100 mEq/L (98-107); Glucose 106 mg/dL (70-105); Osmolality,Calculated 277 (280-300); Potassium 3.4 mEq/L (3.5-5.1); Sodium 134 mEq/L (136-145); eGFR For African Americans > 60 (> 60); eGFR For Non-African Americans > 60 (> 60)
[2020-11-01] MEDS: Gabapentin 300 MG CAPSULE PO SCH (19:51)
[2020-11-01] MEDS: Budesonide/Formoterol 160/4.5 1 PUFF INH IH SCH (21:42)
[2020-11-02 05:14] LABS: Hematocrit 36.3 % (37.5-50.1); Hemoglobin 10.8 g/dL (12.9-16.9); Mean Corpuscular HGB Conc 29.8 g/dL (31.6-35.5); Mean Corpuscular Hemoglobin 23.6 pg (28.0-33.3); Mean Corpuscular Volume 79.4 fL (83.0-100.0); Mean Platelet Volume 9.2 fL (9.4-12.4); Platelet Count 196 K/mcL (140-400); Red Blood Count 4.57 M/mcL (4.19-5.50); Red Cell Distribution Width 17.4 % (11.5-14.5); White Blood Count 5.4 K/mcL (4.3-11.1)
[2020-11-02 05:25] LABS: VBG Ionized Calcium 1.15 mmol/L (1.15-1.35)
[2020-11-02 05:33] LABS: BUN/Creatinine Ratio 26 (6-26); Blood Urea Nitrogen 10 mg/dL (8-23); Calcium 8.7 mg/dL (8.6-10.3); Carbon Dioxide 29 mEq/L (23-29); Chloride 100 mEq/L (98-107); Glucose 90 mg/dL (70-105); Magnesium 1.5 mg/dL (1.6-2.6); Osmolality,Calculated 279 (280-300); Phosphorous 2.5 mg/dL (2.7-4.5); Potassium 3.3 mEq/L (3.5-5.1); Sodium 135 mEq/L (136-145); eGFR For African Americans > 60 (> 60); eGFR For Non-African Americans > 60 (> 60)
[2020-11-02] MEDS: Insulin LISPRO 300 UNITS/3 ML VIAL SQ SCH ×3 (07:22→16:59)
[2020-11-02] MEDS: Budesonide/Formoterol 160/4.5 1 PUFF INH IH SCH ×2 (07:55→20:56)
[2020-11-02] MEDS ORDERED: Magnesium Sulfate 1 GM/102 ML PIGGYBACK IVPB ONE (07:56)
[2020-11-02] MEDS: Multivit/Ca/Min/Fe/FA 1 TAB TABLET PO SCH (08:48)
[2020-11-02] MEDS: Gabapentin 300 MG CAPSULE PO SCH ×2 (08:48→21:02)
[2020-11-02] MEDS: Aspirin Enteric Coated 81 MG Tablet PO SCH (08:48)
[2020-11-02] MEDS: Nicotine 14 MG PATCH.TD24 TD SCH (08:49)
[2020-11-02] MEDS ORDERED: Nicotine 14 MG PATCH.TD24 TD SCH (09:00)
[2020-11-02] MEDS ORDERED: D5% in 0.9% NACL 1,000 ML IVC SCH (15:30)
[2020-11-02] MEDS: dexAMETHasone 4 MG TABLET PO SCH (16:52)
[2020-11-02] MEDS: Ondansetron ODT 4 MG TAB.RAPDIS PO PRN (16:58)
[2020-11-03 03:04] LABS: Basophils % 0.2 %; Eosinophils % 0.2 %; Hematocrit 33.4 % (37.5-50.1); Hemoglobin 9.7 g/dL (12.9-16.9); Immature Granulocytes % 0.5 % (0-4); Lymphocytes # 0.3 K/mcL (0.6-4.6); Lymphocytes % 5.2 %; Mean Corpuscular Hemoglobin 23.3 pg (28.0-33.3); Mean Corpuscular Volume 80.1 fL (83.0-100.0); Mean Platelet Volume 9.5 fL (9.4-12.4); Monocytes # 0.4 K/mcL (0.0-1.3); Monocytes % 5.9 %; Neutrophils # 5.3 K/mcL (1.6-8.9); Platelet Count 200 K/mcL (140-400); Red Blood Count 4.17 M/mcL (4.19-5.50); Red Cell Distribution Width 17.2 % (11.5-14.5)
[2020-11-03 03:20] LABS: BUN/Creatinine Ratio 26 (6-26); Blood Urea Nitrogen 11 mg/dL (8-23); Calcium 8.3 mg/dL (8.6-10.3); Carbon Dioxide 31 mEq/L (23-29); Chloride 101 mEq/L (98-107); Glucose 155 mg/dL (70-105); Magnesium 1.2 mg/dL (1.6-2.6); Osmolality,Calculated 283 (280-300); Phosphorous 2.5 mg/dL (2.7-4.5); Potassium 4.1 mEq/L (3.5-5.1); Sodium 135 mEq/L (136-145); eGFR For African Americans > 60 (> 60); eGFR For Non-African Americans > 60 (> 60)
[2020-11-03] MEDS ORDERED: Magnesium Sulfate 1 GM/102 ML PIGGYBACK IVPB ONE (07:18)
[2020-11-03] MEDS: Ondansetron ODT 4 MG TAB.RAPDIS PO PRN (08:36)
[2020-11-03] MEDS: dexAMETHasone 4 MG TABLET PO SCH (08:37)
[2020-11-03] MEDS: Insulin LISPRO 300 UNITS/3 ML VIAL SQ SCH ×2 (08:38→11:48)
[2020-11-03] MEDS: Nicotine 14 MG PATCH.TD24 TD SCH (08:38)
[2020-11-03] MEDS: Aspirin Enteric Coated 81 MG Tablet PO SCH (08:38)
[2020-11-03] MEDS: Multivit/Ca/Min/Fe/FA 1 TAB TABLET PO SCH (08:38)
[2020-11-03] MEDS: Gabapentin 300 MG CAPSULE PO SCH (08:38)
[2020-11-03] MEDS ORDERED: *HR* Digoxin 0.125 MG TABLET PO SCH (09:00)
[2020-11-03] MEDS ORDERED: *HR* FentaNYL PATCH 75 MCG PATCH TD ONE (09:56)
[2020-11-03] MEDS: Budesonide/Formoterol 160/4.5 1 PUFF INH IH SCH (10:24)
[2020-11-03 10:59] VITALS: BP 101/63
[2020-11-04] MEDS ORDERED: dexAMETHasone 4 MG TABLET PO SCH (09:00)
== END 2020-11-03 12:26 | DRG 641 ==
LOC: 2ANU 15:11 → EMEROOARM 15:11 → SUATTDRO 19:35 → 2ANU 21:30
PROVIDERS: ADMIT Internal Medicine; ATTEND Internal Medicine